=== PATIENT | female | born 1990 | race Caucasian/White ===

== ENCOUNTER 2020-10-30 15:28 | Outpatient (REF) | payer MEDICARE, MEDICAID, SELFPAY | END 2020-10-30 15:29 | disposition home or self-care (01) | LOC: HO.LAB 15:28 | PROVIDERS: Visit Provider Internal Medicine | DX: Z20.822 Contact with and (suspected) exposure to COVID-19 (principal) | CPT/HCPCS: C9803; U0003; U0005 ==

== ENCOUNTER 2021-08-26 13:05 | Emergency (ER) | payer MEDICARE, MEDICAID, SELFPAY ==
[2021-08-26 13:26] VITALS: BP 148/89; PULSE 106; RESP 20; TEMP 36.4; O2SAT 98; BMI 49.3
--- NOTE | 2021-08-26 13:30 | ECG_ITS ---
Test Reason : chest pain Blood Pressure : / mmHG Vent. Rate : 106 BPM Atrial Rate : 106 BPM P-R Int : 156 ms QRS Dur : 094 ms QT Int : 346 ms P-R-T Axes : 019 018 001 degrees QTc Int : 459 ms Sinus tachycardia Otherwise normal ECG When compared with ECG of 02-MAY-2019 18:19, No significant change was found Referred By: Generic ED Physician Electronically Signed By:FAISAL PASCUAL
[2021-08-26 14:22] LABS: MANUAL DIFF FLAG NO
[2021-08-26 14:28] LABS: Basophils Percent Auto 0.3 % (0-2); Eosinophils Absolute Auto 0.1 X10*3/uL (0.0-0.4); Eosinophils Percent Auto 1.4 % (0-4); Hematocrit 33.4 % (37.0-47.0); Imm Gran Abs Auto 0.06 X10*3/uL (0.00-0.03); Imm Gran Pct Auto 0.7 % (0.0-0.4); Lymphocytes Absolute Auto 2.1 X10*3/uL (1.2-4.9); Lymphocytes Percent Auto 24.6 % (20-40); Mean Corpuscular HGB Conc 32.9 g/dl (31.0-35.0); Mean Corpuscular Hemoglobin 28.3 pg (27.0-33.0); Mean Corpuscular Volume 85.9 fL (80.0-98.0); Mean Platelet Volume 9.3 fL (9.4-12.3); Monocytes Absolute Auto 0.4 X10*3/uL (0.1-1.2); Monocytes Percent Auto 4.9 % (2-11); Neutrophils Absolute Auto 5.9 x10*3/uL (2.0-8.3); Neutrophils Percent Auto 68.1 % (45-73); Platelet Count 333 X10*3/uL (160-400); Red Blood Count 3.89 X10*6/uL (4.20-5.50); Red Cell Distribution Width 13.2 % (11.0-16.0); White Blood Count 8.6 X10*3/uL (4.8-10.8)
[2021-08-26 14:38] LABS: Anion Gap 11 (12-20); Blood Urea Nitrogen 7 mg/dL (9-16); Calcium 8.9 mg/dL (8.4-10.2); Carbon Dioxide 24 mmol/L (22-29); Chloride 108 mmol/L (96-108); Creatinine Clr Calc Pharmacy 177.1; Estimated Glomerular Filt Rate > 60; Glucose Random 115 mg/dL (60-115); Potassium 3.7 mmol/L (3.3-5.1); Sodium 139 mmol/L (135-145)
[2021-08-26 14:44] LABS: Troponin-I High Sensitivity < 3.5 ng/L (<3.5-17.0)
[2021-08-26 15:03] VITALS: BP 136/79; PULSE 99; RESP 18; TEMP 36.6; O2SAT 100
--- NOTE | 2021-08-26 15:20 | PC.NURSE ---
patient a&ox3, vss, hr obtained- 147, cardiac cath technician applied sinus tach low 100s, call foley within reach, will continue to monitor.
[2021-08-26 16:07] LABS: Appearance Urine CLEAR; Color Urine YELLOW; Glucose Urine UA NEG (NEG); Leukocyte Esterase Urine NEG (NEG); Nitrite Urine NEG (NEG); Specific Gravity - Urine >= 1.030 (1.005-1.025); Urine Blood NEG (NEG); Urine Ketones 5 MG/DL (NEG); Urine Protein TRACE MG/DL (NEG-TRACE)
--- NOTE | 2021-08-26 16:21 | ED_ITS ---
HPI - Arrhythmia/Palpitations General Chief Complaint: Arrhythmia/Palpitations Stated Complaint: 7 months/ heart palpitations Time Seen by Provider: 08/26/21 14:21 Source: patient Mode of arrival: ambulatory Limitations: no limitations History of Present Illness HPI narrative: 31-year-old female G7P 5, 30 weeks who presents emergency department for evaluation of palpitations. The patient states she has been healing her heart beating irregularly for approximately 4 months. She states that it mainly happens at night. She states that she will have a fast heartbeat and then skip be in feel a thumping sensation in her chest. She points to her sternum when asked to localize the pain. She states that the pain will last seconds but she will get multiple episodes in a row. She states that occasionally with the palpitation she will have pain in her left biceps and left shoulder area. She states that these sensations have become more frequent over the last 2 days. She also states she has been getting severe heartburn which is worse after eating and worse at night. She points to her epigastric area when asked to localize his pain, the pain is a moderate to severe burning sensation. Patient states that she feels the baby moving appropriately pain . She has not had any abdominal pain, cramping or vaginal discharge. The patient states that she has not had preeclampsia with previous pregnancies. She states she has had some high blood pressure readings in the office but is told that she does not have preeclampsia. She denies headache, nausea or vomiting. Patient states that she plans on delivering her baby at [facility]. She states she seen by the [facility] midwives. Related Data Home Medications Medication Instructions Recorded Confirmed metronidazole 0.75 % vaginal gel g VAGINAL 04/29/21 vitamin with calcium 1 tab PO DAILY 04/29/21 no.72-iron 27 mg-folic acid 1 mg tablet (M- Plus) Previous Rx's Medication Instructions Recorded cimetidine 800 mg tablet 800 mg PO BID #60 tab 08/26/21 Allergies Allergy/AdvReac Type Severity Reaction Status Date / Time ketorolac [From TORADOL] Allergy Unknown HIVES Verified 04/29/21 12:02 metronidazole Allergy Unknown heart Verified 04/29/21 12:02 races, nausea Review of Systems Verdana 4l Review of Systems: Yes all other systems are reviewed and Verdana 4d are negative [facility] Past Medical History PMFSH Narrative: Past medical history gestational diabetes. COVID-19 positive 2 or 3 weeks prior to evaluation. He past surgical history: None. Social history: The patient was a former smoker and she stop smoking when she found out she was . She denies alcohol use. She denies drug use. Surgical History No pertinent past surgical history Family History Family History Father Heart failure Acute kidney failure Mother Acute kidney failure Brother In good health Sister In good health Sister In good health Sister In good health Son In good health Daughter In good health Daughter In good health Daughter No problems noted. Social History Social History Housing: Other Alcohol intake: never Patient Tobacco Use Status: Former Tobacco user e-Cigarette/Vaping Use: Never Used Use of substances other than those prescribed or required for medical reasons: No Advance Directives: No Advance Directives Information Provided: Yes Patient : Yes service: No Physical Exam Verdana 4l Vital Signs: Verdana 4d Verdana 4d Vital Signs: Verdana 4d Verdana 4Bd Last Vital Signs Verdana 4d [employer] Plasma Etcher New 4d [employer] Plasma Etcher New 4d Temp 98.2 F 08/26/21 16:42 [employer] Plasma Etcher New 4d Pulse 96 08/26/21 16:42 [employer] Plasma Etcher New 4d Resp 16 08/26/21 16:42 BP 127/72 08/26/21 16:42 Pulse Ox 98 08/26/21 16:42 BMI result Body Mass Index 49.3 Const: Other: Awake, alert, patient, BMI 49.3, very pleasant and cooperative, does not appear to be in distress, answers all questions appropriate HENMT: Head: Yes normal to inspection, Yes normocephalic and Yes atraumatic Ears: external ears normal General nose exam: Normal external nose present Face and sinus: Yes normal facial exam Mouth: Normal oral and palatal mucosa present Throat: Yes posterior oropharynx normal Eyes: General: appearance normal, both eyes and all related structures Pupils: Equal, round and reactive pupils present Neck: Neck: Yes normal visual inspection, Yes no lymphadenopathy, Yes trachea midline and Yes supple Chest: Chest palpation & inspection: normal inspection of the chest and normal palpation of entire chest wall Resp: Effort & Inspection: normal respiratory effort and able to speak in complete sentences Auscultation: clear to auscultation bilaterally Cardio: Rate: regular rate Rhythm: regular rhythm Heart sounds: S1 normal heart sound present, S2 normal heart sound present and no murmurs GI: Inspection: Yes normal to inspection and Yes obesity Palpation (GI): Soft to palpation, Tenderness to palpation present (GI) in the epigastrum ([id number]) and no guarding Auscultation: normal bowel sounds : General: Yes no CVA tenderness Back/Spine/Pelvis: Back: no CVA tenderness Skin: General skin exam: no rashes or lesions noted Neuro: Cranial nerves: Yes CN's II-XII intact bilaterally and Yes Equal, round and reactive pupils present Cognition (Neuro): normal cognition Motor exam (neuro): 5/5 motor strength present throughout Extrem: General: Yes normal to inspection and Yes no pedal edema Psych: Appearance: grossly normal Speech and movement: Normal speech and movement present Affect: normal affect Attitude: cooperative Thought process: Normal thought process present Thought content: Normal thought content present Course Course Course Narrative: 31-year-old female who presents emergency department for evaluation of palpitations. She states she has been experiencing palpitations for 4 months but they have been worse over the past 2 days. They mainly, night. She describes them as lasting seconds with frequent episodes a row. She describes the sensation skipping beats a pounding sensation in her sternum. She occasionally has associated left arm pain with the palpitations. She has no other concerning symptoms. She also states that she has been experiencing heartburn like symptoms in her epigastric area has been taking times. The patient and is 30 weeks . She is getting her care at [facility] by the [facility] midwives. Patient's vital signs initially revealed a blood pressure of 148/89 with a pulse of 102 with improvement of her blood pressure without treatment with a blood pressure of 136/79 and 125/69. Her physical examination did reveal epigastric tenderness and no pedal edema. A 12 EKG revealed a sinus tachycardia with a rate of 106 otherwise was unremarkable. Laboratory evaluation revealed mild anemia which is consistent with with an H&H of 11 and 33.4. She had a normal platelet count. The patient's troponin was below detectable limits. LFTs were normal. The patient's urine revealed trace protein. heart tones were obtained at 147 beats per minute. At this time, I do not think that she has any evidence for preeclampsia or HELLP syndrome. Also, I believe that her palpitations are benig n and I did discuss this with her pain patient will be started on Tagamet 800 mg q.12 hours. 1701: I contacted the [facility] [place] [facility] and discuss the patient's presentation with Beatriz and they will follow-up on the patient MDM - Arrhythmia/Palpitations Lab Data Result diagrams: 08/26/21 14:19 08/26/21 14:19 Labs: Lab Results 08/26/21 08/26/21 08/26/21 Range/Units 14:19 14:19 14:19 WBC 8.6 (4.8-10.8) X10*3/uL RBC 3.89 L (4.20-5.50) X10*6/uL Hgb 11.0 L (12.0-16.0) g/dl Hct 33.4 L (37.0-47.0) % MCV 85.9 (80.0-98.0) fL MCH 28.3 (27.0-33.0) pg MCHC 32.9 (31.0-35.0) g/dl RDW 13.2 (11.0-16.0) % Plt Count 333 (160-400) X10*3/uL MPV 9.3 L (9.4-12.3) fL Immature Gran % (Auto) 0.7 H (0.0-0.4) % Neut % (Auto) 68.1 (45-73) % Lymph % (Auto) 24.6 (20-40) % [place] % (Auto) 4.9 (2-11) % Eos % (Auto) 1.4 (0-4) % Baso % (Auto) 0.3 (0-2) % Lymph # (Auto) 2.1 (1.2-4.9) X10*3/uL [place] # (Auto) 0.4 (0.1-1.2) X10*3/uL Eos # (Auto) 0.1 (0.0-0.4) X10*3/uL Baso # (Auto) 0.0 (0.0-0.2) X10*3/uL Abs Immat Gran (auto) 0.06 H (0.00-0.03) X10*3/uL Absolute Neuts (auto) 5.9 (2.0-8.3) x10*3/uL Absolute Nucleated RBC 0.000 (0.0-0.012) X10*3/uL Nucleated RBC % (auto) 0.0 (0.0-0.2) /100WBC Sodium 139 (135-145) mmol/L Potassium 3.7 (3.3-5.1) mmol/L Chloride 108 (96-108) mmol/L Carbon Dioxide 24 (22-29) mmol/L Anion Gap 11 L (12-20) BUN 7 L (9-16) mg/dL Creatinine 0.69 (0.5-1.4) mg/dL Estim Creat Clear Calc 177.1 Estimated GFR > 60 Random Glucose 115 (60-115) mg/dL Calcium 8.9 (8.4-10.2) mg/dL Total Bilirubin 0.3 (0.0-1.0) mg/dL Direct Bilirubin < 0.2 (0.0-0.5) mg/dL AST 9 (5-31) U/L ALT 12 (0-31) U/L Alkaline Phosphatase 84 (39-117) U/L Troponin I High Sens < 3.5 (<3.5-17.0) ng/L Total Protein 6.2 L (6.5-8.0) g/dL Albumin 3.4 L (3.5-5.0) g/dL Urine Color Urine Appearance Urine pH (5.0-8.0) Ur Specific [place] (1.005-1.025) Urine Protein (NEG-TRACE) MG/DL Urine Glucose (UA) (NEG) MG/DL Urine Ketones (NEG) MG/DL Urine Blood (NEG) Urine Nitrite (NEG) Ur Leukocyte Esterase (NEG) 08/26/21 Range/Units 15:56 WBC (4.8-10.8) X10*3/uL RBC (4.20-5.50) X10*6/uL Hgb (12.0-16.0) g/dl Hct (37.0-47.0) % MCV (80.0-98.0) fL MCH (27.0-33.0) pg MCHC (31.0-35.0) g/dl RDW (11.0-16.0) % Plt Count (160-400) X10*3/uL MPV (9.4-12.3) fL Immature Gran % (Auto) (0.0-0.4) % Neut % (Auto) (45-73) % Lymph % (Auto) (20-40) % [place] % (Auto) (2-11) % Eos % (Auto) (0-4) % Baso % (Auto) (0-2) % Lymph # (Auto) (1.2-4.9) X10*3/uL [place] # (Auto) (0.1-1.2) X10*3/uL Eos # (Auto) (0.0-0.4) X10*3/uL Baso # (Auto) (0.0-0.2) X10*3/uL Abs Immat Gran (auto) (0.00-0.03) X10*3/uL Absolute Neuts (auto) (2.0-8.3) x10*3/uL Absolute Nucleated RBC (0.0-0.012) X10*3/uL Nucleated RBC % (auto) (0.0-0.2) /100WBC Sodium (135-145) mmol/L Potassium (3.3-5.1) mmol/L Chloride (96-108) mmol/L Carbon Dioxide (22-29) mmol/L Anion Gap (12-20) BUN (9-16) mg/dL Creatinine (0.5-1.4) mg/dL Estim Creat Clear Calc Estimated GFR Random Glucose (60-115) mg/dL Calcium (8.4-10.2) mg/dL Total Bilirubin (0.0-1.0) mg/dL Direct Bilirubin (0.0-0.5) mg/dL AST (5-31) U/L ALT (0-31) U/L Alkaline Phosphatase (39-117) U/L Troponin I High Sens (<3.5-17.0) ng/L Total Protein (6.5-8.0) g/dL Albumin (3.5-5.0) g/dL Urine Color YELLOW Urine Appearance CLEAR Urine pH 6.0 (5.0-8.0) Ur Specific [place] >= 1.030 H (1.005-1.025) Urine Protein TRACE (NEG-TRACE) MG/DL Urine Glucose (UA) NEG (NEG) MG/DL Urine Ketones 5 (NEG) MG/DL Urine Blood NEG (NEG) Urine Nitrite NEG (NEG) Ur Leukocyte Esterase NEG (NEG) Discharge Plan Discharge Clinical Impression: Palpitation, Gastroesophageal reflux disease Patient Disposition: Home, Self-Care Instructions: Heart Palpitations (DC), Gastroesophageal Reflux Disease (ED) Additional Instructions: Your blood work today was normal. Your EKG was unremarkable. Your urine revealed trace protein but no other abnormalities. Your having significant heartburn like symptoms. Take Tagamet (cimetidine) 800 mg pills, 1 pill twice a day for 1 month. This medication is safe in pregnancyThis medicine will reduce the amount of acid that you produce in your stomach and help with your heartburn You can continue to take Tums as well. At this time, I think that your palpitations are most likely caused by premature ventricular contractions or premature atrial contractions. These are normal. You should follow-up with your provider to determine if you need any further evaluation as an outpatient Follow-up with the [facility] in 2 days. I did talk to Beatriz at the clinic and they are aware that you are going to contact them for follow- up. Please return to the emergency department if your symptoms get worse or if you develop any symptoms that are concerning to you. You should consider going to [facility] if you are worse since we do not admit women to this hospital. Prescriptions: New cimetidine 800 mg tablet 800 mg PO BID Qty: 60 0RF Rx Instructions: administer with meals No Action M-Ana Plus 27 mg iron- 1 mg tablet 1 tab PO DAILY 0RF metronidazole 0.75 % gel vaginal 0RF
[2021-08-26 16:31] LABS: Alanine Aminotransferase 12 U/L (0-31); Albumin Level 3.4 g/dL (3.5-5.0); Alkaline Phosphatase 84 U/L (39-117); Aspartate Amino Transferase 9 U/L (5-31); Bilirubin Direct < 0.2 mg/dL (0.0-0.5); Bilirubin Total 0.3 mg/dL (0.0-1.0); Total Protein 6.2 g/dL (6.5-8.0)
[2021-08-26 16:42] VITALS: BP 127/72; PULSE 96; RESP 16; TEMP 36.8; O2SAT 98
--- NOTE | 2021-08-26 16:55 | PC.NURSE ---
patient a&ox3, vehicle monitor technician nsr, vss, will continue to monitor.
== END 2021-08-26 17:10 | disposition home or self-care (01) ==
PROVIDERS: Emergency Provider Emergency Medicine Emergency Medical Services
DX: O26.893 Other specified pregnancy related conditions, third trimester (principal); R00.2 Palpitations; K21.9 Gastro-esophageal reflux disease without esophagitis; Z3A.30 30 weeks gestation of pregnancy
CPT/HCPCS: 36415; 80048; 80076; 81003; 84484; 85025; 93005; 99283; 99284

== ENCOUNTER 2021-12-07 12:09 | Outpatient (REF) | payer MEDICARE, MEDICAID, SELFPAY ==
[2021-12-07 13:39] LABS: Hematocrit 38.9 % (37.0-47.0); Hemoglobin 12.5 g/dl (12.0-16.0); Mean Corpuscular HGB Conc 32.1 g/dl (31.0-35.0); Mean Corpuscular Hemoglobin 27.6 pg (27.0-33.0); Mean Corpuscular Volume 85.9 fL (80.0-98.0); Mean Platelet Volume 9.8 fL (9.4-12.3); Platelet Count 320 X10*3/uL (160-400); Red Blood Count 4.53 X10*6/uL (4.20-5.50); Red Cell Distribution Width 12.3 % (11.0-16.0); White Blood Count 4.7 X10*3/uL (4.8-10.8)
[2021-12-07 13:52] LABS: Alanine Aminotransferase 15 U/L (0-31); Alkaline Phosphatase 81 U/L (39-117); Anion Gap 14 (12-20); Aspartate Amino Transferase 12 U/L (5-31); Bilirubin Total 0.5 mg/dL (0.0-1.0); Blood Urea Nitrogen 10 mg/dL (9-16); Calcium 9.6 mg/dL (8.4-10.2); Carbon Dioxide 26 mmol/L (22-29); Chloride 105 mmol/L (96-108); Cholesterol 159 mg/dL; Estimated Glomerular Filt Rate > 60; Glucose Fasting 88 mg/dL (60-99); HDL Cholesterol 42 mg/dL; LDL Cholesterol Calculated 88 mg/dl; Potassium 4.1 mmol/L (3.3-5.1); Sodium 141 mmol/L (135-145); Triglycerides 146 mg/dL
[2021-12-07 14:05] LABS: TSH reflex Free T4 1.27 uIU/mL (0.32-4.0)
== END 2021-12-07 12:10 | disposition home or self-care (01) ==
LOC: HO.WFDLDS 12:09
PROVIDERS: Visit Provider Hospitalist
DX: Z00.00 Encounter for general adult medical examination without abnormal findings (principal)
CPT/HCPCS: 36415; 80053; 80061; 84443; 85027

== ENCOUNTER 2023-01-16 11:43 | Outpatient (REF) | payer MEDICARE, MEDICAID, SELFPAY ==
[2023-01-16 15:10] LABS: Influenza A PCR NEGATIVE (Negative); Influenza B PCR NEGATIVE (Negative); Resp Syncy Virus RNA Qual PCR NEGATIVE (Negative); SARS COV2 PCR INHOUSE NEGATIVE (Negative)
== END 2023-01-16 11:44 | disposition home or self-care (01) ==
LOC: HO.LAB 11:43
PROVIDERS: Visit Provider Family Medicine
DX: Z20.822 Contact with and (suspected) exposure to COVID-19 (principal); R05.9 Cough, unspecified
CPT/HCPCS: 0241U

== ENCOUNTER 2023-08-16 21:03 | Emergency (ER) | payer MEDICARE, MEDICAID, SELFPAY ==
--- NOTE | 2023-08-16 | ECG_ITS ---
Test Reason : CHEST PAIN Blood Pressure : / mmHG Vent. Rate : 081 BPM Atrial Rate : 081 BPM P-R Int : 188 ms QRS Dur : 098 ms QT Int : 386 ms P-R-T Axes : 036 -05 022 degrees QTc Int : 448 ms Normal sinus rhythm Normal ECG When compared with ECG of 26-AUG-2021 13:29, No significant change was found Referred By: Generic ED Physician Electronically Signed By:Scottie Dumont
[2023-08-16 21:09] VITALS: BP 182/118; PULSE 82; RESP 20; TEMP 36.7; O2SAT 99; BMI 52.3
[2023-08-16 21:30] LABS: MANUAL DIFF FLAG NO
[2023-08-16 21:44] LABS: Anion Gap 13 (12-20); Blood Urea Nitrogen 13 mg/dL (9-16); Calcium 9.2 mg/dL (8.4-10.2); Carbon Dioxide 24 mmol/L (22-29); Chloride 107 mmol/L (96-108); Creatinine Clr Calc Pharmacy 156.2; Estimated Glomerular Filt Rate > 60; Glucose Random 103 mg/dL (60-115); Potassium 3.8 mmol/L (3.3-5.1); Sodium 140 mmol/L (135-145)
[2023-08-16 21:46] LABS: Basophils Percent Auto 0.5 % (0-2); Eosinophils Absolute Auto 0.2 X10*3/uL (0.0-0.4); Eosinophils Percent Auto 2.7 % (0-4); Hematocrit 37.5 % (37.0-47.0); Hemoglobin 12.2 g/dl (12.0-16.0); Imm Gran Abs Auto 0.02 X10*3/uL (0.00-0.03); Imm Gran Pct Auto 0.3 % (0.0-0.4); Lymphocytes Absolute Auto 2.4 X10*3/uL (1.2-4.9); Lymphocytes Percent Auto 37.6 % (20-40); Mean Corpuscular HGB Conc 32.5 g/dl (31.0-35.0); Mean Corpuscular Hemoglobin 27.4 pg (27.0-33.0); Mean Corpuscular Volume 84.1 fL (80.0-98.0); Mean Platelet Volume 9.3 fL (9.4-12.3); Monocytes Absolute Auto 0.3 X10*3/uL (0.1-1.2); Neutrophils Absolute Auto 3.4 x10*3/uL (2.0-8.3); Neutrophils Percent Auto 53.9 % (45-73); Platelet Count 348 X10*3/uL (160-400); Red Blood Count 4.46 X10*6/uL (4.20-5.50); Red Cell Distribution Width 12.3 % (11.0-16.0); White Blood Count 6.4 X10*3/uL (4.8-10.8)
[2023-08-16 21:53] LABS: Troponin-I High Sensitivity < 2.7 ng/L (<3.5-17.0)
[2023-08-16 23:27] VITALS: BP 166/102; PULSE 71; RESP 20; TEMP 36.9; O2SAT 98
[2023-08-16 23:49] VITALS: PULSE 80
[2023-08-16 23:50] VITALS: PULSE 80
--- NOTE | 2023-08-16 23:52 | PC.NURSE ---
PT CHANGED TO [facility]. PLACED ON HEART MONITOR DOCUMENTED. RESP EVEN AND UNLABORED. NAD. AWAITING ED PROVIDER BRIANAAL.
--- NOTE | 2023-08-17 00:21 | ED_ITS ---
HPI - Chest Pain General Chief Complaint: Chest Pain Stated Complaint: chest pain Time Seen by Provider: 08/17/23 00:00 Source: patient, RN notes reviewed and old records reviewed Mode of arrival: ambulatory Limitations: no limitations History of Present Illness HPI narrative: 33-year-old female presents for evaluation of left-sided chest pain, neck pain. She reports that her pain has been on and off for approximately 1 month She states her pain radiates to the left side of her neck and her left shoulder/arm Patient states that she sleeps on her side with her left arm underneath her She is concerned this may be contributing to her pain Patient states that her pain is not currently reproducible She denies any known history of cardiac disease She was supposed to see Cardiology but missed her Appointment She is interested in evaluated for sleep apnea Related Data Home Medications Medication Instructions Recorded Confirmed vitamin with calcium 1 tab PO DAILY 04/29/21 10/05/21 no.72-iron 27 mg-folic acid 1 mg tablet (M- Plus) aspirin 81 mg tablet,delayed 81 mg PO BEDTIME 10/05/21 10/05/21 release famotidine 20 mg tablet (Acid 20 mg PO DAILY 01/16/23 Film Or Tape Librarian (famotidine)) fluoxetine 10 mg capsule 10 mg PO DAILY 01/16/23 Previous Rx's Medication Instructions Recorded blood pressure kit-extra large #1 ea 12/07/21 nifedipine 30 mg tablet,extended 30 mg PO DAILY #30 tabs 12/07/21 release cephalexin 500 mg capsule 500 mg PO Q12H 10 days #20 caps 01/16/23 prednisone 10 mg tablet See Rx Instructions PO DAILY 10 01/16/23 days #28 tabs Allergies Allergy/AdvReac Type Severity Reaction Status Date / Time ketorolac [From TORADOL] Allergy Unknown HIVES Verified 08/16/23 21:09 metronidazole Allergy Unknown heart Verified 08/16/23 21:09 races, nausea Review of Systems 2 Constitutional: Constitutional: Denies chills and Denies fever(s) Eyes: Eyes: Denies blurry vision ENT: Reports neck pain Cardiovascular: Cardiovascular: Reports chest pain and Denies dyspnea Respiratory: Respiratory: Denies cough and Denies dyspnea Gastrointestinal: Gastrointestinal: Denies abdominal pain, Denies nausea and Denies vomiting Musculoskeletal: Musculoskeletal: Reports back pain, Denies arthralgias, Denies joint swelling, Denies limited range of motion, Reports neck pain and Reports radiating pain into limb Integumentary/Breasts: Skin/Breast: Denies rash PMFSH Past Medical History Surgical History No pertinent past surgical history Family History Family History Father Heart failure Acute kidney failure Mother Acute kidney failure Brother In good health Sister In good health Sister In good health Sister In good health Son In good health Daughter In good health Daughter In good health Daughter No problems noted. Social History Social History Housing: Other Alcohol intake: never Patient Tobacco Use Status: Former Tobacco user e-Cigarette/Vaping Use: Never Used Second Hand Smoke Exposure: No Advance Directives: No Advance Directives Information Provided: No service: No Current occupational status: disabled Cognitive needs: No Hearing needs: No Vision needs: No Physical Exam 2 Vital Signs: Vital Signs: Last Vital Signs Temp 98.4 F 08/16/23 23:27 Pulse 80 08/16/23 23:50 Resp 20 08/16/23 23:27 BP 166/102 H 08/16/23 23:27 Pulse Ox 98 08/16/23 23:27 O2 Del Method Room Air 08/16/23 23:27 BMI result Body Mass Index 52.3 Const: General: healthy appearing, comfortable, no acute distress, alert and awake Nutritional Appearance: well nourished Orientation/consciousness: p atient oriented x3 HEENT: Head: Yes normocephalic and Yes atraumatic Eyes: Eyelids: Yes eyelids normal Conjunctivae: conjunctivae normal S clerae: sclerae normal Corneas: corneas normal Pupils: Equal, round and reactive pupils present EOM: EOMs intact bilaterally Neck: Neck: Yes full ROM Chest: Chest palpation & inspection: no crepitus (In the area the patient's reported discomfort in left upper chest wall) Resp: Effort & Inspection: normal respiratory effort, able to speak in complete sentences and not labored Back/Spine/Pelvis: Other: Mild tenderness left trapezius muscle group. No deformities palpable. Patient has full range of motion to the bilateral upper extremities Skin: General skin exam: elasticity normal Neuro: General: patient oriented x3 Cranial nerves: Yes Equal, round and reactive pupils present and Yes Bilaterally intact EOM present Cognition (Neuro): normal cognition Medical Decision Making Medical Decision Making [facility] Narrative: 33-year-old female with past medical history significant for hypertension, obesity presents for evaluation of chest pain. Her pain is intermittent over the last month. Her EKG is nonischemic. Sinus rhythm with a rate of 81 beats minute. Her troponin is negative. She has no respiratory symptoms. Musculoskeletal origin versus some degree of anxiety. This was discussed with her at length. She ruled out for ACS. Her vital signs are stable, she will follow with the PCP Differential Diagnosis Differential Diagnoses: The differential diagnosis associated with the presentation includes Chest pain ACS less likely Chest wall pain GERD Costochondritis Lab Data [facility] Lab Attestation statement: I reviewed the patient's lab results. No leukocytosis or anemia. No electrolyte abnormalities. Troponin undetectable 08/16/23 21:21 08/16/23 21:21 Labs: Lab Results 08/16/23 Range/Units 21:21 WBC 6.4 (4.8-10.8) X10*3/uL RBC 4.46 (4.20-5.50) X10*6/uL Hgb 12.2 (12.0-16.0) g/dl Hct 37.5 (37.0-47.0) % MCV 84.1 (80.0-98.0) fL MCH 27.4 (27.0-33.0) pg MCHC 32.5 (31.0-35.0) g/dl RDW 12.3 (11.0-16.0) % Plt Count 348 (160-400) X10*3/uL MPV 9.3 L (9.4-12.3) fL Immature Gran % (Auto) 0.3 (0.0-0.4) % Neut % (Auto) 53.9 (45-73) % Lymph % (Auto) 37.6 (20-40) % [place] % (Auto) 5.0 (2-11) % Eos % (Auto) 2.7 (0-4) % Baso % (Auto) 0.5 (0-2) % Lymph # (Auto) 2.4 (1.2-4.9) X10*3/uL [place] # (Auto) 0.3 (0.1-1.2) X10*3/uL Eos # (Auto) 0.2 (0.0-0.4) X10*3/uL Baso # (Auto) 0.0 (0.0-0.2) X10*3/uL Abs Immat Gran (auto) 0.02 (0.00-0.03) X10*3/uL Absolute Neuts (auto) 3.4 (2.0-8.3) x10*3/uL Absolute Nucleated RBC 0.000 (0.0-0.012) X10*3/uL Nucleated RBC % (auto) 0.0 (0.0-0.2) /100WBC Sodium 140 (135-145) mmol/L Potassium 3.8 (3.3-5.1) mmol/L Chloride 107 (96-108) mmol/L Carbon Dioxide 24 (22-29) mmol/L Anion Gap 13 (12-20) BUN 13 (9-16) mg/dL Creatinine 0.77 (0.5-1.4) mg/dL Estim Creat Clear Calc 156.2 Estimated GFR > 60 Random Glucose 103 (60-115) mg/dL Calcium 9.2 (8.4-10.2) mg/dL Troponin I High Sens < 2.7 (<3.5-17.0) ng/L Independent Interpretation I performed an independent interpretation of an: EKG Interpretation: As above Discharge Plan Discharge Clinical Impression: Chest pain Patient Disposition: Home, Self-Care Instructions: Chest Pain (ED) Additional Instructions: Your workup in the ER today was reassuring This includes your blood work as well as your EKG. Use Motrin/Tylenol for her pain. I suspect her pain may be related to musculoskeletal origin such as a muscle spasm Follow-up with your primary doctor. You may benefit from a sleep study Return for new or worsening symptoms Prescriptions: No Action (DME) blood pressure kit-extra large Kit See Rx Instructions .Route Qty: 1 0RF Rx Instructions: As directed nifedipine 30 mg tablet extended release 30 mg PO DAILY Qty: 30 0RF aspirin 81 mg tablet,delayed release (DR/EC) 81 mg PO BEDTIME M-Ana Plus 27 mg iron- 1 mg tablet 1 tab PO DAILY fluoxetine 10 mg capsule 10 mg PO DAILY famotidine [Acid Film Or Tape Librarian (famotidine)] 20 mg tablet 20 mg PO DAILY cephalexin 500 mg capsule 500 mg PO Q12H 10 Days Qty: 20 0RF prednisone 10 mg tablet See Rx Instructions PO DAILY 10 Days Qty: 28 0RF Rx Instructions: 4 tabs daily for 4 days, 3 tabs daily for 2 days, 2 tabs daily for 2 days, 1 tab daily for 2 days PO daily; Interventions: ED Discharge Assessment Last Done: 08/17/23 00:41 Discharge Date/Time: 08/17/23 00:43
== END 2023-08-17 00:43 | disposition home or self-care (01) ==
PROVIDERS: Emergency Provider Student in an Organized Health Care Education/Training Program
DX: R07.89 Other chest pain (principal); M54.2 Cervicalgia; M25.512 Pain in left shoulder; Z79.899 Other long term (current) drug therapy
CPT/HCPCS: 36415; 80048; 84484; 85025; 93005; 99283; 99284

== ENCOUNTER → 2023-08-16 21:17 | Outpatient (BNV) | payer MEDICARE, MEDICAID, SELFPAY | PROVIDERS: Emergency Provider Student in an Organized Health Care Education/Training Program; Visit Provider Internal Medicine Cardiovascular Disease | DX: R07.9 Chest pain, unspecified (principal) | CPT/HCPCS: 93010 ==

== ENCOUNTER 2023-10-31 10:51 | Outpatient (AMB) | payer OTHER, MEDICARE, MEDICAID, SELFPAY ==
[2023-10-31 11:39] VITALS: BP 150/90; PULSE 99; TEMP 36.3; O2SAT 98; BMI 51.8
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
== END 2023-10-31 14:03 | disposition home or self-care (01) ==
PROVIDERS: Visit Provider Nurse Practitioner Primary Care
DX: S83.92XA Sprain of unspecified site of left knee, initial encounter (principal); M25.512 Pain in left shoulder; M54.41 Lumbago with sciatica, right side; M25.561 Pain in right knee
CPT/HCPCS: 99214

== ENCOUNTER 2023-10-31 12:36 | Outpatient (REF) | payer OTHER, MEDICAID, SELFPAY ==
--- NOTE | ~2023-10-31 | XR_ITS ---
EXAMINATION: XR LUMBAR SPINE XR LEFT SHOULDER CLINICAL INFORMATION: Low back pain unspecified, pain in left shoulder. COMPARISON: Left shoulder 11/03/2017, lumbar spine 12/31/2012. TECHNIQUE: 3 views of the lumbar spine. 3 views of the left shoulder. FINDINGS: LUMBAR SPINE: Mild leftward curvature of the lumbar spine. IUD in the pelvis. Mild degenerative changes in the bilateral sacroiliac joints. Facet arthritis in the lower lumbar spine. Mild degenerative changes in the imaged lower thoracic spine. Lumbar vertebral body heights are preserved. Mild loss of disc space height with spondylosis at L4-L5 and L5-S1. LEFT SHOULDER: Mild interval narrowing of the acromioclavicular joint. Glenohumeral alignment is preserved. No abnormal soft tissue calcifications identified adjacent to the humeral head. XR/XR lumbar spine 2-3V IMPRESSION: 1. Mild degenerative disc disease at L4-L5 and L5-S1. 2. Mild degenerative changes in the bilateral sacroiliac joints. 3. Facet arthritis in the lower lumbar spine. 4. Mild interval narrowing of the left acromioclavicular joint.
--- NOTE | ~2023-10-31 | XR_ITS ---
EXAMINATION: XR LUMBAR SPINE XR LEFT SHOULDER CLINICAL INFORMATION: Low back pain unspecified, pain in left shoulder. COMPARISON: Left shoulder 11/03/2017, lumbar spine 12/31/2012. TECHNIQUE: 3 views of the lumbar spine. 3 views of the left shoulder. FINDINGS: LUMBAR SPINE: Mild leftward curvature of the lumbar spine. IUD in the pelvis. Mild degenerative changes in the bilateral sacroiliac joints. Facet arthritis in the lower lumbar spine. Mild degenerative changes in the imaged lower thoracic spine. Lumbar vertebral body heights are preserved. Mild loss of disc space height with spondylosis at L4-L5 and L5-S1. LEFT SHOULDER: Mild interval narrowing of the acromioclavicular joint. Glenohumeral alignment is preserved. No abnormal soft tissue calcifications identified adjacent to the humeral head. XR/XR shoulder LT min 2V IMPRESSION: 1. Mild degenerative disc disease at L4-L5 and L5-S1. 2. Mild degenerative changes in the bilateral sacroiliac joints. 3. Facet arthritis in the lower lumbar spine. 4. Mild interval narrowing of the left acromioclavicular joint.
--- NOTE | ~2023-10-31 | XR_ITS ---
EXAM: X-RAYS BILATERAL KNEES CLINICAL INFORMATION: Pain in bilateral knees. COMPARISON: 07/04/2019, 11/03/2017. TECHNIQUE: 3 views right knee. 4 views left knee. FINDINGS: RIGHT KNEE: No significant effusion. Mild narrowing of the medial compartment. Tiny tricompartmental osteophytes. LEFT KNEE: Mild narrowing of the medial compartment. No significant joint effusion. Tiny marginal osteophytes. XR/XR knee LT 3V IMPRESSION: Mild degenerative changes in the bilateral knees.
--- NOTE | ~2023-10-31 | XR_ITS ---
EXAM: X-RAYS BILATERAL KNEES CLINICAL INFORMATION: Pain in bilateral knees. COMPARISON: 07/04/2019, 11/03/2017. TECHNIQUE: 3 views right knee. 4 views left knee. FINDINGS: RIGHT KNEE: No significant effusion. Mild narrowing of the medial compartment. Tiny tricompartmental osteophytes. LEFT KNEE: Mild narrowing of the medial compartment. No significant joint effusion. Tiny marginal osteophytes. XR/XR knee RT 3V IMPRESSION: Mild degenerative changes in the bilateral knees.
== END 2023-10-31 12:37 | disposition home or self-care (01) ==
LOC: HO.HMGCX 12:36
PROVIDERS: Visit Provider Nurse Practitioner Primary Care
DX: M25.562 Pain in left knee (principal); M25.561 Pain in right knee; M25.512 Pain in left shoulder; M54.50 Low back pain, unspecified
CPT/HCPCS: 72100; 73030; 73562

== ENCOUNTER 2024-02-19 15:07 | Outpatient (AMB) | payer OTHER, SELFPAY ==
--- NOTE | 2024-02-19 15:10 | A.OFFPC_ITS ---
Vital Signs 02/19/24 15:19 Height 5 ft 6 in Weight 320 lb 4 oz BMI 51.7 BP 142/74 H Blood Pressure Location Rt brachial Position Sitting Respiration 16 Temp 97.8 F Temp Source Oral Intake Visit Reasons: Cough, sore in mouth Intake Note: patient here c/o cough and sore in mouth. 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 Is last menstrual period known: Yes Last menstrual period: 02/18/24 Post menopausal: No Patient : No Allergies ketorolac [From TORADOL] Allergy (Unknown, Verified 02/19/24 15:35) HIVES metronidazole Allergy (Unknown, Verified 02/19/24 15:35) heart races, nausea Tobacco use date assessed: 02/19/24 Dental Screening Dental Screen Date: 02/19/24 Did you have a dental visit in the last 12 months?: Yes Did you have a dental problem in the last 6 months where you did not have access to dental care?: No Was dental information given to patient?: Patient has dentist HPI HPI Comments History of Present Illness Details 34-year-old female presents with complai nts of a cough that is predominantly dry with clear phlegm for the past 3 weeks; worst at night. She notes associated SOB and wheezing when she coughs at night. She also reports mouth sores on/off for the past 1 month No chest pain or constitutional symptoms She denies sick contacts She currently smokes 7 cigarettes daily and has been smoking for over 14 years Unable to obtain O2 sat due to long, painted nails PFSH Surgical History No pertinent past surgical history Family History Father Heart failure Acute kidney failure Mother Acute kidney failure Brother In good health Sister In good health Sister In good health Sister In good health Son In good health Daughter In good health Daughter In good health Daughter No problems noted. Social History Housing: Other Alcohol intake: never Patient Tobacco Use Status: Current everyday Tobacco user Tobacco use type: Cigarette Cigarette Packs Per Day: 0.5 Years Smoked: 17 on and off e-Cigarette/Vaping Use: Never Used Second Hand Smoke Exposure: No service: No Current occupational status: disabled Cognitive needs: No Hearing needs: No Vision needs: No Female Reproductive History Menstrual Date of last menstrual period: 02/18/24 Questionnaire PHQ-9 Over the last 2 weeks, how often have you been bothered by any of the following problems? 1. Little interest or pleasure in doing things: more than half the days 2. Feeling down, depressed, or hopeless: nearly every day 3. Trouble falling or staying asleep, or sleeping too much: nearly every day 4. Feeling tired or having little energy: nearly every day 5. Poor appetite or overeating: more than half the days 6. Feeling bad about yourself - or that you are a failure or have let yourself or your family down: more than half the days 7. Trouble concentrating on things, such as reading the newspaper or watching television: several days 8. Moving or speaking so slowly that other people could have noticed. Or the opposite - being so fidgety or restless that you have been moving around a lot more than usual: nearly every day 9. Thoughts that you would be better off or of hurting yourself in some way: not at all Total score: 19 12089 - PHQ-9 Billing: Yes Source: Developed by Drs. Miguel Singh, Alejandra Conrad, Raffi Reyna and colleagues, with an educational cody from [employer]. Thrive Questionnaire Date Thrive assessed: 10/05/21 AUDIT C Alcohol Use Questionnaire (AUDIT-C) 1. How often do you have a drink containing alcohol?: Monthly or less (ocassional) 2. How many drinks containing alcohol do you have on a typical day when you are drinking?: 3 or 4 3. How often do you have six or more drinks on one occasion?: Never Total Score: 2 Score Reviewed/Action Taken: Yes BRNENAN-7 AMB Questionnaire BRENNAN-7 Date BRENNAN - 7 assessed: 02/19/24 Feeling nervous, anxious, or on edge: 3 = Nearly every day Not being able to stop or control worryin = Nearly every day Worrying too much about different things: 3 = Nearly every day Trouble relaxin = Nearly every day Being so restless that it is hard to sit still: 3 = Nearly every day Becoming easily annoyed or irritable: 3 = Nearly every day Feeling afraid as if something awful might happen: 3 = Nearly every day Total BRENNAN-7 score (0-4 normal; 5-9 mild; 10-14 moderate; 15-21 severe): 21 Source: Developed by Drs. Miguel Singh, Alejandra Conrad, Raffi Reyna and colleagues, with an educational cody from [employer]. BRENNAN-7 Assessment Billing BRENNAN-7 Assessment Tool: BRENNAN-7 Assessment 83782 Review of Systems Const Details: Const Denies chills, Denies fatigue, Denies fever(s), Denies headache(s) and Denies weakness ENT Denies dizziness and Denies headache(s) Card Denies chest pain, Denies lightheadedness, Denies dyspnea and Denies other (Palpitations) Resp Denies cough, Denies dyspnea, Denies wheezing and Denies other ( shortness of breath) GI Denies abdominal pain, Denies melena, Denies hematochezia, Denies change in bowel habits, Denies dyspepsia and Denies nausea Denies hematuria and Denies dysuria Musc Denies abnormal gait, Denies myalgias, Denies arthralgias, Denies numbness and Denies tingling Skin/Breast Reports as per HPI Neuro Denies abnormal gait, Denies dizziness, Denies headache(s), Denies memory loss, Denies numbness, Denies Sensory deficit (Neuro), Denies tingling and Denies weakness Psych Denies anxiety, Denies depression, Denies memory loss Endo Denies cold intolerance, Denies fatigue, Denies heat intolerance, Denies polydipsia and Denies polyuria Aller/Immun Denies wheezing Physical exam (Primary Care) Vital Signs: Last Vital Signs Temp 97.8 F 02/19/24 15:19 Resp 16 02/19/24 15:19 BP 142/74 H 02/19/24 15:19 Pulse Ox 60 L 02/19/24 15:19 Oxygen Delivery Method Room Air 02/19/24 15:19 BMI result Body Mass Index 51.7 Tobacco/Smoking Status: Tobacco use Status Tobacco use date assessed 02/19/24 02/19/24 15:19 Patient Tobacco Use Status Current everyday Tobacco 02/19/24 15:19 Tobacco use type Cigarette 02/19/24 15:19 e-Cigarette/Vaping Use Never Used 02/19/24 15:10 PHQ-9: PHQ-9 Score PHQ-9: Total score 19 02/19/24 15:37 Thrive Assessment: Date of Thrive Assessment Date Thrive assessed 10/05/21 02/19/24 15:10 Const Other: General: no acute distress and well developed Nutritional Appearance: well nourished Orientation/consciousness: patient oriented x3 HENMT Head: Yes normocephalic and Yes atraumatic Eyes General: appearance normal, both eyes and all related structures Pupils: Equal, round and reactive pupils present EOM: EOMs intact bilaterally Resp Effort & Inspection: normal respiratory effort Auscultation: clear to auscultation bilaterally Cardio Rate: regular rate Rhythm: regular rhythm Heart sounds: S1 normal heart sound present, S2 normal heart sound present, no gallops, no murmurs and no rubs GI Palpation (GI): No Abdominal aortic bruit present, Soft to palpation, nontender, No hepatosplenomegaly present and No Rebound tenderness present Auscultation: normal bowel sounds General: Yes no CVA tenderness Back/Spine/Pelvis Back: no CVA tenderness Cervical Spine: cervical ROM normal and No Cervical spine tenderness Thoracic/Lumbar Spine: thoraco-lumbar ROM normal, No pain with thoraco-lumbar ROM, No thoracic spinal tenderness and No lumbar spinal tenderness Extrem General: Yes normal to inspection, No edema and No calf tenderness Skin General: warm and dry. Normal skin color. Normal skin turgor. One small sore to the tip of her tongue and the roof of her mouth, consistent with canker sore Neuro General: patient oriented x3, gait normal and no focal neuro deficit Cranial nerves: Yes Equal, round and reactive pupils present Cognition (Neuro): normal cognition Gait exam (Neuro): Normal gait present Sensory Exam: No Sensory deficit (Neuro) Psych Appearance: grossly normal Affect: normal affect Attitude: cooperative Thought process: Normal thought process present Assessment and Plan Assessment & Plan (1) Cough: Code(s): R05.9 - Cough, unspecified Plan: Predominantly nonproductive cough, progressively worsened x3 months Lung sounds clear bilaterally No evidence of viral or bacterial infection Likely allergies Zyrtec ordered. Take as prescribed at bedtime Smoking cessation encouraged Advised to schedule an appointment to establish with a primary care provider Verbalized understanding and agreed with the plan (2) Canker sore: Code(s): K12.0 - Recurrent oral aphthae Plan: 1 small sore to the tip of her tongue and the roof of her mouth Supportive treatment such as antiseptic mouthwash or saltwater mouth rinse Follow-up with PCP with symptoms or concerns Verbalized understanding and agreed with treatment plan Medications: New cetirizine (Zyrtec) 10 mg PO DAILY 30 days 30 tabs 2RF Coding Level of Care Code Est Pt Level 4 (95369) Complex EM visit Add On G2211 Diagnoses Cough R05.9 Canker sore K12.0 Additional Codes BRENNAN-7 Assessment Billing - BRENNAN-7 Assessment Tool: BRENNAN-7 Assessment [id number] ([id number])
[2024-02-19 15:19] VITALS: BP 142/74; RESP 16; TEMP 36.6; BMI 51.7
== END 2024-02-19 15:58 | disposition home or self-care (01) ==
PROVIDERS: Visit Provider Nurse Practitioner Family
DX: R05.9 Cough, unspecified (principal); K12.0 Recurrent oral aphthae
CPT/HCPCS: 99214; G2211

== ENCOUNTER 2024-04-22 14:08 | Outpatient (AMB) | payer OTHER, SELFPAY ==
--- OUTSIDE RECORDS SUMMARY | 2024-04-22 14:09 | XMS_ITS | Continuity of Care Document ---
Author Organization [facility] Address [address] [place] [id number]- Care Team Providers Care Food Assembler Name Role Phone Carolynn ORDONEZ, Sara Arita Primary Care Physician [phone] Encounter [facility] Date(s): 06/07/22 - 07/07/[address] [id number] Allergies, Adverse Reactions, Alerts Substance Reaction Severity Status Toradol Active Immunizations Given and Recorded Vaccine Date Status Refusal Reason tetanus/diphtheria/pertussis, acel(Tdap) 09/09/21 Given tetanus/diphtheria/pertussis, acel(Tdap) 02/13/14 Given influenza virus vaccine, inactivated 06/22/21 Give n influenza virus vaccine, inactivated 1 05/13/14 Gi arpan influenza virus vaccine, inactivated 10/02/13 Give n influenza virus vaccine, inactivated 2 06/16/06 Gi arpan 1Admin Note: vis given 03/11/14 2Admin Note: VIS GIVEN Medications Multivitamins with Folic Acid 1 mg oral tablet 1 tablet, By Mouth, Daily, # 90 tablet, 2 Refills, Maintenance, 05/10/22 18:35:00 EDT, Tablet, [id number], Partial fill upon patient request if the prescription is for a schedule II opioid drug., 1 tablet By Mouth Daily, 170, cm, 01/21/22 21:0... Start Date: 05/10/22 Status: Ordered sertraline 25 mg oral tablet 1 tablet = 25 mg, By Mouth, Daily, # 30 tablet, 3 Refills, Maintenance, 07/05/22 16:15:00 EST, Tablet, [id number], Partial fill upon patient request if the prescription is for a schedule II opioid drug., 170, cm, 05/10/22 13:04:00 EDT, Height,... Start Date: 07/05/22 Status: Ordered Problem List Condition Confirmation Course Effective Dates Status H ealth Status Informant Anemia Confirmed Active Chronic headache Confirmed Active Former smoker Confirmed Active Short interval between pregnancies affecting , antepartum Confirmed Active Hidradenitis suppurativa Confirmed Active HGSIL (high grade squamous intraepithelial lesion) on Pap smear of cervix Confirmed Active History of abnormal cervical Pap smear Confirmed Active History of gestational diabetes Confirmed Active Chronic hypertension Confirmed Active Obesity, morbid, BMI 50 or higher Confirmed Active Obesity during Confirmed Active PTSD (post-traumatic stress disorder) 1 Confirmed Active Confirmed Active Rubella non-immune status, antepartum Confirmed Active Severe obesity Confirmed Active Current smoker Confirmed Active 1related to past life trauma Social History Social History Type Response Tobacco Use: 4 or less cigar ettes(less than 1/4 pack)/day in last 30 days. Sex Patient Care team information Care Team Personnel Name: Damien RN, Evelyn Anthony Position: S OB RN Member Role: Primary Care Nurse Name: Sara Pradhan NP Position: Reference Physician Member Role: PCP Address: Address: [address] [place] [address]- Care Team Related Persons Name: CLARK MACHADO Address: home [address] [address] Name: NYA DURAND Address: home [address] [place] [address] Name: KARSTEN GALLAGHER Address: home [address] [place] [address] Name: JACKY PÉREZ Address: home [address] [place] [address] Name: JACKY AMOR Address: home [address] [place] [address] Name: LITTLE ELIAS Address: [id number] Address: home [address] [place] [address] Name: CARLITOS DIAZ
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
--- OUTSIDE RECORDS SUMMARY | 2024-04-22 14:09 | XMS_ITS | Continuity of Care Document ---
Author Organization [facility] Address [address] [place] [address]- Care Team Providers Care Lens Mounter Name Role Phone Ilan ORDONEZ, Lazaro Primary Care Physician [phone] [place] [facility] Date(s): 01/26/21 - 02/25/[address] [address] Allergies, Adverse Reactions, Alerts Substance Reaction [...] 07/28/19 16:40:00 EST, Route to Pharmacy Electronically, [facility]/pharmacy #[id number], 168, cm, 03/15/18 15:47:00 EDT, Height, 110.9, kg, 03/15/18 15:47:00 EDT, Start Date: 07/28/19 Status: Ordered metronidazole topical 0.75% gel with applicator 1 applicator, Vaginally, Daily at bedtime, for 10 days, insert vaginally qhs x 10nights and then twice weekly x 6months, # 70 Gm, 4 Refills, Acute 03/26/21 11:14:00 EDT, 02/04/21 11:14:00 EDT, Gel, [facility]/pharmacy #[id number], give extra applicators, 1 applica... Start Date: [...]
--- OUTSIDE RECORDS SUMMARY | 2024-04-22 14:09 | XMS_ITS | Continuity of Care Document ---
Author Organization [facility] Address [address] [place] [address]- Care Team Providers Care Finishing Machine Operator Automatic Name Role Phone Not on Staff, PCP Primary Care Physician Unavail able Encounter [facility] Date(s): 08/18/21 - [facility] [address] [address] Attending Physician: Not on Staff, Attending MD Allergies, Adverse Reactions, Alerts Substance Reaction Severity [...] given 03/11/14 2Admin Note: VIS GIVEN Medications cyclobenzaprine 5 mg oral tablet 1 tablet = 5 mg, By Mouth, 3 times a day, # 30 tablet, 0 Refills, Maintenance, 10/26/21 12:58:00 EDT, [id number], Partial fill upon patient request if the prescription is for a schedule II opioid drug., 165, cm, 10/26/21 9:33:00 EDT, Height, 1... Start Date: 10/26/21 Status: Ordered metronidazole topical 0.75% gel with applicator 1 applicator, Vaginally, Daily at bedtime, for 5 days, # 70 Gm, 0 Refills, Acute 12/07/21 16:53:00 EDT, 12/02/21 16:53:00 EDT, Gel, [id number], Partial fill upon patient request if the prescription is for a schedule II opioid drug., 1 applicat... Start Date: 12/02/21 Stop Date: 12/07/21 Status: Ordered Multivitamins with Folic Acid 1 mg oral tablet 1 tablet, By Mouth, Daily, # 30 tablet, 8 Refills, Maintenance, 03/09/21 15:40:00 EDT, Tablet, [id number], Partial fill upon patient request if the prescription is for a schedule II opioid drug., 1 tablet By Mouth Daily, 168, cm, 02/03/21 12:2... Start Date: 03/09/21 Status: Ordered Problem List Condition Effective Dates Status Health Status Inform ant Anemia(Confirmed) Active Chronic headache(Confirmed) Active Hidradenitis suppurativa(Confirmed) Active HGSIL (high grade squamous intraepithelial lesion) on Pap smear of cervix(Confirmed) Active History of abnormal cervical Pap smear(Confirmed) Active History of gestational diabetes(Confirmed) Active Chronic hypertension(Confirmed) Active Obesity, morbid, BMI 50 or higher(Confirmed) Active Encounter for induction of labor(Confirmed) Active PTSD (post-traumatic stress disorder)(Confirmed) 1 Active Severe obesity(Confirmed) Active Current smoker(Confirmed) Active 1related to past life trauma Social History Social History Type Response Smoking Status Former smoker entered on: 04/27/14 Sex
--- OUTSIDE RECORDS SUMMARY | 2024-04-22 14:10 | XMS_ITS | Continuity of Care Document ---
Author Organization [facility] Address [address] [place] [address]- Care Team Providers Care Dry Talc Racker Name Role Phone Carolynn ORDONEZ, Sara Arita Primary Care Physician [place] [facility] [place] 11/27/23 - 12/27/23 [facility] [address] [place] [address]- Attending Physician: Poli Matta Admitting Physician: Admtr, Poli Referring Physician: Admtr, ArDontrell Allergies, Adverse Reactions, Alerts Substance Reaction Severity Status Toradol Active Immunizations Given and Recorded Vaccine Date Status Refusal Reason Measles/Mumps/Rubella Virus Vaccine 12/07/22 Given tetanus/diphtheria/pertussis, acel(Tdap) 10/27/22 Given tetanus/diphtheria/pertussis, acel(Tdap) 09/09/21 Given tetanus/diphtheria/pertussis, acel(Tdap) 02/13/14 Given influenza virus vaccine, inactivated 06/22/21 Give n influenza virus vaccine, inactivated 1 05/13/14 Gi arpan influenza virus vaccine, inactivated 10/02/13 Give n influenza virus vaccine, inactivated 2 06/16/06 Gi arpan 1Admin Note: vis given 03/11/14 2Admin Note: VIS GIVEN Medications Colace sodium 100 mg oral capsule 100 mg, 1, capsule, By Mouth, 2 times a day, PRN, # 20 capsule, Refills 0, Tot. Refills 0, Maintenance, for constipation, 01/10/23 15:26:00 EDT, Route to Pharmacy Electronically, [facility]/pharmacy #[id number], Partial fill upon patient request if the prescriptio... Start Date: 01/10/23 Status: Ordered famotidine 20 mg oral tablet 1, tablet, By Mouth, Daily at bedtime, # 90 tablet, Refills 0, Tot. Refills 0, Maintenance, 02/09/23 12:19:00 EDT, Route to Pharmacy Electronically, [facility]/pharmacy #[id number], 170, cm, 02/09/23 12:11:00 EDT, Height, 150.4, kg, 12/22/22 17:10:00 EDT, Dry Weight Start Date: 02/09/23 Stop Date: 05/10/23 Status: Ordered gabapentin 300 mg oral capsule 300 mg, 1, capsule, By Mouth, 3 times a day, # 90 capsule, Refills 5, Tot. Refills 5, Maintenance, 12/27/22 14:38:00 EDT, Route to Pharmacy Electronically, [id number], Partial fill upon patient request if the prescription is for a schedule II... Start Date: 12/27/22 Stop Date: 06/25/23 Status: Ordered NIFEdipine 30 mg oral tablet, extended release 30 mg, 1, tablet, By Mouth, Every 24 hours, # 30 tablet, Refills 0, Tot. Refills 0, Maintenance, 02/09/23 10:43:00 EDT, Route to Pharmacy Electronically, [id number], Partial fill upon patientrequest if the prescription is for a schedule II op... Start Date: 02/09/23 Status: Ordered Multivitamins with Folic Acid 1 mg oral tablet 1 tablet, By Mouth, Daily, # 90 tablet, 2 Refills, Maintenance, 05/10/22 18:35:00 EDT, Tablet, [id number], Partial fill upon patient request if the prescription is for a schedule II opioid drug., 1 tablet By Mouth Daily, 170, cm, 01/21/22 21:0... Start Date: 05/10/22 Status: Ordered Vistaril pamoate 25 mg oral capsule 1 capsule = 25 mg, By Mouth, 4 times a day, PRN for anxiety, # 40 capsule, 0 Refills, Maintenance, 11/02/22 18:45:00 EDT, Capsule, [id number], Partial fill upon patient request if the prescription is for a schedule II opioid drug., 170, cm, 04... Start Date: 11/02/22 Status: Ordered Problem List Condition Confirmation Course Effective Dates Status H ealth Status Informant Anxiety Confirmed Active ETHAN II (cervical intraepithelial neoplasia II) Confirmed Active Former smoker Confirmed Active GERD (gastroesophageal reflux disease) Confirmed Active Hidradenitis suppurativa Confirmed Active History of gestational diabetes Confirmed Active History of gestational hypertension Confirmed Active Chronic hypertension Confirmed Active Heart palpitations Confirmed Active PTSD (post-traumatic stress disorder) 1 Confirmed Active Rubella non-immune status, antepartum Confirmed Active Severe obesity Confirmed Active 1related to past life trauma Social History Social History Type Response Tobacco Use: 4 or less cigar ettes(less than 1/4 pack)/day in last 30 days. Sex Patient Care team information Care Team Personnel Name: Damien RN, Evelyn Anthony Position: [facility] OB RN Member Role: Primary Care Nurse Name: Vamshi Ford RN Position: S RN Member Role: Primary Care Nurse Name: Sara Pradhan NP Position: Reference Physician Member Role: PCP Address: Address: [address] [place] [address]- Care Team Related Persons Name: CLARK MACHADO Address: home [address] [address] Name: NYA DURAND Address: [address] [place] [address] Name: KARSTEN GALLAGHER Address: home [address] [place] [address] Name: JACKY PÉREZ Address: home [address] [place] [address] Name: JACKY AMOR Address: home [address] [place] [address] Name: LITTLE ELIAS Address: [address] Address: [address] [place] [address] [place] Name: MARVIN ELIAS Address: [address] Address: [address] [place] [address] [place] Name: MARVIN ELIAS Address: [address] [place] [address] Name: CARLITOS DIAZ
--- OUTSIDE RECORDS SUMMARY | 2024-04-22 14:10 | XMS_ITS | Continuity of Care Document ---
Author Organization [facility] Address [address] [place] [address]- Care Team Providers Care Laundry Route Driver Name Role Phone Carolynn ORDONEZ, Sara Arita Primary Care Physician Encounter [facility] Date(s): 07/27/22 - 09/01/22 [facility] [address] [address]- Attending Physician: Hue Hale MD Admitting Physician: Hue Hale MD Referring Physician: Leyla ORDONEZ CNLyla, Alina Robins Allergies, Adverse Reactions, Alerts Substance Reaction Severity [...] given 03/11/14 2Admin Note: VIS GIVEN Medications Alcohol Pads See Instructions, # 90 each, Maintenance, DX: 099.810 - Please test blood sugars 4 times a day., 08/01/22 8:54:00 EST, Supply, 170, cm, 07/28/22 16:30:00 EST, Height, 143.2, kg, 05/16/22 14:20:00 EDT, Dry Weight Start Date: 08/01/22 Status: Ordered Alcohol Pads See Instructions, # 90 each, Maintenance, as directed, 07/29/22 8:40:00 EST, Supply, 170, cm, 07/28/22 16:30:00 EST, Height, 143.2, kg, 05/16/22 14:20:00 EDT, Dry Weight Start Date: 07/29/22 Status: Ordered amoxicillin 500 mg oral capsule 1 capsule = 500 mg, By Mouth, 3 times a day, for 7 days, # 21 capsule, 0 Refills, Acute 09/08/22 17:18:00 EST, 09/01/22 17:18:00 EST, Capsule, [facility]/pharmacy #[id number], Partial fill upon patient request ifthe prescription is for a schedule II opioid drug.,... Start Date: 09/01/22 Stop Date: 09/08/22 Status: Ordered aspirin 81 mg oral delayed release tablet 162 mg, 2, tablet, By Mouth, Daily, # 30 tablet, Refills 5, Maintenance, 07/12/22 16:12:00 EST, Partial fill upon patient request if the prescription is for a schedule II opioid drug. Start Date: 07/12/22 Status: Ordered Docu Soft sodium 100 mg oral capsule 1 capsule = 100 mg, By Mouth, 2 times a day, PRN for constipation, # 100 capsule, 0 Refills, Maintenance, 08/13/22 13:33:00 EST, Capsule, [facility]/pharmacy #[id number], Partial fill upon patient request if the prescription is for a schedule II opioid drug., 170,... Start Date: 08/13/22 Status: Ordered famotidine 20 mg oral tablet 1, tablet, By Mouth, Daily at bedtime, # 30 tablet, Refills 1, Maintenance, 08/28/22 16:08:00 EST, Route to Pharmacy Electronically, [facility] STORE [id number], 170, cm, 07/28/22 16:30:00 EST, Height, 143.2, kg, 05/16/22 14:20:00 EDT, Dry Weight Start Date: 08/28/22 Status: Ordered Freestyle Lite Lancets See Instructions, # 90 each, Maintenance, DX: 099.810 - Please test blood sugars 4 times a day., 08/01/22 8:54:00 EST, Supply, 170, cm, 07/28/22 16:30:00 EST, Height, 143.2, kg, 05/16/22 14:20:00 EDT, Dry Weight Start Date: 08/01/22 Status: Ordered Freestyle Lite Lancets See Instructions, # 90 each, Maintenance, test 4x daily fasting and 2hr pc, 07/29/22 8:40:00 EST, Supply, 170, cm, 07/28/22 16:30:00 EST, Height, 143.2, kg, 05/16/22 14:20:00 EDT, Dry Weight Start Date: 07/29/22 Status: Ordered Freestyle Lite Monitor See Instructions, # 1 each, Maintenance, DX: 099.810 - Please test blood sugars 4 times a day., 08/01/22 8:54:00 EST, Supply, 170, cm, 07/28/22 16:30:00 EST, Height, 143.2, kg, 05/16/22 14:20:00 EDT,Dry Weight Start Date: 08/01/22 Status: Ordered Freestyle Lite Monitor See Instructions, # 1 each, Maintenance, Please teach how to use monitor test 4 xday fasting & 2 hr after meals. Test for 1 week, 07/29/22 8:40:00 EST, Supply, 170, cm, 07/28/22 16:30:00 EST, Height, 143.2, kg, 05/16/22 14:20:00 EDT, Dry Weight Start Date: 07/29/22 Status: Ordered Freestyle Lite Test Strips See Instructions, # 90 each, Maintenance, DX: 099.810 - Please test blood sugars 4 times a day., 08/01/22 8:54:00 EST, Supply, 170, cm, 07/28/22 16:30:00 EST, Height, 143.2, kg, 05/16/22 14:20:00 EDT, Dry Weight Start Date: 08/01/22 Status: Ordered Freestyle Lite Test Strips See Instructions, # 90 each, Maintenance, test 4x day for 1 week, 07/29/22 8:40:00 EST, Supply, 170, cm, 07/28/22 16:30:00 EST, Height, 143.2, kg, 05/16/22 14:20:00 EDT, Dry Weight Start Date: 07/29/22 Status: Ordered ondansetron 4 mg oral tablet, disintegrating 1 tablet = 4 mg, By Mouth, Once, PRN as needed for nausea/vomiting, # 10 tablet, 0 Refills, Soft Stop, 08/23/22 22:06:00 EST, DIS Tablet, [id number], Partial fill upon patient request if the prescription is for a schedule II opioid drug., 170,... Start Date: 08/23/22 Status: Ordered Multivitamins with Folic Acid 1 mg oral tablet 1 tablet, By Mouth, Daily, # 90 tablet, 2 Refills, Maintenance, 05/10/22 18:35:00 EDT, Tablet, [facility]/pharmacy #[id number], Partial fill upon patient request if the prescription is for a schedule II opioid drug., 1 tablet By Mouth Daily, 170, cm, 01/21/22 21:0... Start Date: 05/10/22 Status: Ordered Problem List Condition Confirmation Course [...] 1/4 pack)/day in last 30 days. Sex Female Patient Care team information Care Team Personnel Name: Evelyn Quezada RN Position: S OB RN Member Role: Primary Care Nurse Name: Sara Pradhan NP Position: Reference Physician Member Role: PCP Address: Address: [address] [place] [address]- Care Team Related Persons Name: CLARK MACHADO Address: home [address] [address] Name: NYA DURAND Address: [address] [place] [address] Name: KARSTEN GALLAGHER Address: [address] [place] [address] Name: JACKY PÉREZ Address: [address] [place] [address] Name: JACKY AMOR Address: [address] [place] [address] Name: LITTLE ELIAS Address: [address] Address: [address] [place] [address] Name: CARLITOS DIAZ
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
--- OUTSIDE RECORDS SUMMARY | 2024-04-22 14:10 | XMS_ITS | Continuity of Care Document ---
Author Organization [facility] Address [address] [place] [address]- Care Team Providers Care Furnace Unloader Name Role Phone Carolynn ORDONEZ, Sara Arita Primary Care Physician Encounter [facility] Date(s): 03/05/24 - 04/04/[address] [id number] Allergies, Adverse Reactions, Alerts Substance Reaction [...] 01/10/23 15:26:00 EDT, Route to Pharmacy Electronically, [facility]/pharmacy #[id number], Partial fill upon patient request if the prescriptio... Start Date: 01/10/23 Status: Ordered famotidine 20 mg oral tablet 1, tablet, By Mouth, Daily at bedtime, # 90 tablet, Refills 0, Tot. Refills 0, Maintenance, 02/09/23 12:19:00 EDT, Route to Pharmacy Electronically, [facility]acy #[id number], 170, cm, 02/09/23 12:11:00 EDT, Height, [...] 01/21/22 21:0... Start Date: 05/10/22 Status: Ordered SUMAtriptan 25 mg oral tablet 1 tablet = 25 mg, By Mouth, Daily, PRN for migraine headache, may repeat dose after 2 hours up to amaximum of 2, # 18 tablet, 0 Refills, Maintenance, 01/07/24 18:36:00 EDT, Tablet, [id number], Partial fill upon patient request if the prescrip... Start Date: 01/07/24 Status: Ordered Vistaril pamoate 25 mg oral capsule 1 capsule = 25 mg, By Mouth, 4 times a day, PRN for anxiety, # 40 capsule, 0 Refills, Maintenance, 11/02/22 18:45:00 EDT, Capsule, [id number], Partial fill upon patient request if the prescription is for a schedule II opioid drug., 170, cm, 04... Start Date: 11/02/22 Status: Ordered Problem List Condition Confirmation Course Effective Dates Status H ealth Status Informant Anxiety Confirmed Active ETHAN II (cervical intraepithelial neoplasia II) Confirmed Active GERD (gastroesophageal reflux disease) Confirmed Active Hidradenitis suppurativa Confirmed Active History of gestational diabetes Confirmed Active History of gestational hypertension Confirmed Active Chronic hypertension Confirmed Active Heart palpitations Confirmed Active PTSD (post-traumatic stress disorder) 1 Confirmed Active Severe obesity Confirmed Active 1related to past life trauma Social History Social History Type Response Tobacco Use: 4 or less cigar ettes(less than 1/4 pack)/day in last 30 days. Sex Patient Care team information Care Team Personnel Name: Evelyn Quezada RN Position: [facility] OB RN Member Role: Primary Care Nurse Name: Vamshi Ford RN Position: S RN Member Role: Primary Care Nurse Name: Sara Pradhan NP Position: Reference Physician Member Role: PCP Address: Address: [address] [place] [address]- Care Team Related Persons Name: CLARK MACHADO Address: home [address] [address] Name: NYA DURAND Address: home [address] [place] [address] Name: STEVEN MALAVE Address: home [address] [place] [address] Name: KARSTEN GALLAGHER Address: home [address] [place] [address] Name: JACKY PÉREZ Address: home [address] [place] [address] Name: JACKY AMOR Address: home [address] [place] [address] Name: LITTLE ELIAS Address: [address] Address: home [address] [place] [address] [place] Name: MARVIN ELIAS Address: [address] Address: home [address] [place] [address] [place] Name: CARLITOS DIAZ
--- OUTSIDE RECORDS SUMMARY | 2024-04-22 14:10 | XMS_ITS | Continuity of Care Document ---
Author Organization [facility] Address [address] [place] [address]- Care Team Providers Care Wood Stainer Name Role Phone Carolynn ORDONEZ, Sara Arita Primary Care Physician Encounter [facility] Date(s): 03/02/23 - 04/01/[address] [address] Attending Physician: Admtr, Ar8 Allergies, Adverse Reactions, Alerts Substance Reaction Severity [...] 01/10/23 15:26:00 EDT, Route to Pharmacy Electronically, [facility]/pharmacy #[id number], Partial fill upon patient request if the [...] List Condition Confirmation Course Effective Dates Status Health St atus Informant Anxiety Confirmed Active Former smoker Confirmed Active Short interval between pregnancies affecting , antepartum Confirmed Active GERD (gastroesophageal reflux disease) Confirmed Active Hidradenitis suppurativa Confirmed Active History of abnormal cervical Pap smear Confirmed Active History of gestational diabetes Confirmed Active History of gestational hypertension Confirmed Active Chronic hypertension Confirmed Active Glucose intolerance of Confirmed Active Obesity during Confirmed Active Heart palpitations Confirmed Active PTSD (post-traumatic stress disorder) 1 Confirmed Active Confirmed Active Rubella non-immune status, antepartum Confirmed Active Severe obesity Confirmed Active 1related to past life trauma Social History Social History Type Response Tobacco Use: 4 or less cigar ettes(less than 1/4 pack)/day in last 30 days. Sex Patient Care team information Care Team Personnel Name: Evelyn Quezada RN Position: [facility] OB RN Member Role: Primary Care Nurse Name: Vamshi Ford RN Position: S RN Member Role: Primary Care Nurse Name: Corine Yoder RN Position: S RN Member Role: Primary Care Nurse Name: Sara Pradhan NP Position: Reference Physician Member Role: PCP Address: Address: [address] [place] [address]- Care Team Related Persons Name: MAGUI MACHADOO Address: home [address] [address] Name: NYA DURAND Address: home [address] [place] [address] Name: KARSTEN GALLAGHER Address: home [address] [place] [address] Name: JACKY PÉREZ Address: home [address] [place] [address] Name: JACKY AMOR Address: [address] [place] [address] Name: LITTLE ELIAS Address: [address] Address: home [address] [place] [address] [place] Name: MARVIN ELIAS Address: [address] Address: home [address] [place] [address] [place] Name: MARVIN ELIAS Address: [address] [place] [address] Name: CARLITOS DIAZ
--- OUTSIDE RECORDS SUMMARY | 2024-04-22 14:10 | XMS_ITS | Continuity of Care Document ---
Author Organization [facility] Address [address] [place] [address]- Care Team Providers Care Farmer Cash Grain Name Role Phone Carolynn ORDONEZ, Sara Arita Primary Care Physician [phone] Encounter [facility] Date(s): 03/06/24 - 04/05/[address] [address] Attending Physician: Admtr, Ar8 Allergies, Adverse [...] influenza virus vaccine, inactivated 2 06/16/06 Gi arapn 1Admin Note: vis given 03/11/14 2Admin Note: VIS GIVEN Medications Colace sodium 100 mg oral capsule 100 mg, 1, capsule, By Mouth, 2 times a day, PRN, # 20 capsule, Refills 0, Tot. Refills 0, Maintenance, for constipation, 01/10/23 15:26:00 EDT, Route to Pharmacy Electronically, [facility]/pharmacy #[id number], Partial fill upon patient request if the [...] Refills, Maintenance, 11/02/22 18:45:00 EDT, Capsule, [id number], Partial fill upon patient request if the [...] team information Care Team Personnel Name: Damien ARREGUIN, Evelyn Anthony Position: [facility] OB RN Member Role: Primary Care Nurse Name: Vamshi Ford RN Position: S RN Member Role: Primary Care Nurse Name: Sara Pradhan NP Position: Reference Physician Member Role: PCP Address: Address: [address] [place] [address]- Care Team Related Persons Name: CLARK MACHADO Address: home [address] [address] Name: NYA DURAND Address: home [address] [place] [address] Name: STEVEN MALAVE Address: [address] [place] [address] Name: KARSTEN GALLAGHER Address: home [address] [place] [address] Name: JACKY PÉREZ Address: [address] [place] [address] Name: JACKY AMOR Address: [address] [place] [address] Name: LITTLE ELIAS Address: [address] Address: [address] [place] [address] [place] Name: MARVIN ELIAS Address: [address] Address: [address] [place] [address] [place] Name: CARLITOS DIAZ
--- OUTSIDE RECORDS SUMMARY | 2024-04-22 14:10 | XMS_ITS | Continuity of Care Document ---
Author Organization [facility] Address [address] [place] [address]- Care Team Providers Care General Engineering Teacher Name Role Phone Carolynn ORDONEZ, Sara Arita Primary Care Physician Encounter [facility] Date(s): 04/18/23 - 05/18/[address] [address] Allergies, Adverse Reactions, Alerts Substance [...] 01/10/23 15:26:00 EDT, Route to Pharmacy Electronically, [facility]/pharmacy #[id number], Partial fill upon patient request if the prescriptio... Start Date: 01/10/23 Status: Ordered famotidine 20 mg oral tablet 1, tablet, By Mouth, Daily at bedtime, # 90 tablet, Refills 0, Tot. Refills 0, Maintenance, 02/09/23 12:19:00 EDT, Route to Pharmacy Electronically, [facility]/pharmacy #[id number], 170, cm, 02/09/23 12:11:00 EDT, Height, [...] Personnel Name: Damien ARREGUIN, Evelyn Anthony Position: [facility] OB RN Member Role: Primary Care Nurse Name: Vamshi Ford RN Position: S RN Member Role: Primary Care Nurse Name: Corine Yoder RN Position: S RN Member Role: Primary Care Nurse Name: Sara Pradhan NP Position: Reference Physician Member Role: PCP Address: Address: [address] [place] [address]- Care Team Related Persons Name: MAGUI MACHADOO Address: home [address] [address] Name: NYA DURAND Address: home [address] [place] [address] Name: KARSTEN GALLAGHER Address: home [address] [place] [address] Name: JACKY PÉREZ Address: [address] [place] [address] Name: JACKY AMOR Address: [address] [place] [address] Name: LITTLE ELIAS Address: [address] Address: home [address] [place] [address] [place] Name: MARVIN ELIAS Address: [address] Address: home [address] [place] [address] [place] Name: MARVIN ELIAS Address: [address] [place] [address] Name: CARLITOS DIAZ
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
--- OUTSIDE RECORDS SUMMARY | 2024-04-22 14:10 | XMS_ITS | Continuity of Care Document ---
Author Organization [facility] Address [address] [place] [address]- Care Team Providers Care Cooper Apprentice Name Role Phone Not on Staff, PCP Primary Care Physician Unavail able En[place] [facility] [place](s): 07/22/21 - 08/26/[address] [address] Attending Physician: Not on Staff, Attending MD Allergies, Adverse Reactions, Alerts Substance Reaction Severity Status Toradol Active Immunizations Given and Recorded Vaccine Date Status Refusal Reason influenza virus vaccine, inactivated 06/22/21 Give n [...] Please checkblood sugars four times a day. [facility], schedule meter teaching., 06/07/21 9:48:00 EST,Supply, 168, cm, 04/27/21 12:54:00 EDT, Height, 1... Start Date: 06/07/21 Status: Ordered Alcohol Pads See Instructions, # 1 pack/packet, Refills 3, Tot. Refills 3, Maintenance, DX: 024.912 Please checkblood sugars four times a day. [facility], schedule meter teaching., 06/04/21 18:03:00 EST, Supply, 168, cm, 04/27/21 12:54:00 EDT, Height,... Start Date: 06/04/21 Status: Ordered aspirin 81 mg oral tablet, chewable 162 mg, 2, tablet, Chew, Daily, continue until 2 weeks , # 60 tablet, Refills 8, Tot. Refills 8, Maintenance, 04/27/21 13:24:00 EDT, Route to Pharmacy Electronically, [facility]/pharmacy #[id number], Partial fill upon patient request if the prescription... Start Date: 04/27/21 Stop Date: 01/22/22 Status: Ordered [place] Lyte glucometer [place] Lyte glucometer, See Instructions, # 1 each, Refills 3, Tot. Refills 3, Maintenance, DX: 024.912 Please check blood sugars four times a day. [facility], schedule meter teaching., 06/07/21 9:48:00 EST, Supply, 168, cm, 04/27/21 12:5... Start Date: 06/07/21 Status: Ordered [place] Lyte glucometer Philadelphia Lyte glucometer, See Instructions, # 1 each, Refills 3, Tot. Refills 3, Maintenance, DX: 024.912 Please check blood sugars four times a day. [facility], schedule meter teaching., 06/04/21 18:03:00 EST, Supply, 168, cm, 04/27/21 12:... Start Date: 06/04/21 Status: Ordered [place] Lyte glucometer Philadelphia Lyte glucometer, See Instructions, # 1 each, Refills 0, Tot. Refills 0, Maintenance, DX: 024.912 Please check blood sugars four times a day., 06/09/21 14:04:00 EST, Supply, 168, cm, 04/27/21 12:54:00 EDT, Height, 113.4, kg, 04/20/21 14:40:00... Start Date: 06/09/21 Status: Ordered [place] Lyte glucometer Philadelphia Lyte glucometer, See Instructions, # 1 each, Refills 0, Tot. Refills 0, Maintenance, DX: 024.912 Please check blood sugars four times a day., 06/08/21 15:51:00 EST, Supply, 168, cm, 04/27/21 12:54:00 EDT, Height, 113.4, kg, 04/20/21 14:40:00... Start Date: 06/08/21 Status: Ordered [place] Lyte glucometer Philadelphia Lyte glucometer, See Instructions, # 1 each, Refills 0, Tot. Refills 0, Maintenance, DX: 024.912 Please check blood sugars four times a day., 06/09/21 17:44:00 EST, Supply, 168, cm, 04/27/21 12:54:00 EDT, Height, 113.4, kg, 04/20/21 14:40:00... Start Date: 06/09/21 Status: Ordered Philadelphia lyte lancets Philadelphia lyte lancets, See Instructions, # 1 pack/packet, Refills 3, Tot. Refills 3, Maintenance, DX: 024.912 Please check blood sugars four times a day. [facility], schedule meter teaching.,06/07/21 9:48:00 EST, Supply, 168, cm, 04/27/21... Start Date: 06/07/21 Status: Ordered Philadelphia lyte lancets Philadelphia lyte lancets, See Instructions, # 1 pack/packet, Refills 3, Tot. Refills 3, Maintenance, DX: 024.912 Please check blood sugars four times a day. [facility], schedule meter teaching.,06/04/21 18:03:00 EST, Supply, 168, cm, 04/27/21... Start Date: 06/04/21 Status: Ordered Philadelphia lyte lancets Philadelphia lyte lancets, See Instructions, # 200 each, Refills 3, Tot. Refills 3, Maintenance, DX: 024.912 Please check blood sugars four times a day., 06/09/21 14:03:00 EST, Supply, 168, cm, 04/27/21 12:54:00 EDT, Height, 113.4, kg, 04/20/21 14:40:00... Start Date: 06/09/21 Status: Ordered Philadelphia lyte lancets Philadelphia lyte lancets, See Instructions, # 200 each, Refills 3, Tot. Refills 3, Maintenance, DX: 024.912 Please check blood sugars four times a day., 06/08/21 15:49:00 EST, Supply, 168, cm, 04/27/21 12:54:00 EDT, Height, 113.4, kg, 04/20/21 14:40:00... Start Date: 06/08/21 Status: Ordered Philadelphia lyte lancets Philadelphia lyte lancets, See Instructions, # 200 each, Refills 3, Tot. Refills 3, Maintenance, DX: 024.912 Please check blood sugars four times a day., 06/09/21 17:45:00 EST, Supply, 168, cm, 04/27/21 12:54:00 EDT, Height, 113.4, kg, 04/20/21 14:40:00... Start Date: 06/09/21 Status: Ordered Philadelphia lyte test strips Philadelphia lyte test strips, See Instructions, # 1 pack/packet, Refills 3, Tot. Refills 3, Maintenance, DX: 024.912 Please check blood sugars four times a day. [facility], schedule meter teaching., 06/07/21 9:48:00 EST, Supply, 168, cm, 04/27/... Start Date: 06/07/21 Status: Ordered Philadelphia lyte test strips Philadelphia lyte test strips, See Instructions, # 1 pack/packet, Refills 3, Tot. Refills 3, Maintenance, DX: 024.912 Please check blood sugars four times a day. [facility], schedule meter teaching., 06/04/21 18:04:00 EST, Supply, 168, cm, 04/27... Start Date: 06/04/21 Status: Ordered Philadelphia lyte test strips Philadelphia lyte test strips, See Instructions, # 200 each, Refills 3, Tot. Refills 3, Maintenance, DX:024.912 Please check blood sugars four times a day., 06/09/21 14:03:00 EST, Supply, 168, cm, 04/27/21 12:54:00 EDT, Height, 113.4, kg, 04/20/21 14:40:... Start Date: 06/09/21 Status: Ordered Philadelphia lyte test strips Philadelphia lyte test strips, See Instructions, # 200 each, Refills 3, Tot. Refills 3, Maintenance, DX:024.912 Please check blood sugars four times a day., 06/08/21 15:50:00 EST, Supply, 168, cm, 04/27/21 12:54:00 EDT, Height, 113.4, kg, 04/20/21 14:40:... Start Date: 06/08/21 Status: Ordered Philadelphia lyte test strips Philadelphia lyte test strips, See Instructions, # 200 [...] 20:26:00 ES... Start Date: 07/19/21 Status: Ordered ondansetron 4 mg oral tablet See Instructions, 1 tablet By Mouth Every 8 hours as needed for nausea and vomiting, # 20 tablet, 0Refills, Maintenance, 06/22/21 10:32:00 EST, [facility]/pharmacy #[id number], Partial fill upon patient request if the prescription is for a schedule II opioid drug... Start Date: 06/22/21 Status: Ordered Multivitamins with Folic Acid 1 mg oral tablet 1 tablet, By Mouth, Daily, # 30 tablet, 8 Refills, Maintenance, 03/09/21 15:40:00 EDT, Tablet, [facility]/pharmacy #[id number], Partial fill upon patient request if the prescription is for a schedule II opioid drug., 1 tablet By Mouth Daily, 168, cm, 02/03/21 12:2... Start Date: 03/09/21 Status: Ordered Zofran 4 mg oral tablet 1 tablet = 4 mg, By Mouth, Every 4 hours, PRN as needed for nausea/vomiting, # 30 tablet, 0 Refills, Maintenance, 05/25/21 10:12:00 EDT, Tablet, [facility]/pharmacy #[id number], Partial fill upon patient request if the prescription is for a schedule II opioid drug... Start Date: 05/25/21 Status: Ordered Problem List Condition Effective Dates [...]
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
--- OUTSIDE RECORDS SUMMARY | 2024-04-22 14:10 | XMS_ITS | Continuity of Care Document ---
Author Organization [facility] Address [address] [place] [address]- Care Team Providers Care Housekeeping Aide Name Role Phone Not on Staff, PCP Primary Care Physician Unavail able Encounter [facility] Date(s): 10/30/21 - 11/29/[address] [address] Allergies, Adverse Reactions, Alerts Substance Reaction [...] Height, 1... Start Date: 10/26/21 Status: Ordered famotidine 10 mg oral tablet 1 tablet = 10 mg, By Mouth, 2 times a day, # 180 tablet, 0 Refills, Maintenance, 09/09/21 18:50:00 EST, Tablet, [id number], Partial fill upon patient request if the prescription is for a schedule II opioid drug., 168, cm, 09/09/21 14:57:00 EST... Start Date: 09/09/21 Status: Ordered ferrous sulfate 325 mg oral tablet 1 tablet = 325 mg, By Mouth, Daily, # 90 tablet, 0 Refills, Maintenance, 09/09/21 15:28:00 EST, Tablet, [facility]/pharmacy #[id number], Partial fill upon patient request if the prescription is for a schedule II opioid drug., 168, cm, 09/09/21 14:57:00 EST, Height... Start Date: 09/09/21 Status: Ordered labetalol 200 mg oral tablet 1 tablet = 200 mg, By Mouth, 2 times a day, # 60 tablet, 0 Refills, Maintenance, 10/29/21 14:50:00 EDT, Tablet, [id number], Partial fill upon patient request if the prescription is for a schedule II opioid drug., 165, cm, 10/26/21 9:33:00 EDT,... Start Date: 10/29/21 Status: Ordered magnesium oxide 400 mg oral tablet 1 tablet = 400 mg, By Mouth, Daily, # 30 tablet, 3 Refills, Maintenance, 09/09/21 15:40:00 EST, [id number], Partial fill upon patient request if the prescription is for a schedule II opioid drug., 168, cm, 09/09/21 14:57:00 EST, Height, 149.7,... Start Date: 09/09/21 Status: Ordered metFORMIN 500 mg oral tablet See Instructions, TAKE 1 TABLET BY MOUTH EVERY MORNING WITH BREAKFAST, # 30 tablet, 0 Refills, [id number], 165, cm, 10/26/21 9:33:00 EDT, Height, 144.2, kg, 11/01/21 10:32:00 EDT, Dry Weight Start Date: 11/13/21 Status: Ordered NIFEdipine (Eqv-Adalat CC) 30 mg oral tablet, extended release 1 tablet = 30 mg, By Mouth, Daily, # 30 tablet, 0 Refills, Maintenance, 10/30/21 15:32:00 EDT, ER Tablet, [id number], Partial fill upon patient request if the prescription is for a schedule II opioid drug., 165, cm, 10/26/21 9:33:00 EDT, Heigh... Start Date: 10/30/21 Status: Ordered Multivitamins with Folic Acid 1 mg oral tablet 1 tablet, By Mouth, Daily, # 30 tablet, 8 Refills, Maintenance, 03/09/21 15:40:00 EDT, Tablet, [id number], Partial fill upon patient request if the prescription is for a schedule II opioid drug., 1 tablet By Mouth Daily, 168, cm, 02/03/21 12:2... Start Date: 03/09/21 Status: Ordered Problem List Condition Effective Dates Status Health Status Inform ant Anemia(Confirmed) Active Chronic headache(Confirmed) Active Gestational diabetes(Confirmed) Active Hidradenitis suppurativa(Confirmed) Active HGSIL (high grade squamous intraepithelial lesion) on Pap smear of cervix(Confirmed) Active History of abnormal cervical Pap smear(Confirmed) Active Chronic hypertension(Confirmed) Active Obesity, morbid, BMI [...]
--- OUTSIDE RECORDS SUMMARY | 2024-04-22 14:10 | XMS_ITS | Continuity of Care Document ---
Author Organization [facility] Address [address] [place] [address]- Care Team Providers Care Customer Service Attendant Name Role Phone Not on Staff, PCP Primary Care Physician Unavail able [place] [facility] [place] 10/[place]/[address] [address] Attending Physician: Not on Staff, [...] 0 Refills, Maintenance, 09/09/21 15:28:00 EST, Tablet, [id number], Partial fill upon [...] Height, 149.7,... Start Date: 09/09/21 Status: Ordered NIFEdipine (Eqv-Adalat CC) 30 mg [...]
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
--- OUTSIDE RECORDS SUMMARY | 2024-04-22 14:10 | XMS_ITS | Continuity of Care Document ---
Author Organization [facility] Address [address] [place] [address]- Care Team Providers Care Bottom Cager Name Role Phone Carolynn ORDONEZ, Sara Arita Primary Care Physician Encounter [facility] Date(s): 10/10/22 - 11/09/[address] [address] Allergies, Adverse Reactions, Alerts Substance Reaction Severity Status Toradol Active Immunizations Given and Recorded Vaccine Date Status Refusal Reason tetanus/diphtheria/pertussis, acel(Tdap) 10/27/22 Given tetanus/diphtheria/pertussis, acel(Tdap) 09/09/21 [...] Dry Weight Start Date: 07/29/22 Status: Ordered aspirin 81 mg oral delayed release tablet 162 mg, 2, tablet, By Mouth, Daily, # 60 tablet, Refills 0, Tot. Refills 0, Maintenance, 09/29/22 14:34:00 EST, Route to Pharmacy Electronically, [facility]/pharmacy #[id number], Partial fill upon patient requestif the prescription is for a schedule II opioid rosetta... Start Date: 09/29/22 Status: Ordered famotidine 20 mg oral tablet 1, tablet, By Mouth, Daily at bedtime, # 30 tablet, Refills 1, Maintenance, 09/23/22 13:46:00 EST, Route to Pharmacy Electronically, [id number], 170, cm, 09/09/22 8:52:00 EST, Height, 143.2, kg,05/16/22 14:20:00 EDT, Dry Weight Start Date: 09/23/22 Status: Ordered Freestyle Lite Lancets See Instructions, [...] Ordered ondansetron 4 mg oral tablet, disintegrating See Instructions, TAKE 1 TABLET BY MOUTH ONCE DAY NEEDED FOR NAUSEA AND VOMITING, # 10 tablet, 0Refills, Maintenance, 10/10/22 12:02:00 EDT, [id number], 170, cm, 09/29/22 11:15:00 EST, Height, 143.2, kg, 05/16/22 14:20:00 EDT, Dry Weight Start Date: 10/10/22 Status: Ordered Multivitamins with Folic Acid 1 mg oral tablet 1 tablet, By Mouth, Daily, # 90 tablet, 2 Refills, Maintenance, 05/10/22 18:35:00 EDT, Tablet, [facility]/pharmacy #[id number], Partial fill upon patient request if the prescription is for a schedule II opioid drug., 1 tablet By Mouth Daily, 170, cm, 01/21/22 21:0... Start Date: 05/10/22 Status: Ordered Vistaril pamoate 25 mg oral capsule 1 capsule = 25 mg, By Mouth, 4 times a day, PRN for anxiety, # 40 capsule, 0 Refills, Maintenance, 11/02/22 18:45:00 EDT, Capsule, [id number], Partial fill upon patient request if the prescription is for a schedule II opioid drug., 170, cm, 04... Start Date: 11/02/22 Status: Ordered Problem List Condition Confirmation Course Effective Dates Status Health St atus Informant Former smoker Confirmed Active Short interval between pregnancies affecting , antepartum Confirmed Active Hidradenitis suppurativa Confirmed Active History of gestational diabetes Confirmed Active Chronic hypertension Confirmed Active Obesity during Confirmed Active PTSD [...] Reference Physician Member Role: PCP Address: Address: [address] [place] [id number]- Care Team Related Persons Name: CLARK MACHADO Address: home [address] [address] Name: NYA DURAND Address: [address] [place] [address] Name: KARSTEN GALLAGHER Address: home [address] [place] [address] Name: JACKY PÉREZ Address: [address] [place] [address] Name: JACKY AMOR Address: [address] [place] [address] Name: LITTLE ELIAS Address: [id number] Address: [address] [place] [address] Name: CARLITOS DIAZ
--- OUTSIDE RECORDS SUMMARY | 2024-04-22 14:10 | XMS_ITS | Continuity of Care Document ---
Author Organization [facility] Address [address] [place] [address]- Care Team Providers Care Cuff Presser Name Role Phone Not on Staff, PCP Primary Care Physician Unavail able Encounter [facility] [place] Date(s): 07/20/21 - 08/19/[address] [id number] Allergies, Adverse Reactions, Alerts [...] Please checkblood sugars four times a day. [facility], schedule meter teaching., 06/07/21 9:48:00 EST,Supply, 168, cm, 04/27/21 12:54:00 EDT, Height, 1... Start Date: 06/07/21 Status: Ordered Alcohol Pads See Instructions, # 1 pack/packet, Refills 3, Tot. Refills 3, Maintenance, DX: 024.912 Please checkblood sugars four times a day. [facility], schedule meter teaching., 06/04/21 18:03:00 EST, Supply, 168, cm, 04/27/21 12:54:00 EDT, Height,... Start Date: 06/04/21 Status: Ordered aspirin 81 mg oral tablet, chewable 162 mg, 2, tablet, Chew, Daily, continue until 2 weeks , # 60 tablet, Refills 8, Tot. Refills 8, Maintenance, 04/27/21 13:24:00 EDT, Route to Pharmacy Electronically, [facility]/pharmacy #[id number], Partial fill upon patient request if the prescription... Start Date: 04/27/21 Stop Date: 01/22/22 Status: Ordered [place] Lyte glucometer [place] Lyte glucometer, See Instructions, # 1 each, Refills 3, Tot. Refills 3, Maintenance, DX: 024.912 Please check blood sugars four times a day. [facility], schedule meter teaching., 06/07/21 9:48:00 EST, Supply, 168, cm, 04/27/21 12:5... Start Date: 06/07/21 Status: Ordered [place] Lyte glucometer [place] Lyte glucometer, See Instructions, # 1 each, Refills 3, Tot. Refills 3, Maintenance, DX: 024.912 Please check blood sugars four times a day. [facility], schedule meter teaching., 06/04/21 18:03:00 EST, Supply, 168, cm, 04/27/21 12:... Start Date: 06/04/21 Status: Ordered [place] Lyte glucometer [place] Lyte glucometer, See Instructions, # 1 each, Refills 0, Tot. Refills 0, Maintenance, DX: 024.912 Please check blood sugars four times a day., 06/09/21 14:04:00 EST, Supply, 168, cm, 04/27/21 12:54:00 EDT, Height, 113.4, kg, 04/20/21 14:40:00... Start Date: 06/09/21 Status: Ordered [place] Lyte glucometer [place] Lyte glucometer, See Instructions, # 1 each, Refills 0, Tot. Refills 0, Maintenance, DX: 024.912 Please check blood sugars four times a day., 06/08/21 15:51:00 EST, Supply, 168, cm, 04/27/21 12:54:00 EDT, Height, 113.4, kg, 04/20/21 14:40:00... Start Date: 06/08/21 Status: Ordered [place] Lyte glucometer [place] Lyte glucometer, See Instructions, # 1 each, Refills 0, Tot. Refills 0, Maintenance, DX: 024.912 Please check blood sugars four times a day., 06/09/21 17:44:00 EST, Supply, 168, cm, 04/27/21 12:54:00 EDT, Height, 113.4, kg, 04/20/21 14:40:00... Start Date: 06/09/21 Status: Ordered [place] lyte lancets Old [place] lyte lancets, See Instructions, # 1 pack/packet, Refills 3, Tot. Refills 3, Maintenance, DX: 024.912 Please check blood sugars four times a day. [facility], schedule meter teaching.,06/07/21 9:48:00 EST, Supply, 168, cm, 04/27/21... Start Date: 06/07/21 Status: Ordered Old [place] lyte lancets [place] lyte lancets, See Instructions, # 1 pack/packet, Refills 3, Tot. Refills 3, Maintenance, DX: 024.912 Please check blood sugars four times a day. [facility], schedule meter teaching.,06/04/21 18:03:00 EST, Supply, 168, cm, 04/27/21... Start Date: 06/04/21 Status: Ordered Old [place]bury lyte lancets Old [place] lyte lancets, See Instructions, # 200 each, Refills 3, Tot. Refills 3, Maintenance, DX: 024.912 Please check blood sugars four times a day., 06/09/21 14:03:00 EST, Supply, 168, cm, 04/27/21 12:54:00 EDT, Height, 113.4, kg, 04/20/21 14:40:00... Start Date: 06/09/21 Status: Ordered Old [place] lyte lancets Old [place] lyte lancets, See Instructions, # 200 each, Refills 3, Tot. Refills 3, Maintenance, DX: 024.912 Please check blood sugars four times a day., 06/08/21 15:49:00 EST, Supply, 168, cm, 04/27/21 12:54:00 EDT, Height, 113.4, kg, 04/20/21 14:40:00... Start Date: 06/08/21 Status: Ordered Old [place] lyte lancets Old [place] lyte lancets, See Instructions, # 200 each, Refills 3, Tot. Refills 3, Maintenance, DX: 024.912 Please check blood sugars four times a day., 06/09/21 17:45:00 EST, Supply, 168, cm, 04/27/21 12:54:00 EDT, Height, 113.4, kg, 04/20/21 14:40:00... Start Date: 06/09/21 Status: Ordered Old [place]bury lyte test strips Old [place]bury lyte test strips, See Instructions, # 1 pack/packet, Refills 3, Tot. Refills 3, Maintenance, DX: 024.912 Please check blood sugars four times a day. [facility], schedule meter teaching., 06/07/21 9:48:00 EST, Supply, 168, cm, 04/27/... Start Date: 06/07/21 Status: Ordered Old [place]bury lyte test strips Old [place] lyte test strips, See Instructions, # 1 pack/packet, Refills 3, Tot. Refills 3, Maintenance, DX: 024.912 Please check blood sugars four times a day. [facility], schedule meter teaching., 06/04/21 18:04:00 EST, Supply, 168, cm, 04/27... Start Date: 06/04/21 Status: Ordered Old [place]bury lyte test strips Old [place]bury lyte test strips, See Instructions, # 200 each, Refills 3, Tot. Refills 3, Maintenance, DX:024.912 Please check blood sugars four times a day., 06/09/21 14:03:00 EST, Supply, 168, cm, 04/27/21 12:54:00 EDT, Height, 113.4, kg, 04/20/21 14:40:... Start Date: 06/09/21 Status: Ordered Old [place]bury lyte test strips Old [place]bury lyte test strips, See Instructions, # 200 each, Refills 3, Tot. Refills 3, Maintenance, DX:024.912 Please check blood sugars four times a day., 06/08/21 15:50:00 EST, Supply, 168, cm, 04/27/21 12:54:00 EDT, Height, 113.4, kg, 04/20/21 14:40:... Start Date: 06/08/21 Status: Ordered Old [place]bury lyte test strips Old [place]bury lyte test strips, See Instructions, # 200 [...] 20 tablet, 0Refills, Maintenance, 06/22/21 10:32:00 EST, [facility]/pharmacy #[id number], Partial fill upon patient request if the prescription is for a schedule II opioid drug... Start Date: 06/22/21 Status: Ordered Multivitamins with Folic Acid 1 mg oral tablet 1 tablet, By Mouth, Daily, # 30 tablet, 8 Refills, Maintenance, 03/09/21 15:40:00 EDT, Tablet, [facility]/pharmacy #[id number], Partial fill upon patient request if the prescription is for a schedule II opioid drug., 1 tablet By Mouth Daily, 168, cm, 02/03/21 12:2... Start Date: 03/09/21 Status: Ordered Zofran 4 mg oral tablet 1 tablet = 4 mg, By Mouth, Every 4 hours, PRN as needed for nausea/vomiting, # 30 tablet, 0 Refills, Maintenance, 05/25/21 10:12:00 EDT, Tablet, [id number], Partial fill upon [...]
--- OUTSIDE RECORDS SUMMARY | 2024-04-22 14:10 | XMS_ITS | Continuity of Care Document ---
Author Organization [facility] Jessy watkinss [facility] Address [address] [place] [address]- Care Team Providers Care Brasswind Instrument Repairer Name Role Phone Carolynn ORDONEZ, Sara Arita Primary Care Physician Encounter [facility] [place] Date(s): 04/11/22 - 05/11/22 [facility] [place] [facility] [address] [place], [place] [address] Allergies, Adverse Reactions, Alerts Substance Reaction [...] Refills, Maintenance, 05/10/22 18:35:00 EDT, Tablet, [id number], Partial fill upon patient request if the prescription is for a schedule II opioid drug., 1 tablet By Mouth Daily, 170, cm, 01/21/22 21:0... 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 Sex Patient Care team information Personnel Name: Sara Pradhan NP Address: Address: [address] [place] [address]
--- NOTE | 2024-04-22 14:11 | AM.OFFWIN_ITS ---
Intake Vital Signs 04/22/24 14:18 BP 140/78 H Blood Pressure Location Rt brachial Position Sitting Respiration 16 Pulse 93 Pulse Source Pulse Oximeter Temp 98.3 F Temp Source Oral Pulse Oximetry (%) 97 Oxygen Delivery Method Room Air Intake Visit Reasons: ed f/u back pain / with Dr. Coleman Intake Note: patient here c/o back pain Patient Tobacco Use Status: Current everyday Tobacco user Cardiovascular Invasive Specialist Required: No Is last menstrual period known: Yes Last menstrual period: 04/04/24 Post menopausal: No Patient : No Allergies ketorolac [From TORADOL] Allergy (Unknown, Verified 04/22/24 14:43) HIVES metronidazole Allergy (Unknown, Verified 04/22/24 14:43) heart races, nausea Medication List - Last Reconciled 04/22/24 by Jose Martin Coleman CNP methylprednisolone 0 mg PO oxycodone 5 mg PO QID PRN Do you need a note to return to daycare/school/sports/work: Yes HPI HPI Comments History of Present Illness Details 34-year-old female presents with complai nts of back pain She was evaluated and treated for similar symptoms at [facility] ED on 04/20/2024. She noted that she bent over to kiss her young daughter and felt a pop in her lo wer back; she was unable to move. She denied bowel or bladder changes, fever or chills. She was treated and discharged home on oxycodone and Medrol Dosepak She notes that the pain, which originates from the left lower back, radiates to her entire lower back. She describes that pain as sharp, 10/10 on the pain scale. She notes new numbness to her lateral thighs. She has not been able to walk without assistance. She has been using her neighbor's walker to ambulate. Her sister escorted her in a wheelchair, in and out of the office [facility] Surgical History No pertinent past surgical history Family History Father Heart failure Acute kidney failure Mother Acute kidney failure Brother In good health Sister In good health Sister In good health Sister In good health Son In good health Daughter In good health Daughter In good health Daughter No problems noted. Social History Housing: Other Alcohol intake: never Patient Tobacco Use Status: Current everyday Tobacco user Tobacco use type: Cigarette Cigarette Packs Per Day: 0.5 Years Smoked: 17 on and off e-Cigarette/Vaping Use: Never Used Second Hand Smoke Exposure: No Patient : No service: No Current occupational status: disabled Cognitive needs: No Hearing needs: No Vision needs: No Female Reproductive History Menstrual Date of last menstrual period: 04/04/24 Review of Systems Const Details: Denies chills, Denies fatigue, Denies fever(s), Denies headache(s) and Denies weakness Cardiac Denies chest pain, Denies claudication, Denies leg edema, Denies lightheadedness, Denies palpitations, Denies dyspnea, Denies dyspnea on exertion, Denies orthopnea and Denies other (Loss of consciousness) Resp Denies cough, Denies excessive phlegm production, Denies dyspnea, Denies dyspnea on exertion, Denies snoring and Denies wheezing Musc Reports as per HPI Physical Exam Vital Signs: Last Vital Signs Temp 98.3 F 04/22/24 14:18 Pulse 93 04/22/24 14:18 Resp 16 04/22/24 14:18 BP 140/78 H 04/22/24 14:18 Pulse Ox 97 04/22/24 14:18 Oxygen Delivery Method Room Air 04/22/24 14:18 Const Other: General: comfortable and no acute distress Orientation/consciousness: patient oriented x3 Chest Chest palpation & inspection: normal inspection of the chest Resp Auscultation: clear to auscultation bilaterally Cardiac Palpation: normal PMI Heart sounds: S1 normal heart sound present, S2 normal heart sound present, no gallops, no murmur, no rubs Musc Tenderness to palpation of the lower back in lumbar spine. No overt injury or trauma. Immobile due to significant pain Assessment & Plan Assessment & Plan (1) Lower back pain: Code(s): M54.50 - Low back pain, unspecified Qualifiers: Chronicity: acute Back pain laterality: bilateral Sciatica presence: with sciatica Sciatica laterality: sciatica of right side Qualified Code(s): M54.41 - Lumbago with sciatica, right side Plan: Low back pain x3 days. bent over to kiss her young daughter and felt a pop in her lower back; she was immobile. She was evaluated and treated at [facility] ED. her symptoms have not improved Tenderness to palpation of the lower back in lumbar spine. No overt injury or trauma. Immobile due to significant pain Continue to take methylprednisone and oxycodone as prescribed Cyclobenzaprine 10 mg 3 times daily as needed ordered. Advised to take as prescribed May take ibuprofen 800 mg every 8 hours as needed after she completes methylprednisone Warm/cool compresses encouraged Instructed on safety to prevent fall Work note given Follow-up with worsening or new symptoms Verbalized understanding and agreed with the treatment plan Medications: New cyclobenzaprine 10 mg PO TID PRN 30 tabs 1RF muscle spasm Coding Level of Care Code Est Pt Level 3 (27961) Diagnoses Acute bilateral low back pain with right-sided sciatica M54.41 Chronicity: acute Back pain laterality: bilateral Sciatica presence: with sciatica Sciatica laterality: sciatica of right side
--- OUTSIDE RECORDS SUMMARY | 2024-04-22 14:11 | XMS_ITS | Continuity of Care Document ---
Author Organization [facility] Address [address] [place] [address]- Care Team Providers Care Student Career Development Specialist Name Role Phone Carolynn ORDONEZ, Sara Arita Primary Care Physician [phone] Encounter [facility] [place] Date(s): 12/02/22 - 01/01/[address] [address] [[email or web address]] Allergies, Adverse Reactions, Alerts Substance Reaction Severity [...] given 03/11/14 2Admin Note: VIS GIVEN Medications acetaminophen 500 mg oral capsule 2 capsule = 1,000 mg, By Mouth, Every 6 hours, PRN for fever, for 15 days, # 120 capsule, 0 Refills, Acute 01/11/23 14:39:00 EDT, 12/27/22 14:39:00 EDT, Capsule, [id number], Partial fill uponpatient request if the prescription is for a schedu... Start Date: 12/27/22 Stop Date: 01/11/23 Status: Ordered diphenhydrAMINE 50 mg oral tablet = 50 mg, By Mouth, Every 4 hours, PRN Itch, 0 Refills, Maintenance, 12/06/22 17:40:00 EDT, Tablet, Partial fill upon patient request if the prescription is for a schedule II opioid drug. Start Date: 12/06/22 Status: Ordered docusate sodium 100 mg oral tablet = 100 mg, By Mouth, 2 times a day, PRN Constipation, # 100 tablet, 0 Refills, Maintenance, 12/06/2316:40:00 EDT, Tablet, [id number], Partial fill upon patient request if the prescription is for a schedule II opioid drug., 168, cm, 12/06/22 8:... Start Date: 12/06/22 Stop Date: 12/13/22 Status: Ordered famotidine 20 mg oral tablet 1, tablet, By Mouth, Daily at bedtime, # 30 tablet, Refills 1, Maintenance, 12/19/22 16:07:00 EDT, Route to Pharmacy Electronically, [id number], 168, cm, 12/13/22 17:39:00 EDT, Height, 150.4, kg, 12/13/22 17:39:00 EDT, Dry Weight Start Date: 12/19/22 Status: Ordered gabapentin 300 mg oral capsule 300 mg, 1, capsule, By Mouth, 3 times a day, # 90 capsule, Refills 5, Tot. Refills 5, Maintenance, 12/27/22 14:38:00 EDT, Route to Pharmacy Electronically, [facility]/pharmacy #[id number], Partial fill upon patient request if the prescription is for a schedule II... Start Date: 12/27/22 Stop Date: 06/25/23 Status: Ordered ibuprofen 800 mg oral tablet 800 mg, 1, tablet, By Mouth, Every 8 hours, for 10 days, # 30 tablet, Refills 0, Tot. Refills 0, Acute 01/06/23 14:38:00 EDT, 12/27/22 14:38:00 EDT, Route to Pharmacy [facility], [id number], Partial fill upon patient request if the prescri... Start Date: 12/27/22 Stop Date: 01/06/23 Status: Ordered Measles/Mumps/Rubella Virus Vaccine Inj 0.5, mL, Subcutaneous Injection, Once, Maintenance, 12/06/22 17:40:00 EDT Start Date: 12/06/22 Status: Ordered NIFEdipine 30 mg oral tablet, extended release 30 mg, 1, tablet, By Mouth, Every 24 hours, # 30 tablet, Refills 0, Tot. Refills 0, Maintenance, 12/16/22 13:59:00 EDT, Route to Pharmacy Electronically, [facility]/pharmacy #[id number], Partial fill upon patientrequest if the prescription is for a schedule II op... Start Date: 12/16/22 Status: Ordered Multivitamins with Folic Acid 1 mg oral tablet 1 tablet, By Mouth, Daily, # 90 tablet, 2 Refills, Maintenance, 05/10/22 18:35:00 EDT, Tablet, [facility]/pharmacy #[id number], Partial fill upon patient request if the prescription is for a schedule II opioid drug., 1 tablet By Mouth Daily, 170, cm, 01/21/22 21:0... Start Date: 05/10/22 Status: Ordered Tums 500 mg oral tablet, chewable 1,000 mg, 2, tablet, Chew, Every 4 hours, PRN, Refills 0, Maintenance, Dyspepsia, 12/06/22 17:40:00EDT, Partial fill upon patient request if the prescription is for a schedule II opioid drug. Start Date: 12/06/22 Status: Ordered Vistaril pamoate 25 mg oral capsule 1 capsule = 25 mg, By Mouth, 4 times a day, PRN for anxiety, # 40 capsule, 0 Refills, Maintenance, 11/02/22 18:45:00 EDT, Capsule, [facility]/pharmacy #[id number], Partial fill upon patient request [...] Team Personnel Name: Evelyn Quezada RN Position: [facility] RN Member Role: Primary Care Nurse Name: Liliana ARREGUIN, Vamshi Kirkland Position: S RN Member Role: Primary Care Nurse Name: Corine Yoder RN Position: S RN Member Role: Primary Care Nurse Name: Sara Pradhan NP Position: Reference Physician Member Role: PCP Address: Address: [address] [place] [address]- Care Team Related Persons Name: MACHADO CLARK Address: home [address] [address] Name: NYA DURAND Address: home [address] [place] [address] Name: KARSTEN GALLAGHER Address: home [address] [place] [address] Name: JACKY PÉREZ Address: home [address] [place] [address] Name: JACKY AMOR Address: home [address] [place] [address] Name: LITTLE ELIAS Address: [id number] Address: home [address] [place] [address] [place] Name: MARVIN ELIAS Address: [address] [facility] [address] Name: MARVIN ELIAS Address: [address] Address: [address] [place] [address] Name: CARLITOS DIAZ
--- OUTSIDE RECORDS SUMMARY | 2024-04-22 14:11 | XMS_ITS | Continuity of Care Document ---
Author Organization [facility] ter Address [address] [place] [address]- Care Team Providers Care Ordnance Artificer Helper Name Role Phone Sara Pradhan NP Primary Care Physician [phone] [place] [facility] [place] - 10/30/[address] [address]- Discharge Disposition: A-D/C Walkout Attending Physician: Not on Staff, Attending MD Admitting Physician: Not on Staff, Admitting MD Referring Physician: Not on Staff, Referring MD Allergies, Adverse Reactions, Alerts Substance Reaction [...] 01/10/23 15:26:00 EDT, Route to Pharmacy Electronically, [facility]/pharmacy #[id number], Partial fill upon patient request if the [...] Confirmed Active 1related to past life trauma Vital Signs Most recent to oldest [Reference Range]: 1 2 Height 168 cm (10/30/23 4:50 AM) 168 cm (10/30/23 4:45 AM) Weight 125 kg (10/30/23 4:50 AM) 125 kg (10/30/23 4:45 AM) Oxygen Saturation [94-100 %] 99 % (10/30/23 4:45 AM) Pulse Rate [55-90 bpm] 116 bpm *H* (10/30/23 4:45 AM) Body Mass Index [18.5-24.99 kg/m2] 44.29 kg/m2 *>HHI* (10/30/23 4:45 AM) Blood Pressure [90-138/55-84 mm Hg] 156/ 111mm Hg *H* (10/30/23 4:45 AM) Temperature [96.8-100.4 DegF] 98.8 DegF (10/30/23 4:45 AM) Blood pressure sites Arm, left (10/30/23 4:45 AM) Temperature Route Oral (10/30/23 4:45 AM) Dry Weight 125 kg (10/30/23 4:50 AM) 125 kg (10/30/23 4:45 AM) Weight Obtained Via Standing scale (10/30/23 4:45 AM) Dry Weight Obtained Via Standing scale (10/30/23 4:45 AM) Social History Social History Type Response Tobacco Use: 4 or less cigar ettes(less than 1/4 pack)/day in last 30 days. Sex Patient Care team information Care Team Personnel Name: Evelyn Quezada RN Position: [facility] OB RN Member Role: Primary Care Nurse Name: Vamshi Ford RN Position: S RN Member Role: Primary Care Nurse Name: Carolynn ORDONEZ, Sara Arita Position: Reference Physician Member Role: PCP Address: Address: [address] [place] [address]- Care Team Related Persons Name: CLARK MACHADO Address: home [address] [address] Name: NYA DURAND Address: [address] [place] [address] Name: KARSTEN GALLAGHER Address: home [address] [place] [address] Name: JACKY PÉREZ Address: [address] [place] [address] Name: JACKY AMOR Address: [address] [place] [address] Name: LITTLE ELIAS Address: [address] Address: [address] [place] [address] Name: MARVIN ELIAS Address: [address] Address: [address] [place] [address] [place] Name: MARVIN ELIAS Address: home [address] [place] [address] Name: CARLITOS DIAZ
--- OUTSIDE RECORDS SUMMARY | 2024-04-22 14:11 | XMS_ITS | Continuity of Care Document ---
Author Organization [facility] Address [address] [place] [address]- Care Team Providers Care Lottery Clerk Name Role Phone Carolynn ORDONEZ, Sara Arita Primary Care Physician [phone] Encounter [facility] [place] Date(s): 06/24/22 - 08/31/22 [facility] [address] [place] [id number] Attending Physician: Billie PATHAK, Chris Admitting Physician: Billie PATHAK, Chris Referring Physician: Aadm SANTILLAN, SHEET TURNER, Alina Arita Allergies, Adverse Reactions, Alerts Substance Reaction Severity [...] 0 Refills, Maintenance, 08/13/22 13:33:00 EST, Capsule, [facility]/pharmacy #[id number], Partial fill upon patient request if the prescription is for a schedule II opioid drug., 170,... Start Date: 08/13/22 Status: Ordered famotidine 20 mg oral tablet 1, tablet, By Mouth, Daily at bedtime, # 30 tablet, Refills 1, Maintenance, 08/28/22 16:08:00 EST, Route [id number], 170, cm, 07/28/22 16:30:00 EST, Height, 143.2, [...] Personnel Name: Damien RN, Evelyn Anthony Position: [facility] OB RN Member Role: Primary Care Nurse Name: Sara Pradhan NP Position: Reference Physician Member Role: PCP Address: Address: [address] [place] [address]- Care Team Related Persons Name: CLARK MACHADO Address: home [address] [address] Name: NYA DURAND Address: home [address] [place] [address] Name: KARSTEN GALLAGHER Address: home [address] [place] [address] Name: JACKY PÉREZ Address: [address] [place] [address] Name: JACKY AMOR Address: [address] [place] [address] Name: LITTLE ELIAS Address: [address] Address: [address] [place] [address] Name: CARLITOS DIAZ
--- OUTSIDE RECORDS SUMMARY | 2024-04-22 14:11 | XMS_ITS | Continuity of Care Document ---
Author Organization [facility] ter Address [address] [place] [address]- Care Team Providers Care Brake Engineer Name Role Phone Carolynn ORDONEZ, Sara M Primary Care Physician Encounter [facility] [place] Date(s): 11/16/22 - 12/22/[address] [address] Attending Physician: Jacob Castillo DO Admitting Physician: Jacob Castillo DO Referring Physician: Sherice Dunne DO Allergies, Adverse Reactions, Alerts Substance Reaction Severity [...] given 03/11/14 2Admin Note: VIS GIVEN Medications diphenhydrAMINE 50 mg oral tablet = 50 [...] 12/19/22 16:07:00 EDT, Route to Pharmacy Electronically, [facility] [id number], 168, cm, 12/13/22 17:39:00 EDT, Height, 150.4, kg, 12/13/22 17:39:00 EDT, Dry Weight Start Date: 12/19/22 Status: Ordered Measles/Mumps/Rubella Virus Vaccine Inj 0.5, mL, Subcutaneous Injection, Once, Maintenance, 12/06/22 17:40:00 EDT Start Date: 12/06/22 Status: Ordered NIFEdipine 30 mg oral tablet, extended release 30 mg, 1, tablet, By Mouth, Every 24 hours, # 30 tablet, Refills 0, Tot. Refills 0, Maintenance, 12/16/22 13:59:00 EDT, Route to Pharmacy Electronically, [facility]/pharmacy #[id number], Partial fill upon patientrequest if the prescription is for a schedule II op... Start Date: 12/16/22 Status: Ordered Multivitamins with Folic Acid 1 mg oral tablet 1 tablet, By Mouth, Daily, # 90 tablet, 2 Refills, Maintenance, 05/10/22 18:35:00 EDT, Tablet, [facility]/pharmacy #[id number], Partial fill upon patient request [...] Refills, Maintenance, 11/02/22 18:45:00 EDT, [facility]apsule, [id number], Partial fill upon patient request if the [...] Personnel Name: Damien RN, Evelyn Anthony Position: [facility] OB RN Member Role: Primary Care Nurse Name: Sara Pradhan NP Position: Reference Physician Member Role: PCP Address: Address: [address] [place] [address]- Care Team Related Persons Name: CLARK MACHADO Address: home [address] [place] [address] Name: NYA DURAND Address: [address] [place] [address] Name: KARSTEN GALLAGHER Address: [address] [place] [address] Name: JACKY PÉREZ Address: [address] [place] [address] Name: JACKY AMOR Address: [address] [place] [address] Name: LITTLE ELIAS Address: [address] Address: [address] [place] [address] [place] Name: MARVIN ELIAS Address: [address] Address: [address] [place] [address] Name: CARLITOS DIAZ
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
--- OUTSIDE RECORDS SUMMARY | 2024-04-22 14:11 | XMS_ITS | Continuity of Care Document ---
Author Organization [facility] Address [address] [place] [address]- Care Team Providers Care Parking Enforcer Name Role Phone Not on Staff, PCP Primary Care Physician Unavail able [place] [facility] [place] 08/24/[place] - 10/31/[address] [id number] Attending Physician: Not on Staff, Attending [...]
--- OUTSIDE RECORDS SUMMARY | 2024-04-22 14:11 | XMS_ITS | Continuity of Care Document ---
Author Organization [facility] Address [address], [place] [address]- Care Team Providers Care Attending Physician Name Role Phone Not on Staff, PCP Primary Care Physician Unavail able Encounter [facility] Date(s): 06/30/21 - 07/30/21 [facility] [address] [place], [place] [address] Allergies, Adverse Reactions, Alerts Substance Reaction Severity [...] Please checkblood sugars four times a day. [facility], schedule meter teaching., 06/07/21 9:48:00 EST,Supply, 168, cm, 04/27/21 12:54:00 EDT, Height, 1... Start Date: 06/07/21 Status: Ordered Alcohol Pads See Instructions, # 1 pack/packet, Refills 3, Tot. Refills 3, Maintenance, DX: 024.912 Please checkblood sugars four times a day. [facility], schedule meter teaching., 06/04/21 18:03:00 EST, Supply, 168, cm, 04/27/21 12:54:00 EDT, Height,... Start Date: 06/04/21 Status: Ordered aspirin 81 mg oral tablet, chewable 162 mg, 2, tablet, Chew, Daily, continue until 2 weeks , # 60 tablet, Refills 8, Tot. Refills 8, Maintenance, 04/27/21 13:24:00 EDT, Route to Pharmacy Electronically, [facility]/pharmacy #[id number], Partial fill upon patient request if the prescription... Start Date: 04/27/21 Stop Date: 01/22/22 Status: Ordered [place] Lyte glucometer [place] Lyte glucometer, See Instructions, # 1 each, Refills 3, Tot. Refills 3, Maintenance, DX: 024.912 Please check blood sugars four times a day. [facility], schedule meter teaching., 06/07/21 9:48:00 EST, Supply, 168, cm, 04/27/21 12:5... Start Date: 06/07/21 Status: Ordered [place] Lyte glucometer [place] Lyte glucometer, See Instructions, # 1 each, Refills 3, Tot. Refills 3, Maintenance, DX: 024.912 Please check blood sugars four times a day. [facility], schedule meter teaching., 06/04/21 18:03:00 EST, Supply, 168, cm, 04/27/21 12:... Start Date: 06/04/21 Status: Ordered [place] Lyte glucometer [place] Lyte glucometer, See Instructions, # 1 each, Refills 0, Tot. Refills 0, Maintenance, DX: 024.912 Please check blood sugars four times a day., 06/09/21 14:04:00 EST, Supply, 168, cm, 04/27/21 12:54:00 EDT, Height, 113.4, kg, 04/20/21 14:40:00... Start Date: 06/09/21 Status: Ordered [place] Lyte glucometer [place] Lyte glucometer, See Instructions, # 1 each, Refills 0, Tot. Refills 0, Maintenance, DX: 024.912 Please check blood sugars four times a day., 06/08/21 15:51:00 EST, Supply, 168, cm, 04/27/21 12:54:00 EDT, Height, 113.4, kg, 04/20/21 14:40:00... Start Date: 06/08/21 Status: Ordered [place] Lyte glucometer [place] Lyte glucometer, See Instructions, # 1 each, Refills 0, Tot. Refills 0, Maintenance, DX: 024.912 Please check blood sugars four times a day., 06/09/21 17:44:00 EST, Supply, 168, cm, 04/27/21 12:54:00 EDT, Height, 113.4, kg, 04/20/21 14:40:00... Start Date: 06/09/21 Status: Ordered [place] lyte lancets [place] lyte lancets, See Instructions, # 1 pack/packet, Refills 3, Tot. Refills 3, Maintenance, DX: 024.912 Please check blood sugars four times a day. [facility], schedule meter teaching.,06/07/21 9:48:00 EST, Supply, 168, cm, 04/27/21... Start Date: 06/07/21 Status: Ordered [place] lyte lancets [place] lyte lancets, See Instructions, # 1 pack/packet, Refills 3, Tot. Refills 3, Maintenance, DX: 024.912 Please check blood sugars four times a day. [facility], schedule meter teaching.,06/04/21 18:03:00 EST, Supply, 168, cm, 04/27/21... Start Date: 06/04/21 Status: Ordered [place] lyte lancets [place] lyte lancets, See Instructions, # 200 each, Refills 3, Tot. Refills 3, Maintenance, DX: 024.912 Please check blood sugars four times a day., 06/09/21 14:03:00 EST, Supply, 168, cm, 04/27/21 12:54:00 EDT, Height, 113.4, kg, 04/20/21 14:40:00... Start Date: 06/09/21 Status: Ordered [place] lyte lancets [place] lyte lancets, See Instructions, # 200 each, Refills 3, Tot. Refills 3, Maintenance, DX: 024.912 Please check blood sugars four times a day., 06/08/21 15:49:00 EST, Supply, 168, cm, 04/27/21 12:54:00 EDT, Height, 113.4, kg, 04/20/21 14:40:00... Start Date: 06/08/21 Status: Ordered [place] lyte lancets [place] lyte lancets, See Instructions, # 200 each, Refills 3, Tot. Refills 3, Maintenance, DX: 024.912 Please check blood sugars four times a day., 06/09/21 17:45:00 EST, Supply, 168, cm, 04/27/21 12:54:00 EDT, Height, 113.4, kg, 04/20/21 14:40:00... Start Date: 06/09/21 Status: Ordered [place] lyte test strips [place] lyte test strips, See Instructions, # 1 pack/packet, Refills 3, Tot. Refills 3, Maintenance, DX: 024.912 Please check blood sugars four times a day. [facility], schedule meter teaching., 06/07/21 9:48:00 EST, Supply, 168, cm, 04/27/... Start Date: 06/07/21 Status: Ordered [place] lyte test strips [place] lyte test strips, See Instructions, # 1 pack/packet, Refills 3, Tot. Refills 3, Maintenance, DX: 024.912 Please check blood sugars four times a day. [facility], schedule meter teaching., 06/04/21 18:04:00 EST, Supply, 168, cm, 04/27... Start Date: 06/04/21 Status: Ordered [place] lyte test strips [place] lyte test strips, See Instructions, # 200 each, Refills 3, Tot. Refills 3, Maintenance, DX:024.912 Please check blood sugars four times a day., 06/09/21 14:03:00 EST, Supply, 168, cm, 04/27/21 12:54:00 EDT, Height, 113.4, kg, 04/20/21 14:40:... Start Date: 06/09/21 Status: Ordered [place] lyte test strips La Plata lyte test strips, See Instructions, # 200 each, Refills 3, Tot. Refills 3, Maintenance, DX:024.912 Please check blood sugars four times a day., 06/08/21 15:50:00 EST, Supply, 168, cm, 04/27/21 12:54:00 EDT, Height, 113.4, kg, 04/20/21 14:40:... Start Date: 06/08/21 Status: Ordered La Plata lyte test strips La Plata lyte test strips, See Instructions, # 200 [...] 20 tablet, 0Refills, Maintenance, 06/22/21 10:32:00 EST, [facility]/pharmacy #[id number], Partial fill upon patient request if the prescription is for a schedule II opioid drug... Start Date: 06/22/21 Status: Ordered Multivitamins with Folic Acid 1 mg oral tablet 1 tablet, By Mouth, Daily, # 30 tablet, 8 Refills, Maintenance, 03/09/21 15:40:00 EDT, Tablet, [facility]/pharmacy #[id number], Partial fill upon patient request if the prescription is for a schedule II opioid drug., 1 tablet By Mouth Daily, 168, cm, 02/03/21 12:2... Start Date: 03/09/21 Status: Ordered Zofran 4 mg oral tablet 1 tablet = 4 mg, By Mouth, Every 4 hours, PRN as needed for nausea/vomiting, # 30 tablet, 0 Refills, Maintenance, 05/25/21 10:12:00 EDT, Tablet, [facility]/pharmacy #[id number], Partial fill upon patient [...]
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
--- OUTSIDE RECORDS SUMMARY | 2024-04-22 14:11 | XMS_ITS | Continuity of Care Document ---
Author Organization [facility] Address [address] [place] [address]- Care Team Providers Care Label Operator Name Role Phone Sara Pradhan NP Primary Care Physician Encounter [facility] Date(s): 01/04/23 - 05/04/23 [facility] [address] [place], [place] [id number]- Attending Physician: Molly Asher MD Admitting Physician: Molly Asher MD Referring Physician: Sara Pradhan NP Allergies, Adverse Reactions, Alerts Substance Reaction Severity [...] 01/10/23 15:26:00 EDT, Route to Pharmacy Electronically, [facility]/pharmacy #[id number], Partial fill upon patient request if the prescriptio... Start Date: 01/10/23 Status: Ordered famotidine 20 mg oral tablet 1, tablet, By Mouth, Daily at bedtime, # 90 tablet, Refills 0, Tot. Refills 0, Maintenance, 02/09/23 12:19:00 EDT, Route to Pharmacy Electronically, [facility]/pharmacy #[id number], 170, cm, 02/09/23 12:11:00 EDT, Height, [...] Personnel Name: Damien ARREGUIN, Evelyn Anthony Position: [facility] OB RN Member Role: Primary Care Nurse Name: Vamshi Ford RN Position: S RN Member Role: Primary Care Nurse Name: Corine Yoder RN Position: S RN Member Role: Primary Care Nurse Name: Sara Pradhan NP Position: Reference Physician Member Role: PCP Address: Address: [address] [place] [address]- Care Team Related Persons Name: MACHADO CLARK Address: [address] [address] Name: NYA DURAND Address: [address] [place] [address] Name: KARSTEN GALLAGHER Address: [address] [place] [address] Name: JACKY PÉREZ Address: [address] [place] [address] Name: JACKY AMOR Address: [address] [place] [address] Name: LITTLE ELIAS Address: [address] Address: [address] [place] [address] [place] Name: MARVIN ELIAS Address: [address] [place] [address] Name: MARVIN ELIAS Address: [id number] Address: [address] [place] [address] Name: CARLITOS DIAZ
--- OUTSIDE RECORDS SUMMARY | 2024-04-22 14:11 | XMS_ITS | Continuity of Care Document ---
Author Organization [facility] Address [address] [place] [address] [address] [place] [address]- Care Team Providers Care Food Assembler Commissary Kitchen Name Role Phone Carolynn ORDONEZ, Sara Arita Primary Care Physician [phone] Encounter [facility] Date(s): 12/27/22 - 01/26/[address] [place], [place] [address] Allergies, Adverse Reactions, Alerts [...] 01/10/23 15:26:00 EDT, Route to Pharmacy Electronically, [facility]/pharmacy #[id number], Partial fill upon patient request if the prescriptio... Start Date: 01/10/23 Status: Ordered diphenhydrAMINE 50 mg oral tablet [...] tablet, 0 Refills, Maintenance, 12/06/2316:40:00 EDT, Tablet, [facility]/pharmacy #[id number], Partial fill upon patient request if the prescription is for a schedule II opioid drug., 168, cm, 12/06/22 8:... Start Date: 12/06/22 Stop Date: 12/13/22 Status: Ordered famotidine 20 mg oral tablet 1, tablet, By Mouth, Daily at bedtime, # 30 tablet, Refills 1, Maintenance, 12/19/22 16:07:00 EDT, Route to Pharmacy Electronically, [facility] STORE 15295, 168, cm, 12/13/22 17:39:00 EDT, Height, 150.4, [...] Date: 12/27/22 Stop Date: 06/25/23 Status: Ordered Measles/Mumps/Rubella Virus Vaccine Inj 0.5, mL, Subcutaneous Injection, Once, Maintenance, 12/06/22 17:40:00 EDT Start Date: 12/06/22 Status: Ordered NIFEdipine 30 mg oral tablet, extended release 30 mg, 1, tablet, By Mouth, Every 24 hours, # 30 tablet, Refills 0, Tot. Refills 0, Maintenance, 12/16/22 13:59:00 EDT, [facility], [id number], [...] 0 Refills, Maintenance, 11/02/22 18:45:00 EDT, Capsule, [facility]/pharmacy #[id number], Partial fill upon patient request if [...] Team Personnel Name: Evelyn Quezada RN Position: [facility] OB RN Member Role: Primary Care Nurse Name: Vamshi Ford RN Position: S RN Member Role: Primary Care Nurse Name: Corine Yoder RN Position: S RN Member Role: Primary Care Nurse Name: Sara Pradhan NP Position: Reference Physician Member Role: PCP Address: Address: [address] [place] [address]- [place] Care Team Related Persons Name: MAGUI MACHADOO Address: home [address] [address] Name: NYA DURAND Address: home [address] [place] [address] Name: KARSTEN GALLAGHER Address: home [address] [place] [address] Name: JACKY PÉREZ Address: home [address] [place] [address] Name: JACKY AMOR Address: home [address] [place] [address] Name: LITTLE ELIAS Address: [address] Address: home [address] [place] [address] [place] Name: MARVIN ELIAS Address: home [address] [place] [address] Name: MARVIN ELIAS Address: [address] Address: [address] [place] [address] [place] Name: CARLITOS DIAZ
--- OUTSIDE RECORDS SUMMARY | 2024-04-22 14:11 | XMS_ITS | Continuity of Care Document ---
Author Organization [facility] Address [address] [place] [address]- Care Team Providers Care Associate Pastor Name Role Phone Not on Staff, PCP Primary Care Physician Unavail able Encounter [facility] Date(s): 11/30/21 - 01/01/[address] [email or web address]] Attending Physician: Not on Staff, Attending MD [...] tablet, 0 Refills, Maintenance, 10/26/21 12:58:00 EDT, [facility]/pharmacy #[id number], Partial fill upon patient request if the prescription is for a schedule II opioid drug., 165, cm, 10/26/21 9:33:00 EDT, Height, 1... Start Date: 10/26/21 Status: Ordered ferrous sulfate 325 mg oral tablet 1 tablet, By Mouth, Daily, # 90 tablet, 0 Refills, [facility], 165, cm, 12/02/21 16:29:00 EDT,Height, 144.2, kg, 11/01/21 10:32:00 EDT, Dry Weight Start Date: 12/06/21 Status: Ordered Plus Low Iron oral tablet 1 tablet, By Mouth, Daily, # 90 tablet, 2 Refills, [facility] ST[facility] 62084, 90, TAKE 1 TABLET BY MOUTH EVERY DAY, 165, cm, 12/02/21 16:29:00 EDT, Height, 144.2, kg, 11/01/21 10:32:00 EDT, Dry Weight Start Date: 12/31/21 Status: Ordered Problem List Condition Effective Dates [...]
--- OUTSIDE RECORDS SUMMARY | 2024-04-22 14:11 | XMS_ITS | Continuity of Care Document ---
Author Organization [facility] Address [address] [place] [address]- Care Team Providers Care Flooring Salesperson Name Role Phone Not on Staff, PCP Primary Care Physician Unavail able Encounter [facility] Date(s): 10/26/21 - 11/25/[address] [address] Allergies, Adverse Reactions, Alerts Substance Reaction [...] 0 Refills, Maintenance, 09/09/21 15:28:00 EST, Tablet, [facility]/pharmacy #[id number], Partial fill upon patient request [...] WITH BREAKFAST, # 30 tablet, 0 Refills, [facility] STORE 70823, 165, cm, 10/26/21 9:33:00 EDT, Height, 144.2, [...] Refills, Maintenance, 03/09/21 15:40:00 EDT, Tablet, [id number], Partial fill upon patient request if the [...]
--- OUTSIDE RECORDS SUMMARY | 2024-04-22 14:11 | XMS_ITS | Continuity of Care Document ---
Author Organization [facility] Address [address] [place] [address]- Care Team Providers Care Clinical Rehabilitation Liaison Name Role Phone Not on Staff, PCP Primary Care Physician Unavail able [place] [facility] Date(s): 10/25/21 - 01/06/[address] [address] Attending Physician: Not on Staff, Attending MD [...] tablet, 0 Refills, Maintenance, 10/26/21 12:58:00 EDT, [facility]/pharmacy #[id number], Partial fill upon patient request if the prescription is for a schedule II opioid drug., 165, cm, 10/26/21 9:33:00 EDT, Height, 1... Start Date: 10/26/21 Status: Ordered ferrous sulfate 325 mg oral tablet 1 tablet, By Mouth, Daily, # 90 tablet, 0 Refills, [facility], 165, cm, 12/02/21 16:29:00 EDT,Height, 144.2, kg, 11/01/21 10:32:00 EDT, Dry Weight Start Date: 12/06/21 Status: Ordered Plus Low Iron oral tablet 1 tablet, By Mouth, Daily, # 90 tablet, 2 Refills, [facility] ST[facility] 44423, 90, TAKE 1 TABLET BY MOUTH EVERY [...]
--- OUTSIDE RECORDS SUMMARY | 2024-04-22 14:11 | XMS_ITS | Continuity of Care Document ---
Author Organization [facility] Address [address] [place] [address]- Care Team Providers Care Car Mover Name Role Phone Carolynn ORDONEZ, Sara Arita Primary Care Physician [phone] [facility] Date(s): 12/02/22 - 12/02/[address] [address] Discharge Disposition: A-D/C Home Attending Physician: Bryson Bennett MD Admitting Physician: Bryson Bennett MD Referring Physician: Bryson Bennett MD Allergies, Adverse Reactions, Alerts Substance Reaction [...] Dry Weight Start Date: 08/01/22 Status: Ordered aspirin 81 mg oral delayed release tablet 162 mg, 2, tablet, By Mouth, Daily, # 60 tablet, Refills 0, Tot. Refills 0, Maintenance, 09/29/22 14:34:00 EST, Route to Pharmacy Electronically, [facility]/pharmacy #[id number], Partial fill upon patient requestif the prescription is for a schedule II opioid rosetta... Start Date: 09/29/22 Status: Ordered famotidine 20 mg oral tablet 1, tablet, By Mouth, Daily at bedtime, # 30 tablet, Refills 1, Maintenance, 09/23/22 13:46:00 EST, Route to Pharmacy Electronically, [facility] STORE 61781, 170, cm, 09/09/22 8:52:00 EST, Height, 143.2, kg,05/16/22 14:20:00 EDT, Dry Weight Start Date: 09/23/22 Status: Ordered Freestyle Lite Lancets See Instructions, # 90 each, Maintenance, DX: 099.810 - Please test blood sugars 4 times a day., 08/01/22 8:54:00 EST, Supply, 170, cm, 07/28/22 16:30:00 EST, Height, 143.2, kg, 05/16/22 14:20:00 EDT, Dry Weight Start Date: 08/01/22 Status: Ordered FREESTYLE LITE LANCETS FREESTYLE LITE LANCETS, See Instructions, # 200 each, Refills 5, Tot. Refills 5, Maintenance, GLUCOSE MONITORING 4 TIMES A DAY DURING , 11/25/22 11:25:00 EDT, [facility] PATIENT, PLEASE COMPLETE METER TEACHING WITH PATIENT. SWEDISH SPEAKING, Supply,... Start Date: 11/25/22 Status: Ordered Freestyle Lite Monitor See Instructions, [...] Dry Weight Start Date: 08/01/22 Status: Ordered ondansetron 4 mg oral tablet, disintegrating See Instructions, TAKE 1 TABLET BY MOUTH ONCE DAY NEEDED FOR NAUSEA AND VOMITING, # 10 tablet, 0Refills, Maintenance, 10/10/22 12:02:00 EDT, [facility], 170, cm, 09/29/22 11:15:00 EST, Height, 143.2, [...] team information Care Team Personnel Name: Damien RNEvelyn Position: S OB RN Member Role: Primary Care Nurse Name: Carolynn ORDONEZ, Sara Arita Position: Reference Physician Member Role: PCP Address: Address: [address] [place] [address] Name: Brynn Dozier RN Position: S OB RN Member Role: Patient Care Provider Care Team Related Persons Name: MAGUI MACHADOO Address: home [address] [address] Name: NYA DURAND Address: home [address] [place] [address] Name: KARSTEN GALLAGHER Address: home [address] [place] [address] Name: JACKY PÉREZ Address: home [address] [place] [address] Name: JACKY AMOR Address: [address] [place] [address] Name: LITTLE ELIAS Address: [address] Address: home [address] [place] [address] Name: CARLITOS DIAZ
--- OUTSIDE RECORDS SUMMARY | 2024-04-22 14:11 | XMS_ITS | Continuity of Care Document ---
Author Organization [facility] Address [address] [place] [address]- Care Team Providers Care Medical Attendant Name Role Phone Sara Pradhan NP Primary Care Physician En[place] [id number] Date(s): 11/27/23 - 12/04/23 [facility] [address] [place] [address]- Attending Physician: Blanca Topete MD Referring Physician: Sara Pradhan NP Allergies, [...] 01/10/23 15:26:00 EDT, Route to Pharmacy Electronically, [facility]/pharmacy #[id number], Partial fill upon patient request if the [...] Most recent to oldest [Reference Range]: 1 Height 168 cm (11/27/23 5:06 PM) Oxygen Saturation [94-100 %] 93 % *L* (11/27/23 5:06 PM) Pulse Rate [55-90 bpm] 83 bpm (11/27/23 5:06 PM) Blood Pressure [90-138/55-84 mm Hg] 125/ 81mm Hg (11/27/23 5:06 PM) Respiratory Rate [16-30 br/min] 24 br/mi n (11/27/23 5:06 PM) Temperature [96.8-100.4 DegF] 98.6 DegF (11/27/23 5:06 PM) Mode of Delivery (Oxygen) Room air (11/27/23 5:06 PM) Blood pressure sites Arm, left (11/27/23 5:06 PM) Temperature Route Oral (11/27/23 5:06 PM) Social History Social History Type Response Tobacco Use: 4 or less cigar ettes(less than 1/4 pack)/day in last 30 days. Sex Note * Nick Orlando: PERFORM, SIGN, VERIFY Event Display: Patient Education/Instruction Authored Date: [facility] *[facility] Care Clinical Summary Name NASIM MACHADO Age 33 Years 1990 PCP Carolynn ORDONEZ, Sara Arita PCP Visit Date 11/27/2023 16:24:00 Additional Instructions: Keep splint on elevate hand apply cool compresses tonight 20 minutes on 20 minutes off. Take ibuprofen and Tylenol every 6 hours as needed for pain. Take cephalexin 500 mg 3 times a day for 7 days, take probiotic notify diarrhea from antibiotics. Cover hand with plastic bag to take showers to keep your finger dressing dry. Follow-up in 3 days for wound check and dressing change. Follow-up sooner for any worsening pain or swelling. Scheduled Appointments?? Future Appointments ?No Future Appointments Scheduled Follow-Up Instructions ?? Diagnosis Medications: Please continue your medications until treatment is completed or stopped by your provider. Discuss any questions related to medications with your provider. New Medications [id number], [address] [place], [place] [id number], [phone] Cephalexin (cephalexin monohydrate 500 mg oral capsule) 1 capsule Oral every 8 hours for 7 Days. Take probiotic daily to prevent diarrhea. Refills: 0. Next Dose: Medications to Continue with No Changes These medications were not printed or sent to your pharmacy Docusate (Colace sodium 100 mg oral capsule) 1 capsule Oral twice a day as needed for constipation.Refills: 0. Next Dose: Famotidine (famotidine 20 mg oral tablet) 1 tab(s) Oral Daily at Bedtime for 90 Days. Refills: 0. Next Dose: Gabapentin (gabapentin 300 mg oral capsule) 1 capsule Oral 3 times a day for 30 Days. Refills: 5. Next Dose: HydrOXYzine (Vistaril pamoate 25 mg oral capsule) 1 capsule Oral 4 times a day as needed for anxiety. Refills: 0. Next Dose: Multivitamin, ( Multivitamins with Folic Acid 1 mg oral tablet) 1 tab(s) Oral Daily. Refills: 2. Next Dose: NIFEdipine (NIFEdipine 30 mg oral tablet, extended release) 1 tab(s) Oral every 24 hours. Refills: 0. Next Dose: Allergy Info:?? Toradol Medications Given This Visit Future Orders ?No future orders Future Orders ?No future orders Vital Signs Height 168 cm Weight BMI Blood Pressure 125 mm Hg/81 mm Hg Temperature 98.6 DegF Pulse Rate 83 bpm Respiratory Rate 24 br/min 02 Sat Mode of Delivery 93 %/Room air You can now view a summary of your hospital visit from the comfort of your home through a free online portal called [employer]. [employer] is a website that allows you to securely view your medical information including discharge summary, medications and follow-up visits. ??You can alsosend a secure electronic message to your doctor???s office to request appointments, renew medications or just ask a question. You can enroll at [email or web address] or register during your next office visit. Disclaimer:?? The information provided is of a general nature and is intended to be used in conjunction with the recommendations and advice of your health care practitioner. ??Every effort has been made to ensure that the information provided is accurate and complete at the time it is provided to you however, as your needs change, or, as new ??information becomes available, different or additional instructions may be required. If you have questions, please consult with your primary care provider or pharmacist, as appropriate. ??This information is not intended to serve as substitution for assessment and evaluation by a qualified health care provider. If you do not have a primary care provider, you may find a [facility] provider by calling [facility] [employer] at [phone]. [facility], in keeping with [facility] guidance, no longer requires face masks for staff, patientsor visitors in most situations. Similar to time spent indoors at other locations, there is the chance that you were exposed to respiratory viruses during your time with us (such as flu or COVID-19).? If you develop symptoms concerning for a viral respiratory infection, please seek testing (and treatment if indicated) from your medical provider or home test kit. For information about the plan of care including goals and instructions for your diagnosis, please see the patient education orders section of this document. Patient Education Materials?? The content of this educational material or handout may have been modified, supplemented, or adapted from its original content and format to support your individualized medical care. Patient Care team information Care Team Personnel Name: Evelyn Quezada RN Position: [facility] OB RN Member Role: Primary Care Nurse Name: Liliana ARREGUIN, Vamshi Kirkland Position: S RN Member Role: Primary Care Nurse Name: Sara Pradhan NP Position: Reference Physician Member Role: PCP Address: Address: [address] [place] [address]- Care Team Related Persons Name: MAGUI MACHADOO Address: home [address] [address] Name: NYA DURAND Address: [address] [place] [address] Name: KARSTEN GALLAGHER Address: home [address] [place] [address] Name: JACKY PÉREZ Address: home [address] [place] [address] Name: JACKY AMOR Address: [address] [place] [address] Name: LITTLE ELIAS Address: [address] Address: home [address] [place] [address] [place] Name: MARVIN ELIAS Address: [address] [place] [address] Name: MARVIN ELIAS Address: [address] Address: [address] [place] [address] Name: CARLITOS DIAZ
--- OUTSIDE RECORDS SUMMARY | 2024-04-22 14:11 | XMS_ITS | Continuity of Care Document ---
Author Organization [facility] Address [address] [place] [address]- Care Team Providers Care Coating And Embossing Unit Operator Name Role Phone Ilan ORDONEZ, Lazaro Primary Care Physician Encounter [facility] Date(s): 09/28/20 - 10/28/[address] [address] Attending Physician: Admtr, Ar8 Allergies, Adverse Reactions, [...] 07/28/19 16:40:00 EST, Route to Pharmacy Electronically, [facility]/pharmacy #[id number], 168, cm, 03/15/18 15:47:00 EDT, Height, [...]
--- OUTSIDE RECORDS SUMMARY | 2024-04-22 14:11 | XMS_ITS | Continuity of Care Document ---
Author Organization [facility] ter Address [address] [place] [address]- Care Team Providers Care Ibm Mainframe Developer Name Role Phone Carolynn ORDONEZ, Sara M Primary Care Physician Encounter [facility] Date(s): 10/27/22 - 12/01/[address] [address] Attending Physician: Jacob Castillo DO Admitting [...] 09/29/22 14:34:00 EST, Route to Pharmacy Electronically, [facility]/pharmacy #[id number], Partial fill upon patient requestif the prescription is for a schedule II opioid rosetta... Start Date: 09/29/22 Status: Ordered famotidine 20 mg oral tablet 1, tablet, By Mouth, Daily at bedtime, # 30 tablet, Refills 1, Maintenance, 09/23/22 13:46:00 EST, Route to Pharmacy Electronically, [facility] STORE 78953, 170, cm, 09/09/22 8:52:00 EST, Height, 143.2, [...] PATIENT, PLEASE COMPLETE METER TEACHING WITH PATIENT. KYRGYZ SPEAKING, Supply,... Start Date: 11/25/22 Status: Ordered [...] 0Refills, Maintenance, 10/10/22 12:02:00 EDT, [facility], 170, cm, 09/29/22 11:15:00 EST, Height, 143.2, [...] Member Role: Primary Care Nurse Name: Carolynn SLURRY TANK TENDER, Sara Arita Position: Reference Physician Member Role: PCP Address: Address: [address] [place] [address]- Care Team Related Persons Name: CLARK MACHADO Address: home [address] [address] Name: NYA DURAND Address: [address] [place] [address] Name: KARSTEN GALLAGHER Address: [address] [place] [address] Name: JACKY PÉREZ Address: [address] [place] [address] Name: JACKY AMOR Address: [address] [place] [address] Name: LITTLE ELIAS Address: [address] Address: [address] [place] [address] Name: CARLITOS DIAZ
--- OUTSIDE RECORDS SUMMARY | 2024-04-22 14:12 | XMS_ITS | Continuity of Care Document ---
Author Organization [facility] Address [address] [place] [address]- Care Team Providers Care Traffic Court Referee Name Role Phone Not on Staff, PCP Primary Care Physician Unavail able Encounter [facility] Date(s): 11/09/21 - 12/16/[address] [address]- Attending Physician: Not on Staff, Attending MD [...] tablet, 0 Refills, Maintenance, 10/26/21 12:58:00 EDT, [facility]/pharmacy #[id number], Partial fill upon patient request if the prescription is for a schedule II opioid drug., 165, cm, 10/26/21 9:33:00 EDT, Height, 1... Start Date: 10/26/21 Status: Ordered ferrous sulfate 325 mg oral tablet 1 tablet, By Mouth, Daily, # 90 tablet, 0 Refills, [facility] STORE 41661, 165, cm, 12/02/21 16:29:00 EDT,Height, 144.2, kg, 11/01/21 10:32:00 EDT, Dry Weight Start Date: 12/06/21 Status: Ordered Multivitamins with Folic Acid 1 mg oral tablet 1 tablet, By Mouth, Daily, # 30 tablet, 8 Refills, Maintenance, 03/09/21 15:40:00 EDT, Tablet, [id number], Partial fill upon patient request if the [...]
--- OUTSIDE RECORDS SUMMARY | 2024-04-22 14:12 | XMS_ITS | Continuity of Care Document ---
Author Organization [facility] Address [address] [place] [address]- Care Team Providers Care Undercover Operator Name Role Phone Carolynn ORDONEZ, Sara Artia Primary Care Physician [phone] Encounter [facility] Date(s): 04/25/23 - 05/25/[address] [address] Attending Physician: Admtr, Ar8 Allergies, Adverse Reactions, [...] 01/10/23 15:26:00 EDT, Route to Pharmacy Electronically, [facility]/pharmacy #[id number], Partial fill upon patient request if the [...] Personnel Name: Damien ARREGUIN, Evelyn Anthony Position: [facility] OB RN Member Role: Primary Care Nurse Name: Liliana ARREGUIN, Vamshi Kirkland Position: S RN Member Role: Primary Care Nurse Name: Corine Yoder RN Position: S RN Member Role: Primary Care Nurse Name: Sara Pradhan NP Position: Reference Physician Member Role: PCP Address: Address: [address] [place] [address]- Care Team Related Persons Name: MAGUI MACHADOO Address: home [address] [address] Name: NYA DURAND Address: [address] [place] [address] Name: KARSTEN GALLAGHER Address: [address] [place] [address] Name: JACKY PÉREZ Address: [address] [place] [address] Name: JACKY AMOR Address: [address] [place] [address] Name: LITTLE ELIAS Address: [address] Address: [address] [place] [address] [place] Name: MARVIN ELIAS Address: [address] [place] [address] Name: MARVIN ELIAS Address: [address] Address: [address] [place] [address] [place] Name: CARLITOS DIAZ
--- OUTSIDE RECORDS SUMMARY | 2024-04-22 14:12 | XMS_ITS | Continuity of Care Document ---
Author Organization [facility] ter Address [address] [place] [address] Care Team Providers Care Drive Away Driver Name Role Phone Carolynn ORDONEZ, Sara M Primary Care Physician [phone] Encounter [facility] [place] Date(s): 11/09/22 - 12/15/[address] [address] Attending Physician: Jacob Castillo DO Admitting Physician: [...] 09/23/22 13:46:00 EST, Route to Pharmacy Electronically, [facility] 03372, 170, cm, 09/09/22 8:52:00 EST, Height, 143.2, kg,05/16/22 14:20:00 EDT, Dry Weight Start Date: 09/23/22 Status: Ordered Measles/Mumps/Rubella Virus Vaccine Inj 0.5, mL, Subcutaneous Injection, Once, Maintenance, 12/06/22 17:40:00 EDT Start Date: 12/06/22 Status: Ordered ondansetron 4 mg oral tablet, disintegrating See Instructions, TAKE 1 TABLET BY MOUTH ONCE DAY NEEDED FOR NAUSEA AND VOMITING, # 10 tablet, 0Refills, Maintenance, 10/10/22 12:02:00 EDT, [facility] ST[facility] [address]75, 170, cm, 09/29/22 11:15:00 EST, Height, 143.2, kg, 05/16/22 14:20:00 EDT, Dry Weight Start Date: 10/10/22 Status: Ordered Multivitamins with Folic Acid 1 mg oral tablet 1 tablet, By Mouth, Daily, # 90 tablet, 2 Refills, Maintenance, 05/10/22 18:35:00 EDT, Tablet, [facility]/pharmacy #[id number], Partial fill upon [...] opioid drug. Start Date: 12/06/22 Status: Ordered Tums 500 mg Tablet 2 tablet = 1,000 mg, Chew, 3 times a day, PRN Indigestion, 0 Refills, Maintenance, 12/06/22 17:40:00 EDT, Chew Tablet, Partial fill upon patient request if [...] Physician Member Role: PCP Address: Address: [address] [place] [address]- Care Team Related Persons Name: MAGUI MACHADOO Address: home [address] [address] Name: NYA DURAND Address: [address] [place] [address] Name: KARSTEN GALLAGHER Address: [address] [place] [address] Name: JACKY PÉREZ Address: [address] [place] [address] Name: JACKY AMOR Address: [address] [place], [place] Name: LITTLE ELIAS Address: [address] Address: [address] [place] [address] [place] Name: MARVIN ELIAS Address: [address] Address: [address] [address] [place] Name: CARLITOS DIAZ
--- OUTSIDE RECORDS SUMMARY | 2024-04-22 14:12 | XMS_ITS | Continuity of Care Document ---
Author Organization [facility] Address [address] [place] [address]- Care Team Providers Care Radio News Anchor Name Role Phone Not on Staff, PCP Primary Care Physician Unavail able Encounter [facility] Date(s): 11/01/21 - 12/01/[address] [address] Allergies, Adverse Reactions, Alerts Substance [...] 0 Refills, Maintenance, 09/09/21 15:28:00 EST, Tablet, [facility]/pharmacy #[id number], Partial fill upon patient request if [...] WITH BREAKFAST, # 30 tablet, 0 Refills, [facility] STORE [id number], 165, cm, 10/26/21 9:33:00 EDT, Height, 144.2, [...] Refills, Maintenance, 03/09/21 15:40:00 EDT, Tablet, [id number], Partial fill upon patient request if the [...]
--- OUTSIDE RECORDS SUMMARY | 2024-04-22 14:12 | XMS_ITS | Continuity of Care Document ---
Author Organization [facility] Address [address] [place] [address]- Care Team Providers Care Carbide Tool Maker Name Role Phone Ilan ORDONEZ, Lazaro Primary Care Physician [phone] [place]counter [facility] Date(s): 08/18/20 - 09/17/[address] [address] Allergies, Adverse Reactions, Alerts Substance [...] 16:40:00 EST, Route to Pharmacy Electronically, [facility]/pharmacy #[id number], 168, cm, 03/15/18 15:47:00 EDT, Height, [...]
--- OUTSIDE RECORDS SUMMARY | 2024-04-22 14:12 | XMS_ITS | Continuity of Care Document ---
Author Organization [facility] Address [address] [place] [address]- Care Team Providers Care Certified Adaptive Physical Educator Name Role Phone Carolynn ORDONEZ, Sara Arita Primary Care Physician [place] [facility] 06/02/23 - 07/02/23 [facility] [address] [address] Attending Physician: Poli Matta Admitting Physician: AdmtrPoli Referring Physician: AdmtrPoli Allergies, Adverse Reactions, Alerts Substance Reaction Severity [...] to Pharmacy Electronically, [facility]/pharmacy #[id number], Partial fill upon patient request if the [...] Personnel Name: Damien ARREGUIN, Evelyn Anthony Position: [facility] OB RN Member Role: Primary Care Nurse Name: Vamshi Ford RN Position: S RN Member Role: Primary Care Nurse Name: Corine Yoder RN Position: S RN Member Role: Primary Care Nurse Name: Sara Pradhan NP Position: Reference Physician Member Role: PCP Address: Address: [address] [place] [address]- Care Team Related Persons Name: MAGUI MACHADOO Address: home [address] [address] Name: NYA DURAND Address: home [address] [place] [address] Name: KARSTEN GALLAGHER Address: home [address] [place] [address] Name: JACKY PÉREZ Address: home [address] [place] [address] Name: JACKY AMOR Address: home [address] [place] [address] Name: LITTLE ELIAS Address: [address] Address: home [address] [place] [address] [place] Name: MARVIN ELIAS Address: [address] Address: home [address] [place] [address] [place] Name: MARVIN ELIAS Address: home [address] [place] [address] Name: CARLITOS DIAZ
--- OUTSIDE RECORDS SUMMARY | 2024-04-22 14:12 | XMS_ITS | Continuity of Care Document ---
Author Organization [facility] Address [address] [place] [address]- Care Team Providers Care Protective Officer Name Role Phone Carolynn ORDONEZ, Sara Arita Primary Care Physician Encounter [facility] Date(s): 11/07/22 - 12/07/[address] [address] Allergies, Adverse Reactions, Alerts Substance [...] 03/11/14 2Admin Note: VIS GIVEN Medications acetaminophen 325 mg oral tablet 650 mg, By Mouth, Every 4 hours, PRN, for 7 days, (1-3), may give 325mg per patient preference and re-dose with 325mg within 4 hours, if needed. Patient should only receive a total of 650mg of Acetaminophen every 4 hours., # 50 tablet, Refills 0, To... Start Date: 12/06/22 Stop Date: 12/13/22 Status: Ordered diphenhydrAMINE 50 mg oral tablet [...] tablet, 0 Refills, Maintenance, 12/06/2316:40:00 EDT, Tablet, [facility]/pharmacy #[id number], Partial fill upon patient request if the prescription is for a schedule II opioid drug., 168, cm, 12/06/22 8:... Start Date: 12/06/22 Stop Date: 12/13/22 Status: Ordered famotidine 20 mg oral tablet 1, tablet, By Mouth, Daily at bedtime, # 30 tablet, Refills 1, Maintenance, 09/23/22 13:46:00 EST, Route to Pharmacy Electronically, [facility] STORE [id number], 170, cm, 09/09/22 8:52:00 EST, Height, 143.2, [...] 0Refills, Maintenance, 10/10/22 12:02:00 EDT, [id number], 170, cm, 09/29/22 11:15:00 EST, Height, 143.2, [...] Reference Physician Member Role: PCP Address: Address: [address] [place] [address]- Care Team Related Persons Name: NASIM MACHADO Address: [address] Address: home [address] [place] [address] Name: MAGUI MACHADOO Address: home [address] [address] Name: NYA DURAND Address: home [address] [place] [address] Name: KARSTEN GALLAGHER Address: home [address] [place] [address] Name: JACKY PÉREZ Address: home [address] [place] [address] Name: JACKY AMOR Address: [address] [place] [address] Name: LITTLE ELIAS Address: [address] Address: home [address] [place] [address] Name: CARLITOS DIAZ
--- OUTSIDE RECORDS SUMMARY | 2024-04-22 14:12 | XMS_ITS | Continuity of Care Document ---
Author Organization [facility] Address [address] [place] [address]- Care Team Providers Care Professional Builder Name Role Phone Carolynn ORDONEZ, Sara Arita Primary Care Physician Encounter [facility] Date(s): 01/26/24 - 02/25/[address] [address] Attending Physician: Admtr, Ar8 Allergies, Adverse Reactions, [...] 01/10/23 15:26:00 EDT, Route to Pharmacy Electronically, [facility]/pharmacy #[id number], Partial fill upon patient request if the [...] Refills, Maintenance, 11/02/22 18:45:00 EDT, Caps[facility], [id number], Partial fill upon patient request if the [...] Name: Evelyn Quezada RN Position: [facility] OB RN Member Role: Primary Care Nurse Name: Vamshi Ford RN Position: S RN Member Role: Primary Care Nurse Name: Sara Pradhan NP Position: Reference Physician Member Role: PCP Address: Address: [address] [place] [address]- Care Team Related Persons Name: CLARK MACHADO Address: home [address] [address] Name: NYA DURAND Address: home [address] [place] [address] Name: STEVEN MALAVE Address: home [address] [place] [address] Name: KARSTEN GALLAGHER Address: home [address] [place] [address] Name: JACKY PÉREZ Address: home [address] [place], [place] Name: JACKY AMOR Address: home [address] [place], [place] Name: LITTLE ELIAS Address: [address] Address: home [address] [place] [address] Name: MARVIN ELIAS Address: [address] Address: home [address] [place] [address] Name: CARLITOS DIAZ
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
--- OUTSIDE RECORDS SUMMARY | 2024-04-22 14:12 | XMS_ITS | Continuity of Care Document ---
Author Organization [facility] ter Address [address] [place] [id number] Care Team Providers Care Jigsawyer Name Role Phone Sara Pradhan NP Primary Care Physician Encounter [facility] Date(s): 12/04/22 - 12/08/[address] [address] Discharge Disposition: A-D/C Home Attending Physician: Rosetta Quinn DO Admitting Physician: Rosetta Quinn DO Referring Physician: Skylar Araya MD Allergies, Adverse Reactions, Alerts Substance Reaction [...] Date: 12/06/22 Stop Date: 12/13/22 Status: Ordered Acetaminophen Tablet 650 mg, Tablet, By Mouth, Every 4 hours, PRN for Pain , Mild, (1-3), may give 325mg per patient preference and re-dose with 325mg within 4 hours, if needed. Patient should only receive a total of 650mg of Acetaminophen every 4 hours., Routine, 12/05... Start Date: 12/05/22 Stop Date: 12/09/22 Status: Discontinued diphenhydrAMINE 50 mg oral tablet = 50 [...] tablet, 0 Refills, Maintenance, 12/06/2316:40:00 EDT, Tablet, [facility]/pharmacy #[id number], Partial fill upon patient request if the prescription is for a schedule II opioid drug., 168, cm, 12/06/22 8:... Start Date: 12/06/22 Stop Date: 12/13/22 Status: Ordered famotidine 20 mg oral tablet 1, tablet, By Mouth, Daily at bedtime, # 30 tablet, Refills 1, Maintenance, 09/23/22 13:46:00 EST, Route to Pharmacy Electronically, [id number], 170, cm, 09/09/22 8:52:00 EST, Height, 143.2, kg,05/16/22 14:20:00 EDT, Dry Weight Start Date: 09/23/22 Status: Ordered ibuprofen 600 mg oral tablet 600 mg, Tablet, By Mouth, 3 times a day, PRN for Pain , Mild, Routine, 12/07/22 8:31:00 EDT Start Date: 12/07/22 Stop Date: 12/09/22 Status: Discontinued Measles/Mumps/Rubella Virus Vaccine Inj 0.5, mL, Subcutaneous Injection, Once, Maintenance, 12/06/22 17:40:00 EDT Start Date: 12/06/22 Status: Ordered ondansetron 4 mg oral tablet, disintegrating See Instructions, TAKE 1 TABLET BY MOUTH ONCE DAY NEEDED FOR NAUSEA AND VOMITING, # 10 tablet, 0Refills, Maintenance, 10/10/22 12:02:00 EDT, [id number], 170, cm, 09/29/22 11:15:00 EST, Height, 143.2, kg, 05/16/22 14:20:00 EDT, Dry Weight Start Date: 10/10/22 Status: Ordered Multivitamins with Folic Acid 1 mg oral tablet 1 tablet, By Mouth, Daily, # 90 tablet, 2 Refills, Maintenance, 05/10/22 18:35:00 EDT, Tablet, [facility]/pharmacy #[id number], Partial fill upon [...] 0 Refills, Maintenance, 11/02/22 18:45:00 EDT, Capsule, [facility]/pharmacy #[id number], Partial fill upon [...] to oldest [Reference Range]: 1 2 3 4 Height 168 cm (12/08/22 8:23 AM) 168 cm (12/08/22 12:14 AM) 168 cm (12/07/22 9:19 AM) Weight 151.2 kg (12/04/22 8:54 PM) Oxygen Saturation [94-100 %] 98 % (12/08/22 8:23 AM) 100 % (12/08/22 12:14 AM) 100 % (12/07/22 9:19 AM) Pulse Rate [55-90 bpm] 85 bpm (12/08/22 8:23 AM) 91 bpm *H* (12/08/22 12:14 AM) 90 bpm (12/07/22 9:19 AM) Body Mass Index [18.5-24.99 kg/m2] 53.57 kg/m2 *>HHI* (12/04/22 8:54 PM) Blood Pressure [90-138/55-84 mm Hg] 135/75mm Hg (12/08/22 8:23 AM) 141/76mm Hg *H* (12/08/22 12:14 AM) 130/78mm Hg (12/07/22 9:19 AM) Respiratory Rate [16-30 br/min] 17 br/min (12/08/22 9:52 AM) 20 br/min (12/08/22 8:23 AM) 17 br/min (12/08/22 5:34 AM) 17 br/min (12/08/22 5:34 AM) Temperature [96.8-100.4 DegF] 97.4 DegF (12/08/22 8:23 AM) 97.5 DegF (12/08/22 12:14 AM) 98 DegF (12/07/22 9:19 AM) Mode of Delivery (Oxygen) Room air (12/08/22 8:23 AM) Room air (12/08/22 12:14 AM) Room air (12/07/22 9:19 AM) Blood pressure sites Arm, right (12/08/22 8:23 AM) Arm, right (12/08/22 12:14 AM) Arm, left (12/07/22 9:19 AM) Temperature Route Oral (12/08/22 8:23 AM) Oral (12/08/22 12:14 AM) Oral (12/07/22 9:19 AM) Dry Weight 151.2 kg (12/04/22 8:54 PM) Social History Social History Type Response Tobacco Use: 4 or less cigar ettes(less than 1/4 pack)/day in last 30 days. Sex Female History and physical note * Shavonne PATHAK, Kandi: PERFORM, MODIFY, MODIFY, MODIFY, MODIFY, MODIFY, MODIFY Event Display: History and Physical Hospital Authored Date: Patient: ??MACHADO, NASIM ? Age:??32 Years?Sex:??Female?:??1990?? LMP/EGA/CAMDEN Gestational Age (EGA) and CAMDEN? * Note: EGA calculated as of 12/04/2022 ?? CAMDEN:??12/18/2022?EGA*:??38 weeks ? History?(5,0,2,5)?Method:??Ultrasound??(05/18/2022) History of Present Illness Nasim??is a??32 yo?? at 38 0/7wd presenting for??IOL???. complicated by chronic hypertension. ?? Today she denies any contractions, LOF, vaginal bleeding or decreased movement. ? PMH: Chronic HTN, anxiety, GERD, Glucose intolerance of , palpitations, hx of abnormal pap, morbid obesity, short interval between , PSH: no prior abdominal surgeries Meds: Famotidine, hydroxyzine Allergies: Toradol (hives/swelling) Social: no drug or tobacco use ?? Review of Systems negative except as noted in HPI Physical Exam Vitals & Measurements T:??98.3?F ?? HR:??93(Monitored)?? NE:??93?? RR:??18?? BP:??157/84?? SpO2:??100%?? HT:??168??cm?? WT:??151.2??kg?? BMI:??53.57?? General:??Well-appearing. No acute distress HEENT:??Normocephalic. Atraumatic. EOMI. Nares patent bilaterally. Moist mucous membranes. Respiratory:??Normal respiratory effort. Cardiovascular:??Well-perfused Gastrointestinal:??Gravid uterus, EFW 3700 Musculoskeletal:??No clubbing, cyanosis. No deformity. Skin:??Warm, dry. No rashes. Neurological:??Alert, awake. Normal speech. Moves all extremities. OB Assessment Baby A Baseline:130 Baseline Description:Normal, 110-160 bpm Baseline Variability:Moderate variability Accelerations:Present Deceleration:None Activity:Present Uterine Number of Contractions per 10 minutes1 Monitor Mode, UterineExternal Cervical Cervical Dilatation3 cm Cervical Ewfzmsltfv28% Station-3 Assessment/Plan Encounter for induction of labor (Z34.90):?? - Start Pitocin - Pain management in labor: IV narcotics and epidural when needed - PCN for GBS+ - sex: Male - : breast milk and formula - Circumcision: None - Contraception: Liletta IUD ?? Chronic hypertension (I10):?? -Not currently on medication -Monitor BP ? Glucose intolerance of (O99.810):??-Evaluate initial blood sugar upon admission ?? OB History History?(5,0,2,5)? # 1 ?Baby 1 ?Outcome Date:??2006 ?Outcome or Result:??Vaginal ?Gest Age:??39 weeks ? Outcome:??Live ? Sex:??Male ?Hospital:??[facility] ?? # 2 ?Baby 1 ?Outcome Date:??2008 ?Outcome or Result:??Vaginal ?Gest Age:??41 weeks 4 days ? Outcome:??Live ? Sex:??Female ?Hospital:??[facility] ?? # 3 ?Baby 1 ?Outcome Date:??2009 ?Outcome or Result:??Vaginal ?Gest Age:??40 weeks ? Outcome:??Live ? Sex:??Female ?Hospital:??[facility] ?? # 4 ?Baby 1 ?Outcome Date:??11/2012 ?Outcome or Result:??Therapeutic , medical ?Gest Age:??-- ? Outcome:? Sex:??-- ?Comment:??At PP ?? # 5 ?Baby 1 ?Outcome Date:??02/2013 ?Outcome or Result:??Therapeutic , medical ?Gest Age:??-- ? Outcome:? Sex:??-- ?Comment:??At PP ?? # 6 ?Baby 1 ?Outcome Date:??05/12/2014?Outcome or Result:??Vaginal ?Gest Age:??40 weeks 6 days ? Outcome:??Live ? Sex:??Female?Wt:?3679 g ?? # 7 ?Baby 1 ?Outcome Date:??10/24/2021?Outcome or Result:??Vaginal ?Gest Age:??38 weeks 2 days ? Outcome:??Live ? Sex:??Female?Wt:?3353 g ? Complications:??pt delivered ? Complications:??None ?Francisco Labor:??2 hr 39 min ?Hospital:??[facility] Labs Labs Labs & Tests ABO: O (05/18/22) AFP Result: 16.6 (07/05/22) Antibody Screen: Negative (05/18/22) Creatinine-Blood: 0.7 mg/dL (05/18/22) Down Syndrome Age Risk FTS: See Comments (06/30/22) Down Syndrome Maternal Age Risk: 1 IN 581 (07/05/22) Down Syndrome Scrn Risk FTS: See Comments (06/30/22) Fibronectin: NEGATIVE (11/02/22) Glucose 50 Gm, +60 Minutes:??167 mg/dL??High (06/30/22) Hct: 37.2 % (10/27/22) Hemoglobinopathy Interpretation: Normal hemoglobins. (05/18/22) Hepatitis B Surface Antigen: NEGATIVE (05/18/22) Hepatitis C Ab: NEGATIVE (05/18/22) Hgb: 11.7 Gm/dL (10/27/22) HIV 4th Generation Ab-Ag Result: NEGATIVE (05/18/22) Interpretation: (NOTE) (07/05/22) RH Test Only: Positive (05/18/22) RPR Titer Result: NOT INDICATED (10/27/22) Rubella IgG Ab: EQUIVOCAL (05/18/22) Syphilis Screen by DEENA: NEGATIVE (10/27/22) Trisomy 18 Screen Risk Estimate: <1 IN 5000 (07/05/22) Trisomy 18 Scrn Risk FTS: See Comments (06/30/22) Urine Culture: Urine Culture (11/02/22) Varicella IgG Ab: POSITIVE (05/18/22) Problem List Active Active Problem List Anxiety: (Medical) Chronic hypertension: (Medical) DCF case: (Freetext) (10/02/13) Former smoker: (Medical) GERD (gastroesophageal reflux disease): (Medical) Glucose intolerance of : (Medical) Heart palpitations: (Medical) Hidradenitis suppurativa: (Medical) History of abnormal cervical Pap smear: (Medical) History of gestational diabetes: (Medical) History of gestational hypertension: (Medical) Obesity during : (Medical) : (Obstetric) (03/15/22) : (Medical) PTSD (post-traumatic stress disorder): (Medical) related to past life trauma Rubella non-immune status, antepartum: (Medical) Severe obesity: (Medical) Short interval between pregnancies affecting , antepartum: (Medical) Procedure/Surgical History IUD - Intrauterine device procedure: 05/13/14 [place] tooth Home Medications Aspirin: 162 mg = 2 tablet, By Mouth, Daily Durable Medical Equipment: See Instructions, Please teach how to use monitor test 4 xday fasting & 2 hr after meals. ??Test for 1 week Durable Medical Equipment: See Instructions, DX: 099.810 - Please test blood sugars 4 times a day. Durable Medical Equipment: See Instructions, DX: 099.810 - Please test blood sugars 4 times a day. Durable Medical Equipment: See Instructions, DX: 099.810 - Please test blood sugars 4 times a day. Famotidine: 1 tablet, By Mouth, Daily at bedtime HydrOXYzine: 25 mg = 1 capsule, By Mouth, 4 times a day, PRN (for anxiety) Miscellaneous Rx (FREESTYLE LITE LANCETS): See Instructions, GLUCOSE MONITORING 4 TIMES A DAY DURING Multivitamin, : 1 tablet, By Mouth, Daily Ondansetron: See Instructions, TAKE 1 TABLET BY MOUTH ONCE DAY NEEDED FOR NAUSEA AND VOMITING Allergies Toradol Social History Alcohol Use: Past., 04/20/2021 Electronic Cigarette/Vaping Electronic Cigarette Use: Never., 04/20/2021 Employment/School Status: Employed. 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 Lives with: Children, Significant other. Feels unsafe at home: No., 04/20/2021 Nutrition/Health Diet: Regular., 04/20/2021 Sexual Sexually involved in last 6 months: Yes. Gender identity: Identifies as female. Preferred pronoun: She/her., 04/20/2021 Substance Abuse Use: Never., 04/20/2021 Tobacco Use: 4 or less cigarettes(less than 1/4 pack)/day in last 30 days., 05/10/2022 Family History Mother (): Diabetes mellitus type II Father (): Diabetes mellitus type II; Kidney failure ?28-SEP-2013 0 7:18:11<$> Mat. Grandmother: Diabetes mellitus type II Sister: Hypertension Brother: Hypertension Plan No Data Found * Rosetta Quinn DO: PERFORM Event Display: History and Physical Hospital Authored Date: [id number] Attending Attestation: I have seen and evaluated this patient.?? I have discussed the case and its management with the resident and agree with the findings and plan as documented in the resident???s note. Hospital Progress note * Rocio Grigsby RN: PERFORM, SIGN, VERIFY Event Display: Progress Note Hospital Authored Date: [id number] Patient: NASIM MACHADO Age: 32 years Sex: Female : 1990 Associated Diagnoses: None Author: Rocio Grigsby RN Findings Problem Related to Alteration in Comfort : Alteration in Comfort/new 12/08/2022 8:00 EDT Alteration in Comfort Related to Other: vaginal delivery Goals & Outcomes: Comfort Pt will report acceptable level of comfort & pain control, Pt will state importance of adhering to pain strategy regime, Pt will demonstrate necessary skills to manage pain, Non-verbal indicators will indicate comfort/pain control Interventions Implemented: Comfort Assess pain using appropriate pain scale/tools, Assess aggravating factors & prevent them accordingly, Assess alleviating factors & promote them accordingly BH Goals/Interventions, Comfort Yes Comfort, Problem Start 12/06/2022 2:10 Reviewed plan with, Comfort Patient Patient Progression, Comfort Pt progressing according to plan Comfort, Problem Ongoing Yes . Pt doing well, VSS. Alert and oriented x3. OOB ad devyn. Pain controlled with Tylenol/Motrin. Utilizing k-pad w/relief. Pt voiding and flatus. Lung sounds clear bilaterally. Abdomen soft and non-distended. Uterus firm and below umbilicus. Light amount of lochia, denies passing any clots or saturatinga pad in an hour. Bowel sounds present. Trace edema. and formula feeding . Patient established w/ babyscripts. Reviewed how to take BP at home. Call foley within reach. Will continue to monitor. Reviewed discharge instructions with patient and verbalizes understanding and signed. Prescriptionsand next dose times reviewed by patient. All valuables stated to be with patient.. Given discharge paperwork and rooming in w/infant due to requiring treatment w/bili lights; no questions at this time. * Viviana Felix RN: PERFORM, SIGN, VERIFY Event Display: Progress Note Hospital Authored Date: Patient: NASIM MACHADO Age: 32 years Sex: Female : 1990 Associated Diagnoses: None Author: Viviana Felix RN Pt ob stable at this time, fundus is down and firm, mild rubra flow on gurjit pad reported. Pt is voiding qs and reports having had a BM today. Pt reports adequate pain control with Motrin and Tylenol.Pt requesting her Hydroxyzine for anxiety, no order in , will page resident. Findings Problem Related to Alteration in Comfort : Alteration in Comfort/new 12/07/2022 22:00 EDT Alteration in Comfort Related to Other: vaginal delivery Goals & Outcomes: Comfort Pt will report acceptable level of comfort & pain control, Pt will state importance of adhering to pain strategy regime, Pt will demonstrate necessary skills to manage pain, Non-verbal indicators will indicate comfort/pain control Interventions Implemented: Comfort Assess pain using appropriate pain scale/tools, Assess aggravating factors & prevent them accordingly Goals/Interventions, Comfort Yes Comfort, Problem Start 12/06/2022 2:10 Reviewed plan with, Comfort Patient Patient Progression, Comfort Pt progressing according to plan Comfort, Problem Ongoing Yes . * Carie Torres RN: VERIFY, PERFORM, SIGN Event Display: Progress Note Hospital Authored Date: Patient: NASIM MACHADO Age: 32 years Sex: Female : 1990 Associated Diagnoses: None Author: Carie Torres RN OB stable. Fundus firm and lochia is mild. Patient reports no clots or saturating of gurjit pads in an hour. +voiding, +flatulence. Pt OOB and ambulating around the unit. Pain is well controlled thus far this shift, pt educated on pain management and expressed understanding. Mother bonding with appropriately. Call foley within reach. Able to make needs known. Will continue to monitor patient. See CIS for full assessment. Note * Rocio Grigsby RN: PERFORM Event Display: Discharge/Transfer Note Hospital Authored Date: [id number] Nursing Discharge Note Entered On: 12/08/2022 15:08 EDT Performed On: 12/08/2022 15:00 EDT by Rocio Grigsby RN Nursing Discharge Note 2 Discharge Time : 12/08/2022 15:00 EDT Discharge Level of Care at Discharge : Home/Fdc/Foster Care Patient Left Unit Via : Other: PATIENT ROOMING IN Patient Accompanied Off Unit with : Other: rooming in w/infant DC Instructions Provided & Signed by Pt : Yes Patient Understands D/C Instructions : Yes Verbalized Understanding of D/C Plan By : Patient Patient Instructions Discharge Signed : Yes Did Pt have Specialty Bed or Wound Vac : No Rocio Grigsby RN - 12/08/2022 15:07 EDT * Marquis Mccauley MD: PERFORM Marquis Mccauley MD: PERFORM Event Display: Discharge/Transfer Note Hospital Authored Date: [id number] Patient: ??MACHADO, NASIM ? Age:??32 Years?Sex:??Female?:??1990?? Admit Date Admission Date: 12/04/2022 Discharge Date 12/08/22 OB Reason for Admission OB Reason for Admission Reason for admission: Induction of labor Reason for Induction: Chronic hypertension [facility] Hospital Course 32 yo?? at 38 0/7wd presenting for??IOLfor cHTN. Pitocin for indution. Proceeded to uncomplicated wtih pp Liletta insertion. Intact perineum, male . Uncomplicated course. ?Patient would like to be discharged today.?Discussed self care, and depression. Patient was counseled on warning signs for calling or returning to care including but not limited to fever of 100.4 orgreater, heavy vaginal bleeding, foul-smelling vaginal discharge, difficulty or burning with urination, nausea and vomiting with inability to tolerate food, pain not controlled by medications, shortness of breath or chest pain, and depression. Counseled to place nothing in the vagina in the next 4-6wks. Patient verbalized understanding. ? Objective/Physical Exam on Day of Discharge Vitals & Measurements T:??97.4?F?? HR:??85??(Peripheral)?? RR:??20?? BP:??135/75?? SpO2:??98%?? HT:??168??cm?? WT:??151.2??kg?? BMI:??53.57?? General: pleasant, cooperative,??laying comfortably in bed, well appearing, in no acute distress Pulm: Patient is speaking unlabored, not coughing Abd: soft, appropriately tender, fundus firm, +1 above umbilicus Organic Preparation Technician: Minimal spotting on peripad. Psych: appropriate mood and affect. answering questions appropriatley. Ext: non-tender, non-edematous Assessment/Plan/Discharge Diagnosis Assessment:??Pt is a32 yo PPD1 after of M at 38+0. Pt is meeting appropriate milestones. Pain is well controlled with ibuprofen. ?? Anxiety (F41.9):??No showed N appointment, declines rescheduling Vistaril as needed, 50mg at bedtime PRN Stable, no concerns (x ) Offered 2 week BNR followup ?? Chronic hypertension (I10):? - babscripts pp ?? Glucose intolerance of (O99.810):? - 2 hr GTT pp ?? state (Z39.2):??Continue regular care Tylenol for pain control, Benadryl for sleep Breast/Bottle feeding: bottle and breast PPBC: Alia galvan circ: declines Plan for discharge: home td Follow up at [facility] in 6 weeks [facility] visit requested ?? Rubella non-immune status, antepartum (O09.899):??- (x ) MMR ?? Care: depression increased risk Future Appointments Monday. 2022 10:20 AM EDT ?? Where: [facility] - Organic Preparation Technician [address] [place] [address] [place] [address]- Status: Pending Monday 1:20 PM EDT ?? With: Adam SANTILLAN, ADMISSIONS RN, Alina Arita Where: [facility] - Organic Preparation Technician [address] [place] [address]- Status: Pending PCP Follow-Up/Heads-Up ? OB TEAM CNM ??Meeting PP Milestones Uncomplicated PP exam ??RTO as scheduled Danger s/s Reviewed with OB 1 mccauley Delivery Summary Delivery Summary Maternal Information ??Labor Information ?Baby A ?Labor Onset Methods: ??Induced ?Induction Methods: ??Amniotomy, Pitocin ??Delivery Information ?Gestational Age at Delivery: ??38W 1D ?Anesthesia OB: ??Epidural ??12/06/22 01:32:19, Epidural ??12/05/22 15:41:02, Epidural ??12/05/22 14:36:32 ?Obstetrical Laceration: ??Perineum intact ?Delivery Complications: ??None ?Blood Loss(ml): ??300 mL ?Blood Loss - Quantitative: ??163 mL ? Baby A ??Delivery Information ?Delivery Type: ??Vaginal ?Date, Time of : ??12/05/22 23:01:00 ? Position: ??Side lying ?Foot of bed removed: ??Yes ?Delayed Cord Clamping: ??Yes ?Placenta Delivery Date/Time: ??12/05/22 23:06:00 ?Placenta Delivery Method: ??Assisted ?Placenta Appearance: ??Normal ?Placenta to Pathology: ??No ??Care Team ?Attending Provider: ??Mary Jordan MD ?Delivery Physician: ??Sherice Dasilva MD ?Superintendent Operating Provider #1: ??Marleny MUJICA, Beatriz ?precision lens generator #1: ??Annabel Dos Santos RN ?precision lens generator #2: ??Jodie Burns RN ?Layup Worker: ??Renata PATHAK, Gary ?Anesthesiology Attending: ??Rocky PATHAK, Ezra Anderson ?Time NICU Team Called: ??12/05/22 23:01:00 ??Labor Information ?ROM Date, Time: ??12/05/22 14:21:00 ? monitoring: ??External monitor ?? Information ? Outcome: ??Live ? Position: ??Occiput anterior ? Weight: ??3.226 kg ? Score 1 minute: ??6 ? Score 5 minute: ??5 ? Score 10 minute: ??8 ?Transferred To: ?? Care area with Family ?Umbilical Cord Description: ??3 vessel cord ? Complications: ??None ?Gender: ??Male ? Procedures Performed IUD insertion Vaginal delivery ?? Discharge Medications ???Acetaminophen (acetaminophen 325 mg oral tablet)???Calcium Carbonate (Tums 500 mg Tablet)???Calcium Carbonate (Tums 500 mg oral tablet, chewable)???DiphenhydrAMINE (diphenhydrAMINE 50 mg oral tablet)???Docusate (docusate sodium 100 mg oral tablet)???Famotidine (famotidine 20 mg oral tablet)???HydrOXYzine (Vistaril pamoate 25 mg oral capsule)???Measles/Mumps/Rubella Virus Vaccine (Measles/Mumps/Rubella Virus Vaccine Inj)???Multivitamin, ( Multivitamins with Folic Acid 1 mg oral tablet)???Ondansetron (ondansetron 4 mg oral tablet, disintegrating) Stop taking these medications ???Aspirin (aspirin 81 mg oral delayed release tablet)???Durable Medical Equipment (Alcohol Pads)???Durable Medical Equipment (Freestyle Lite Lancets)???Durable Medical Equipment (Freestyle Lite Monitor)???Durable Medical Equipment (Freestyle Lite Test Strips)???Miscell aneous Rx (FREESTYLE LITE LANCETS) Immunizations during Hospitalization Vaccine Date Status Measles/Mumps/Rubella Virus Vaccine 12/07/2022 Given tetanus/diphtheria/pertussis, acel(Tdap) 10/27/2022 Given tetanus/diphtheria/pertussis, acel(Tdap) 09/09/2021 Given influenza virus vaccine, inactivated 06/22/2021 Given influenza virus vaccine, inactivated 05/13/2014 Given Comments : vis given 03/11/14 tetanus/diphtheria/pertussis, acel(Tdap) 02/13/2014 Given influenza virus vaccine, inactivated 10/02/2013 Given influenza virus vaccine, inactivated 06/16/2006 Given Comments : VIS GIVEN Contraception Post placental IUD ? Infant Feeding Method No Results Patient Education Titles OB PP [facility]- Discharge Instructions?? OB PP Warning Signs?? Patient Instructions Discharge: home, Call your the office with any concerns including:?? Heavy vaginal bleeding?? Fever of 100.4 or greater Foul-smelling vaginal discharge Difficulty or burning with urination?? Nausea and vomiting with inability to tolerate food,?? Pain not controlled by your prescribed medications Shortness of breath or chest pain. Swelling of the extremities. ?? General Instructions: - Avoid lifting anything 15 lbs or greater until cleared by doctor. - Stairs are OK but avoid multiple trips/ skipping steps and go slowly. - Walk as often as you are able. - Do not put anything in the vagina. No intercourse, tampons, or douching - Continue your stool softeners (examples: colace/docusate, senna, miralax) - Shower as usual. Avoid tubs/ soaking/ pools. * Rocio Grigsby RN: PERFORM Event Display: Patient Education/Instruction Authored Date: [id number] Inpatient Adult Discharge Instructions [address] [address] Name: NASIM MACHADO : 1990 Visit: 12/04/2022 20:28:00 Current Date: 12/08/2022 14:43 Account: [id number] Inpatient Adult Discharge Instructions We would like to thank you for allowing us to assist you with your healthcare needs. The following includes patient education materials and information regarding your injury/illness. Our entire staffstrives to provide an excellent experience for our patients and their families. PLEASE ENSURE YOU FOLLOW-UP PER THE INSTRUCTIONS BELOW! ?? YOUR OPINION IS IMPORTANT TO US! Please complete the survey you may receive by mail or email. Your feedback will be used to make improvements to the healthcare experiences of our patients and their families. Surveys are administered by [employer] ?? If further treatment with your primary care physician or another doctor is recommended, it is important for you to keep the appointment. Call your primary care physician or return to the Emergency Department immediately if your condition worsens, fails to improve, or new symptoms develop. If you need to find a doctor, you can call [facility] for a referral at [phone] or toll free at [phone]) or log in to [email or web address].. ?? You can view and manage your care through the patient portal or by using a health care tom of your choosing. [employer] is a website that allows you to securely view your medical information including your hospital discharge summary, office visit summaries, medications and follow-up visits. You can also request appointments, renew medications, and request access to your medical information using a health care tom of your choosing, or just ask a question. You can enroll at [email or web address] or register during your next office visit. You have been discharged from [facility], Patient Care Unit: WIN2. If you have any questions regarding these instructions after you leave, please call us and we will be happy to assist you. [facility] Your Care Team Attending Physician Rosetta Quinn DO Discharging Providers Uzair PATHAK, Ana Anderson Reason for Your Visit Induction of labor Your Diagnosis Other underimmunization status Anxiety Chronic hypertension Encounter for induction of labor GBS bacteriuria Glucose intolerance of Positive GBS test state Rubella non-immune status, antepartum Tests Performed Below is a partial list of the tests performed during your hospitalization. You may have had other tests and procedures not included in this list. Please discuss all test results with your provider. CBC GLUCOSE POC Type and Screen Primary Care Provider Sara Pradhan NP Advance Directive . Discharge Vitals Temperature: 97.4 DegF Height: 168 cm Pulse Rate: 85 bpm Weight: 151.2 kg Respiratory Rate: 17 br/min Body Mass Index:??53.57 kg/m2??Critical Systolic Blood Pressure: 135 mm Hg Body surface area: 2.66 Diastolic Blood Pressure: 75 mm Hg ?? Oxygen Saturation: 98 % ?? Studies Pending All tests and labs ordered during this hospital stay have been completed unless listed below. Please discuss all pending results with your provider listed above in these instructions. ?? COVID-19 (2019 Novel Coronavirus) PCR What to do next Instructions From Your Doctor Discharge: home, Call your the office with any concerns including:?? Heavy vaginal bleeding?? Fever of 100.4 or greater Foul-smelling vaginal discharge Difficulty or burning with urination?? Nausea and vomiting with inability to tolerate food,?? Pain not controlled by your prescribed medications Shortness of breath or chest pain. Swelling of the extremities. ?? General Instructions: - Avoid lifting anything 15 lbs or greater until cleared by doctor. - Stairs are OK but avoid multiple trips/ skipping steps and go slowly. - Walk as often as you are able. - Do not put anything in the vagina. No intercourse, tampons, or douching - Continue your stool softeners (examples: colace/docusate, senna, miralax) - Shower as usual. Avoid tubs/ soaking/ pools. Discharge Orders Scheduled Follow-Up Appointments Monday 1:00 PM EDT ?? Where: [facility] - [facility] [address] [place] [phone] Status: Pending 2022 1:00 PM EDT ?? Where: [facility] - [facility] Techn[facility] [address] [place] [phone]- Status: Pending Monday 1:20 PM EDT ?? With: Adam SANTILLAN, JOSÉ LUIS, Alina Arita Where: [facility] - [facility] Preparation Technician [address] [place] [phone]- Status: Pending You Need to Schedule the Following Appointments Follow Up with??[facility] [phone] When:??01/20/2023 01:20 PM EDT Discharge Medications NASIM MACHADO :1990 Visit Date:12/04/2022 Medications: Please continue your medications until treatment is completed or stopped by your provider. Medications not listed below should be discontinued. Discuss any questions related to medications with your provider. What How Much When Instructions Next Dose New Acetaminophen (acetaminophen 325 mg oral tablet) 650 Milligram Oral Every 4 hours as needed for Pain , Mild Duration: 7 Days (1-3), may give 325mg per patient preference and re-dose with 325mg within 4 hours, if needed. ?? Patient should only receive a total of 650mg of Acetaminophen every 4 hours. ?? Pickup at [facility]/pharmacy #[id number] 5:30pm New Calcium Carbonate (Tums 500 mg oral tablet, chewable) 2 tab(s) Chew Every 4 hours as needed for Dyspepsia as needed New Calcium Carbonate (Tums 500 mg Tablet) 1,000 Milligram Chew 3 times a day as needed for Indigestion New DiphenhydrAMINE (diphenhydrAMINE 50 mg oral tablet) 50 Milligram Oral Every 4 hours as needed for Itch as prescribed New Docusate (docusate sodium 100 mg oral tablet) 100 Milligram Oral Twice a day as needed for Constipation Duration: 7 Days Pickup at [facility]/pharmacy #[id number] 9:00pm New Measles/ Mumps/ Rubella Virus Vaccine (Measles/ Mumps/ Rubella Virus Vaccine Inj) 0.5 Milliliter Subcutaneous Injection Once Unchanged Famotidine (famotidine 20 mg oral tablet) 1 tab(s) Oral Daily at Bedtime at bedtime Unchanged HydrOXYzine (Vistaril pamoate 25 mg oral capsule) 1 capsule Oral 4 times a day as needed for for anxiety as needed Unchanged Multivitamin, ( Multivitamins with Folic Acid 1 mg oral tablet) 1 tab(s) Oral Daily 12/09/2022 Unchanged Ondansetron (ondansetron 4 mg oral tablet, disintegrating) See instructions TAKE 1 TABLET BY MOUTH ONCE DAY NEEDED FOR NAUSEA AND VOMITING ?? Pharmacy Information [facility]/pharmacy #[id number]: [address], [place] [id number] [phone] ?? What How Much When Why Comments Stop Taking Aspirin (aspirin 81 mg oral delayed release tablet) 2 tab(s) Oral Daily Stop Taking Durable Medical Equipment (Alcohol Pads) See instructions DX: 099.810 - Please test blood sugars 4 times a day. ?? Stop Taking Durable Medical Equipment (Freestyle Lite Lancets) See instructions DX: 099.810 - Please test blood sugars 4 times a day. ?? Stop Taking Durable Medical Equipment (Freestyle Lite Monitor) See instructions Please teach how to use monitor test 4 xday fasting & 2 hr after meals. ??Test for 1 week ?? Stop Taking Durable Medical Equipment (Freestyle Lite Test Strips) See instructions Abnormal glucose tolerance in DX: 099.810 - Please test blood sugars 4 times a day. ?? Stop Taking Miscellaneous Rx (FREESTYLE LITE LANCETS) See instructions GLUCOSE MONITORING 4 TIMES A DAY DURING ?? Test Results Below is a partial list of the most recent Laboratory test results done prior to this discharge. You may have had other tests and procedures not included in this list. Please discuss all test resultswith your provider. RBC Available - RE (12/05/2022) RBC Unit ID - [id number] (12/05/2022) CBC (12/04/2022) ???WBC - 6.1 k/mm3???RBC - 3.78 m/mm3???Hgb - 10.4 Gm/dL???Hct - 32.0 %???MCV - 84.7 femtoliters???MCH - 27.5 pg???MCHC - 32.5 g/dL???Platelet Count - 301 k/mm3???RDW-SD - 39.4 femtoliters???MPV - 9.7 femtoliters???Nucleated RBC (Automated) - 0.0 #/100 WBC'S???Abs. NRBC - 0.0 k/mm3 GLUCOSE POC (12/04/2022) ???Glucose, POC - 108 mg/dL Type and Screen (12/04/2022) ???Blood Type - O Positive???Antibody Screen - Negative Immunizations This Visit Given Vaccine Date Measles/Mumps/Rubella Virus Vaccine 12/07/2022 Allergies (NKA means No Known Allergies) Toradol Problems Active Problems??(17) Anxiety?? Chronic hypertension?? DCF case?? Former smoker?? GERD (gastroesophageal reflux disease)?? Glucose intolerance of ?? Heart palpitations?? Hidradenitis suppurativa?? History of abnormal cervical Pap smear?? History of gestational diabetes?? History of gestational hypertension?? Obesity during ? PTSD (post-traumatic stress disorder)?? Rubella non-immune status, antepartum?? Severe obesity?? Short interval between pregnancies affecting , antepartum?? Education Materials Below is the list of Educational Leaflet Providered with your Discharge Instructions. Storing Expressed Milk?? Breast Care After ?? After a Vaginal ?? OB PP [facility]- Discharge Instructions?? OB PP Warning Signs?? Valuables and Belongings I fully understand and agree that [facility] accepts no responsibility for all my personal property including clothing, toilet articles, radios, jewelry, dentures, hearing aids, rings, money, or any other property that is in my possession or is brought to me after admission. I understand certain valuables may be placed in a hospital safe for a short period of time. I understand that the hospital is not liable for loss or damage due to accident, fire, or other natural occurrence while said property is in the safe. I accept full responsibility for any personal property that I keep with me, and will not hold the hospital responsible in case of loss or disappearance. I acknowledge that i have been encouraged to send valuables and belongings home. ?? Review of Valuable and Belonging List: With patient Disposition of Belongings: Sent home with patient/family Date for Pt to Sign Valuables/Belongings: 12/08/22 14:39:00 ?? Other Discharge Information ? Pulmonary Rehab Status?? Pulmonary Rehab Discharge Status?? Respiratory Rate: 17 br/min ? Common Emergency Awareness Tips IS IT A STROKE? Act FAST and Check for these signs: FACE Does the face look uneven? ARM Does one arm drift down? SPEECH Does their speech sound strange? TIME Call at any sign of stroke ?? Heart Attack Signs Chest discomfort: Most heart attacks involve discomfort in the center of the chest and lasts more than a few minutes, or goes away and comes back. It can feel like uncomfortable pressure, squeezing, fullness or pain. Discomfort in upper body: Symptoms can include pain or discomfort in one or both arms, back, neck, jaw or stomach. Shortness of breath: With or without discomfort. Other signs: Breaking out in a cold sweat, nausea, or lightheaded. Remember, MINUTES DO MATTER. If you experience any of these heart attack warning signs, call to get immediate medical attention! ?? Smoking can increase your chances of developing chronic health problems and can cause harmful effects to other family members in your house. If you smoke, you are strongly encouraged to quit. Please call [facility] [employer] Link at [phone] or [phone] ([phone]) or log in to [email or web address] for referrals to smoking cessation programs. ?? 254 Suicide & Crisis Lifeline is available 13/02 if you or someone you know needs to find a reason to keep living. By calling 853 you'll be connected to a skilled, trained counselor at a crisis center in your area. INPATIENT DISCHARGE INSTRUCTIONS SIGNATURE PAGE NASIM MACHADO Location:[facility] Registration Date and Time:12/04/2022 20:28 EDT Primary Care Physician: Sara Pradhan NP, Attending Physician: Rosetta Quinn DO, I NASIM MACHADO, have received the above patient education materials/instructions and have verbalized understanding. If ambulance or transport services are being used I further acknowledge being given a choice of service. ?? If you need to contact me, please call me at this number: . Patient/Engineer/Conductor Name: Patient/Engineer/Conductor Signature: Relationship to Patient: Witness Name/Signature: Date: * Rocio Grigsby RN: PERFORM Event Display: Patient Education Leaflets Authored Date: [id number] Storing Expressed Milk ?? 07969 Storing Expressed Milk You can express your milk and store it in clean containers. Your family or a sitter can feed it to the baby. This way, your baby gets the benefits of your milk even when you can't be there at feedingtime.??These guidelines are based on CDC guidelines, But, the [place] [employer] (AAP) allows longer storage times if the breastmilk is expressed under very clean conditions. If you want to follow the longer storage times, talk with your baby's healthcare provider to see ifthis is OK for your baby and if you are expressing your breastmilk under very clean conditions Type of storage Details about storage Storage times Room temperature ? At room temperature (up to 78??F or 26??C) ??? Tip: Keep the container clean, covered, and cool. 3 to 4 hours is best; 6 to 8 hours is acceptable under very clean conditions Refrigerator ? In a refrigerator (less than 39??F or less than 4??C) ??? Tip: Place milk in the back of themain section of the refrigerator. Up to 4 days; up to 8 days if expressed under very clean conditions Freezer ?In a freezer (0??F or -17??C) ??? Tip: Store milk toward the back of the freezer. ??? Never refreeze milk once it's been thawed. Once thawed, use right away or refrigerate no longer than 24 hours. 6 months is best; up to 12 months is acceptable if stored in deep freezer at - 4??F (-20??C) or colder Guidelines for milk storage Always use a clean container to collect and store milk. Never pour warm expressed milk into a bottle with cold milk. And be sure to label and date each bottle or bag of milk. To store milk safely, see the chart above. ?? Warming stored milk Thaw frozen milk in the refrigerator or in a bowl of warm water. It???s a good idea to warm refrigerated milk before using it. For your baby???s safety: ??? Use the oldest milk first. ??? Warm a container of milk by putting it in a bowl of warm (not hot) water for a few minutes. Or use a bottle warmer set on low. ??? Gently swirl the milk to mix it. Then??place a few drops on your wrist. The milkshould be near room temperature. ??? Don???t??put the milk in a microwave. This could create pockets of hot liquid that can burn your baby???s mouth. ?? Last Reviewed Date: 2020 ?? 8224-3884 [employer]. All rights reserved. This information is not intended as a substitute for professional medical care. Always follow your healthcare professional's instructions. ?? * Rocio Grigsby RN: PERFORM Event Display: Patient Education Leaflets Authored Date: [id number] Breast Care After ?? 12989 Breast Care After A few days after your baby???s , your breasts will swell with milk. They are likely to feel tender and heavy. This is normal. To help prevent breast soreness and control irritation, follow thesetips. Moist heat, like a shower, helps to promote the release of breastmilk. Coping with swelling Here are tips to cope with breast swelling: ??? Use cold compresses or an ice pack to help reduce the ache or pain. ??? Breastfeed often to keep milk from clogging your breast ducts. ??? If your nipples are flat from breast swelling, express some milk by hand. Squeeze out a few drops of milk by massaging and compressing your breasts. ??? If you have swelling with pain or fever, call your healthcare provider. ?? Preventing sore nipples Here are tips to prevent sore nipples: ??? Make sure your baby latches on to your breast correctly.The baby???s mouth should be opened very wide??and your entire areola should be in the baby's mouth. ??? You can let milk dry on your nipples. This dried milk can protect the skin on your nipple. ???Don't use alcohol, soap, or scented cleansers on your breasts. These can cause the nipples to dry and crack. ??? Don't wear nursing pads that are lined with plastic. They hold in moisture and can cause chapping. ??? If you have cracked or bleeding nipples, consult your healthcare provider or a medical economics consultant. They will make sure that your baby's latch is correct and may suggest topical treatment, like pure lanolin. ?? Choosing a good bra Wearing the right-sized bra is especially important now. If a bra is too tight, it may cause a ductin your breast to clog and become irritated. If possible, have a bra salesperson help fit you for anew bra. Look for one that???s 100% cotton and comfortable. Also choose a bra with wide straps thatwon???t dig into your back and shoulders. If you???re , find a nursing bra that allowsyou to uncover??one breast at a time. ?? If you are not Here are tips to prevent discomfort: ??? Don't stimulate your nipples ??? Wear a tight-fitting bra ??? Apply cold compresses or ice packs for discomfort ?? When to call your healthcare provider Call your healthcare provider right away if you have any of these: ??? A fever or chills ??? Extreme tiredness and body aches, as if you have the flu ??? Burning or pain in??one or both breasts ??? Red streaks on a breast ??? Hard or lumpy spots in one or both breasts ??? A feeling of warmth or heat in one or both breasts ??? Breasts so swollen your baby cannot latch onto the nipples ??? Nipples that are cracked or bleeding ??? Low milk supply or your milk does not flow freely ?? Last Reviewed Date: 2021 ?? [id number] [employer]. All rights reserved. This information is not intended as a substitute for professional medical care. Always follow your healthcare professional's instructions. ?? * Rocio Grigsby RN: PERFORM Event Display: Patient Education Leaflets Authored Date: [id number] After a Vaginal ?? After a Vaginal After having a baby, your body may be very tired. It can take time to recover.. You may stay in thespital from 1 to 4 days.??In some cases, you may be able to go home the same day. Right after the delivery Your temperature and blood pressure will be checked until they are stable. A nurse or other healthcare provider will watch you as you rest. You may have afterbirth pains. These are cramps caused by the uterus shrinking. Sanitary pads are used to soak up the discharge of the uterine lining. To make sure that you aren???t bleeding too much, the pad will be checked. And the firmness of your uterus will be checked. To do this, a nurse will gently push down on your stomach. If you had anesthesia, you???ll be watched closely until you can feel and move your toes. If you have pain between your vagina and anus (perineal pain), an ice pack can help. ?? [place] care While still in the hospital or center, you???ll learn how to hold and feed your baby. You will??also be given directions on how to care for your baby. This includes bathing and feeding.? Getting ready to go home You may be anxious to go home as soon as possible. Before you and your baby go home, a healthcare provider will check to be sure you are healthy enough to take care of your baby and yourself. You???re ready to go home when: ??? You can walk to and use the bathroom without help. ??? You can eat solid food and swallow pills(if needed). ??? You have no sign of infection or other health problems, including fever.? Youhave pain control. ??? Your vaginal bleeding isn't heavy. ??? You are able to care for your newbornand are emotionally stable. Before going home, you???ll be given written directions for home self-care after vaginal delivery. Follow these directions carefully. If you have questions or concerns, talk about them now. ?? If you have stitches You may have get stitches in the skin near your vagina. The stitches might have closed an incision that enlarged the opening of your vagina (episiotomy). Or you may have needed stitches to repair torn skin. Either way, your stitches should dissolve in weeks. Until then, it's important to keep the stitches clean. You can help reduce mild pain, aid healing, and reduce your risk of infection. These tips can help: ??? Gently wipe from front to back after you urinate or have a bowel movement. ??? After wiping, spray warm water on the area. Or you can have a sitz bath. This means sitting in a tub with a few inches of water in it. Then pat the area dry or use a hairdryer on a cool setting. ??? Don't use soap or any solution except water on the area. ??? You can take a shower unless told not to. ??? Change sanitary pads at least every 2 to 4 hours[address] ??? Place cold or heat packs on the area as directed by your healthcare providers or nurses. Keep a thin towel between the pack and your skin. ???Sit on firm seats so the stitches pull less. ?? follow-up Schedule a follow-up exam with your healthcare provider for about 6 weeks after delivery.During this exam, your uterus and vaginal area will be checked. Contact your provider if you think you or your baby are having any problems. ?? When to call your healthcare provider Call your healthcare provider right away if any of the following occur: ??? A fever of 100.4?? F ( 38.0??C) or higher, or as directed by your provider ??? Bleeding that needs a new sanitary pad afteran hour, or large blood clots. hemorrhage is more bleeding than normal after the of a baby. It most often happens after the placenta is delivered. But it can also happen later. ??? Pain in your vagina that gets worse and isn't eased with medicine ??? Swelling, discharge, or more pain from vaginal tear or episiotomy ??? Burning, pain, red streaks, or lumpy areas in your breasts that may occur with flu-like symptoms ??? Cracks, blisters, or blood on your nipples ??? Burning or pain when you urinate ??? Nausea or vomiting ??? Dizziness or fainting ??? Feelings of extreme sadnessor anxiety, or a feeling that you don???t want to be with your baby ??? Belly pain that isn???t eased with medicine ??? Vaginal discharge that has a bad odor ??? No bowel movement for 5 days ??? Painful urination, or inability to control urination ??? Redness, warmth, or pain in the lower leg ??? Chest pain ?? Last Reviewed Date: 2022 ?? [employer]. All rights reserved. This information is not intended as a substitute for professional medical care. Always follow your healthcare professional's instructions. ?? * Minnie Vega: PERFORM Event Display: Care Team Progress Note Authored Date: [id number] Patient: ??NASIM MACHADO ? Age:??32 Years?Sex:??Female?:??1990?? Subjective cart rounds ??2 assessment for assistance Feeding sheet?? adequately filled out- only 1 BF documented Patient??given spectra??personal pump yesterday Assessment/Plan only 1 documented BF on feeding sheet- Nasim reports that she is putting him to breast before each F feeding just hasn't been writing it down. She also reports that she at times uses the bottle atbreast to get him to breastfeed in- between sucks on the bottle. She understands that the more oftenbaby goes to breasts and stimulates- the faster her milk will come in- Planned DC today- will also use the pump once home to protect her milk supply when he gets a formula bottle. She plans to practice more at home and reports that the baby does latch with no pain and that's all she needs - the rest she can figure out. reminded Nasim of all supports available once she is home. OB Summary : 8 Parity: 5 . Baby A - Weight: 3.226 kg Baby A - Date, Time of : 12/05/22 23:01:00 Baby A - Gender: Male Baby A - Complications: None EGA at Documented Date, Time: 38W 1D Weight at Delivery Baby A - Delivery Type: Vaginal Delivery Complications: None OB History History?(5,0,2,5)? # 1 ?Baby 1 ?Outcome Date:??2006 ?Outcome or Result:??Vaginal ?Gest Age:??39 weeks ? Outcome:??Live ? Sex:??Male ?Hospital:??[facility] ?? # 2 ?Baby 1 ?Outcome Date:??2007 ?Outcome or Result:??Vaginal ?Gest Age:??41 weeks 4 days ? Outcome:??Live ? Sex:??Female ?Hospital:??[facility] ?? # 3 ?Baby 1 ?Outcome Date:??2008 ?Outcome or Result:??Vaginal ?Gest Age:??40 weeks ? Outcome:??Live ? Sex:??Female ?Hospital:??[facility] ?? # 4 ?Baby 1 ?Outcome Date:??11/2012 ?Outcome or Result:??Therapeutic , medical ?Gest Age:??-- ? Outcome:? Sex:??-- ?Comment:??At PP ?? # 5 ?Baby 1 ?Outcome Date:??02/2013 ?Outcome or Result:??Therapeutic , medical ?Gest Age:??-- ? Outcome:? Sex:??-- ?Comment:??At PP ?? # 6 ?Baby 1 ?Outcome Date:??05/12/2014?Outcome or Result:??Vaginal ?Gest Age:??40 weeks 6 days ? Outcome:??Live ? Sex:??Female?Wt:?3679 g ?? # 7 ?Baby 1 ?Outcome Date:??10/24/2021?Outcome or Result:??Vaginal ?Gest Age:??38 weeks 2 days ? Outcome:??Live ? Sex:??Female?Wt:?3353 g ? Complications:??pt delivered ? Complications:??None ?Francisco Labor:??2 hr 39 min ?Hospital:??[facility] Active Problem List Active Problem List Anxiety: (Medical) Chronic hypertension: (Medical) DCF case: ([place]) (10/02/13) Former smoker: (Medical) GERD (gastroesophageal reflux disease): (Medical) Glucose intolerance of : (Medical) Heart palpitations: (Medical) Hidradenitis suppurativa: (Medical) History of abnormal cervical Pap smear: (Medical) History of gestational diabetes: (Medical) History of gestational hypertension: (Medical) Obesity during : (Medical) : (Obstetric) (03/15/22) : (Medical) PTSD (post-traumatic stress disorder): (Medical) related to past life trauma Rubella non-immune status, antepartum: (Medical) Severe obesity: (Medical) Short interval between pregnancies affecting , antepartum: (Medical) Home Medications Acetaminophen: 650 mg, By Mouth, Every 4 hours, PRN (Pain , Mild), (1-3), may give 325mg per patient preference and re-dose with 325mg within 4 hours, if needed. ?? Patient should only receive a total of 650mg of Acetaminophen every 4 hours. Calcium Carbonate: 1,000 mg = 2 tablet, Chew, Every 4 hours, PRN (Dyspepsia) Calcium Carbonate: 1,000 mg = 2 tablet, Chew, 3 times a day, PRN (Indigestion) DiphenhydrAMINE: 50 mg, By Mouth, Every 4 hours, PRN (Itch) Docusate: 100 mg, By Mouth, 2 times a day, PRN (Constipation) Famotidine: 1 tablet, By Mouth, Daily at bedtime HydrOXYzine: 25 mg = 1 capsule, By Mouth, 4 times a day, PRN (for anxiety) Measles/Mumps/Rubella Virus Vaccine: 0.5 mL, Subcutaneous Injection, Once Multivitamin, : 1 tablet, By Mouth, Daily Ondansetron: See Instructions, TAKE 1 TABLET BY MOUTH ONCE DAY NEEDED FOR NAUSEA AND VOMITING Medications Medications (8) Active SCHEDULED: (1) Famotidine 20 mg Tablet (famotidine 20 mg oral tablet) ??20 mg, By Mouth, 2 times a day CONTINUOUS: (0) PRN: (7) Acetaminophen 325 mg Tablet (Acetaminophen Tablet) ??650 mg, By Mouth, Every 4 hours Calcium Carbonate 500 mg (Calcium 200 mg) Chewable Tablet (Tums 500 mg Tablet) ??1,000 mg 2 tablet,Chew, 3 times a day Calcium Carbonate 500 mg (Calcium 200 mg) Chewable Tablet (Tums 500 mg oral tablet, chewable) ??1,000 mg 2 tablet, Chew, Every 4 hours diphenhydrAMINE 25 mg Tablet (Benadryl Tablet) ??50 mg, By Mouth, Every 4 hours diphenhydrAMINE 25 mg Tablet (Benadryl Tablet) ??25 mg, By Mouth, Every 4 hours Docusate Sodium 100 mg Capsule (Docusate Sodium Capsule) ??100 mg 1 capsule, By Mouth, 2 times a day Ibuprofen 600 mg Tablet (ibuprofen 600 mg oral tablet) ??600 mg, By Mouth, 3 times a day * Uzair PATHAK, Ana Arita R: PERFORM Event Display: Discharge/Transfer Note Hospital Authored Date: [id number] Patient: ??MACHADO, NASIM ? Age:??32 Years?Sex:??Female?:??1990?? Admit Date Admission Date: 12/04/2022 Discharge Date 12/07/22 OB Reason for Admission OB Reason for Admission Reason for admission: Induction of labor Reason for Induction: Chronic hypertension [facility] Course 32 yo?? at 38 0/7wd presenting for??IOLfor cHTN. Pitocin for indution. Proceeded to uncomplicated wtih pp Liletta insertion. Intact perineum, male . Uncomplicated course. ?Patient would like to be discharged today.?Discussed self care, and depression. Patient was counseled on warning signs for calling or returning to care including but not limited to fever of 100.4 orgreater, heavy vaginal bleeding, foul-smelling vaginal discharge, difficulty or burning with urination, nausea and vomiting with inability to tolerate food, pain not controlled by medications, shortness of breath or chest pain, and depression. Counseled to place nothing in the vagina in the next 4-6wks. Patient verbalized understanding. ? Objective/Physical Exam on Day of Discharge Vitals & Measurements T:??98.1?F?? HR:??92??(Peripheral)?? RR:??20?? BP:??141/81?? SpO2:??100%?? HT:??168??cm?? WT:??151.2??kg?? BMI:??53.57?? Constitutional: The patient is a well-appearing woman, in no acute distress. Abdomen: Obese. Soft, nondistended, appropriately tender postoperatively. Fundus firm and below umbilicus. Psychiatric: The patient is alert and oriented with an appropriate mood and affect.?? Extremities: No pitting edema, cellulitis. Assessment/Plan/Discharge Diagnosis Assessment:??Pt is a32 yo PPD1 after of M at 38+0. Pt is meeting appropriate milestones. Pain is well controlled with ibuprofen. ?? Anxiety (F41.9):??No showed BHN appointment, declines rescheduling Vistaril as needed, 50mg at bedtime PRN Stable, no concerns ?? Chronic hypertension (I10):? -??No medications -??Babyscripts pp ordered,??BP check message sent - Reviewed precautions for pre-eclampsia ?? Glucose intolerance of (O99.810):? - 2 hr GTT pp- message sent ?? state (Z39.2):?? Pt educated on discharge precautions.?? Pt states she will have support at home. Patient was counseled on warning signs for calling or returning to care including but not limited to signs of infection, increased bleeding, increased pain,and depression. Counseled to place nothing in the vagina in the next 4-6wks. Discussed breas tfeeding and depression. All questions and concerns were answered and addressed.? PP follow up at _4weeks ?? PP BC-??Post placental IUD in place -- review expectations with strings ?? Rubella non-immune status, antepartum (O09.899):??- (p) MMR Future Appointments Monday 1:20 PM EDT ?? With: Adam SANTILLAN, JOSÉ LUIS, Alina Arita Where: [facility] - Organic Preparation Technician [address] [place] [address]- Status: Pending Delivery Summary Delivery Summary Maternal Information ??Labor Information ?Baby A ?Labor Onset Methods: ??Induced ?Induction Methods: ??Amniotomy, Pitocin ??Delivery Information ?Gestational Age at Delivery: ??38W 1D ?Anesthesia OB: ??Epidural ??12/06/22 01:32:19, Epidural ??12/05/22 15:41:02, Epidural ??12/05/22 14:36:32 ?Obstetrical Laceration: ??Perineum intact ?Delivery Complications: ??None ?Blood Loss(ml): ??300 mL ?Blood Loss - Quantitative: ??163 mL ? Baby A ??Delivery Information ?Delivery Type: ??Vaginal ?Date, Time of : ??12/05/22 23:01:00 ? Position: ??Side lying ?Foot of bed removed: ??Yes ?Delayed Cord Clamping: ??Yes ?Placenta Delivery Date/Time: ??12/05/22 23:06:00 ?Placenta Delivery Method: ??Assisted ?Placenta Appearance: ??Normal ?Placenta to Pathology: ??No ??Care Team ?Attending Provider: ??Mary Jordan MD ?Delivery Physician: ??Sherice Dasilva MD ?Superintendent Operating Provider #1: ??Beatriz Farmer DO ?precision lens generator #1: ??Annabel Dos Santos RN ?precision lens generator #2: ??Jodie Burns RN ?[place] Worker: ??Renata PATHAK, Gary ?Anesthesiology Attending: ??Rocky PATHAK, Ezra Anderson ?Time NICU Team Called: ??12/05/22 23:01:00 ??Labor Information ?ROM Date, Time: ??12/05/22 14:21:00 ? monitoring: ??External monitor ?? Information ? Outcome: ??Live ? Position: ??Occiput anterior ? Weight: ??3.226 kg ? Score 1 minute: ??6 ? Score 5 minute: ??5 ? Score 10 minute: ??8 ?Transferred To: ?? Care area with Family ?Umbilical Cord Description: ??3 vessel cord ? Complications: ??None ?Gender: ??Male ? Procedures Performed Vaginal delivery ? Discharge Medications ???Acetaminophen (acetaminophen 325 mg oral tablet)???Calcium Carbonate (Tums 500 mg Tablet)???Calcium Carbonate (Tums 500 mg oral tablet, chewable)???DiphenhydrAMINE (diphenhydrAMINE 50 mg oral tablet)???Docusate (docusate sodium 100 mg oral tablet)???Famotidine (famotidine 20 mg oral tablet)???HydrOXYzine (Vistaril pamoate 25 mg oral capsule)???Measles/Mumps/Rubella Virus Vaccine (Measles/Mumps/Rubella Virus Vaccine Inj)???Multivitamin, ( Multivitamins with Folic Acid 1 mg oral tablet)???Ondansetron (ondansetron 4 mg oral tablet, disintegrating) Stop taking these medications ???Aspirin (aspirin 81 mg oral delayed release tablet)???Durable Medical Equipment (Alcohol Pads)???Durable Medical Equipment (Freestyle Lite Lancets)???Durable Medical Equipment (Freestyle Lite Monitor)???Durable Medical Equipment (Freestyle Lite Test Strips)???Miscell aneous Rx (FREESTYLE LITE LANCETS) Immunizations during Hospitalization Vaccine Date Status tetanus/diphtheria/pertussis, acel(Tdap) 10/27/2022 Given tetanus/diphtheria/pertussis, acel(Tdap) 09/09/2021 Given influenza virus vaccine, inactivated 06/22/2021 Given influenza virus vaccine, inactivated 05/13/2014 Given Comments : vis given 03/11/14 tetanus/diphtheria/pertussis, acel(Tdap) 02/13/2014 Given influenza virus vaccine, inactivated 10/02/2013 Given influenza virus vaccine, inactivated 06/16/2006 Given Comments : VIS GIVEN Contraception Post placental IUD ? Infant Feeding Method No Results Patient Instructions Discharge: home, Call your the office with any concerns including:?? Heavy vaginal bleeding?? Fever of 100.4 or greater Foul-smelling vaginal discharge Difficulty or burning with urination?? Nausea and vomiting with inability to tolerate food,?? Pain not controlled by your prescribed medications Shortness of breath or chest pain. Swelling of the extremities. ?? General Instructions: - Avoid lifting anything 15 lbs or greater until cleared by doctor. - Stairs are OK but avoid multiple trips/ skipping steps and go slowly. - Walk as often as you are able. - Do not put anything in the vagina. No intercourse, tampons, or douching - Continue your stool softeners (examples: colace/docusate, senna, miralax) - Shower as usual. Avoid tubs/ soaking/ pools. * Oliva Platt CNM: PERFORM Event Display: Discharge/Transfer Note Hospital Authored Date: This note was completed with the aid of a resident, I personally performed all components of the visit including the history of present illness, examination and medical decision making. The note has been verified for accuracy and re- documented as needed.?? * Atiya Aguirer RN: MODIFY, PERFORM Event Display: Care Team Progress Note Authored Date: Patient: ??JEANNETTE, NASIM ? Age:??32 Years?Sex:??Female?:??1990?? Subjective Mom says she would like the BF, but she did not see any drops of colostrum between her last and this one as she has with all her other pregnancies, so she was waiting until her milk came into attempt BF regularly. She has been putting him to the breast if he is looking but says the pain of contractions when he is latched is uncomfortable. She is giving him 15-20 ml formula every 3-4 hours at the time. It was her plan to BF and pump eventually but she would like to BF as much as possible once her milk is in. Assessment/Plan Basic education discussed with??motherincluding:? Positioning infant for optimal feeding Asymmetric latch technique Frequent breast stimulation for initiation and maintenance of milk supply Coming to full milk volume in first 14 days Engorgement prevention and management Hand expression When to use a breast pump Consultation reference guide given to mother with contact information for services and ongoing support as needed.? Therapeutic use of bottle feeding for a baby. ?? Advise??caregiver to select nipple with long shank, conical shape, wide base,??and slow flow. ?? -Hold the baby almost upright. -Hold the bottle horizontal, just filling the nipple with fluid. -Encourage your baby to take it into his mouth until?? has wide latch (140 degrees) and it is deep in?? mouth. Let baby seek the nipple. -The feeding should take 15-30 minutes. If baby if baby is drinking too fast tip the bottle down totemporarily stop or slow the flow. -Caregiver can hold the baby cheek to chest for the feeding. ? Emphasized education on coming to a full milk volume and how to support that with frequent stimulation. Encouraged Mom to continue to attempt to latch the babe before offering formula and to try to??limit formula volumes to 10-15 ml, using paced bottle feeding techniques. ?? Attempted to latch baby with Mom however she was very sleepy after getting a dose of Benedryl. Iwas able to show her positioning, however she needed maximum assistance.?? Infant has strong sucklehowever is slamming his mouth shut quickly as soon as his lips??are around the breast.??Mom was taught hot to fold the nipple into his mouth. Suck assessment showed that his tongue movements were uncoordinated. After a few minutes of suck training, he was more willing to open mouth and grab breast however he was still pushing his tongue forward and pushing the nipple out of his mouth. At that time Mom was falling asleep and Dad took the baby to offer some formula as they had been doing. Mom wasencouraged to hand express and continue to offer the breast before bottling formula and we would follow up on latch tomorrow and try to assist. OB Summary : 8 Parity: 5 . Baby A - Weight: 3.226 kg Baby A - Date, Time of : 12/05/22 23:01:00 Baby A - Gender: Male Baby A - Complications: None EGA at Documented Date, Time: 38W 1D Weight at Delivery Baby A - Delivery Type: Vaginal Delivery Complications: None OB History History?(5,0,2,5)? # 1 ?Baby 1 ?Outcome Date:??2006 ?Outcome or Result:??Vaginal ?Gest Age:??39 weeks ? Outcome:??Live ? Sex:??Male ?Hospital:??[facility] ?? # 2 ?Baby 1 ?Outcome Date:??2007 ?Outcome or Result:??Vaginal ?Gest Age:??41 weeks 4 days ? Outcome:??Live ? Sex:??Female ?Hospital:??[facility] ?? # 3 ?Baby 1 ?Outcome Date:??2008 ?Outcome or Result:??Vaginal ?Gest Age:??40 weeks ? Outcome:??Live ? Sex:??Female ?Hospital:??[facility] ?? # 4 ?Baby 1 ?Outcome Date:??11/2012 ?Outcome or Result:??Therapeutic , medical ?Gest Age:??-- ? Outcome:? Sex:??-- ?Comment:??At PP ?? # 5 ?Baby 1 ?Outcome Date:??02/2013 ?Outcome or Result:??Therapeutic , medical ?Gest Age:??-- ? Outcome:? Sex:??-- ?Comment:??At PP ?? # 6 ?Baby 1 ?Outcome Date:??05/12/2014?Outcome or Result:??Vaginal ?Gest Age:??40 weeks 6 days ? Outcome:??Live ? Sex:??Female?Wt:?3679 g ?? # 7 ?Baby 1 ?Outcome Date:??10/24/2021?Outcome or Result:??Vaginal ?Gest Age:??38 weeks 2 days ? Outcome:??Live ? Sex:??Female?Wt:?3353 g ? Complications:??pt delivered ? Complications:??None ?Francisco Labor:??2 hr 39 min ?Hospital:??[facility] Active Problem List Active Problem List Anxiety: (Medical) Chronic hypertension: (Medical) DCF case: (Peppertext) (10/02/13) Former smoker: (Medical) GERD (gastroesophageal reflux disease): (Medical) Glucose intolerance of : (Medical) Heart palpitations: (Medical) Hidradenitis suppurativa: (Medical) History of abnormal cervical Pap smear: (Medical) History of gestational diabetes: (Medical) History of gestational hypertension: (Medical) Obesity during : (Medical) : (Obstetric) (03/15/22) : (Medical) PTSD (post-traumatic stress disorder): (Medical) related to past life trauma Rubella non-immune status, antepartum: (Medical) Severe obesity: (Medical) Short interval between pregnancies affecting , antepartum: (Medical) Home Medications Aspirin: 162 mg = 2 tablet, By Mouth, Daily Durable Medical Equipment: See Instructions, Please teach how to use monitor test 4 xday fasting & 2 hr after meals. ??Test for 1 week Durable Medical Equipment: See Instructions, DX: 099.810 - Please test blood sugars 4 times a day. Durable Medical Equipment: See Instructions, DX: 099.810 - Please test blood sugars 4 times a day. Durable Medical Equipment: See Instructions, DX: 099.810 - Please test blood sugars 4 times a day. Famotidine: 1 tablet, By Mouth, Daily at bedtime HydrOXYzine: 25 mg = 1 capsule, By Mouth, 4 times a day, PRN (for anxiety) Miscellaneous Rx (FREESTYLE LITE LANCETS): See Instructions, GLUCOSE MONITORING 4 TIMES A DAY DURING Multivitamin, : 1 tablet, By Mouth, Daily Ondansetron: See Instructions, TAKE 1 TABLET BY MOUTH ONCE DAY NEEDED FOR NAUSEA AND VOMITING Medications Medications (6) Active SCHEDULED: (2) Famotidine 20 mg Tablet (famotidine 20 mg oral tablet) ??20 mg, By Mouth, 2 times a day Measles / Mumps / Rubella Vaccine (Measles/Mumps/Rubella Virus Vaccine Inj) ??0.5 mL, Subcutaneous Injection, Once CONTINUOUS: (0) PRN: (4) Acetaminophen 325 mg Tablet (Acetaminophen Tablet) ??650 mg, By Mouth, Every 4 hours Calcium Carbonate 500 mg (Calcium 200 mg) Chewable Tablet (Tums 500 mg Tablet) ??1,000 mg 2 tablet,Chew, 3 times a day Calcium Carbonate 500 mg (Calcium 200 mg) Chewable Tablet (Tums 500 mg oral tablet, chewable) ??1,000 mg 2 tablet, Chew, Every 4 hours Docusate Sodium 100 mg Capsule (Docusate Sodium Capsule) ??100 mg 1 capsule, By Mouth, 2 times a day Patient Care team information Care Team Personnel Name: Damien RN, Evelyn Anthony Position: S OB RN Member Role: Primary Care Nurse Name: Sara rPadhan NP Position: Reference Physician Member Role: PCP Address: Address: [address] [place] [address] Name: Lydia Estrada Position: S OB RN Member Role: OB RN Name: Rocio Grigsby RN Position: [facility] OB RN Member Role: Primary Nurse Care Team Related Persons Name: NASIM MACHADO Address: [address] Address: [address] [place] [address] Name: MACHADOCLARK ROBERTS Address: home [address] [address] Name: NYA DURAND Address: [address] [place] [address] Name: KARSTEN GALLAGHER Address: home [address] [place] [address] Name: JACKY PÉREZ Address: home [address] [place], [place] Name: JACKY AMOR Address: home [address] [place], [place] Name: LITTLE ELIAS Address: [address] Address: [address] [place] [address] Name: CARLITOS DIAZ
--- OUTSIDE RECORDS SUMMARY | 2024-04-22 14:12 | XMS_ITS | Continuity of Care Document ---
Author Organization [facility] Address [address] [place] [id number]- Care Team Providers Care Pattern Drafter Name Role Phone Carolynn ORDONEZ, Sara Arita Primary Care Physician Encounter [facility] Date(s): 01/31/23 - 03/02/[address] [address] Allergies, Adverse Reactions, Alerts Substance [...] 15:26:00 EDT, Route to Pharmacy Electronically, [facility]/pharmacy #[id number], Partial fill upon patient request if the [...] 02/09/23 10:43:00 EDT, Route to Pharmacy Electronically, [facility]/pharmacy #[id number], Partial fill upon patientrequest if the prescription is for a schedule II op... Start Date: 02/09/23 Status: Ordered Multivitamins with Folic Acid 1 mg oral tablet 1 tablet, By Mouth, Daily, # 90 tablet, 2 Refills, Maintenance, 05/10/22 18:35:00 EDT, Tablet, [facility]/pharmacy #[id number], Partial fill upon patient request if [...] 0 Refills, Maintenance, 11/02/22 18:45:00 EDT, Capsule, [facility]/pharmacy #[id number], Partial fill upon patient request if [...] Team Personnel Name: Evelyn Quezada RN Position: [facility] OB RN Member Role: Primary Care Nurse Name: Vamshi Ford RN Position: S RN Member Role: Primary Care Nurse Name: Corine Yoder RN Position: S RN Member Role: Primary Care Nurse Name: Carolynn ORDONEZ, Sara Arita Position: Reference Physician Member Role: PCP Address: Address: [address] [place] [id number]- Care Team Related Persons Name: CLARK MACHADO Address: home [address] [address] Name: NYA DURAND Address: [address] [place] [address] Name: KARSTEN GALLAGHER Address: home [address] [place] [address] Name: JACKY PÉREZ Address: [address] [place] [address] Name: JACKY AMOR Address: [address] [place] [address] Name: LITTLE ELIAS Address: [address] Address: [address] [place] [address] Name: MARVIN ELIAS Address: [address] [place] [address] Name: MARVIN ELIAS Address: [address] Address: [address] [place] [address] [place] Name: CARLITOS DIAZ
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
--- OUTSIDE RECORDS SUMMARY | 2024-04-22 14:12 | XMS_ITS | Continuity of Care Document ---
Author Organization [facility] Address [address] [place] [address]- Care Team Providers Care Rehabilitation Manager Name Role Phone Carolynn ORDONEZ, Sara Arita Primary Care Physician [phone] Encounter [facility] Date(s): 05/19/22 - 06/23/[address] [address] Attending Physician: Not on Staff, Attending MD [...] Refills, Maintenance, 05/10/22 18:35:00 EDT, Tablet, [id number], Partial fill upon patient request if the [...] Reference Physician Member Role: PCP Address: Address: [address] [place] [address]- Care Team Related Persons Name: MAGUI MACHADOO Address: home [address] [address] Name: NYA DURAND Address: home [address] [place] [address] Name: KARSTEN GALLAGHER Address: home [address] [place] [address] Name: JACKY PÉREZ Address: home [address] [place] [address] Name: JACKY AMOR Address: home [address] [place] [address] Name: LITTLE ELIAS Address: [address] Address: home [address] [place] [address] Name: CARLITOS DIAZ
--- OUTSIDE RECORDS SUMMARY | 2024-04-22 14:13 | XMS_ITS | Continuity of Care Document ---
Author Organization [facility] Address [address] [place] [address]- Care Team Providers Care Multiplex Operator Name Role Phone Carolynn ORDONEZ, Sara Arita Primary Care Physician [phone] Encounter [facility] Date(s): 09/13/22 - 10/13/22 [facility] [address] [place] [address]- [place] Allergies, Adverse Reactions, Alerts Substance Reaction Severity [...] 09/29/22 14:34:00 EST, Route to Pharmacy Electronically, [facility]/pharmacy #[id number], Partial fill upon patient requestif the prescription is for a schedule II opioid rosetta... Start Date: 09/29/22 Status: Ordered Docu Soft sodium 100 mg oral capsule 1 capsule = 100 mg, By Mouth, 2 times a day, PRN for constipation, # 100 capsule, 0 Refills, Maintenance, 08/13/22 13:33:00 EST, Capsule, [facility]/pharmacy #[id number], Partial fill upon patient request if the prescription is for a schedule II opioid drug., 170,... Start Date: 08/13/22 Status: Ordered famotidine 20 mg oral tablet 1, tablet, By Mouth, Daily at bedtime, # 30 tablet, Refills 1, Maintenance, 09/23/22 13:46:00 EST, Route to Pharmacy Electronically, [facility] STORE 86096, 170, cm, 09/09/22 8:52:00 EST, Height, 143.2, [...] Dry Weight Start Date: 07/29/22 Status: Ordered Monistat 7 2% cream with applicator 1 application, Vaginally, Daily at bedtime, # 45 Gm, 0 Refills, Maintenance, 09/09/22 9:19:00 EST, Cream, [facility]/pharmacy #[id number], Partial fill upon patient request if the prescription is for a schedule II opioid drug., 1 application Vaginally Daily at bed... Start Date: 09/09/22 Status: Ordered ondansetron 4 mg oral tablet, disintegrating See Instructions, TAKE 1 TABLET BY MOUTH ONCE DAY NEEDED FOR NAUSEA AND VOMITING, # 10 tablet, 0Refills, Maintenance, 10/10/22 12:02:00 EDT, [facility], 170, cm, 09/29/22 11:15:00 EST, Height, 143.2, [...] anxiety, # 40 capsule, 0 Refills, Maintenance, 09/09/22 9:19:00 EST, Capsule, [id number], Partial fill upon patient request if the prescription is for a schedule II opioid drug., 170, cm, ... Start Date: 09/09/22 Status: Ordered Problem List Condition Confirmation Course [...] Physician Member Role: PCP Address: Address: [address] [place] [address]- Care Team Related Persons Name: CLARK MACHADO Address: home [address] [place] [address] Name: NYA DURAND Address: home [address] [place] [address] Name: KARSTEN GALLAGHER Address: home [address] [place] [address] Name: JACKY PÉREZ Address: home [address] [place], [place] Name: JACKY AMOR Address: home [address] [place], [place] Name: LITTLE ELIAS Address: [address] Address: home [address] [place] [address] Name: CARLITOS IDAZ
--- OUTSIDE RECORDS SUMMARY | 2024-04-22 14:13 | XMS_ITS | Continuity of Care Document ---
Author Organization [facility] Jessy Davis Address [address] [place] [address]- Care Team Providers Care Inhalation Therapist Name Role Phone Not on Staff, PCP Primary Care Physician Unavail able Encounter [facility] Date(s): 09/09/21 - 10/09/21 [facility] Jessy [facility] [address] [place], [place] [address] Allergies, Adverse Reactions, Alerts Substance Reaction [...] Please checkblood sugars four times a day. [facility], schedule meter teaching., 06/07/21 9:48:00 EST,Supply, 168, cm, 04/27/21 12:54:00 EDT, Height, 1... Start Date: 06/07/21 Status: Ordered Alcohol Pads See Instructions, # 1 pack/packet, Refills 3, Tot. Refills 3, Maintenance, DX: 024.912 Please checkblood sugars four times a day. [facility], schedule meter teaching., 06/04/21 18:03:00 EST, Supply, 168, cm, 04/27/21 12:54:00 EDT, Height,... Start Date: 06/04/21 Status: Ordered aspirin 81 mg oral tablet, chewable 162 mg, 2, tablet, Chew, Daily, continue until 2 weeks , # 60 tablet, Refills 8, Tot. Refills 8, Maintenance, 04/27/21 13:24:00 EDT, [id number] Partial fill upon patient request if the prescription... Start Date: 04/27/21 Stop Date: 01/22/22 Status: Ordered famotidine 10 mg oral tablet 1 tablet = 10 mg, By Mouth, 2 times a day, # 180 tablet, 0 Refills, Maintenance, 09/09/21 18:50:00 EST, Tablet, [facility]/pharmacy #[id number], Partial fill upon patient request if the prescription is for a schedule II opioid drug., 168, cm, 09/09/21 14:57:00 EST... Start Date: 09/09/21 Status: Ordered ferrous sulfate 325 mg oral tablet 1 tablet = 325 mg, By Mouth, Daily, # 90 tablet, 0 Refills, Maintenance, 09/09/21 15:28:00 EST, [id number] Partial fill upon patient request if the prescription is for a schedule II opioid drug., 168, cm, 09/09/21 14:57:00 EST, Height... Start Date: 09/09/21 Status: Ordered [place] Lyte glucometer [place] Lyte glucometer, See Instructions, # 1 each, Refills 3, Tot. Refills 3, Maintenance, DX: 024.912 Please check blood sugars four times a day. [facility], schedule meter teaching., 06/07/21 9:48:00 EST, Supply, 168, cm, 04/27/21 12:5... Start Date: 06/07/21 Status: Ordered [place] Lyte glucometer [place] Lyte glucometer, See Instructions, # 1 each, Refills 3, Tot. Refills 3, Maintenance, DX: 024.912 Please check blood sugars four times a day. [facility], schedule meter teaching., 06/04/21 18:03:00 EST, Supply, 168, cm, 04/27/21 12:... Start Date: 06/04/21 Status: Ordered [place] Lyte glucometer [place] Lyte glucometer, See Instructions, # 1 each, Refills 0, Tot. Refills 0, Maintenance, DX: 024.912 Please check blood sugars four times a day., 06/09/21 14:04:00 EST, Supply, 168, cm, 04/27/21 12:54:00 EDT, Height, 113.4, kg, 04/20/21 14:40:00... Start Date: 06/09/21 Status: Ordered [place] Lyte glucometer [place] Lyte glucometer, See Instructions, # 1 each, Refills 0, Tot. Refills 0, Maintenance, DX: 024.912 Please check blood sugars four times a day., 06/08/21 15:51:00 EST, Supply, 168, cm, 04/27/21 12:54:00 EDT, Height, 113.4, kg, 04/20/21 14:40:00... Start Date: 06/08/21 Status: Ordered [place] Lyte glucometer [place] Lyte glucometer, See Instructions, # 1 each, Refills 0, Tot. Refills 0, Maintenance, DX: 024.912 Please check blood sugars four times a day., 06/09/21 17:44:00 EST, Supply, 168, cm, 04/27/21 12:54:00 EDT, Height, 113.4, kg, 04/20/21 14:40:00... Start Date: 06/09/21 Status: Ordered [place] lyte lancets [place] lyte lancets, See Instructions, # 1 pack/packet, Refills 3, Tot. Refills 3, Maintenance, DX: 024.912 Please check blood sugars four times a day. [facility], schedule meter teaching.,06/07/21 9:48:00 EST, Supply, 168, cm, 04/27/21... Start Date: 06/07/21 Status: Ordered [place] lyte lancets [place] lyte lancets, See Instructions, # 1 pack/packet, Refills 3, Tot. Refills 3, Maintenance, DX: 024.912 Please check blood sugars four times a day. [facility], schedule meter teaching.,06/04/21 18:03:00 EST, Supply, 168, cm, 04/27/21... Start Date: 06/04/21 Status: Ordered [place] lyte lancets [place] lyte lancets, See Instructions, # 200 each, Refills 3, Tot. Refills 3, Maintenance, DX: 024.912 Please check blood sugars four times a day., 06/09/21 14:03:00 EST, Supply, 168, cm, 04/27/21 12:54:00 EDT, Height, 113.4, kg, 04/20/21 14:40:00... Start Date: 06/09/21 Status: Ordered [place] lyte lancets [place] lyte lancets, See Instructions, # 200 each, Refills 3, Tot. Refills 3, Maintenance, DX: 024.912 Please check blood sugars four times a day., 06/08/21 15:49:00 EST, Supply, 168, cm, 04/27/21 12:54:00 EDT, Height, 113.4, kg, 04/20/21 14:40:00... Start Date: 06/08/21 Status: Ordered [place] lyte lancets [place] lyte lancets, See Instructions, # 200 each, Refills 3, Tot. Refills 3, Maintenance, DX: 024.912 Please check blood sugars four times a day., 06/09/21 17:45:00 EST, Supply, 168, cm, 04/27/21 12:54:00 EDT, Height, 113.4, kg, 04/20/21 14:40:00... Start Date: 06/09/21 Status: Ordered [place] lyte test strips [place] lyte test strips, See Instructions, # 1 pack/packet, Refills 3, Tot. Refills 3, Maintenance, DX: 024.912 Please check blood sugars four times a day. [facility], schedule meter teaching., 06/07/21 9:48:00 EST, Supply, 168, cm, 04/27/... Start Date: 06/07/21 Status: Ordered [place] lyte test strips [place] lyte test strips, See Instructions, # 1 pack/packet, Refills 3, Tot. Refills 3, Maintenance, DX: 024.912 Please check blood sugars four times a day. [facility], schedule meter teaching., 06/04/21 18:04:00 EST, Supply, 168, cm, 04/27... Start Date: 06/04/21 Status: Ordered [place] lyte test strips [place] lyte test strips, See Instructions, # 200 each, Refills 3, Tot. Refills 3, Maintenance, DX:024.912 Please check blood sugars four times a day., 06/09/21 14:03:00 EST, Supply, 168, cm, 04/27/21 12:54:00 EDT, Height, 113.4, kg, 04/20/21 14:40:... Start Date: 06/09/21 Status: Ordered [place] lyte test strips [place] lyte test strips, See Instructions, # 200 each, Refills 3, Tot. Refills 3, Maintenance, DX:024.912 Please check blood sugars four times a day., 06/08/21 15:50:00 EST, Supply, 168, cm, 04/27/21 12:54:00 EDT, Height, 113.4, kg, 04/20/21 14:40:... Start Date: 06/08/21 Status: Ordered [place] lyte test strips [place] lyte test strips, See Instructions, # 200 [...] tablet, 3 Refills, Maintenance, 09/09/21 15:40:00 EST, [facility]/pharmacy #[id number], Partial fill upon patient request if [...]
--- OUTSIDE RECORDS SUMMARY | 2024-04-22 14:13 | XMS_ITS | Continuity of Care Document ---
Author Organization [facility] Address [address] [place] [address]- Care Team Providers Care Pantry Goods Worker Name Role Phone Carolynn ORDONEZ, Sara Arita Primary Care Physician [phone] Encounter [facility] Date(s): 10/28/22 - 11/27/[address] [address] Allergies, Adverse Reactions, Alerts Substance [...] 09/29/22 14:34:00 EST, Route to Pharmacy Electronically, [facility]/pharmacy #[id number], Partial fill upon patient requestif the prescription is for a schedule II opioid rosetta... Start Date: 09/29/22 Status: Ordered famotidine 20 mg oral tablet 1, tablet, By Mouth, Daily at bedtime, # 30 tablet, Refills 1, Maintenance, 09/23/22 13:46:00 EST, Route to Pharmacy Electronically, [facility] STORE 50901, 170, cm, 09/09/22 8:52:00 EST, Height, 143.2, [...] PATIENT, PLEASE COMPLETE METER TEACHING WITH PATIENT. BULGARIAN SPEAKING, Supply,... Start Date: 11/25/22 Status: Ordered [...] 0Refills, Maintenance, 10/10/22 12:02:00 EDT, [facility], 170, cm, 09/29/22 11:15:00 EST, Height, 143.2, [...] hypertension Confirmed Active Chronic hypertension Confirmed Active Obesity [...] Physician Member Role: PCP Address: Address: [address] [place] [address]- [place] Care Team Related Persons Name: MAGUI MACHADOO Address: home [address] [address] Name: NYA DURAND Address: home [address] [place] [address] Name: KARSTEN GALLAGHER Address: home [address] [place] [address] Name: JACKY PÉREZ Address: home [address] [place] [address] Name: JACKY AMOR Address: [address] [place] [address] Name: LITTLE ELIAS Address: [address] Address: home [address] [place] [address] Name: CARLITOS DIAZ
--- OUTSIDE RECORDS SUMMARY | 2024-04-22 14:13 | XMS_ITS | Continuity of Care Document ---
Author Organization [facility] Address [address] [place] [address]- Care Team Providers Care Business System Manager Name Role Phone Carolynn ORDONEZ, Sara M Primary Care Physician [phone] Encounter [facility] Date(s): 05/18/22 - 06/17/[facility] [address] [place] [address] Allergies, Adverse Reactions, Alerts Substance [...] Refills, Maintenance, 05/10/22 18:35:00 EDT, Tablet, [facility], Partial fill upon patient request if the [...] Reference Physician Member Role: PCP Address: Address: [address] [place] [address]- Care Team Related Persons Name: CLARK MACHADO Address: home [address] [address] Name: NYA DURAND Address: home [address] [place] [address] Name: KARSTEN GALLAGHER Address: home [address] [place] [address] Name: JACKY PÉREZ Address: home [address] [place] [address] Name: JACKY AMOR Address: [address] [place] [address] Name: LITTLE ELIAS Address: [address] Address: home [address] [place] [address] Name: CARLITOS DIAZ
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
--- OUTSIDE RECORDS SUMMARY | 2024-04-22 14:13 | XMS_ITS | Continuity of Care Document ---
Author Organization [facility] Address [address] [place] [id number]- Care Team Providers Care Data Processing Clerk Name Role Phone Carolynn ORDONEZ, Sara Arita Primary Care Physician Encounter [facility] R [id number] Date(s): 08/23/22 - 09/22/22 [facility] [address] [place] [id number]- Attending Physician: Poli Matta Admitting Physician: AdmPoli triana Referring Physician: Poli Matta Allergies, Adverse Reactions, Alerts Substance Reaction Severity [...] 0 Refills, Maintenance, 08/13/22 13:33:00 EST, Capsule, [facility] #[id number], Partial fill upon patient request if the prescription is for a schedule II opioid drug., 170,... Start Date: 08/13/22 Status: Ordered famotidine 20 mg oral tablet 1, tablet, By Mouth, Daily at bedtime, # 30 tablet, Refills 1, Maintenance, 08/28/22 16:08:00 EST, Route to Pharmacy Electronically, [id number], 170, cm, 07/28/22 16:30:00 EST, Height, 143.2, [...] 0 Refills, Maintenance, 09/09/22 9:19:00 EST, Cream, [id number], Partial fill upon patient request [...] Reference Physician Member Role: PCP Address: Address: [address] [place] [id number]- Care Team Related Persons Name: CLARK MACHADO Address: home [address] [place] [id number] Name: NYA DURAND Address: home [address] [place] [id number] Name: KARSTEN GALLAGHER Address: home [address] [place] [address] Name: JACKY PÉREZ Address: home [address] [place] [address] Name: JACKY AMOR Address: home [address] [place] [address] Name: LITTLE ELIAS Address: [id number] Address: home [address] [place] [address] Name: CARLITOS DIAZ
--- OUTSIDE RECORDS SUMMARY | 2024-04-22 14:13 | XMS_ITS | Continuity of Care Document ---
Author Organization [facility] ter Address [address] [place] [id number]- Care Team Providers Care Site Interpreter Name Role Phone Carolynn ORDONEZ, Sara Arita Primary Care Physician [phone] Encounter [facility] [place] Date(s): 12/23/22 - 12/26/[address] [address] Encounter Diagnosis Right upper quadrant pain(Final) - 12/22/22 Discharge Disposition: A-D/C Home Attending Physician: Eros Molina MD Admitting Physician: Eros Molina MD Referring Physician: Not on Staff, Referring [...] acetaminophen 325 mg oral tablet 650 mg, 2, tablet, By Mouth, Every 6 hours, # 24 tablet, Refills 0, Tot. Refills 0, Acute 01/02/23 0:00:00 EDT, 12/26/22 13:42:00 EDT, Route to Pharmacy Electronically, [facility], Partial fill upon patient request if the prescription is... Start Date: 12/26/22 Stop Date: 01/02/23 Status: Ordered acetaminophen 325 mg oral tablet 650 mg, Tablet, By Mouth, 12/26/22 14:00:00 EDT Start Date: 12/26/22 Stop Date: 12/26/22 Status: Completed diphenhydrAMINE 50 mg oral tablet = 50 [...] Refills, Maintenance, 12/06/2316:40:00 EDT, Tablet, [facility]/pharmacy #[id number], Partial fill upon patient request if the prescription is for a schedule II opioid drug., 168, cm, 12/06/22 8:... Start Date: 12/06/22 Stop Date: 12/13/22 Status: Ordered famotidine 20 mg oral tablet 1, tablet, By Mouth, Daily at bedtime, # 30 tablet, Refills 1, Maintenance, 12/19/22 16:07:00 EDT, Route to Pharmacy Electronically, [id number], 168, cm, 12/13/22 17:39:00 EDT, Height, 150.4, kg, 12/13/22 17:39:00 EDT, Dry Weight Start Date: 12/19/22 Status: Ordered gabapentin 100 mg oral capsule 100 mg, Capsule, By Mouth, 12/26/22 15:00:00 EDT Start Date: 12/26/22 Stop Date: 12/26/22 Status: Completed Measles/Mumps/Rubella Virus Vaccine Inj 0.5, mL, Subcutaneous Injection, Once, Maintenance, 12/06/22 17:40:00 EDT Start Date: 12/06/22 Status: Ordered NIFEdipine 30 mg oral tablet, extended release 30 mg, 1, tablet, By Mouth, Every 24 hours, # 30 tablet, Refills 0, Tot. Refills 0, Maintenance, 12/16/22 13:59:00 EDT, Route to Pharmacy Electronically, [facility]/pharmacy #[id number], Partial fill upon patientrequest if the prescription is for a schedule II op... Start Date: 12/16/22 Status: Ordered oxyCODONE 5 mg oral tablet 10 mg, 2, tablet, By Mouth, Every 6 hours, PRN, # 18 tablet, Refills 0, Tot. Refills 0, Acute 12/29/22 0:00:00 EDT, Pain , Moderate, 12/26/22 13:41:00 EDT, Route to Pharmacy Electronically, [facility], Partial fill upon patient request i... Start Date: 12/26/22 Stop Date: 12/29/22 Status: Ordered oxyCODONE 5 mg oral tablet 10 mg, Tablet, By Mouth, Every 4 hours, PRN for Pain , Moderate, Routine, 12/25/22 11:41:00 EDT Start Date: 12/25/22 Stop Date: 01/01/23 Status: Ordered Multivitamins with Folic Acid 1 mg oral tablet 1 tablet, By Mouth, Daily, # 90 tablet, 2 Refills, Maintenance, 05/10/22 18:35:00 EDT, Tablet, [facility]/pharmacy #[id number], Partial fill upon patient request if [...] Maintenance, 11/02/22 18:45:00 EDT, Capsule, [facility]/pharmacy #[id number], Partial fill upon patient request if [...] Confirmed Active 1related to past life trauma Results Orders for Microbiology Reports Name Date Blood Culture (BLOOD CULTURE) 12/22/22 Microbiology Reports TEST:Blood Culture STATUS:Unauthenticated BODY SITE: SOURCE:Blood COLLECTED DATE/TIME:12/22/22 5:37 AM Blood Culture SPECIMEN DESCRIPTION : BLOOD SPECIAL REQUESTS : NONE CULTURE : NO GROWTH 4 DAYS REPORT STATUS : PRELIMINARY REPORT Radiology Reports * Exam Date Time Procedure Performing Provider Status 12/22/22 7:55 AM US RUQ Reynoso , Miriam; Auth (Ve rified) Notes: (US RUQ) Reason For Exam: Abdominal Pain;Other: RESULT: US RUQ US RUQ Hx of Present Illness: two weeks pospartum, recent dx and treatment for preeclampsia. severe abd pain. painful urination; Reason: Abdominal Pain; Clinical Question(s): Cholecystitis COMPARISON: None. FINDINGS: Liver: Normal in size and echotexture. No focal lesion. Smooth hepatic contour. Main portal vein patent with normal hepatopetal direction of flow. Gallbladder: Multiple mobile gallstones. Gallbladder well distended. Normal wall thickness. No pericholecystic fluid. Negative Mendoza sign, although patient received analgesic premedication which mayreduce the accuracy of this finding. Biliary Tree: No intrahepatic or extrahepatic bile duct dilation is identified. Common duct measures: 0.3 cm. Pancreas: No abnormality in the visualized portions of the pancreas. Right kidney: 14.6 cm in length. Normal parenchymal echotexture and thickness. No hydronephrosis, stone or mass. IMPRESSION: Cholelithiasis with no evidence of acute cholecystitis. I have personally reviewed the images and I agree with this report. WSN: [id number] Ordering Physician: María Espana Dictated By: Makayla Valdivia DO Dictated Date/Time: 12/22/22 8:21 am Reviewed By: Dl Abarca MD Signed By: Dl Abarca MD Signed Date/Time: 12/22/22 8:26 am Transcribed By: KAZ Transcribed Date/Time: 12/22/22 8:15 am Vital Signs Most recent to oldest [Reference Range]: 1 2 3 Height 170 cm (12/26/22 11:46 AM) 170 cm (12/26/22 6:27 AM) 170 cm (12/26/22 4:59 AM) Weight 150.4 kg (12/25/22 12:15 PM) 150.4 kg (12/22/22 5:10 PM) Oxygen Saturation [94-100 %] 100 % (12/26/22 11:46 AM) 100 % (12/26/22 6:27 AM) 97 % (12/26/22 4:59 AM) Pulse Rate [55-90 bpm] 78 bpm (12/26/22 11:46 AM) 61 bpm (12/26/22 6:27 AM) 81 bpm (12/26/22 4:59 AM) Body Mass Index [18.5-24.99 kg/m2] 52.04 kg/m2 *>HHI* (12/25/22 12:15 PM) 52.04 kg/m2 *>HHI* (12/22/22 5:10 PM) Blood Pressure [90-138/55-84 mm Hg] 130/89mm Hg (12/26/22 11:46 AM) 121/61mm Hg (12/26/22 6:27 AM) 118/83mm Hg (12/26/22 4:59 AM) Respiratory Rate [16-30 br/min] 18 br/min (12/26/22 3:02 PM) 18 br/min (12/26/22 3:02 PM) 18 br/min (12/26/22 3:02 PM) Temperature [96.8-100.4 DegF] 98.9 DegF (12/26/22 11:46 AM) 98.0 DegF (12/26/22 6:27 AM) 98.2 DegF (12/26/22 4:59 AM) Liters per Minute 2 L/min (12/25/22 5:03 PM) 2 L/min (12/25/22 4:00 PM) 2 L/min (12/25/22 3:45 PM) Mode of Delivery (Oxygen) Room air (12/26/22 11:46 AM) Room air (12/26/22 6:27 AM) Room air (12/26/22 4:59 AM) Blood pressure sites Arm, left (12/26/22 11:46 AM) Arm, left (12/26/22 6:27 AM) Arm, left (12/26/22 4:59 AM) Temperature Route Oral (12/26/22 11:46 AM) Oral (12/26/22 6:27 AM) Oral (12/26/22 4:59 AM) Dry Weight 150.4 kg (12/22/22 5:10 PM) Social History Social History Type Response Tobacco Use: 4 or less cigar ettes(less than 1/4 pack)/day in last 30 days. Sex Female History and physical note * Naomi PATHAK, Magy: PERFORM, MODIFY, MODIFY, MODIFY Event Display: History and Physical Hospital Authored Date: Patient: ??NASIM MACHADO ? Age:??32 Years?Sex:??Female?:??1990?? History of Present Illness Nasim Machado is a 32yo female who is 2-weeks post-, with complicated by gestational DM and pre-eclampsia with severe features (hypertension and neurologic features), and chronic back pain, who presents with new-onset right upper quadrant pain associated with nausea and vomiting. She presented to the ED for further evaluation. Labs were notable for a mildly elevated alk phos of 115 but otherwise were all normal, including WBC and LFTs. Right upper quadrant ultrasound showed evidence of cholelithiasis without evidence of cholecystitis. CBD measured at 0.3cm and there was no evidence of ductal dilation. EGS was consulted for further recommendations. On exam, the patient reported significant discomfort. She denied any SOB, chest pain, fever, or chills. She has remained hemodynamically stable and afebrile. Review of Systems Negative except as reviewed above. Physical Exam Vitals & Measurements T:??97.9?F?? HR:??70??(Peripheral)?? RR:??16?? BP:??145/79?? SpO2:??100%?? HT:??170??cm?? WT:??150.4??kg?? BMI:??52.04?? General: Awake, alert, appears uncomfortable. HEENT:??Normocephalic, atraumatic. Cardio: Regular rate. Lungs: Non-labored breathing on room air. Abdomen: Soft,??tender to palpation in the epigastric and RUQ, non-distended. Extremities: Full ROM, moving all limbs spontaneously. Psych:??Appropriate mood and affect. Assessment/Plan 32yo female who is 2-weeks post-, with complicated by gestational DM and pre-eclampsia with severe features (hypertension and neurologic features), and chronic back pain, who presentswith new-onset right upper quadrant pain associated with nausea and vomiting. She presented to the ED for further evaluation. Labs were notable for a mildly elevated alk phos of 115 but otherwise were all normal, including WBC and LFTs. Right upper quadrant ultrasound showed evidence of cholelithiasis without evidence of cholecystitis. CBD measured at 0.3cm and there was no evidence of ductal dilation. EGS was consulted for further recommendations. On exam, the patient reported significant discomfort. She was tender to palpation in the??epigastric and RUQ.??She denied any SOB, chest pain, fever, or chills. She has remained hemodynamically stable and afebrile. We discussed with the patient that she will likely need her gallbladder removed due to symptomatic cholelithiasis. Would recommend PO challenge and observation. Patient was agreeable to this plan. SBP goal of <160 per OB recommendations. ?? Plan: - Admit to observation - PO challenge, regular diet - PO pain medication PRN - SBP goal <160 - Continue home meds - OOB as tolerated ? Discussed with Dr. Molina. S [id number] Problem List/Past Medical History Ongoing Anxiety Chronic hypertension Former smoker GERD (gastroesophageal reflux disease) Glucose intolerance of Heart palpitations Hidradenitis suppurativa History of abnormal cervical Pap smear History of gestational diabetes History of gestational hypertension Obesity during PTSD (post-traumatic stress disorder) Rubella non-immune status, antepartum Severe obesity Short interval between pregnancies affecting , antepartum Procedure/Surgical History IUD - Intrauterine device procedure: 05/13/14 [place] tooth Home Medications Calcium Carbonate: 1,000 mg = 2 tablet, Chew, Every 4 hours, PRN (Dyspepsia) DiphenhydrAMINE: 50 mg, By Mouth, Every 4 hours, PRN (Itch) Docusate: 100 mg, By Mouth, 2 times a day, PRN (Constipation) Famotidine: 1 tablet, By Mouth, Daily at bedtime HydrOXYzine: 25 mg = 1 capsule, By Mouth, 4 times a day, PRN (for anxiety) Measles/Mumps/Rubella Virus Vaccine: 0.5 mL, Subcutaneous Injection, Once Multivitamin, : 1 tablet, By Mouth, Daily NIFEdipine: 30 mg = 1 tablet, By Mouth, Every 24 hours Allergies Toradol Social History Alcohol Use: Past. Electronic Cigarette/Vaping Electronic Cigarette Use: Never. 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 Home/Environment Living [...] mellitus type II Sister: Hypertension Brother: Hypertension Lab Results Labs Last 24 Hours BLOOD COUNT & DIFF ? Event Name?? Event Result?? Date/Time?? WBC 6.2 k/mm3 12/22/22 05:33:00 RBC 5.1 m/mm3 12/22/22 05:33:00 Hgb 13.7 Gm/dL 12/22/22 05:33:00 Hct 43.4 % 12/22/22 05:33:00 MCV 85.1 femtoliters 12/22/22 05:33:00 MCH 26.9 pg??Low 12/22/22 05:33:00 MCHC 31.6 g/dL??Low 12/22/22 05:33:00 Platelet Count 416 k/mm3 12/22/22 05:33:00 MPV 10 femtoliters 12/22/22 05:33:00 Nucleated RBC (Automated) 0 #/100 WBC'S 12/22/22 05:33:00 ? CHEM GENERAL ? Event Name?? Event Result?? Date/Time?? Sodium 140 mmol/L 12/22/22 05:33:00 Chloride 101 mmol/L 12/22/22 05:33:00 Bicarbonate Level 24 mmol/L 12/22/22 05:33:00 Anion Gap 15 12/22/22 05:33:00 Glucose Level 96 mg/dL 12/22/22 05:33:00 BUN 15 mg/dL 12/22/22 05:33:00 Creatinine-Blood 0.7 mg/dL 12/22/22 05:33:00 Magnesium 2 mg/dL 12/22/22 05:33:00 Alkaline Phosphatase 115 units/L??High 12/22/22 05:33:00 Lipase 31 units/L 12/22/22 05:37:00 AST (SGOT) 13 units/L 12/22/22 05:33:00 ALT (SGPT) 15 units/L 12/22/22 05:33:00 Bilirubin, Total 0.2 mg/dL 12/22/22 05:33:00 ? * Eros Molina MD: PERFORM Event Display: History and Physical Hospital Authored Date: I have seen and evaluated this patient on the above documented date. I have discussed the case and its management with the resident team and BRITTANY as documented in the progress note. ? Clinically stable. More comfortable, tolerating po in the ED. Symptomatic cholelilithiaiss. ?? Plan - as noted below & -Trial po diet - possible discharge and scheduling for outpatient OR. If fails po diet will plan for OR during this admission. ?? Patient and sister understand and agree with plan. ? RA * Quiana PATHAK, Skylar Arita: PERFORM Event Display: History and Physical Hospital Authored Date: Patient: ??NASIM MACHADO ? Age:??32 Years?Sex:??Female?:??1990?? Chief Complaint abd pain History of Present Illness Ms. Machado is a 32-year-old who is 2 weeks from a vaginal delivery with known superimposed preeclampsia with severe features by severe range BPs and neurologic features. She presents to the ED with right upper quadrant pain since last night. The right upper quadrant pain started in her right flank and wraps around to her mid epigastrium. She notes that the right upper quadrant painis similar to pain that she had throughout . She had 1 episode of vomiting due to this right upper quadrant pain. No diarrhea. She notes that 1 other person in her house had severe abdominalpain last night as well. From a preeclampsia review of systems perspective, no headaches, vision changes, chest pain, shortness of breath. ?? On arrival to the ED she had 1 severe range blood pressure (160/117). In the minutes it took to getthe IV labetalol, blood pressures became mild range. Since 519, she has not had any further severerange blood pressures. ?? While in the ED, she had a bedside right upper quadrant scan that showed gallstones and sludge, consistent with biliary colic per the ED providers. ?? From a and preeclampsia perspective, she was admitted last week for superimposed severe preeclampsia with severe range blood pressures and persistent headache for which she was treated with magnesium for seizure prophylaxis. During that admission,??she was started on nifedipine 30 mg daily. She reports compliance with this medication, last dose was last night. No recent blood pressures recorded in baby scripts. Review of Systems Denies headache, changes in vision,?? chest pain, shortness of breath, and changes in swelling. Physical Exam Vitals & Measurements T:??97.6?F?? HR:??100??(Peripheral)?? RR:??16?? BP:??130/74?? SpO2:??94%?Constitutional: Well-developed, well-nourished, no acute distress?Lungs: clear to auscultation bilaterally, unlabored breathing?Cardiovascular: Regular rate and rhythm. ?Abdomen/GI: soft, non-tender,non-distended, no guarding or rebound tenderness ?Fundus:not palpable secondary to habitus ?Gynecologic:??no bleeding ?Extremities: Equal bilaterally, no calf tenderness; 1+ bilateral patellar and biceps reflexes ?Skin: No rash or jaundice ?Neurological/Psychiatric: appropriate appearance, mood and affect Assessment/Plan Assessment:??32-year-old 2 weeks with known??superimposed preeclampsia with severe features, status post magnesium, who presents to the ED for RUQ pain, with 1 time severe range BP that resolved spontaneously. ?? Given gallstones and sludge visualized on RUQ ultrasound, leading differential for right upper quadrant pain is biliary colic, although right upper quadrant pain can be seen in preeclampsia when the disease leads to??liver capsule stretch. ?? Her presentation is not overly concerning for preeclampsia given presence of gallstones, and absence of other preeclampsia symptoms, exam findings,??or severe range BPs. Labs are not yet resulted. Julio César has no neurologic features, and has already received a course of magnesium for seizure prophylaxis, we do not recommend a repeat course of magnesium for seizure prophylaxis ?? From a preeclampsia standpoint, our main recommendation is preventing severe range blood pressures to reduce risk of stroke. Preeclampsia blood pressure treatment algorithm has been discussed with and given to??ED providers. ?? Right upper quadrant pain (R10.11):? Likely biliary colic [p] Gen surg consult Management per ED ?? Chronic hypertension with superimposed preeclampsia (O11.9):? Continue daily Nifedipine Maintain blood pressures below 160/110. BP monitoring: repeat blood pressures every 15 minutes for an hour then space to??every 30 minutes for an hour then space to once an hour for 4 hours. If severe range blood pressures occur, repeat blood pressures every 5 minutes for 15 minutes. If 2??severe range pressures within 15 minutes, or are sustained at 15 minutes, give 20mg IV labetalol. Repeat blood pressures??q10 minutes to determine need for additional IV labetalol If no additional severe range BP occur, she is appropriate from Ob BP perspective for discharge andcontinued daily nifedipine with home BP monitoring through [facility] BP monitoring program Please page OB team if any severe range blood pressures occur. Ob pager [phone] ?? Thank you for consulting us in the care of this patient. OB team will continue to follow. ?? Discussed with and will be seen by Mansi Garrison attending OB History History?(6,0,2,6)? # 1 ?Baby 1 ?Outcome Date:??2006 ?Outcome [...] Complications:??None ?Francisco Labor:??2 hr 39 min ?Hospital:??[facility] ?? # 8 ?Baby 1 ?Outcome Date:??12/05/2022?Outcome or Result:??Vaginal ?Gest Age:??38 weeks 1 days ? Outcome:??Live ? Sex:??Male?Wt:?3226 g ? Complications:??None Active Problem List Active Problem List Anxiety: (Medical) Chronic hypertension: (Medical) DCF case: (Freetext) (10/02/13) Former smoker: (Medical) GERD (gastroesophageal reflux disease): (Medical) Glucose intolerance of : (Medical) Heart palpitations: (Medical) Hidradenitis suppurativa: (Medical) History of abnormal cervical Pap smear: (Medical) History of gestational diabetes: (Medical) History of gestational hypertension: (Medical) Obesity during : (Medical) : (Medical) PTSD (post-traumatic stress disorder): (Medical) related to past life trauma Rubella non-immune status, antepartum: (Medical) Severe obesity: (Medical) Short interval between pregnancies affecting , antepartum: (Medical) Procedure/Surgical History IUD - Intrauterine device procedure: 05/13/14 [place] tooth Home Medications Calcium Carbonate: 1,000 mg = 2 tablet, [...] Multivitamin, : 1 tablet, By Mouth, Daily NIFEdipine: 30 mg = 1 tablet, By Mouth, Every 24 hours Ondansetron: See Instructions, TAKE 1 TABLET BY MOUTH ONCE DAY NEEDED FOR NAUSEA AND VOMITING Allergies Toradol Social History Alcohol Use: Past. Electronic Cigarette/Vaping Electronic Cigarette Use: Never. 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 Home/Environment Living [...] Diabetes mellitus type II; Kidney failure ?28-SEP-2013 07:18:11<$> Mat. Grandmother: Diabetes mellitus type II Sister: Hypertension Brother: Hypertension * Kayla PATHAK, Anali E: PERFORM Event Display: History and Physical Hospital Authored Date: ?Attending Attestation:??I have seen and evaluated this patient. ??I have discussed the case and its management with the resident and agree with the findings and plan as documented in the resident???s note. Hx of chronic HTN with superimposed pre-e.?? PIH labs today are WNL?Pt uncomfortable.?? Agree that exam as described ??is consistent with cholelithiasis.?? Pt is awaiting consult from Gen surg. Doubt this relates to PIH??PBS EKG study * Event Display: ECG 12-Lead Authored Date: Please click on pdf link to open report * Event Display: ECG 12-Lead Authored Date: Ventricular Rate: 84 BPM Atrial Rate: 84 BPM P-R Interval: 224 ms QRS Duration: 116 ms Q-T Interval: 380 ms QTC Calculation(Bazett): 449 ms P [place]: 27 degrees R [place]: -6 degrees T [place]: 18 degrees Sinus rhythm with 1st degree A-V block Otherwise normal ECG When compared with ECG of 13-DEC-2022 14:39, [place] interval has increased Confirmed by [place] PATHAK, [facility] ([id number]) on 12/26/2022 10:26:39 AM [place]: BROOK[place]N PATHAK,[facility] Progress note * Davina Funes RN: PERFORM, SIGN, VERIFY Event Display: Progress Note Hospital Authored Date: [id number] Patient: NASIM MACHADO Age: 32 years Sex: Female : 1990 Associated Diagnoses: None Author: Davina Funes RN Findings Problem Related to Alteration in Comfort : Alteration in Comfort/new 12/26/2022 11:00 EDT Alteration in Comfort Related to Disease process Goals & Outcomes: Comfort Pt will report [...] BH Goals/Interventions, Comfort Yes Comfort, Problem Start 12/23/2022 0:36 Reviewed plan with, Comfort Patient, Spouse/significant other Patient Progression, Comfort Pt progressing according to plan Comfort, Problem Ongoing Yes . Alteration in Gastrointestinal : Alteration in Gastrointestinal Func/new 12/26/2022 11:00 EDT Alteration in GI status Related to Abdominal Surgery, Other: cholelithiasis Goals & Outcomes, Gastrointestinal Establish a regular pattern of elimination for pt, Nutritional intake is adequate for metabolic needs, Pt will have a bowel movement prior to discharge, Pt willmaintain adequate GI function appropriate for pt, Pt will maintain normal elimination patterns, Pt will resume/maintain adequate hemodynamic status Interventions, Gastrointestinal Assess/monitor abdomen for distention, tenderness, Assess/monitor abdominal girth & bowel function, Assess/monitor bowel pattern, bowel sounds, flatus, Assess/monitor number of bowel movements, Assess/monitor color, quantity, quality, consistency of stoo, Assess/monitor pt for nausea, vomiting, Assess/monitor effects of re-hydration, Assess if pt tolerating diet, DVT prophylaxis as ordered, Teach Pt/caregiver diet & give copy of dietary instructions, Teach Pt/caregiver on bowel elimination interventions, Teach Pt/caregiver re: importance of bowel regime, Teach Pt/caregiver re: nutritional intake & dietary restrict, Teach/encourage deep breath & cough exercises, Teach/encourage use of incentive spirometer Goals/Interventions, Gastrointestinal Yes Gastrointestinal, Problem Start 12/23/2022 0:37 Reviewed plan with, Gastrointestinal Patient, Spouse/significant other Patient Progression, Gastrointestinal Pt progressing according to plan . Narrative/Incidental Pt. alert/oriented times 3. Pt. ambulating in hallway with significant other. Pt. on lovenox for DVT prophylaxis. Lung sounds clear. Plan for possible d/c home today, pending pain control.. Evaluation P: Alteration in GI status/comfort r/t surgery I: See above for updated careplan E: Pt. with c/o 7/10 pain to umbilical area and LUQ and LLQ, medicated with IV dilaudid and oxycodone, gabapentin, tylenol and ibuprofen with good effects, but pt. stated pain medicated did not last.RN updated [id number], [facility] who increased oxycodone to 10mg every 4 hours PRN. Pt. stated pain decreased to 4-5/10. Diet advanced and pt. tolerating well. Abd. soft, tender to palpate. Pt. with +flatus. LBM 12/24/22. 3 lap sites d/i to abd. Pt. voiding in BR without difficulty.. * Allie Sheldon RN: PERFORM, SIGN, VERIFY Event Display: Progress Note Hospital Authored Date: [id number] Patient: NASIM MACHADO Age: 32 years Sex: Female : 1990 Associated Diagnoses: None Author: Allie Sheldon RN Findings Problem Related to Alteration in Gastrointestinal : Alteration in Gastrointestinal Func/new 12/25/2022 22:00 EDT Alteration in GI status Related to Abdominal Surgery, Other: cholelithiasis Goals & Outcomes, Gastrointestinal Establish a regular pattern of elimination for pt, Nutritional intake is adequate for metabolic needs, Pt will have a bowel movement prior to discharge, Pt willmaintain adequate GI function appropriate for pt, Pt will maintain normal elimination patterns, Pt will resume/maintain adequate hemodynamic status Interventions, Gastrointestinal Assess/monitor abdomen for distention, tenderness, Assess/monitor bowel pattern, bowel sounds, flatus, Assess/monitor number of bowel movements, Assess/monitor color, quantity, quality, consistency of stoo, Assess/monitor pt for nausea, vomiting, Assess/monitor intake & output, Assess if pt tolerating diet, DVT prophylaxis as ordered, Elevate HOB to facilitate lung expansion, prevent aspiration, Taking PO: Encourage/monitor intake & swallowing ability, Teach/encourage deep breath & cough exercises, Teach/encourage use of incentive spirometer, Incision care as ordered, Teach pt to splint incision when coughing BH Goals/Interventions, Gastrointestinal Yes Gastrointestinal, Problem Start 12/23/2022 0:37 Reviewed plan with, Gastrointestinal Patient Patient Progression, Gastrointestinal Pt progressing according to plan . Nursing Data Cardiac Data. : Cardiac Data. 12/25/2022 19:46 EDT Cardiovascular WNL . Gastrointestinal Data. : Gastrointestinal Data. 12/25/2022 19:46 EDT Abdomen Tender LLQ Tenderness At rest LUQ Tenderness At rest RLQ Tenderness At rest RUQ Tenderness At rest Bowel Sounds LUQ Hypoactive Bowel Sounds RUQ Hypoactive Bowel Sounds LLQ Hypoactive Bowel Sounds RLQ Hypoactive Last Bowel Movement 12/24/2022 GI WNL except . Genitourinary Data. : Genitourinary Data. 12/25/2022 19:46 EDT WNL . HEENT Data. : HEENT Assessment 12/25/2022 19:46 EDT HEENT, Adult WNL . Integumentary Data. : Integumentary Data. 12/25/2022 19:46 EDT Skin Integrity Not intact Integumentary WNL except . Musculoskeletal Data. : Musculoskeletal Data. 12/25/2022 19:46 EDT Musculoskeletal WNL . Neurological Data. : Neurological Data. 12/25/2022 19:46 EDT Pain Location Abdomen, left lower, Abdomen, left upper, Abdomen, right lower, Abdomen, right upper, Shoulder, right Pain Intensity 7 1 - 10 Pain Scale Score 7 Quality Aching Pain Interventions Pharmacological, PRN medication Pain relief acceptable Yes Neuro WNL . Patient Care Data. : Patient Care Data. 12/25/2022 19:46 EDT Patient's Stated Goal to be able to eat without pain afterwards Turn and Reposition With partial assist Sequential Compression Device Patient independently ambulating TEDS Not indicated/Not ordered ID band on Yes Allergy band in place/verified Yes Blood Pressure/Venipuncture Both arms may be used Call Ramírez in Reach-Ensure Ability to Use Yes Patient Instructed on Use of Call Ramírez Yes Standard Safety Bed in low position, Non-slip footwear, Upper/Half-length side- rails up, Wheels locked Pt Ed-Learning: Person Taught Patient Pt Ed-Learning: Learning Readiness Yes, alert and oriented Pt Ed-Learning: Learning Barriers None Pt Ed-Learning: Learning Style Verbal Pain system assessment Detailed pain assessment Pain Effects on Appetite Severe Pain Effects on Concentration Severe Pain Effects on Daily Life Severe Pain Effects on Emotions Severe Pain Effects on Sleep Severe Pain Aggravating Factors Movement Pain Alleviating Factors Medication Quality Aching Behavioral indicators Facial expression . Respiratory/Pulmonary Data. : Respiratory/Pulmonary Data. 12/25/2022 19:46 EDT Respiratory Treatment(s) Cough and deep breathe, Incentive spirometry Respiratory WNL . Vital Signs : VITAL SIGNS SECTION 12/25/2022 18:44 EDT Temperature 98.1 DegF Temperature Route Oral Pulse Rate 89 bpm Respiratory Rate 17 br/min Systolic Blood Pressure 138 mm Hg Diastolic Blood Pressure 64 mm Hg Blood pressure sites Arm, left Mean Arterial Pressure 89 mm Hg Pulse Pressure 74 mm Hg Oxygen Saturation 98 % Mode of Delivery (Oxygen) Room air . Pain Data : PAIN SECTION 12/25/2022 19:46 EDT Pain Location Abdomen, left lower, Abdomen, left upper, Abdomen, right lower, Abdomen, right upper, Shoulder, right Pain Intensity 7 1 - 10 Pain Scale Score 7 Pain relief acceptable Yes . Evaluation S/P lap jana 12/25,patient alert and oriented,LS clear,no SOB,encouraged use of IS,abdomen tender with hypoactive BS,3 lapsites-bandaids intact,umbilical dressing clean,dry and intact,c/o right shoulder and surgical sites pain 7/10,PRN IV dilaudid given with some relief,c/o headache,tylenol given with (+) effect,able to tolerate clear liquids,voiding yellow urine,both legs (+) CMS,(+) PP,encouraged ambulation,OOB with assist/supervision,will continue to monitor for safety and discomfort.. * Otf PATHAK, Anita Anderson: PERFORM, SIGN, VERIFY Event Display: Progress Note Hospital Authored Date: [id number] Patient: NASIM MACHADO Age: 32 years Sex: Female : 1990 Associated Diagnoses: None Author: Otf PATHAK, Anita Anderson Subjective Patient seen and examined for postop check following laparoscopic cholecystectomy with Dr. Molina. Pain was not well controlled on the current regimen. Patient has not been OOB since the OR, and was encouraged to ambulate. Voiding without issue. Has not had anything to eat yet, but is tolerating clear liquid without nausea or vomiting. Complaining of chest pain, EKG obtained and was unremarkable. Umbilical incision popped open and leaking serosangenous fluid. Was reclosed with a running 4-0 Monocryl. Otherwise denies any shortness of breath, fever, chills, headache or dizziness. Objective Temperature 98.1 (18:45) Systolic Blood Pressure 138 (18:45) Diastolic Blood Pressure 64 (18:45) Pulse 89 (18:45) SpO2 98 (18:45) Respiratory Rate 17 (18:45) Physical Exam General: Well appearing, in no acute distress. Cardiovascular: Regular rate and rhythm. No murmurs appreciated. Respiratory: Normal work of breathing. Clear to auscultation bilaterally. Gastrointestinal: Soft, appropriately tender, mildly distended. Incisions with steri-strips are clean, dry and intact. Skin: No petechia or purpura. No rashes or lesions. Extremities: No peripheral edema noted. Palpable distal pulses bilaterally. Assessment Patient is a 32 year old female who is now status post laparoscopic cholecystectomy. Procedure was uncomplicated and well tolerated. Pain is not controlled and she has not met potoperative goals, thus she is not appropriate for discharge home Plan Low diet as tolerated IV fluids until adequate oral intake Pain control with Tylenol, Ibuprofen, Gabapentin and Oxycodone Dressing to remain in place unless saturated Encourage ambulation Note * Davina Funes RN: PERFORM Event Display: Discharge/Transfer Note Hospital Authored Date: [id number] Nursing Discharge Note Entered On: 12/26/2022 15:21 EDT Performed On: 12/26/2022 15:21 EDT by Davina Funes RN Nursing Discharge Note 2 Discharge Time : 12/26/2022 15:21 EDT Discharge Level of Care at Discharge : Home/Retirement/Foster Care Patient Left Unit Via : Wheelchair Patient Accompanied Off Unit with : Responsible adult DC Instructions Provided & Signed by Pt : Yes Patient Understands D/C Instructions : Yes Patient Instructions Discharge Signed : Yes Did Pt have Specialty Bed or Wound Vac : No Marin ARREGUIN, Davina Rangel - 12/26/2022 15:21 EDT * Rebecca Swartz MD: PERFORM, SIGN, VERIFY Event Display: Discharge/Transfer Note Hospital Authored Date: [id number] Patient: NASIM MACHADO Age: 32 years Sex: Female : 1990 Associated Diagnoses: None Author: Rebecca Swartz MD Discharge Information Admission Date: 12/23/2022 Discharge Date 12/26/2022 Primary Care Provider: Sara Pradhan NP Principal Discharge Diagnosis Biliary colic: Present on admission - yes. Medications MEDICATION LIST (Selected) Prescriptions Prescribed NIFEdipine 30 mg oral tablet, extended release: 30 mg, 1, tablet, By Mouth, Every 24 hours, # 30 tablet, Refills 0, Tot. Refills 0, Maintenance, 12/16/22 13:59:00 EDT, Route to Pharmacy Electronically, [facility]/pharmacy #[id number], Partial fill upon patient request if the prescription is for a schedule II op... Multivitamins with Folic Acid 1 mg oral tablet: 1 tablet, By Mouth, Daily, # 90 tablet, 2 Refills, Maintenance, 05/10/22 18:35:00 EDT, Tablet, [facility]/pharmacy #[id number], Partial fill upon patient request if the prescription is for a schedule II opioid drug., 1 tablet By Mouth Daily, 170, cm, 01/21/22 21:0... Vistaril pamoate 25 mg oral capsule: 1 capsule = 25 mg, By Mouth, 4 times a day, PRN for anxiety, #40 capsule, 0 Refills, Maintenance, 11/02/22 18:45:00 EDT, Capsule, [facility]/pharmacy #[id number], Partial fill upon patient request if the prescription is for a schedule II opioid drug., 170, cm, 04... acetaminophen 325 mg oral tablet: 650 mg, 2, tablet, By Mouth, Every 6 hours, # 24 tablet, Refills 0, Tot. Refills 0, Acute 01/02/23 0:00:00 EDT, 12/26/22 13:42:00 EDT, Route to Pharmacy Electronically, [facility], Partial fill upon patient request if the prescription is... docusate sodium 100 mg oral tablet: = 100 mg, By Mouth, 2 times a day, PRN Constipation, # 100 tablet, 0 Refills, Maintenance, 12/06/22 17:40:00 EDT, Tablet, [facility]/pharmacy #[id number], Partial fill upon patient request if the prescription is for a schedule II opioid drug., 168, cm, 12/06/22 8:... famotidine 20 mg oral tablet: 1, tablet, By Mouth, Daily at bedtime, # 30 tablet, Refills 1, Maintenance, 12/19/22 16:07:00 EDT, Route to Pharmacy Electronically, [id number], 168, cm, 12/13/22 17:39:00 EDT, Height, 150.4, kg, 12/13/22 17:39:00 EDT, Dry Weight oxyCODONE 5 mg oral tablet: 10 mg, 2, tablet, By Mouth, Every 6 hours, PRN, # 18 tablet, Refills 0,Tot. Refills 0, Acute 12/29/22 0:00:00 EDT, Pain , Moderate, 12/26/22 13:41:00 EDT, Route to Pharmacy Electronically, [facility], Partial fill upon patient request i... Documented Medications Documented Measles/Mumps/Rubella Virus Vaccine Inj: 0.5, mL, Subcutaneous Injection, Once, Maintenance, 12/06/22 17:40:00 EDT Tums 500 mg oral tablet, chewable: 1,000 mg, 2, tablet, Chew, Every 4 hours, PRN, Refills 0, Maintenance, Dyspepsia, 12/06/22 17:40:00 EDT, Partial fill upon patient request if the prescription is for a schedule II opioid drug. diphenhydrAMINE 50 mg oral tablet: = 50 mg, By Mouth, Every 4 hours, PRN Itch, 0 Refills, Maintenance, 12/06/22 17:40:00 EDT, Tablet, Partial fill upon patient request if the prescription is for a schedule II opioid drug.. Aware of diagnosis: patient. Procedures Operative Information Procedure Date: 12/25/2022. Preoperative Diagnosis: Acute cholecystitis . Postoperative Diagnosis: Same as Preoperative Diagnosis. Procedure Performed: Laparoscopic cholecystectomy. Surgeon: Eros Molina MD. Assistants: Sada Rutledge MD Anesthesia Type: General, Local. . Discharge condition: good Compared to admission: improved Hospital Course 32yo female who is 2-weeks post-, with complicated by gestational DM and pre-eclampsia with severe features (hypertension and neurologic features), and chronic back pain, who presentswith new-onset right upper quadrant pain associated with nausea and vomiting. She presented to the ED for further evaluation. Labs were notable for a mildly elevated alk phos of 115 but otherwise were all normal, including WBC and LFTs. Right upper quadrant ultrasound showed evidence of cholelithiasis without evidence of cholecystitis. CBD measured at 0.3cm and there was no evidence of ductal dilation. EGS was consulted for further recommendations. On exam, the patient reported significant discomfort. She was tender to palpation in the epigastric and RUQ. She denied any SOB, chest pain, fever, or chills. She has remained hemodynamically stable and afebrile while at the hospital. Antibioticswere initiated on 12/24 due to ongoing pain suggestive of infectious etiology. Patient is now s/p laparoscopic cholecystectomy with Dr. Molina on 12/25/22. The patient tolerated the procedure well and there were no complaints. Postoperatively, the patient is doing well. She is tolerating a diet and pain was well controlled. She denied fevers, chills, nausea, vomiting, SOB or CP. She is ambulating and doing well. On POD1 she was deemed stable for discharge. Physical Exam on Discharge Temperature 98.9 (11:47) Systolic Blood Pressure 130 (11:47) Diastolic Blood Pressure 89 (11:47) Pulse 78 (11:47) SpO2 100 (11:47) Respiratory Rate 16 (11:47) General: NAD, Awake and alert Lungs: Nonlabored breathing, no wheezing Cardiovascular: RRR, extremities warm and well perfused, no pitting edema Abdomen: Soft, nondistended, appropriately tender to palpation, incisions c/d/i Neuro: A&Ox4, moving all extremities spontaneously Recent Labs: BLOOD COUNT & DIFF WBC 6.7 k/mm3 () 12/26/2022 11:27 RBC 4.43 m/mm3 () 12/26/2022 11:27 Hgb 12.4 Gm/dL () 12/26/2022 11:27 Hct 38.5 % () 12/26/2022 11:27 MCV 86.9 femtoliters () 12/26/2022 11:27 MCH 28.0 pg () 12/26/2022 11:27 MCHC 32.2 g/dL (Low) 12/26/2022 11:27 Platelet Count 397 k/mm3 () 12/26/2022 11:27 RDW-SD 37.9 femtoliters () 12/26/2022 11:27 MPV 9.4 femtoliters () 12/26/2022 11:27 Nucleated RBC (Automated) 0.0 #/100 WBC'S () 12/26/2022 11:27 Abs. NRBC 0.0 k/mm3 () 12/26/2022 11:27 Abs. Neut 4.4 k/mm3 () 12/26/2022 11:27 Abs. Lymph 1.8 k/mm3 () 12/26/2022 11:27 Abs. Tucker 0.5 k/mm3 () 12/26/2022 11:27 Abs. Eo 0.0 k/mm3 () 12/26/2022 11:27 Abs. Baso 0.0 k/mm3 () 12/26/2022 11:27 Neut % 66.0 % () 12/26/2022 11:27 Lymph % 26.0 % () 12/26/2022 11:27 Tucker % 7.6 % () 12/26/2022 11:27 Eos % 0.0 % () 12/26/2022 11:27 Baso % 0.3 % () 12/26/2022 11:27 Imm Gran 0.1 % () 12/26/2022 11:27 Abs. Imm Gran 0.0 k/mm3 () 12/26/2022 11:27 CHEM GENERAL Sodium 141 mmol/L () 12/26/2022 11:29 Potassium 4.0 mmol/L () 12/26/2022 11:29 Chloride 102 mmol/L () 12/26/2022 11:29 Bicarbonate Level 27 mmol/L () 12/26/2022 11:29 Anion Gap 12 () 12/26/2022 11:29 BUN 11 mg/dL () 12/26/2022 11:29 Creatinine-Blood 0.8 mg/dL () 12/26/2022 11:29 Estimated GFR Creatinine 99 ML/MIN/1.73 M2 () 12/26/2022 11:29 Phosphorus 3.1 mg/dL () 12/26/2022 11:29 Magnesium 1.9 mg/dL () 12/26/2022 11:29 Protein, Total 6.4 Gm/dL () 12/26/2022 11:29 Albumin 4.0 Gm/dL () 12/26/2022 11:29 Alkaline Phosphatase 85 units/L () 12/26/2022 11:29 AST (SGOT) 15 units/L () 12/26/2022 11:29 ALT (SGPT) 17 units/L () 12/26/2022 11:29 Bilirubin, Total 0.2 mg/dL () 12/26/2022 11:29 Bilirubin, Direct <0.2 mg/dL () 12/26/2022 11:29 Bilirubin, Indirect Direct bilirubin is less than the measureable limit. Therefore, indirect mg/dL () 12/26/2022 11:29 Discharge Plan Diet/Activity/Patient Education/Follow Up Patient was given the following educational materials: After Gallbladder Surgery, Having Laparoscopic Cholecystectomy, Incision Care, Incision Care, Having Laparoscopic Cholecystectomy, After Gallbladder Surgery. Follow Up with: Dmitry Stewart In 15 days 01/10/2023. Discharge Disposition Discharge: home. Prescription Given this visit:Prescriptions Acetaminophen (acetaminophen 325 mg oral tablet) 2 tablet = 650 mg, By Mouth, Every 6 hours, # 24 tablet, 0 Refills, [facility] [address] [address] [phone] Next Dose: Oxycodone (oxyCODONE 5 mg oral tablet) 2 tablet = 10 mg, By Mouth, Every 6 hours, # 18 tablet, 0 Refills, [facility] [address] [address] [phone] Next Dose: Patient Instructions Given:Special Instructions If you develop fever, chills, increased pain, nausea, or vomiting, please call the surgery office or come back to the Emergency Department. Please take medications as prescribed and do not drive while on narcotic medications. Your surgery is scheduled for Monday, December??6th. Please??do not eat or drink anything by mouth from midnight the night prior to your surgery. Education Given:Treating Gallstones Gallstones??with Biliary Colic Discharge Instructions for Gallstones After Gallbladder Surgery Having Laparoscopic Cholecystectomy Incision Care Patient Follow-up:Added Follow Up Time Frame Comments Dmitry Stewart 15 Days * Marin ARREGUIN, Davina Rangel: PERFORM Event Display: Patient Education/Instruction Authored Date: [id number] Inpatient Adult Discharge Instructions [address] [address] Name: NASIM MACHADO : 1990 Visit: 12/23/2022 19:23:00 Current Date: 12/26/2022 14:57 Account: [id number] Inpatient Adult Discharge Instructions We would like [...] and their families. Surveys are administered by [employer] ?? If further treatment with your primary care physician or another doctor is recommended, it is important for you to keep the appointment. Call your primary care physician or return to the Emergency Department immediately if your condition worsens, fails to improve, or new symptoms develop. If you need to find a doctor, you can call [facility] ponUp for a referral at [phone] or toll free at [phone] or log in to [email or web address].. ?? You can view and manage your care through the patient portal or by using a health care brittany of your choosing. [employer] is a website that allows you to securely view your medical information including your hospital discharge summary, office visit summaries, medications and follow-up visits. You can also request appointments, renew medications, and request access to your medical information using a health care brittany of your choosing, or just ask a question. You can enroll at [email or web address] or register during your next office visit. You have been discharged from [facility], Patient Care Unit: SW7. If you have any questions regarding these instructions after you leave, please call us and we will be happy to assist you. [facility] Your Care Team Attending Physician Jesse PATHAK, Eros Consulting Providers Jesse PATHAK, Eros Discharging Providers Sheridan PATHAK, Rebecca Haney Reason for Your Visit abd pain Your Diagnosis Biliary colic Chronic hypertension with superimposed preeclampsia Tests Performed Below is a partial list of the tests performed during your hospitalization. You may have had other tests and procedures not included in this list. Please discuss all test results with your provider. BUN CBC w/ Differential Comprehensive Metabolic Panel COVID-19 (Novel Coronavirus), Rapid PCR Creatinine Electrolytes Glucose Level HEPATIC FUNCTION PANEL HOLD BLUE TUBE Ionized Calcium LDH LFT's Lipase Lytes Magnesium Level Phosphorus Level Uric Acid Urinalysis w/hold for Urine Culture US RUQ Primary Care Provider Sara Pradhan NP Advance Directive . Discharge Vitals Temperature: 98.9 DegF Height: 170 cm Pulse Rate: 78 bpm Weight: 150.4 kg Respiratory Rate: 18 br/min Body Mass Index:??52.04 kg/m2??Critical Respiratory Rate: 18 br/min Body surface area: 2.66 Systolic Blood Pressure: 130 mm Hg ?? Diastolic Blood Pressure:??89 mm Hg??High ?? Oxygen Saturation: 100 % ?? Studies Pending All tests and labs ordered during this hospital stay have been completed unless listed below. Please discuss all pending results with your provider listed above in these instructions. ?? Blood Culture Hepatic Function Panel (LFT's) Pathology Tissue Request () What to do next Instructions From Your Doctor Special Instructions ?? If you develop fever, chills, increased pain, nausea, or vomiting, please call the surgery office or come back to the Emergency Department. Please take medications as prescribed and do not drive while on narcotic medications. ?? Your surgery is scheduled for Monday, December??. Please??do not eat or drink anything by mouth from midnight the night prior to your surgery. ?? Discharge Orders Scheduled Follow-Up Appointments Monday 1:20 PM EDT ?? With: Pat PATHAK, Dmitry Cosby Where: [facility] [address] [place] [address] Drive [address] [place] [address]- Status: Pending Monday 1:20 PM EDT ?? With: Adam SANTILLAN, JOSÉ LUIS, Alina Arita Where: [facility] - [employer] [employer] [address] [place] [address]- Status: Pending You Need to Schedule the Following Appointments Follow Up with??Dmitry Stewart When:??In 15 days 01/10/2023 EDT Where: [address] [place] [address] Drive [address] [facility] [place] [address]- Business (1) Discharge Medications NASIM MACHADO :1990 Visit Date:12/23/2022 Medications: Please continue your medications until treatment is completed or stopped by your provider. Medications not listed below should be discontinued. Discuss any questions related to medications with your provider. What How Much When Instructions Next Dose New Acetaminophen (acetaminophen 325 mg oral tablet) 2 tab(s) Oral Every 6 hours Pickup at [facility] 3 12/26 at 8:00pm New Oxycodone (oxyCODONE 5 mg oral tablet) 2 tab(s) Oral Every 6 hours as needed for Pain , Moderate Pickup at [facility] 3 / at 6:00pm if needed Unchanged Calcium Carbonate (Tums 500 mg oral tablet, chewable) 2 tab(s) Chew Every 4 hours as needed for Dyspepsia Unchanged DiphenhydrAMINE (diphenhydrAMINE 50 mg oral tablet) 50 Milligram Oral Every 4 hours as needed for Itch Unchanged Docusate (docusate sodium 100 mg oral tablet) 100 Milligram Oral Twice a day as needed for Constipation Duration: 7 Days Unchanged Famotidine (famotidine 20 mg oral tablet) 1 tab(s) Oral Daily at Bedtime bedtime Unchanged HydrOXYzine (Vistaril pamoate 25 mg oral capsule) 1 capsule Oral 4 times a day as needed for for anxiety Unchanged Measles/ Mumps/ Rubella Virus Vaccine (Measles/ Mumps/ Rubella Virus Vaccine Inj) 0.5 Milliliter Subcutaneous Injection Once Unchanged Multivitamin, ( Multivitamins with Folic Acid 1 mg oral tablet) 1 tab(s) Oral Daily Unchanged NIFEdipine (NIFEdipine 30 mg oral tablet, extended release) 1 tab(s) Oral Every 24 hours 12/26 at 5:00PM Pharmacy Information [facility]: [address], [place] [id number] [phone] Test Results Below is a partial list of the most recent Laboratory test results done prior to this discharge. You may have had other tests and procedures not included in this list. Please discuss all test resultswith your provider. Est Creatinine Clearance - 98.82 mL/min (12/23/2022) BUN (12/26/2022) ???BUN - 11 mg/dL CBC w/ Differential (12/26/2022) ???WBC - 6.7 k/mm3???RBC - 4.43 m/mm3???Hgb - 12.4 Gm/dL???Hct - 38.5 %???MCV - 86.9 femtoliters???MCH - 28.0 pg???MCHC - 32.2 g/dL???Platelet Count - 397 k/mm3???RDW-SD - 37.9 femtoliters???MPV - 9.4 femtoliters???Nucleated RBC (Automated) - 0.0 #/100 WBC'S???Abs. NRBC - 0.0 k/mm3???Abs. Neut - 4.4 k/mm3???Abs. Lymph - 1.8 k/mm3???Abs. Tucker - 0.5 k/mm3???Abs. Eo - 0.0 k/mm3???Abs. Baso - 0.0 k/mm3???Neut % - 66.0 %???Lymph % - 26.0 %???Tucker % - 7.6 %???Eos % - 0.0 %???Baso % - 0.3 %???Imm Gran- 0.1 %???Abs. Imm Gran - 0.0 k/mm3 Comprehensive Metabolic Panel (12/22/2022) ???Sodium - 140 mmol/L???Potassium - 4.3 mmol/L???Chloride - 101 mmol/L???Bicarbonate Level - 24 mmol/L???Anion Gap - 15???Glucose Level - 96 mg/dL???BUN - 15 mg/dL???Creatinine-Blood - 0.7 mg/dL???Estimated GFR Creatinine - 115 ML/MIN/1.73 M2???Calcium - 10.2 mg/dL???Protein, Total - 7.6 Gm/dL???Al bumin - 4.7 Gm/dL???AG Ratio - 1.6???Alkaline Phosphatase - 115 units/L???AST (SGOT) - 13 units/L???ALT (SGPT) - 15 units/L???Bilirubin, Total - 0.2 mg/dL COVID-19 (Novel Coronavirus), Rapid PCR (12/22/2022) ???COVID-19 by RT-PCR - NEGATIVE Creatinine (12/26/2022) ???Creatinine-Blood - 0.8 mg/dL???Estimated GFR Creatinine - 99 ML/MIN/1.73 M2 Electrolytes (12/26/2022) ???Sodium - 141 mmol/L???Potassium - 4.0 mmol/L???Chloride - 102 mmol/L???Bicarbonate Level - 27 mmol/L???Anion Gap - 12 Glucose Level (12/23/2022) ???Glucose Level - 93 mg/dL HEPATIC FUNCTION PANEL (12/23/2022) ???Protein, Total - 6.6 Gm/dL???Albumin - 4.0 Gm/dL???Alkaline Phosphatase - 101 units/L???AST (SGOT) - 12 units/L? ?ALT (SGPT) - 13 units/L? ?Bilirubin, Total - 0.2 mg/dL? ?Bilirubin, Direct - <0.2 mg/dL???Bilirubin, Indirect - Direct bilirubin is less than the measureable limit. Therefore, indirect HOLD BLUE TUBE (12/22/2022) ???Hold Blue Top - SPECIMEN DISCARDED AFTER 4 HOURS. Ionized Calcium (12/23/2022) ???Calcium, Ionized pH Corrected - 1.21 mmol/L LDH (12/22/2022) ???LDH - 233 units/L LFT's (12/26/2022) ???Protein, Total - 6.4 Gm/dL???Albumin - 4.0 Gm/dL???Alkaline Phosphatase - 85 units/L???AST (SGOT) - 15 units/L? ?ALT (SGPT) - 17 units/L? ?Bilirubin, Total - 0.2 mg/dL? ?Bilirubin, Direct - <0.2 mg/dL???Bilirubin, Indirect - Direct bilirubin is less than the measureable limit. Therefore, indirect Lipase (12/22/2022) ???Lipase - 31 units/L Lytes (12/23/2022) ???Sodium - 139 mmol/L???Potassium - 4.4 mmol/L???Chloride - 102 mmol/L???Bicarbonate Level - 27 mmol/L???Anion Gap - 10 Magnesium Level (12/26/2022) ???Magnesium - 1.9 mg/dL Phosphorus Level (12/26/2022) ???Phosphorus - 3.1 mg/dL Uric Acid (12/22/2022) ???Uric Acid - 6.3 mg/dL Urinalysis w/hold for Urine Culture (12/22/2022) ???Appear/Color, Urine - COLORLESS???Specific [place], Urine - 1.010???pH, Urine - 6.5???Albumin, Urine - NEGATIVE???Glucose, Urine - NEGATIVE???Ketones, Urine - NEGATIVE???Bilirubin, Urine - NEGATIVE???Hemoglobin, Urine - NEGATIVE???Nitrite, Urine - NEGATIVE???Leukocyte, Urine - NEGATIVE???Urobilin ogen - NORMAL? ?WBC's, Urine - <1 /HPF? ?RBC's, Urine - 1 /HPF? ?Squamous Epith - <1 /HPF? ?Mucus - SLIGHT???Hold Urine Culture - Testing available 48 hours from time of collection. Allergies (NKA means No Known Allergies) Toradol [...] Educational Leaflet Providered with your Discharge Instructions. Treating Gallstones?? Gallstones??with Biliary Colic?? Discharge Instructions for Gallstones?? After Gallbladder Surgery Having Laparoscopic Cholecystectomy Incision Care Valuables and Belongings I fully understand and agree that [facility] accepts no responsibility for all my personal [...] of Valuable and Belonging List: With patient Possessions released to: no belongings in preop Date for Pt to Sign Valuables/Belongings: 12/25/22 12:15:00 ?? Valuables & Belongings ?? 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 Valuables Sent Home ? Valuables Sent to Security ? Other Discharge Information ? Pulmonary Rehab Status?? Pulmonary Rehab Discharge Status?? Respiratory Rate: 18 br/min Respiratory Rate: 18 br/min ? Common Emergency Awareness Tips IS [...] are strongly encouraged to quit. Please call [facility] Link at [phone] or [phone] ([phone]) or log in to [email or web address] for referrals to smoking cessation programs. ?? 272 Suicide & Crisis Lifeline is available 13/02 if you or someone you know needs to find a reason to keep living. By calling 776 you'll be connected to a skilled, trained counselor at a crisis center in your area. INPATIENT DISCHARGE INSTRUCTIONS SIGNATURE PAGE KAYLEY MACHADOEY Location:[facility] Registration Date and Time:12/23/2022 19:23 EDT Primary Care Physician: Sara Pradhan NP, Attending Physician: Eros Molina MD, I NASIM MACHADO, have received the above patient education materials/instructions and have verbalized understanding. If ambulance or transport services are being used I further acknowledge being given a choice of service. ?? If you need to contact me, please call me at this number: . Patient/Media Aid Name: Patient/Media Aid Signature: Relationship to Patient: Witness Name/Signature: Date: * Magy Salgado MD: PERFORM Event Display: Patient Education Leaflets Authored Date: [id number] Treating Gallstones ?? 50669 Treating Gallstones The gallbladder is an organ that stores bile until it's needed for digestion. Bile is a substance that helps break down fats. Deposits in bile can clump together, creating hard, pebblelike stones (gallstones). In most cases, gallstones don't cause any symptoms.??Sometimes they irritate the castro ofthe gallbladder. Or they can block flow of bile out of the gallbladder. If the stones fall into thecommon bile duct, stones can block the flow of bile into the small bowel. This can lead to yellowing of the eyes and skin (jaundice), pain, or serious infection. Stones are treated only if you have symptoms. If treatment is needed, your healthcare provider will discuss your choices with you. The mos t common treatments are listed below. Medicine Your provider may prescribe medicines that contain bile acids to dissolve small gallstones. You mayneed to take them for a long time to break up all the stones. Once you stop the medicine, the gallstones may build up again. ?? ERCP Endoscopic retrograde cholangiopancreatography (ERCP) is an outpatient procedure to remove stones. After you're given medicine to help you relax, the provider uses a thin tube with video and X-rays to locate stones blocking the flow of bile. They then remove the stones from the bile or pancreatic ducts. ERCP may be done alone or before surgery to remove the gallbladder. ?? Surgery A cholecystectomy is an operation to remove the gallbladder and its contents (gallstones). Today, most of these procedures are done laparoscopically. This means using several very small cuts in the belly (abdominal incisions). Cholecystectomy may also be done with traditional surgery, using one larger incision.??Your provider will talk with you about which method is best for you. ?? Prevent future symptoms After treatment, follow the diet given to you by your healthcare provider. This diet includes??leanmeats, lean poultry, and fish. Stay away from full-fat dairy products. Eat foods high in fiber, such asfruits, vegetables, and whole grains.Also eat healthy fats, such as those found in fish and olive oil. Don't eat unhealthy fats, such as those found in desserts and fried foods. . Also don't eat refined carbohydrates or sugar. Stay at a healthy weight and get regular physical activity. ?? Last Reviewed Date: 2021 ?? [employer]. All rights reserved. This information is not intended as a substitute for professional medical care. Always follow your healthcare professional's instructions. ?? * Naomi PATHAK, Magy: PERFORM Event Display: Patient Education Leaflets Authored Date: [id number] Gallstones??with Biliary Colic ?? [id number] Gallstones??with Biliary Colic Your abdominal pain??is from irritation and spasm of the gallbladder.??This is called biliary colic.??The gallbladder is a small sac under the liver that stores and releases a bile. Bile is a fluid made in the liver that helps your body digest fat.??Crystals may form stones inside the gallbladder (gallstones). Gallstones can cause the gallbladder to spasm. If they block the duct out of the gallbladder, they??can cause pain and even an infection.?? A number of things increase the risk of having gallstones: ??? Being female ??? Being severely overweight (obese) ??? Older age ??? Losing or gaining weight quickly ??? Eating a high-calorie diet ??? Being ??? Taking hormone therapy ??? Having diabetes Home care ??? Rest in bed. ??? Drink only clear liquids until you feel better. ??? You may have been prescribed medicine for pain or nausea. Take these as directed. ??? Fat in your diet makes the gallbladder contract and may cause increased pain. Don't eat foods that are high in fat such as full-fat dairy, fried foods, and fatty meats for at least 2 days. ??? If you are overweight, talk with your healthcare provider about losing weight. ?? Follow-up care Follow up with your healthcare provider or as advised. You may have another bout of pain from your gallstones??at some point.??Removal of the gallbladder is an option to prevent this. Talk with your healthcare provider about your treatment options. ?? When to seek medical advice Call your healthcare provider if any of the following occur: ??? Pain gets worse or lasts for longer than 6 hours ??? Pain moves to the right lower belly ??? Repeated vomiting ??? Swollen belly ??? Fever of 100.4??F (38??C) or higher, or as directed by your healthcare provider ??? Very dark urine, light colored stools, or yellow color of the skin or eyes ??? Chest, arm, back, neck, or jaw pain ??? Symptoms get worse or you have new symptoms ?? Last Reviewed Date: 2021 ?? [employer]. All rights reserved. This information is not intended as a substitute for professional medical care. Always follow your healthcare professional's instructions. ?? * Naomi PATHAK, Magy: PERFORM Event Display: Patient Education Leaflets Authored Date: [id number] Discharge Instructions for Gallstones ?? 88751 Discharge Instructions for Gallstones Gallstones are loose lumps of hard material like stone. They can??form in the gallbladder. This is a small organ that stores bile. Bile is a liquid that helps you digest fats. Gallstones can form when this liquid hardens. The stones may not cause symptoms. Or they can cause pain or infection. Talk with your healthcare provider about??the best treatment for your stones. Home care To help prevent symptoms: ??? Eat a low-fat diet. Fatty foods cause the gallbladder to release bile to help digest the fats. This can cause pain when you have gallstones. ??? Limit fatty dairy foods, animal fats, and vegetable oils. ??? Read food labels. Make sure the foods you are choosing are low in fat. Keep all appointments with your healthcare provider. They need to track your condition. Talk about treatment choices with your provider. They include: ??? Surgery. This can be done to remove the gallbladder and gallstones. ??? Medicine. This can be used to dissolve the stones. This is for people who can't have surgery. Take your medicines exactly as directed. Don't skip doses. It takes time for the medicine to work. When you stop the medicine, the gallstones will likely come back. The medicine doesn't work for all types of gallstones. ??? ERCP. This means endoscopic retrograde cholangiopancreatography. This procedure is done with a thin tube that has a video camera. X-rays are used to find the stones. They are then removed from the common bile duct. ?? Follow-up care Make a follow-up appointment as advised. ?? When to call your healthcare provider Call your healthcare provider right away if you have any of these: ??? Severe pain in the upper belly, shoulder,??or back ??? Fever of 100.4??F ( 38??C) or higher ??? Nausea??or vomiting ??? Yellowing of your skin or eyes (jaundice) ?? Last Reviewed Date: 2021 ?? [id number] [employer]. All rights reserved. This information is not intended as a substitute for professional medical care. Always follow your healthcare professional's instructions. ?? US Abdomen RUQ * [facility] , CIS S: TRANSCRIKENDRA Abarca MD, Dl Schaffer: VERIFY Makayla Valdivia DO: SIGN Event Display: Result: Authored Date: [id number] US RUQ Hx of Present Illness: two weeks pospartum, recent dx and treatment for preeclampsia. severe abd pain. painful urination; Reason: Abdominal Pain; Clinical Question(s): Cholecystitis COMPARISON: None. FINDINGS: Liver: Normal in size and echotexture. No focal lesion. Smooth hepatic contour. Main portal vein patent with normal hepatopetal direction of flow. Gallbladder: Multiple mobile gallstones. Gallbladder well distended. Normal wall thickness. No pericholecystic fluid. Negative Mendoza sign, although patient received analgesic premedication which mayreduce the accuracy of this finding. Biliary Tree: No intrahepatic or extrahepatic bile duct dilation is identified. Common duct measures: 0.3 cm. Pancreas: No abnormality in the visualized portions of the pancreas. Right kidney: 14.6 cm in length. Normal parenchymal echotexture and thickness. No hydronephrosis, stone or mass. IMPRESSION: Cholelithiasis with no evidence of acute cholecystitis. I have personally reviewed the images and I agree with this report. WSN: [id number] Ordering Physician: María Espana Dictated By: Makayla Valdivia DO Dictated Date/Time: 12/22/22 8:21 am Reviewed By: Dl Abarca MD Signed By: Dl Abarca MD Signed Date/Time: 12/22/22 8:26 am Transcribed By: KAZ Transcribed Date/Time: 12/22/22 8:15 am Patient Care team information Care Team Personnel Name: Damien ARREGUIN, Evelyn Anthony Position: [facility] OB RN Member Role: Primary Care Nurse Name: Vamshi Ford RN Position: S RN Member Role: Primary Care Nurse Name: Corine Yoder RN Position: S RN Member Role: Primary Care Nurse Name: Sara Pradhan NP Position: Reference Physician Member Role: PCP Address: Address: [address] [place] [address] Name: *LAWSON, ED Attending Position: [facility] ED Attendings Patient Name: *LAWSON Inpt Attending Position: [facility] ED Medicine Name: Pallavi Escalona RN Position: [facility] ED RN W/OE and Tasks Member Role: Patient Care Provider Name: Klarissa Ceballos Position: [facility] ED TA [facility] Care Team Related Persons Name: SCARLETT MACHADOBERTO Address: home [address] [address] Name: NYA DURAND Address: home [address] [place] [address] Name: KARSTEN GALLAGHER Address: home [address] [place] [address] Name: JACKY PÉREZ Address: home [address] [place] [address] Name: JACKY AMOR Address: home [address] [place] [address] Name: LITTLE ELIAS Address: [address] Address: [address] Name: MARVIN ELIAS Address: [address] Address: [address] Name: MARVIN ELIAS Address: [place] [address] Name: CARLITOS DIAZ
--- OUTSIDE RECORDS SUMMARY | 2024-04-22 14:13 | XMS_ITS | Continuity of Care Document ---
Author Organization [facility] Address [address] [place] [address]- Care Team Providers Care Auth Specialist Name Role Phone Carolynn ORDONEZ, Sara Arita Primary Care Physician Encounter [facility] Date(s): 06/01/23 - 07/01/23 [facility] [address] [place], [place] [address] Attending Physician: Poli Matta Admitting Physician: AdmPoli triana Referring Physician: AdmtrPoli Allergies, Adverse Reactions, Alerts [...] Electronically, [facility]/pharmacy #[id number], Partial fill upon patient request if the [...] Team Personnel Name: Evelyn Quezada RN Position: [facility] OB RN Member Role: Primary Care Nurse Name: Vamshi Ford RN Position: S RN Member Role: Primary Care Nurse Name: Corine Yoder RN Position: S RN Member Role: Primary Care Nurse Name: Sara Pradhan NP Position: Reference Physician Member Role: PCP Address: Address: [address] [place] [id number] Care Team Related Persons Name: CLARK MACHADO Address: home [address] [address] Name: NYA DURAND Address: home [address] [place] [address] Name: KARSTEN GALLAGHER Address: home [address] [place] [address] Name: JACKY PÉREZ Address: home [address] [place] [address] Name: JACKY AMOR Address: home [address] [place] [address] Name: LITTLE ELIAS Address: [address] Address: home [address] [place] [address] [place] Name: MARVIN ELIAS Address: [address] Address: [address] [place] [address] [place] Name: MARVIN ELIAS Address: [address] [place] [address] Name: CARLITOS DIAZ
--- OUTSIDE RECORDS SUMMARY | 2024-04-22 14:13 | XMS_ITS | Continuity of Care Document ---
Author Organization [facility] Address [address] [place] [address]- Care Team Providers Care Industrial Electrical Engineer Name Role Phone Sara Pradhan NP Primary Care Physician [phone] Encounter [facility] Date(s): 06/01/23 - 06/08/23 [facility] [address] [place], [place] [address] Encounter Diagnosis Pharyngitis(Discharge Diagnosis) - 06/01/23 Body aches(Discharge Diagnosis) - 06/01/23 Cough(Discharge Diagnosis) - 06/01/23 Attending Physician: Blanca Topete MD Referring Physician: [...] 01/10/23 15:26:00 EDT, Route to Pharmacy Electronically, [facility]/pharmacy #[id number], Partial fill upon patient request if the prescriptio... Start Date: 01/10/23 Status: Ordered famotidine 20 mg oral tablet 1, tablet, By Mouth, Daily at bedtime, # 90 tablet, Refills 0, Tot. Refills 0, Maintenance, 02/09/23 12:19:00 EDT, Route to Pharmacy Electronically, [facility]/pharmacy #[id number], 170, cm, 02/09/23 12:11:00 EDT, Height, 150.4, kg, 12/22/22 17:10:00 EDT, Dry Weight Start Date: 02/09/23 Stop Date: 05/10/23 Status: Ordered gabapentin 300 mg oral capsule 300 mg, 1, capsule, By Mouth, 3 times a day, # 90 capsule, Refills 5, Tot. Refills 5, Maintenance, 12/27/22 14:38:00 EDT, Route to Pharmacy Electronically, [facility]/pharmacy #[id number], Partial fill upon patient [...] Confirmed Active 1related to past life trauma Diagnosis Diagnosis Type Effective Dates Health Status Clini jorge a Service Informant Pharyngitis Discharge Diagnosis 06/01/23 Body aches Discharge Diagnosis 06/01/23 Cough Discharge Diagnosis 06/01/23 Vital Signs Most recent to oldest [Reference Range]: 1 Height 170 cm (06/01/23 2:18 PM) Oxygen Saturation [94-100 %] 99 % (06/01/23 2:18 PM) Pulse Rate [55-90 bpm] 95 bpm *H* (06/01/23 2:18 PM) Blood Pressure [90-138/55-84 mm Hg] 150/ 94mm Hg *H* (06/01/23 2:18 PM) Respiratory Rate [16-30 br/min] 24 br/mi n (06/01/23 2:18 PM) Temperature [96.8-100.4 DegF] 97.3 DegF (06/01/23 2:18 PM) Mode of Delivery (Oxygen) Room air (06/01/23 2:18 PM) Blood pressure sites Arm, left (06/01/23 2:18 PM) Temperature Route Temporal (06/01/23 2:18 PM) Social History Social History Type Response Tobacco Use: 4 or less cigar ettes(less than 1/4 pack)/day in last 30 days. Sex Patient Care team information Care Team Personnel Name: Evelyn Quezada RN Position: [facility] OB RN Member Role: Primary Care Nurse Name: Vamshi Ford RN Position: S RN Member Role: Primary Care Nurse Name: Corine Yoder RN Position: S RN Member Role: Primary Care Nurse Name: Sara Pradhan NP Position: Reference Physician Member Role: PCP Address: Address: [address] [place] [address]- Care Team Related Persons Name: CLARK MACHADO Address: home [address] [address] Name: NYA DURAND Address: home [address] [place] [address] Name: KARSTEN GALLAGHER Address: home [address] [place] [address] Name: JACKY PÉREZ Address: home [address] [place] [address] Name: JACKY AMOR Address: home [address] [place] [address] Name: LITTLE ELIAS Address: [address] Address: [address] [place] [address] [place] Name: MARVIN ELIAS Address: [address] [place] [address] Name: MARVIN ELIAS Address: [address] Address: [address] [place] [address] Name: CARLITOS DIAZ
--- OUTSIDE RECORDS SUMMARY | 2024-04-22 14:13 | XMS_ITS | Continuity of Care Document ---
Author Organization [facility] ter Address [address] [place] [address]- Care Team Providers Care Automotive Designer Name Role Phone Not on Staff, PCP Primary Care Physician Unavail able Encounter [facility] Date(s): 08/30/21 - 08/31/[address] [address]- Discharge Disposition: A-D/C Home Attending Physician: Jorden Tinajero MD Admitting Physician: Jorden Tinajero MD Referring Physician: Jorden Tinajero MD Allergies, Adverse Reactions, Alerts Substance Reaction [...] Please checkblood sugars four times a day. [facility], schedule meter teaching., 06/07/21 9:48:00 EST,Supply, 168, cm, 04/27/21 12:54:00 EDT, Height, 1... Start Date: 06/07/21 Status: Ordered Alcohol Pads See Instructions, # 1 pack/packet, Refills 3, Tot. Refills 3, Maintenance, DX: 024.912 Please checkblood sugars four times a day. [facility], schedule meter teaching., 06/04/21 18:03:00 EST, Supply, 168, cm, 04/27/21 12:54:00 EDT, Height,... Start Date: 06/04/21 Status: Ordered aspirin 81 mg oral tablet, chewable 162 mg, 2, tablet, Chew, Daily, continue until 2 weeks , # 60 tablet, Refills 8, Tot. Refills 8, Maintenance, 04/27/21 13:24:00 EDT, Route to Pharmacy Electronically, [facility]/pharmacy #[id number], Partial fill upon patient request if the prescription... Start Date: 04/27/21 Stop Date: 01/22/22 Status: Ordered [place] Lyte glucometer [place] Lyte glucometer, See Instructions, # 1 each, Refills 3, Tot. Refills 3, Maintenance, DX: 024.912 Please check blood sugars four times a day. [facility], schedule meter teaching., 06/07/21 9:48:00 EST, Supply, 168, cm, 04/27/21 12:5... Start Date: 06/07/21 Status: Ordered [place] Lyte glucometer [place] Lyte glucometer, See Instructions, # 1 each, Refills 3, Tot. Refills 3, Maintenance, DX: 024.912 Please check blood sugars four times a day. [facility], schedule meter teaching., 06/04/21 18:03:00 EST, Supply, 168, cm, 04/27/21 12:... Start Date: 06/04/21 Status: Ordered [place] Lyte glucometer [place] Lyte glucometer, See Instructions, # 1 each, Refills 0, Tot. Refills 0, Maintenance, DX: 024.912 Please check blood sugars four times a day., 06/09/21 14:04:00 EST, Supply, 168, cm, 04/27/21 12:54:00 EDT, Height, 113.4, kg, 04/20/21 14:40:00... Start Date: 06/09/21 Status: Ordered [place] Lyte glucometer [place] Lyte glucometer, See Instructions, # 1 each, Refills 0, Tot. Refills 0, Maintenance, DX: 024.912 Please check blood sugars four times a day., 06/08/21 15:51:00 EST, Supply, 168, cm, 04/27/21 12:54:00 EDT, Height, 113.4, kg, 04/20/21 14:40:00... Start Date: 06/08/21 Status: Ordered [place] Lyte glucometer [place] Lyte glucometer, See Instructions, # 1 each, Refills 0, Tot. Refills 0, Maintenance, DX: 024.912 Please check blood sugars four times a day., 06/09/21 17:44:00 EST, Supply, 168, cm, 04/27/21 12:54:00 EDT, Height, 113.4, kg, 04/20/21 14:40:00... Start Date: 06/09/21 Status: Ordered [place] lyte lancets [place] lyte lancets, See Instructions, # 1 pack/packet, Refills 3, Tot. Refills 3, Maintenance, DX: 024.912 Please check blood sugars four times a day. [facility], schedule meter teaching.,06/07/21 9:48:00 EST, Supply, 168, cm, 04/27/21... Start Date: 06/07/21 Status: Ordered [place] lyte lancets San [place] lyte lancets, See Instructions, # 1 pack/packet, Refills 3, Tot. Refills 3, Maintenance, DX: 024.912 Please check blood sugars four times a day. [facility], schedule meter teaching.,06/04/21 18:03:00 EST, Supply, 168, cm, 04/27/21... Start Date: 06/04/21 Status: Ordered [place] lyte lancets [place] lyte lancets, See Instructions, # 200 each, Refills 3, Tot. Refills 3, Maintenance, DX: 024.912 Please check blood sugars four times a day., 06/09/21 14:03:00 EST, Supply, 168, cm, 04/27/21 12:54:00 EDT, Height, 113.4, kg, 04/20/21 14:40:00... Start Date: 06/09/21 Status: Ordered [place] lyte lancets San [place] lyte lancets, See Instructions, # 200 each, Refills 3, Tot. Refills 3, Maintenance, DX: 024.912 Please check blood sugars four times a day., 06/08/21 15:49:00 EST, Supply, 168, cm, 04/27/21 12:54:00 EDT, Height, 113.4, kg, 04/20/21 14:40:00... Start Date: 06/08/21 Status: Ordered [place] lyte lancets San [place] lyte lancets, See Instructions, # 200 each, Refills 3, Tot. Refills 3, Maintenance, DX: 024.912 Please check blood sugars four times a day., 06/09/21 17:45:00 EST, Supply, 168, cm, 04/27/21 12:54:00 EDT, Height, 113.4, kg, 04/20/21 14:40:00... Start Date: 06/09/21 Status: Ordered [place] lyte test strips San [place] lyte test strips, See Instructions, # 1 pack/packet, Refills 3, Tot. Refills 3, Maintenance, DX: 024.912 Please check blood sugars four times a day. [facility], schedule meter teaching., 06/07/21 9:48:00 EST, Supply, 168, cm, 04/27/... Start Date: 06/07/21 Status: Ordered [place] lyte test strips San [place] lyte test strips, See Instructions, # 1 pack/packet, Refills 3, Tot. Refills 3, Maintenance, DX: 024.912 Please check blood sugars four times a day. [facility], schedule meter teaching., 06/04/21 18:04:00 EST, Supply, 168, cm, 04/27... Start Date: 06/04/21 Status: Ordered [place] lyte test strips [place] lyte test strips, See Instructions, # 200 each, Refills 3, Tot. Refills 3, Maintenance, DX:024.912 Please check blood sugars four times a day., 06/09/21 14:03:00 EST, Supply, 168, cm, 04/27/21 12:54:00 EDT, Height, 113.4, kg, 04/20/21 14:40:... Start Date: 06/09/21 Status: Ordered [place] lyte test strips San [place] lyte test strips, See Instructions, # 200 each, Refills 3, Tot. Refills 3, Maintenance, DX:024.912 Please check blood sugars four times a day., 06/08/21 15:50:00 EST, Supply, 168, cm, 04/27/21 12:54:00 EDT, Height, 113.4, kg, 04/20/21 14:40:... Start Date: 06/08/21 Status: Ordered San [place] lyte test strips San [place] lyte test strips, See Instructions, # 200 [...] 20 tablet, 0Refills, Maintenance, 06/22/21 10:32:00 EST, [id number], Partial fill upon patient [...] 02/03/21 12:2... Start Date: 03/09/21 Status: Ordered Tylenol 325 mg oral tablet 975 mg, Tablet, By Mouth, Once, PRN for Pain , Severe, Routine, 08/30/21 22:15:00 EST Start Date: 08/30/21 Stop Date: 08/30/21 Status: Completed Zofran 4 mg oral tablet 1 tablet [...] oldest [Reference Range]: 1 2 3 Weight 149.7 kg (08/30/21 8:25 PM) Oxygen Saturation [94-100 %] 97 % (08/30/21 11:15 PM) 99 % (08/30/21 11:00 PM) 98 % (08/30/21 10:45 PM) Pulse Rate [55-90 bpm] 103 bpm *H* (08/30/21 8:38 PM) Blood Pressure [90-138/55-84 mm Hg] 96/56mm Hg (08/30/21 11:00 PM) 99/73mm Hg (08/30/21 10:45 PM) 121/65mm Hg (08/30/21 10:30 PM) Respiratory Rate [16-30 br/min] 16 br/min (08/30/21 10:51 PM) 18 br/min (08/30/21 8:38 PM) Temperature [96.8-100.4 DegF] 98.0 DegF (08/30/21 8:25 PM) Blood pressure sites Arm, left (08/30/21 9:05 PM) Temperature Route Oral (08/30/21 8:25 PM) Dry Weight 149.7 kg (08/30/21 8:25 PM) Weight Obtained Via Standing scale (08/30/21 8:25 PM) Dry Weight Obtained Via Standing scale (08/30/21 8:25 PM) Social History Social History Type Response Smoking Status Former smoker entered on: 04/27/14 Sex Female
--- OUTSIDE RECORDS SUMMARY | 2024-04-22 14:13 | XMS_ITS | Continuity of Care Document ---
Author Organization [facility] Address [address] [place] [address]- Care Team Providers Care Silo Erector Name Role Phone Carolynn ORDONEZ, Sara Arita Primary Care Physician Encounter [facility] Date(s): 11/02/22 - 12/02/[address] [address] Allergies, Adverse Reactions, Alerts [...] 09/29/22 14:34:00 EST, Route to Pharmacy Electronically, [facility]/pharmacy #[id number], Partial fill upon patient requestif the prescription is for a schedule II opioid rosetta... Start Date: 09/29/22 Status: Ordered famotidine 20 mg oral tablet 1, tablet, By Mouth, Daily at bedtime, # 30 tablet, Refills 1, Maintenance, 09/23/22 13:46:00 EST, Route to Pharmacy Electronically, [facility] STORE [id number], 170, cm, 09/09/22 8:52:00 EST, Height, 143.2, [...] PATIENT, PLEASE COMPLETE METER TEACHING WITH PATIENT. LITHUANIAN SPEAKING, Supply,... Start Date: 11/25/22 Status: Ordered [...] 0Refills, Maintenance, 10/10/22 12:02:00 EDT, [id number], 170, cm, 09/29/22 11:15:00 EST, Height, 143.2, [...] Personnel Name: Damien ARREGUIN, Evelyn Anthony Position: S OB RN Member Role: Primary Care Nurse Name: Carolynn WAREHOUSE HAND, Sara Arita Position: Reference Physician Member Role: PCP Address: Address: [address] [place] [address]- Care Team Related Persons Name: CLARK MACHADO Address: home [address] [address] Name: NYA DURAND Address: home [address] [place] [address] Name: KARSTEN GALLAGHER Address: home [address] [place] [address] Name: JACKY PÉREZ Address: home [address] [place] [address] Name: JACKY AMOR Address: [address] [place] [address] Name: LITTLE ELIAS Address: [address] Address: home [address] [place] [address] Name: CARLITOS DIAZ
--- OUTSIDE RECORDS SUMMARY | 2024-04-22 14:13 | XMS_ITS | Continuity of Care Document ---
Author Organization [facility] Address [address] [place] [address]- Care Team Providers Care Keel Press Operator Name Role Phone Carolynn ORDONEZ, Sara Arita Primary Care Physician Encounter [facility] Date(s): 07/05/22 - 10/01/[address] [address]- Attending Physician: Not on Staff, Attending MD [...] 09/29/22 14:34:00 EST, Route to Pharmacy Electronically, [facility]/pharmacy #[id number], Partial fill upon patient requestif the prescription is for a schedule II opioid rosetta... Start Date: 09/29/22 Status: Ordered Docu Soft sodium 100 mg oral capsule 1 capsule = 100 mg, By Mouth, 2 times a day, PRN for constipation, # 100 capsule, 0 Refills, Maintenance, 08/13/22 13:33:00 EST, Capsule, [facility]/pharmacy #[id number], Partial fill upon patient request if the prescription is for a schedule II opioid drug., 170,... Start Date: 08/13/22 Status: Ordered famotidine 20 mg oral tablet 1, tablet, By Mouth, Daily at bedtime, # 30 tablet, Refills 1, Maintenance, 09/23/22 13:46:00 EST, Route to Pharmacy Electronically, [facility] STORE [id number], 170, cm, 09/09/22 8:52:00 EST, Height, 143.2, [...] Refills, Maintenance, 09/09/22 9:19:00 EST, Cream, [id number], Partial fill upon patient request if the [...] Reference Physician Member Role: PCP Address: Address: [address] [place] [address]- Care Team Related Persons Name: CLARK MACHADO Address: home [address] [address] Name: NYA DURAND Address: home [address] [place] [address] Name: KARSTEN GALLAGHER Address: home [address] [place] [address] Name: JACKY PÉREZ Address: home [address] [place] [address] Name: JACKY AMOR Address: [address] [place] [address] Name: LITTLE ELIAS Address: [address] Address: home [address] [place] [address] Name: CARLITOS DIAZ
--- OUTSIDE RECORDS SUMMARY | 2024-04-22 14:13 | XMS_ITS | Continuity of Care Document ---
Author Organization [facility] Address [address] [place] [address]- Care Team Providers Care Textile Examiner Name Role Phone Carolynn ORDONEZ, Sara Ariat Primary Care Physician [phone] [place] [facility] [place]s): 09/01/22 - 10/01/22 [facility] [address] [place] [address]- Attending Physician: Poli Matta Admitting Physician: AdmPoli [...] 14:34:00 EST, Route to Pharmacy Electronically, [facility]/pharmacy #[id number], Partial fill upon patient requestif the prescription is for a schedule II opioid rosetta... Start Date: 09/29/22 Status: Ordered Docu Soft sodium 100 mg oral capsule 1 capsule = 100 mg, By Mouth, 2 times a day, PRN for constipation, # 100 capsule, 0 Refills, Maintenance, 08/13/22 13:33:00 EST, Capsule, [facility]/pharmacy #[id number], Partial fill upon patient request if the prescription is for a schedule II opioid drug., 170,... Start Date: 08/13/22 Status: Ordered famotidine 20 mg oral tablet 1, tablet, By Mouth, Daily at bedtime, # 30 tablet, Refills 1, Maintenance, 09/23/22 13:46:00 EST, Route to Pharmacy Electronically, [facility] STORE [id number], 170, cm, 09/09/22 8:52:00 EST, Height, 143.2, [...] Refills, Maintenance, 09/09/22 9:19:00 EST, Cream, [id number], Partial fill upon patient request if the [...] Physician Member Role: PCP Address: Address: [address] [place] [address] Care Team Related Persons Name: CLARK MACHADO Address: home [address] [address] Name: NYA DURAND Address: home [address] [place] [address] Name: KARSTEN GALLAGHER Address: home [address] [place] [address] Name: JACKY PÉREZ Address: [address] [place] [address] Name: JACKY AMOR Address: [address] [place] [address] Name: LITTLE ELIAS Address: [address] Address: home [address] [place] [address] Name: CARLITOS DIAZ
--- OUTSIDE RECORDS SUMMARY | 2024-04-22 14:13 | XMS_ITS | Continuity of Care Document ---
Author Organization [facility] Address [address] [place] [address]- Care Team Providers Care Mechanical Shop Laborer Name Role Phone Carolynn ORDONEZ, Sara Arita Primary Care Physician Encounter [facility] Date(s): 07/03/22 - 08/02/22 [facility] [address] [address] Allergies, Adverse Reactions, Alerts [...] opioid drug. Start Date: 07/12/22 Status: Ordered famotidine 20 mg oral tablet 20 mg, 1, tablet, By Mouth, Daily at bedtime, # 30 tablet, Refills 1, Tot. Refills 1, Maintenance, 07/28/22 16:45:00 EST, Route to Pharmacy Electronically, [facility]/pharmacy #[id number], Partial fill upon patient request if the prescription is for a schedule II... Start Date: 07/28/22 Status: Ordered Freestyle Lite Lancets See Instructions, [...] Dry Weight Start Date: 07/29/22 Status: Ordered Multivitamins with Folic Acid 1 [...] for anxiety, # 40 capsule, 0 Refills, Acute 08/27/22 16:46:00 EST, 07/28/22 16:45:00 EST, Capsule, [id number], Partial fill upon patient request if the prescription is for a schedule II opioid . Start Date: 07/28/22 Stop Date: 08/27/22 Status: Ordered Problem List Condition Confirmation Course [...] Reference Physician Member Role: PCP Address: Address: [address] [place] [address]- Care Team Related Persons Name: MAGUI MACHADOO Address: home [address] [address] Name: NYA DURAND Address: [address] [place] [address] Name: KARSTEN GALLAGHER Address: home [address] [place] [address] Name: JACKY PÉREZ Address: [address] [place] [address] Name: JACKY AMOR Address: [address] [place] [address] Name: LITTLE ELIAS Address: [address] Address: [address] [place] [address] Name: CARLITOS DIAZ
--- OUTSIDE RECORDS SUMMARY | 2024-04-22 14:14 | XMS_ITS | Continuity of Care Document ---
Author Organization [facility] Address [address] [place] [address]- Care Team Providers Care Exhaust Emissions Inspector Name Role Phone Not on Staff, PCP Primary Care Physician Unavail able Encounter [facility] Date(s): 08/05/21 - 09/10/[address] [address] Attending Physician: Not on Staff, [...] Please checkblood sugars four times a day. [facility], schedule meter teaching., 06/07/21 9:48:00 EST,Supply, 168, cm, 04/27/21 12:54:00 EDT, Height, 1... Start Date: 06/07/21 Status: Ordered Alcohol Pads See Instructions, # 1 pack/packet, Refills 3, Tot. Refills 3, Maintenance, DX: 024.912 Please checkblood sugars four times a day. [facility], schedule meter teaching., 06/04/21 18:03:00 EST, Supply, 168, cm, 04/27/21 12:54:00 EDT, Height,... Start Date: 06/04/21 Status: Ordered aspirin 81 mg oral tablet, chewable 162 mg, 2, tablet, Chew, Daily, continue until 2 weeks , # 60 tablet, Refills 8, Tot. Refills 8, Maintenance, 04/27/21 13:24:00 EDT, [id number] Partial fill upon patient request if the prescription... Start Date: 04/27/21 Stop Date: 01/22/22 Status: Ordered famotidine 10 mg oral tablet 1 tablet = 10 mg, By Mouth, 2 times a day, # 180 tablet, 0 Refills, Maintenance, 09/09/21 18:50:00 EST, Tablet, [facility]/pharmacy #[id number], Partial fill upon patient request if the prescription is for a schedule II opioid drug., 168, cm, 09/09/21 14:57:00 EST... Start Date: 09/09/21 Status: Ordered ferrous sulfate 325 mg oral tablet 1 tablet = 325 mg, By Mouth, Daily, # 90 tablet, 0 Refills, Maintenance, 09/09/21 15:28:00 EST, Tablet, [facility]/pharmacy #[id number], Partial fill upon patient request if the prescription is for a schedule II opioid drug., 168, cm, 09/09/21 14:57:00 EST, Height... Start Date: 09/09/21 Status: Ordered Rocheport Lyte glucometer Rocheport Lyte glucometer, See Instructions, # 1 each, Refills 3, Tot. Refills 3, Maintenance, DX: 024.912 Please check blood sugars four times a day. [facility], schedule meter teaching., 06/07/21 9:48:00 EST, Supply, 168, cm, 04/27/21 12:5... Start Date: 06/07/21 Status: Ordered Rocheport Lyte glucometer Rocheport Lyte glucometer, See Instructions, # 1 each, Refills 3, Tot. Refills 3, Maintenance, DX: 024.912 Please check blood sugars four times a day. [facility], schedule meter teaching., 06/04/21 18:03:00 EST, Supply, 168, cm, 04/27/21 12:... Start Date: 06/04/21 Status: Ordered Rocheport Lyte glucometer Rocheport Lyte glucometer, See Instructions, # 1 each, Refills 0, Tot. Refills 0, Maintenance, DX: 024.912 Please check blood sugars four times a day., 06/09/21 14:04:00 EST, Supply, 168, cm, 04/27/21 12:54:00 EDT, Height, 113.4, kg, 04/20/21 14:40:00... Start Date: 06/09/21 Status: Ordered Rocheport Lyte glucometer Rocheport Lyte glucometer, See Instructions, # 1 each, Refills 0, Tot. Refills 0, Maintenance, DX: 024.912 Please check blood sugars four times a day., 06/08/21 15:51:00 EST, Supply, 168, cm, 04/27/21 12:54:00 EDT, Height, 113.4, kg, 04/20/21 14:40:00... Start Date: 06/08/21 Status: Ordered Rocheport Lyte glucometer Rocheport Lyte glucometer, See Instructions, # 1 each, Refills 0, Tot. Refills 0, Maintenance, DX: 024.912 Please check blood sugars four times a day., 06/09/21 17:44:00 EST, Supply, 168, cm, 04/27/21 12:54:00 EDT, Height, 113.4, kg, 04/20/21 14:40:00... Start Date: 06/09/21 Status: Ordered Rocheport lyte lancets Rocheport lyte lancets, See Instructions, # 1 pack/packet, Refills 3, Tot. Refills 3, Maintenance, DX: 024.912 Please check blood sugars four times a day. [facility], schedule meter teaching.,06/07/21 9:48:00 EST, Supply, 168, cm, 04/27/21... Start Date: 06/07/21 Status: Ordered Rocheport lyte lancets Rocheport lyte lancets, See Instructions, # 1 pack/packet, Refills 3, Tot. Refills 3, Maintenance, DX: 024.912 Please check blood sugars four times a day. [facility], schedule meter teaching.,06/04/21 18:03:00 EST, Supply, 168, cm, 04/27/21... Start Date: 06/04/21 Status: Ordered Rocheport lyte lancets Rocheport lyte lancets, See Instructions, # 200 each, Refills 3, Tot. Refills 3, Maintenance, DX: 024.912 Please check blood sugars four times a day., 06/09/21 14:03:00 EST, Supply, 168, cm, 04/27/21 12:54:00 EDT, Height, 113.4, kg, 04/20/21 14:40:00... Start Date: 06/09/21 Status: Ordered Rocheport lyte lancets Rocheport lyte lancets, See Instructions, # 200 each, Refills 3, Tot. Refills 3, Maintenance, DX: 024.912 Please check blood sugars four times a day., 06/08/21 15:49:00 EST, Supply, 168, cm, 04/27/21 12:54:00 EDT, Height, 113.4, kg, 04/20/21 14:40:00... Start Date: 06/08/21 Status: Ordered Rocheport lyte lancets Rocheport lyte lancets, See Instructions, # 200 each, Refills 3, Tot. Refills 3, Maintenance, DX: 024.912 Please check blood sugars four times a day., 06/09/21 17:45:00 EST, Supply, 168, cm, 04/27/21 12:54:00 EDT, Height, 113.4, kg, 04/20/21 14:40:00... Start Date: 06/09/21 Status: Ordered Rocheport lyte test strips Rocheport lyte test strips, See Instructions, # 1 pack/packet, Refills 3, Tot. Refills 3, Maintenance, DX: 024.912 Please check blood sugars four times a day. [facility], schedule meter teaching., 06/07/21 9:48:00 EST, Supply, 168, cm, ... Start Date: 06/07/21 Status: Ordered Rocheport lyte test strips Rocheport lyte test strips, See Instructions, # 1 pack/packet, Refills 3, Tot. Refills 3, Maintenance, DX: 024.912 Please check blood sugars four times a day. [facility], schedule meter teaching., 06/04/21 18:04:00 EST, Supply, 168, cm, 04/27... Start Date: 06/04/21 Status: Ordered Rocheport lyte test strips Rocheport lyte test strips, See Instructions, # 200 each, Refills 3, Tot. Refills 3, Maintenance, DX:024.912 Please check blood sugars four times a day., 06/09/21 14:03:00 EST, Supply, 168, cm, 04/27/21 12:54:00 EDT, Height, 113.4, kg, 04/20/21 14:40:... Start Date: 06/09/21 Status: Ordered Rocheport lyte test strips Rocheport lyte test strips, See Instructions, # 200 each, Refills 3, Tot. Refills 3, Maintenance, DX:024.912 Please check blood sugars four times a day., 06/08/21 15:50:00 EST, Supply, 168, cm, 04/27/21 12:54:00 EDT, Height, 113.4, kg, 04/20/21 14:40:... Start Date: 06/08/21 Status: Ordered Rocheport lyte test strips Rocheport lyte test strips, See Instructions, # 200 [...] 8 Refills, Maintenance, 03/09/21 15:40:00 EDT, Tablet, [facility]/pharmacy [...]
--- OUTSIDE RECORDS SUMMARY | 2024-04-22 14:14 | XMS_ITS | Continuity of Care Document ---
Author Organization [facility] Address [address] [place] [address]- Care Team Providers Care Stock Supervisor Name Role Phone Carolynn ORDONEZ, Sara Arita Primary Care Physician [facility]counter [facility] Date(s): 11/07/23 - 12/07/[address] [address] Allergies, Adverse Reactions, Alerts Substance [...] 01/10/23 15:26:00 EDT, Route to Pharmacy Electronically, [facility]/pharmacy #[id number], Partial fill upon patient request if the [...] Team Personnel Name: Evelyn Quezada RN Position: [facility] OB RN Member Role: Primary Care Nurse Name: Vamshi Ford RN Position: S RN Member Role: Primary Care Nurse Name: Sara Pradhan NP Position: Reference Physician Member Role: PCP Address: Address: [address] [place] [address]- Care Team Related Persons Name: CLARK MACHADO Address: home [address] [address] Name: NYA DURAND Address: [address] [place] [address] Name: KARSTEN GALLAGHER Address: [address] [place] [address] Name: JACKY PÉREZ Address: [address] [place] [address] Name: JACKY AMOR Address: [address] [place] [address] Name: LITTLE ELIAS Address: [address] Address: [address] [place] [address] [place] Name: MARVIN ELIAS Address: [address] [place] [address] Name: MARVIN ELIAS Address: [address] Address: [address] [place] [address] [place] Name: CARLITOS DIAZ
--- OUTSIDE RECORDS SUMMARY | 2024-04-22 14:14 | XMS_ITS | Continuity of Care Document ---
Author Organization [facility] Address [address] [place] [address]- Care Team Providers Care Personal Vehicle Advisor Name Role Phone Carolynn ORDONEZ, Sara Arita Primary Care Physician Encounter [facility] Date(s): 05/12/22 - 07/09/[address] [address] Attending Physician: Not on Staff, Attending MD Admitting Physician: Sandra Pichardo CNM Referring Physician: Not on Staff, Referring MD [...] Refills, Maintenance, 05/10/22 18:35:00 EDT, Tablet, [id number], Partial fill upon patient request if the [...] Personnel Name: Damien RN, Evelyn Anthony Position: [facility] OB RN Member Role: Primary Care Nurse Name: Sara Pradhan NP Position: Reference Physician Member Role: PCP Address: Address: [address] [place] [address]- Care Team Related Persons Name: MAGUI MACHADOO Address: home [address] [address] Name: NYA DURAND Address: home [address] [place] [address] Name: KARSTEN GALLAGHER Address: home [address] [place] [address] Name: JACKY PÉREZ Address: home [address] [place] [address] Name: JACKY AMOR Address: home [address] [place] [address] Name: LITTLE ELIAS Address: [address] Address: home [address] [place] [address] Name: CARLITOS DIAZ
--- OUTSIDE RECORDS SUMMARY | 2024-04-22 14:14 | XMS_ITS | Continuity of Care Document ---
Author Organization [facility] Address [address] [place] [address]- Care Team Providers Care Fruit Picker Name Role Phone Carolynn ORDONEZ, Sara Arita Primary Care Physician [phone] [place] [facility] [place]09[place] - 10/19/[address] [address]- Attending Physician: Not on Staff, Attending MD [...] 09/29/22 14:34:00 EST, Route to Pharmacy Electronically, [facility]/pharmacy #[id number], Partial fill upon patient requestif the prescription is for a schedule II opioid rosetta... Start Date: 09/29/22 Status: Ordered Docu Soft sodium 100 mg oral capsule 1 capsule = 100 mg, By Mouth, 2 times a day, PRN for constipation, # 100 capsule, 0 Refills, Maintenance, 08/13/22 13:33:00 EST, Capsule, [facility]/pharmacy #[id number], Partial fill upon patient request if the prescription is for a schedule II opioid drug., 170,... Start Date: 08/13/22 Status: Ordered famotidine 20 mg oral tablet 1, tablet, By Mouth, Daily at bedtime, # 30 tablet, Refills 1, Maintenance, 09/23/22 13:46:00 EST, Route to Pharmacy Electronically, [facility] STORE [id number], 170, cm, 09/09/22 8:52:00 EST, Height, 143.2, [...] Refills, Maintenance, 09/09/22 9:19:00 EST, Cream, [id number], Partial fill upon patient request if the prescription is for a schedule II opioid drug., 1 application Vaginally Daily at bed... Start Date: 09/09/22 Status: Ordered ondansetron 4 mg oral tablet, disintegrating See Instructions, TAKE 1 TABLET BY MOUTH ONCE DAY NEEDED FOR NAUSEA AND VOMITING, # 10 tablet, 0Refills, Maintenance, 10/10/22 12:02:00 EDT, [facility], 170, cm, 09/29/22 11:15:00 EST, Height, 143.2, kg, 05/16/22 14:20:00 EDT, Dry Weight Start Date: 10/10/22 Status: Ordered Multivitamins with Folic Acid 1 mg oral tablet 1 tablet, By Mouth, Daily, # 90 tablet, 2 Refills, Maintenance, 05/10/22 18:35:00 EDT, Tablet, [facility]/pharmacy #[id number], Partial fill upon patient request if the prescription is for a schedule II opioid drug., 1 tablet By Mouth Daily, 170, cm, 01/21/22 21:0... Start Date: 05/10/22 Status: Ordered Vistaril pamoate 25 mg oral capsule 1 capsule = 25 mg, By Mouth, 4 times a day, PRN for anxiety, # 40 capsule, 0 Refills, Maintenance, 09/09/22 9:19:00 EST, Capsule, [facility]/pharmacy #[id number], Partial fill upon patient [...] Reference Physician Member Role: PCP Address: Address: [address] [place] [address] Care Team Related Persons Name: CLARK MACHADO Address: home [address] [address] Name: NYA DURAND Address: home [address] [place] [address] Name: KARSTEN GALLAGHER Address: home [address] [place] [address] Name: JACKY PÉREZ Address: home [address] [place] [address] Name: JACKY AMOR Address: home [address] [place] [address] Name: LITTLE ELIAS Address: [address] Address: home [address] [place] [address] Name: CARLITOS DIAZ
--- OUTSIDE RECORDS SUMMARY | 2024-04-22 14:14 | XMS_ITS | Continuity of Care Document ---
Author Organization [facility] Address [address] [place] [address]- Care Team Providers Care Licensed Sales Assistant Name Role Phone Not on Staff, PCP Primary Care Physician Unavail able [place] [facility] [place]05[place] - 09/08/[address] [address] Attending Physician: Micki Allison MD Admitting Physician: Micki Allison MD Referring Physician: Sly ORDONEZ, Belkis Allergies, Adverse Reactions, Alerts Substance Reaction Severity [...] Please checkblood sugars four times a day. [facility], schedule meter teaching., 06/07/21 9:48:00 EST,Supply, 168, cm, 04/27/21 12:54:00 EDT, Height, 1... Start Date: 06/07/21 Status: Ordered Alcohol Pads See Instructions, # 1 pack/packet, Refills 3, Tot. Refills 3, Maintenance, DX: 024.912 Please checkblood sugars four times a day. [facility], schedule meter teaching., 06/04/21 18:03:00 EST, Supply, 168, cm, 04/27/21 12:54:00 EDT, Height,... Start Date: 06/04/21 Status: Ordered aspirin 81 mg oral tablet, chewable 162 mg, 2, tablet, Chew, Daily, continue until 2 weeks , # 60 tablet, Refills 8, Tot. Refills 8, Maintenance, 04/27/21 13:24:00 EDT, Route to Pharmacy Electronically, [facility]/pharmacy #[id number], Partial fill upon patient request if the prescription... Start Date: 04/27/21 Stop Date: 01/22/22 Status: Ordered [place] Lyte glucometer [place] Lyte glucometer, See Instructions, # 1 each, Refills 3, Tot. Refills 3, Maintenance, DX: 024.912 Please check blood sugars four times a day. [facility], schedule meter teaching., 06/07/21 9:48:00 EST, Supply, 168, cm, 04/27/21 12:5... Start Date: 06/07/21 Status: Ordered [place] Lyte glucometer [place] Lyte glucometer, See Instructions, # 1 each, Refills 3, Tot. Refills 3, Maintenance, DX: 024.912 Please check blood sugars four times a day. [facility], schedule meter teaching., 06/04/21 18:03:00 EST, Supply, 168, cm, 04/27/21 12:... Start Date: 06/04/21 Status: Ordered [place] Lyte glucometer [place] Lyte glucometer, See Instructions, # 1 each, Refills 0, Tot. Refills 0, Maintenance, DX: 024.912 Please check blood sugars four times a day., 06/09/21 14:04:00 EST, Supply, 168, cm, 04/27/21 12:54:00 EDT, Height, 113.4, kg, 04/20/21 14:40:00... Start Date: 06/09/21 Status: Ordered [place] Lyte glucometer [place] Lyte glucometer, See Instructions, # 1 each, Refills 0, Tot. Refills 0, Maintenance, DX: 024.912 Please check blood sugars four times a day., 06/08/21 15:51:00 EST, Supply, 168, cm, 04/27/21 12:54:00 EDT, Height, 113.4, kg, 04/20/21 14:40:00... Start Date: 06/08/21 Status: Ordered [place] Lyte glucometer [place] Lyte glucometer, See Instructions, # 1 each, Refills 0, Tot. Refills 0, Maintenance, DX: 024.912 Please check blood sugars four times a day., 06/09/21 17:44:00 EST, Supply, 168, cm, 04/27/21 12:54:00 EDT, Height, 113.4, kg, 04/20/21 14:40:00... Start Date: 06/09/21 Status: Ordered [place] lyte lancets [place] lyte lancets, See Instructions, # 1 pack/packet, Refills 3, Tot. Refills 3, Maintenance, DX: 024.912 Please check blood sugars four times a day. [facility], schedule meter teaching.,06/07/21 9:48:00 EST, Supply, 168, cm, 04/27/21... Start Date: 06/07/21 Status: Ordered [place] lyte lancets [place] lyte lancets, See Instructions, # 1 pack/packet, Refills 3, Tot. Refills 3, Maintenance, DX: 024.912 Please check blood sugars four times a day. [facility], schedule meter teaching.,06/04/21 18:03:00 EST, Supply, 168, cm, 04/27/21... Start Date: 06/04/21 Status: Ordered [place] lyte lancets [place] lyte lancets, See Instructions, # 200 each, Refills 3, Tot. Refills 3, Maintenance, DX: 024.912 Please check blood sugars four times a day., 06/09/21 14:03:00 EST, Supply, 168, cm, 04/27/21 12:54:00 EDT, Height, 113.4, kg, 04/20/21 14:40:00... Start Date: 06/09/21 Status: Ordered [place] lyte lancets [place] lyte lancets, See Instructions, # 200 each, Refills 3, Tot. Refills 3, Maintenance, DX: 024.912 Please check blood sugars four times a day., 06/08/21 15:49:00 EST, Supply, 168, cm, 04/27/21 12:54:00 EDT, Height, 113.4, kg, 04/20/21 14:40:00... Start Date: 06/08/21 Status: Ordered [place] lyte lancets [place] lyte lancets, See Instructions, # 200 each, Refills 3, Tot. Refills 3, Maintenance, DX: 024.912 Please check blood sugars four times a day., 06/09/21 17:45:00 EST, Supply, 168, cm, 04/27/21 12:54:00 EDT, Height, 113.4, kg, 04/20/21 14:40:00... Start Date: 06/09/21 Status: Ordered [place] lyte test strips [place] lyte test strips, See Instructions, # 1 pack/packet, Refills 3, Tot. Refills 3, Maintenance, DX: 024.912 Please check blood sugars four times a day. [facility], schedule meter teaching., 06/07/21 9:48:00 EST, Supply, 168, cm, 04/27/... Start Date: 06/07/21 Status: Ordered [place] lyte test strips [place] lyte test strips, See Instructions, # 1 pack/packet, Refills 3, Tot. Refills 3, Maintenance, DX: 024.912 Please check blood sugars four times a day. [facility], schedule meter teaching., 06/04/21 18:04:00 EST, Supply, 168, cm, 05... Start Date: 06/04/21 Status: Ordered [place] lyte test strips [place] lyte test strips, See Instructions, # 200 each, Refills 3, Tot. Refills 3, Maintenance, DX:024.912 Please check blood sugars four times a day., 06/09/21 14:03:00 EST, Supply, 168, cm, 04/27/21 12:54:00 EDT, Height, 113.4, kg, 04/20/21 14:40:... Start Date: 06/09/21 Status: Ordered [place] lyte test strips [place] lyte test strips, See Instructions, # 200 each, Refills 3, Tot. Refills 3, Maintenance, DX:024.912 Please check blood sugars four times a day., 06/08/21 15:50:00 EST, Supply, 168, cm, 04/27/21 12:54:00 EDT, Height, 113.4, kg, 04/20/21 14:40:... Start Date: 06/08/21 Status: Ordered [place] lyte test strips [place] lyte test strips, See Instructions, # 200 [...]
--- OUTSIDE RECORDS SUMMARY | 2024-04-22 14:14 | XMS_ITS | Continuity of Care Document ---
Author Organization [facility] Jessy Davis Address [address], [address] [place] [address]- Care Team Providers Care Director Of Recruitment And Admissions Name Role Phone Not on Staff, PCP Primary Care Physician Unavail able [place] [facility] [place]06[place] [facility] [address] [place], [place] [address] Allergies, Adverse Reactions, Alerts Substance [...] tablet, 0 Refills, Maintenance, 10/26/21 12:58:00 EDT, [facility]/pharmacy #[id number], Partial fill upon patient request if the prescription is for a schedule II opioid drug., 165, cm, 10/26/21 9:33:00 EDT, Height, 1... Start Date: 10/26/21 Status: Ordered ferrous sulfate 325 mg oral tablet 1 tablet, By Mouth, Daily, # 90 tablet, 0 Refills, [facility] STORE [id number], 165, cm, 12/02/21 16:29:00 EDT,Height, 144.2, kg, 11/01/21 10:32:00 EDT, Dry Weight Start Date: 12/06/21 Status: Ordered Plus Low Iron oral tablet 1 tablet, By Mouth, Daily, # 90 tablet, 2 Refills, [facility] 07128, 90, TAKE 1 TABLET BY MOUTH EVERY [...]
--- OUTSIDE RECORDS SUMMARY | 2024-04-22 14:14 | XMS_ITS | Continuity of Care Document ---
Author Organization [facility] Jessy nguyenLendingStandards [facility] Address [address] [place] [address], [address] [place] [address]- Care Team Providers Care Car Driver Name Role Phone Carolynn ORDONEZ, Sara Arita Primary Care Physician Encounter [facility] [place] Date(s): 06/09/22 - 07/09/22 [facility] Rayneer LeilaniLendingStandards [facility] [address] [facility] [place], [place] [address] [...] Reference Physician Member Role: PCP Address: Address: [address] [place] [address]- Care Team Related Persons Name: CLARK MACHADO Address: home [address] [address] Name: NYA DURAND Address: home [address] [place] [address] Name: KARSTEN GALLAGHER Address: home [address] [place] [address] Name: JACKY PÉREZ Address: home [address] [place] [address] Name: JACKY AMOR Address: home [address] [place] [address] Name: LITTLE ELIAS Address: [address] Address: home [address] [place] [address] Name: CARLITOS DIAZ
--- OUTSIDE RECORDS SUMMARY | 2024-04-22 14:14 | XMS_ITS | Continuity of Care Document ---
Author Organization [facility] Address [address] [place] [address]- Care Team Providers Care Manager Financial Reporting Name Role Phone Carolynn ORDONEZ, Sara Arita Primary Care Physician [phone] Encounter [facility] Date(s): 09/29/22 - 01/01/[address] [address] Attending Physician: Not on Staff, Attending [...] 14:39:00 EDT, 12/27/22 14:39:00 EDT, [facility]aps[facility], [id number], Partial fill uponpatient request if the prescription [...] 12/19/22 16:07:00 EDT, Route to Pharmacy Electronically, [facility] STORE [id number], 168, cm, 12/13/22 17:39:00 EDT, Height, 150.4, [...] 12/16/22 13:59:00 EDT, Route to Pharmacy Electronically, [facility]/pharmacy #[id number], Partial fill upon patientrequest if the prescription is for a schedule II op... Start Date: 12/16/22 Status: Ordered Multivitamins with Folic Acid 1 mg oral tablet 1 tablet, By Mouth, Daily, # 90 tablet, 2 Refills, Maintenance, 05/10/22 18:35:00 EDT, Tablet, [facility]/pharmacy #[id number], Partial fill upon patient [...] 0 Refills, Maintenance, 11/02/22 18:45:00 EDT, Capsule, [facility]/pharmacy #[id number], Partial fill upon patient [...] Team Personnel Name: Evelyn Quezada RN Position: [facility] OB RN Member Role: Primary Care Nurse Name: Liliana RN, Vamshi Kirkland Position: S RN Member Role: Primary Care Nurse Name: Corine Yoder RN Position: S RN Member Role: Primary Care Nurse Name: Carolynn COMPLIANCE ADVISORSara Position: Reference Physician Member Role: PCP Address: Address: [address] [place] [address]- Care Team Related Persons Name: MAGUI MACHADOO Address: home [address] [address] Name: NYA DURAND Address: [address] [place] [address] Name: KARSTEN GALLAGHER Address: home [address] [place] [address] Name: JACKY PÉREZ Address: [address] [place] [address] Name: JACKY AMOR Address: [address] [place] [address] Name: LITTLE ELIAS Address: [address] Address: [address] [place] [address] [place] Name: MARVIN ELIAS Address: [address] Address: [address] [place] [address] [place] Name: MARVIN ELIAS Address: [address] [facility] [address] Name: CARLITOS DIAZ
--- OUTSIDE RECORDS SUMMARY | 2024-04-22 14:14 | XMS_ITS | Continuity of Care Document ---
Author Organization [facility] Address [address] [place] [address]- Care Team Providers Care Network Operations Center Engineer Name Role Phone Not on Staff, PCP Primary Care Physician Unavail able Encounter [facility] [place] Date(s): 10/08/21 - 11/11/[address] [address] Attending Physician: Rosetta Quinn DO Admitting Physician: Rosetta Quinn DO Referring Physician: Rosetta Quinn DO Allergies, Adverse Reactions, Alerts Substance Reaction [...]
--- OUTSIDE RECORDS SUMMARY | 2024-04-22 14:14 | XMS_ITS | Continuity of Care Document ---
Author Organization [facility] Address [address] [place] [address]- Care Team Providers Care Electronics Department Manager Name Role Phone Carolynn ORDONEZ, Sara Arita Primary Care Physician Encounter [facility] Date(s): 11/17/22 - 12/18/[address] [address] Attending Physician: Not on Staff, Attending [...] 09/23/22 13:46:00 EST, [id number], 170, cm, 09/09/22 8:52:00 EST, Height, 143.2, [...] 12/16/22 13:59:00 EDT, Route to Pharmacy Electronically, [facility]/pharmacy #[id number], Partial fill upon patientrequest if the prescription is for a schedule II op... Start Date: 12/16/22 Status: Ordered ondansetron 4 mg oral tablet, disintegrating See Instructions, TAKE 1 TABLET BY MOUTH ONCE DAY NEEDED FOR NAUSEA AND VOMITING, # 10 tablet, 0Refills, Maintenance, 10/10/22 12:02:00 EDT, [facility], 170, cm, 09/29/22 11:15:00 EST, Height, 143.2, [...] Reference Physician Member Role: PCP Address: Address: [address] [place] [address] Care Team Related Persons Name: CLARK MACHADO Address: home [address] [address] Name: NYA DURAND Address: [address] [place] [address] Name: KARSTEN GALLAGHER Address: home [address] [place] [address] Name: JACKY PÉREZ Address: [address] [place] [address] Name: JACKY AMOR Address: [address] [place] [address] Name: LITTLE ELIAS Address: [address] Address: [address] [place] [address] Name: MARVIN ELIAS Address: [address] Address: [address] [place] [address] Name: CARLITOS DIAZ
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
--- OUTSIDE RECORDS SUMMARY | 2024-04-22 14:14 | XMS_ITS | Continuity of Care Document ---
Author Organization [facility] ter Address [address] [place] [address]- Care Team Providers Care Sealer Dry Cell Name Role Phone Carolynn ORDONEZ, Sara Arita Primary Care Physician Encounter [facility] Date(s): 04/20/24 - 04/20/[address] [address]- Encounter Diagnosis Low back pain(Final) - 04/20/24 Discharge Disposition: A-D/C Home Attending Physician: Rosette Peoples MD Admitting Physician: Rosette Peoples MD Referring Physician: Not on Staff, Referring [...] 01/10/23 15:26:00 EDT, Route to Pharmacy Electronically, [facility]/pharmacy #[id number], Partial fill upon patient request if the prescriptio... Start Date: 01/10/23 Status: Ordered Dilaudid Inj 0.5 mg, Injection, IV Push Slowly, Once, STAT, 04/20/24 17:23:00 EDT, Stop date 04/20/24 17:23:00 EDT Start Date: 04/20/24 Stop Date: 04/20/24 Status: Completed famotidine 20 mg oral tablet 1, tablet, By Mouth, Daily at bedtime, # 90 tablet, Refills 0, Tot. Refills 0, Maintenance, 02/09/23 12:19:00 EDT, Route to Pharmacy Electronically, [facility]/pharmacy #[id number], 170, cm, 02/09/23 12:11:00 EDT, Height, 150.4, kg, 12/22/22 17:10:00 EDT, Dry Weight Start Date: 02/09/23 Stop Date: 05/10/23 Status: Ordered gabapentin 300 mg oral capsule 300 mg, 1, capsule, By Mouth, 3 times a day, # 90 capsule, Refills 5, Tot. Refills 5, Maintenance, 12/27/22 14:38:00 EDT, Route to Pharmacy Electronically, [facility]/pharmacy #[id number], Partial fill upon patient request if the prescription is for a schedule II... Start Date: 12/27/22 Stop Date: 06/25/23 Status: Ordered Medrol Dosepak 4 mg oral tablet 1 pack/packet, By Mouth, Daily, for 6 days, as directed on package labeling, # 21 tablet, 5 Refills, Acute 05/26/24 20:04:00 EST, 04/20/24 20:04:00 EDT, Tablet, [facility]/pharmacy #[id number], Partial fill upon patient request if the prescription is for a schedul... Start Date: 04/20/24 Stop Date: 05/26/24 Status: Ordered NIFEdipine 30 mg oral tablet, extended release 30 mg, 1, tablet, By Mouth, Every 24 hours, # 30 tablet, Refills 0, Tot. Refills 0, Maintenance, 02/09/23 10:43:00 EDT, Route to Pharmacy Electronically, [facility]/pharmacy #[id number], Partial fill upon patientrequest if the prescription is for a schedule II op... Start Date: 02/09/23 Status: Ordered oxyCODONE 5 mg oral tablet 5 mg, 1, tablet, By Mouth, Every 6 hours, PRN, # 12 tablet, Refills 0, Tot. Refills 0, Acute 04/23/24 8:00:00 EDT, as needed for pain, 04/20/24 20:04:00 EDT, Route to Pharmacy Electronically, [facility]/pharmacy #[id number], Partial fill upon patient request if th... Start Date: 04/20/24 Stop Date: 04/23/24 Status: Ordered OxyCODONE IR Tablet 10 mg, Tablet, By Mouth, Once, STAT, 04/20/24 20:01:00 EDT, Stop date 04/20/24 20:01:00 EDT Start Date: 04/20/24 Stop Date: 04/20/24 Status: Completed Multivitamins with Folic Acid 1 mg oral [...] oldest [Reference Range]: 1 2 3 Height 168 cm (04/20/24 11:05 AM) 168 cm (04/20/24 10:18 AM) Weight 150 kg (04/20/24 11:05 AM) 150 kg (04/20/24 10:18 AM) Oxygen Saturation [94-100 %] 99 % (04/20/24 6:06 PM) 100 % (04/20/24 2:41 PM) 100 % (04/20/24 12:18 PM) Pulse Rate [55-90 bpm] 74 bpm (04/20/24 6:06 PM) 70 bpm (04/20/24 2:41 PM) 73 bpm (04/20/24 12:18 PM) Body Mass Index [18.5-24.99 kg/m2] 53.15 kg/m2 *>HHI* (04/20/24 10:18 AM) Blood Pressure [90-138/55-84 mm Hg] 126/60mm Hg (04/20/24 6:06 PM) 143/70mm Hg *H* (04/20/24 2:41 PM) 140/79mm Hg *H* (04/20/24 12:18 PM) Respiratory Rate [16-30 br/min] 19 br/min (04/20/24 8:23 PM) 15 br/min *L* (04/20/24 6:14 PM) 15 br/min *L* (04/20/24 6:06 PM) Temperature [96.8-100.4 DegF] 97.9 DegF (04/20/24 10:18 AM) Mode of Delivery (Oxygen) Room air (04/20/24 6:06 PM) Room air (04/20/24 2:41 PM) Room air (04/20/24 12:18 PM) Temperature Route Oral (04/20/24 10:18 AM) Dry Weight 150 kg (04/20/24 11:05 AM) 150 kg (04/20/24 10:18 AM) Weight Obtained Via Patient/family state d (04/20/24 10:18 AM) Dry Weight Obtained Via Patient/family s tated (04/20/24 10:18 AM) Social History Social History Type Response Tobacco Use: 4 or less cigar ettes(less than 1/4 pack)/day in last 30 days. Sex Note * Ruthann Townsend: PERFORM, SIGN, VERIFY Event Display: Patient Education Handout Authored Date: [id number] * Ruthann Townsend: PERFORM Event Display: Patient Education Leaflets Authored Date: Opioid Prescription Risks and Treatment Resources ?? 223 Prescription Opioid Risks and Treatment Resources You have been prescribed an opioid as part of your pain treatment, which may be used following injury, surgery, or arising from other health conditions. All patients taking opioids are at risk for unintentional overdose, addiction, or . Therefore, you should discuss with your prescriber all treatment options available to you. ?? Common side effects of opioids include: ? Constipation ? Breathing problems ? Low Sex Drive, Energy, and Strength ? Sleepiness/drowsiness ? Confusion ? Nausea ?? Opioids are powerful painkillers, and if misused can have serious side effects including addiction.Your risk increases if: ? You are also taking other drugs like antihistamines, barbiturates, or antidepressant/anxiety medications (e.g., Benzodiazepines) ? You consume alcohol while taking opioids ? You or a family member have a history of substance use disorder or overdose ? You have a mental health condition, such as depression or anxiety ? You have sleep apnea ? You take more than the recommended prescribed amount ?? Know your options ? Read all instructions for your medication, take your medication exactly as prescribed, do not adjust your doses, and keep track of when you take your medication. ? If you have any questions about your medication ask your prescriber or pharmacist, including information about possible side effects as well as options for seeking a partial fill of the prescription. If you decide to partially fill your prescription opioid, you will need to contact your prescriber if additional medication is needed. ? Talk to your prescriber about non-opioid treatment options or if you don???t want rocael treated with opioids. ? Ask your prescriber about having an antidote (e.g., Naloxone) in case of an accidental overdose. ?? Protecting family, friends, and others Storage: Medications should be kept in a locked cabinet or box when not in use. Medications should be placed in a location hard for children and pets to reach Disposal: For the safety of others and the environment, patients are encouraged to take advantage of drug take-back programs and safe drop sites, which are available on the [place] PrescriptionDrop[employer] Location website.[1] When these programs are not accessible, other secondary methods including flushing the medication down the toilet should be considered Addiction Resources:?? Be aware of the signs of addiction, which include uncontrollable cravings and inability to control opioid use even though it is having negative effects on personal relationships or finances. If you suspect or are concerned about addiction, the following resources may help: ? For Youth, Young Adults (up to age 24), and Women : [facility] Intake & Care Coordination: or [phone] ? For all [place] residents: Information and Referrals for Substance Abuse Services: TTY: 298.260.3103 or online at www.helplinePicksPalonline.com ?? Recommendations for Medication Storage Medications can be an important part of any treatment but also come with serious risks.?? Prescription opioids in particular are used to treat moderate or severe pain following injury, surgery, or for other health conditions.?? To avoid accidental or illegal use of prescriptions by others, it is critical that you properly store medication in areas least likely to be found or accessible by children, family members, and guests ?? Commonly Abused Prescription Medications: ? Pain Medications prescribed for people with serious, long-term pain, and sometimes short term pain: Vicodin??, OxyContin??, Percocet??, and codeine ? Stimulants used to treat attention deficit hyperactivity disorder (ADHD), or other disorders: Ritalin??, Concerta??, Adderall??, Dexedrine??, and Meridia? Sedatives, Tranquilizers, and Barbituates prescribed to treat stress, anxiety, panicattack, insomnia and seizures: Valium??, Xanax??, Ativan??, Klonopin??, Ambien??, Lunesta? Keeping others Safe: It is important to store your medication in a place that is not likely to be found by children, family members, and guests. ? Keep your prescriptions in a secure location to make sure kids, family, and guests don???t have access to them, preferably in a locked box which you can purchase at your local pharmacy. ? Know where your prescription medications are at all times. ? Keep prescription medications in the original bottle with the label attached and thechild-resistant cap secured. ? Keep track of how many prescription pain pills are in your bottle so you are immediately aware if any are missing. ?? Additional Best Practices for Proper Storage: ? Don???t leave the cotton plug in a medicine bottle. ? Check the expiration date each time you take a drug. ? Never use a medication that has changed color, texture, or odor, even if it has not . Safely dispose of capsules or tablets that stick together, are harder or softer than normal, or are cracked or chipped. ? Ask your pharmacist about any specific storage instructions for your medications. ?? Why this information is important: According to recent statistics, approximately 71% of obtained prescription drugs are gifted, purchased, or stolen from friends and relatives. In fact, survey results from 3866-6444 suggest that 6.1 million people have used prescription drugs for non-medical purposes in a given month. Proper storageand keeping commonly abused medications out of reach of children, family members, and guests can prevent others from illegally or accidentally taking your medications and prevent harmful risks such as overdose or . ? [1] http://www.[facility].gov/eohhs/gov/departments/dph/programs/substance-abuse/preventio n/apicccnjaruo-ynpcwza-cjpwhgmwu.html ?? * Wei FRANKLIN, Ruthann Anthony: PERFORM Event Display: Patient Education Leaflets Authored Date: [id number] Back Pain (Acute or Chronic) ?? [id number] Back Pain (Acute or Chronic) Back pain is one of the most common problems. The good news is that most people feel better in 1 to2 weeks, and most of the rest in 1 to 2 months. Most people can remain active. People who have pain??describe it differently???not??everyone is the same. ??? The pain can be sharp, stabbing, shooting, aching, cramping or burning. ??? Movement, standing,bending, lifting, sitting, or walking may worsen pain. ??? It can be limited to one spot or area, or it can be more generalized. ??? It can spread upwards, to the front, or go down your arms or legs (sciatica). ??? It can cause muscle spasm. Most of the time, mechanical problems with the muscles??or spine cause the pain. Mechanical problems??are usually caused by an injury to the muscles or ligaments. Illness can cause back pain, but it's usually not caused by a serious illness. Mechanical problems include:? Physical activity such as sports, exercise, work, or normal activity ??? Overexertion, lifting,pushing, pulling incorrectly or too aggressively ??? Sudden twisting, bending, or stretching from an accident, or accidental movement ??? Poor posture ??? Stretching or moving wrong, without noticingpain at the time ??? Poor coordination, lack of regular exercise (check with your doctor about this) ??? Spinal disc disease or arthritis ??? Stress Pain can also be related to , or illness such as appendicitis, bladder or kidney infections, kidney stones, and pelvic infections. Acute back pain usually gets better in??1 to 2 weeks. Back pain related to disk disease, arthritis in the spinal joints, or narrowing of the spinal canal (spinal stenosis) can become chronic and lastfor months or years. Unless you had a physical injury such as a car accident or fall, X-rays are usually not needed for the first assessment of back pain. If pain continues and does not respond to medical treatment, you may need X-rays and other tests. Home care Try this home care advice: ??? When in bed, try??to find a position of comfort. A firm mattress is best. Try lying flat on your back with pillows under your knees. You can also try lying on your side with your knees bent up toward your chest and a pillow between your knees. ??? At first, don't try to stretch out the sore spots. If there is a strain, it's not like the good soreness you get after exercising without an injury. In this case, stretching may make it worse. ??? Don't sit for long periods, as in a long car ride or during other??travel. This puts more stress on the lower back than standing or walking. ??? During the first 24 to 72 hours after an acute injury or flare up of chronic back pain, apply an ice pack to the painful area for 20 minutes and then remove it for 20 minutes. Do this over a period of 60 to 90 minutes or several times a day. This will reduce swelling and pain. Wrap the ice pack in a thintowel or plastic to protect your skin. ??? You can start with ice, then switch to heat. Heat (hot shower, hot bath, or heating pad) reduces pain and works well for muscle spasms. Heat can be applied to the painful area for 20 minutes then remove it for 20 minutes. Do this over a period of 60 to 90 minutes or several times a day. Don't sleep on a heating pad. It can lead to skin harding or tissue damage. ??? You can alternate ice and heat therapy. Talk with your doctor about??the best treatment for your back pain. ??? Therapeutic massage can help relax the back muscles without stretching them. ??? Be aware of safe lifting methods. Don't lift anything without stretching first. Medicines Talk to your doctor before using medicine, especially if you have other medical problems or are taking other medicines. ??? You may use [id number] medicine as directed on the bottle to control pain, unless another pain medicine was prescribed. Talk with your healthcare provider before using these medicines if you have chronic conditions such as diabetes, liver or kidney disease, stomach ulcers, or digestive bleeding. Also talk with your provider if you take blood thinners. ??? Be careful if you are given a prescription medicines, narcotics, or medicine for muscle spasms. They can cause drowsiness, affect your coordination, reflexes, and judgment. Don't drive or operate heavy machinery. ?? Follow-up care Follow up with your healthcare provider, or as advised.?? If X-rays were taken, you will be told of any new findings that may affect your care. ?? Call 911 Call 911 if any of the following occur: ??? Trouble breathing ??? Confusion ??? Very drowsy or trouble awakening ??? Fainting or loss of consciousness ??? Rapid or very slow heart rate ??? Loss of bowel or bladder control ?? When to seek medical advice Call your healthcare provider right away if any of these occur:? Pain gets worse or spreads toyour legs ??? Your bowel or bladder control changes ??? Fever ??? Blood in your urine ??? Weakness or numbness in one or both legs ??? Numbness in the groin or genital area ?? Last Reviewed Date: 2021 ?? 3135-2397 [employer]. All rights reserved. This information is not intended as a substitute for professional medical care. Always follow your healthcare professional's instructions. ?? Patient Care team information Care Team Personnel Name: Evelyn Quezada RN Position: [facility] RN Member Role: Primary Care Nurse Name: Liliana RN, Vamshi Kirkland Position: S RN Member Role: Primary Care Nurse Name: Carolynn AERONAUTICAL RESEARCH ENGINEER, Sara Arita Position: Reference Physician Member Role: PCP Address: Address: [address] [place] [address]- Care Team Related Persons Name: CLARK MACHADO Address: home [address] [address] Name: NYA DURAND Address: [address] [place] [address] Name: STEVEN MALAVE Address: [address] [place] [address] Name: KARSTEN GALLAGHER Address: home [address] [place] [address] Name: JACKY PÉREZ Address: home [address] [place] [address] Name: JACKY AMOR Address: [address] [place] [address] Name: LITTLE ELIAS Address: [address] Address: [address] [place] [address] [place] Name: MARVIN ELIAS Address: [id number] Address: home [address] [place] [address] [place] Name: CARLITOS DIAZ
--- OUTSIDE RECORDS SUMMARY | 2024-04-22 14:14 | XMS_ITS | Continuity of Care Document ---
Author Organization [facility] Address [address] [place] [address]- Care Team Providers Care Rn Community Name Role Phone Ilan ORDONEZ, Lazaro Primary Care Physician [phone] [place] [facility] [place] 06/30/20 - 07/30/[address] [address] Attending Physician: Admtr, Ar8 Allergies, Adverse Reactions, [...] 16:40:00 EST, Route to Pharmacy Electronically, [facility]/pharmacy #[id number], 168, cm, 03/15/18 15:47:00 EDT, Height, 110.9, kg, 03/15/18 15:47:00 EDT, . Start Date: 07/28/19 Status: Ordered metronidazole topical 0.75% gel with applicator 1 applicator, Vaginally, Every Monday and Monday, for 5 week(s), # 70 Gm, 1 Refills, Acute 09/08/20 11:11:00 EST, 06/30/20 11:11:00 EST, Gel, [id number], suppression for BV, 1 applicator Vaginally Every Monday and Monday,x5 week(s), 168, cm,... Start Date: 06/30/20 Stop Date: 09/08/20 Status: Ordered Mirena 52 mg intrauteral device [...]
--- OUTSIDE RECORDS SUMMARY | 2024-04-22 14:14 | XMS_ITS | Continuity of Care Document ---
Author Organization [facility] Address [address] [place] [address]- Care Team Providers Care Cake Icer And Packer Name Role Phone Carolynn ORDONEZ, Sara Arita Primary Care Physician Encounter [facility] Date(s): 12/07/22 - 01/06/[address] [address] Allergies, Adverse Reactions, Alerts Substance [...] 14:39:00 EDT, 12/27/22 14:39:00 EDT, Capsule, [id number], Partial fill uponpatient request if the prescription [...] tablet, 0 Refills, Maintenance, 12/06/2316:40:00 EDT, Tablet, [facility]/pharmacy #[id number], Partial fill upon patient request if the prescription is for a schedule II opioid drug., 168, cm, 12/06/22 8:... Start Date: 12/06/22 Stop Date: 12/13/22 Status: Ordered famotidine 20 mg oral tablet 1, tablet, By Mouth, Daily at bedtime, # 30 tablet, Refills 1, Maintenance, 12/19/22 16:07:00 EDT, Route to Pharmacy Electronically, [facility] STORE [id number], 168, cm, 12/13/22 17:39:00 EDT, Height, 150.4, kg, 12/13/22 17:39:00 EDT, Dry Weight Start Date: 12/19/22 Status: Ordered gabapentin 300 mg oral capsule 300 mg, 1, capsule, By Mouth, 3 times a day, # 90 capsule, Refills 5, Tot. Refills 5, Maintenance, 12/27/22 14:38:00 EDT, Route to Pharmacy Electronically, [facility]/pharmacy #[id number], Partial fill upon patient [...] 12/16/22 13:59:00 EDT, Route to Pharmacy Electronically, [facility]/pharmacy #[id number], Partial fill upon patientrequest if the prescription is for a schedule II op... Start Date: 12/16/22 Status: Ordered Multivitamins with Folic Acid 1 mg oral tablet 1 tablet, By Mouth, Daily, # 90 tablet, 2 Refills, Maintenance, 05/10/22 18:35:00 EDT, Tablet, [facility]/pharmacy #[id number], Partial fill upon patient [...] 0 Refills, Maintenance, 11/02/22 18:45:00 EDT, Capsule, [facility]/pharmacy #[id number], Partial fill upon patient [...] Team Personnel Name: Evelyn Quezada RN Position: [facility] OB RN Member Role: Primary Care Nurse Name: Vamshi Ford RN Position: S RN Member Role: Primary Care Nurse Name: Corine Yoder RN Position: S RN Member Role: Primary Care Nurse Name: Sara Pradhan NP Position: Reference Physician Member Role: PCP Address: Address: [address] [place] [address]- Care Team Related Persons Name: CLARK MACHADO Address: home [address] [address] Name: NYA DURAND Address: home [address] [place] [address] Name: KARSTEN GALLAGHER Address: home [address] [place] [address] Name: JACKY PÉREZ Address: home [address] [place] [address] Name: JACKY AMOR Address: home [address] [place] [address] Name: LITTLE ELIAS Address: [address] Address: home [address] [place] [address] [place] Name: MARVIN ELIAS Address: home [address] [facility] [address] Name: MARVIN ELIAS Address: [address] Address: home [address] [place] [address] [place] Name: CARLITOS DIAZ
--- OUTSIDE RECORDS SUMMARY | 2024-04-22 14:14 | XMS_ITS | Continuity of Care Document ---
Author Organization [facility] Address [address] [place] [address]- Care Team Providers Care Senior Java Web Developer Name Role Phone Not on Staff, PCP Primary Care Physician Unavail able [facility]counter [facility] Date(s): 11/01/21 - 12/01/[address] [address] Allergies, Adverse Reactions, Alerts Substance Reaction Severity Status Toradol Active Immunizations Given and Recorded Vaccine Date Status Refusal Reason tetanus/diphtheria/pertussis, acel(Tdap) 09/09/21 Given tetanus/diphtheria/pertussis, acel(Tdap) 02/13/14 Given influenza virus vaccine, inactivated 06/22/21 Give n influenza virus vaccine, inactivated 1 05/13/14 Gi arpan influenza virus vaccine, inactivated 10/02/13 Give n influenza virus vaccine, inactivated 2 06/16/06 Gi apran 1Admin Note: vis given 03/11/14 2Admin Note: [...] 0 Refills, Maintenance, 09/09/21 15:28:00 EST, Tablet, [facility]/pharmacy #[id number], Partial fill upon patient [...] WITH BREAKFAST, # 30 tablet, 0 Refills, [facility] [id number], 165, cm, 10/26/21 9:33:00 EDT, Height, 144.2, [...] Refills, Maintenance, 03/09/21 15:40:00 EDT, Tablet, [id number], Partial fill upon patient request if the [...]
--- OUTSIDE RECORDS SUMMARY | 2024-04-22 14:14 | XMS_ITS | Continuity of Care Document ---
Author Organization [facility] Address [address] [place] [address]- Care Team Providers Care Film Spooler Name Role Phone Not on Staff, PCP Primary Care Physician Unavail able Encounter [facility] Date(s): 11/11/21 - 12/11/[address] [address] Allergies, Adverse Reactions, Alerts Substance Reaction [...] tablet, 0 Refills, Maintenance, 10/26/21 12:58:00 EDT, [facility]/pharmacy #[id number], Partial fill upon patient request if the prescription is for a schedule II opioid drug., 165, cm, 10/26/21 9:33:00 EDT, Height, 1... Start Date: 10/26/21 Status: Ordered ferrous sulfate 325 mg oral tablet 1 tablet, By Mouth, Daily, # 90 tablet, 0 Refills, [facility], 165, cm, 12/02/21 16:29:00 EDT,Height, 144.2, kg, 11/01/21 10:32:00 EDT, Dry Weight Start Date: 12/06/21 Status: Ordered Multivitamins with Folic Acid 1 mg oral tablet 1 tablet, By Mouth, Daily, # 30 tablet, 8 Refills, Maintenance, 03/09/21 15:40:00 EDT, Cecilia, [facility]/pharmacy #[id number], Partial fill upon patient request if the [...]
--- OUTSIDE RECORDS SUMMARY | 2024-04-22 14:14 | XMS_ITS | Continuity of Care Document ---
Author Organization [facility] Address [address] [place] [address]- Care Team Providers Care Heel Brusher Name Role Phone Carolynn ORDONEZ, Sara Arita Primary Care Physician Encounter [facility] Date(s): 08/05/22 - 09/11/[address] [address]- Attending Physician: Not on Staff, Attending MD [...] 0 Refills, Maintenance, 08/13/22 13:33:00 EST, Capsule, [facility]/pharmacy #[id number], Partial fill upon patient request if the prescription is for a schedule II opioid drug., 170,... Start Date: 08/13/22 Status: Ordered famotidine 20 mg oral tablet 1, tablet, By Mouth, Daily at bedtime, # 30 tablet, Refills 1, Maintenance, 08/28/22 16:08:00 EST, Route to [facility], [facility], 170, cm, 07/28/22 16:30:00 EST, Height, 143.2, [...] 2 Refills, Maintenance, 05/10/22 18:35:00 EDT, Tablet, [facility]/pharmacy #[id number], Partial fill upon patient request if the prescription is for a schedule II opioid drug., 1 tablet By Mouth Daily, 170, cm, 01/21/22 21:0... Start Date: 05/10/22 Status: Ordered Vistaril pamoate 25 mg oral capsule 1 capsule = 25 mg, By Mouth, 4 times a day, PRN for anxiety, # 40 capsule, 0 Refills, Maintenance, 09/09/22 9:19:00 EST, Capsule, [facility]/pharmacy #[id number], Partial fill upon patient request [...] Physician Member Role: PCP Address: Address: [address] [place] [address]- Care Team Related Persons Name: CLARK MACHADO Address: home [address] [place] [address] Name: NYA DURAND Address: home [address] [place] [address] Name: KARSTEN GALLAGHER Address: home [address] [place] [address] Name: JACKY PÉREZ Address: home [address] [place] [address] Name: JACKY AMOR Address: home [address] [place] [address] Name: LITTLE ELIAS Address: [address] Address: home [address] [place] [address] Name: CARLITOS DIAZ
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
--- OUTSIDE RECORDS SUMMARY | 2024-04-22 14:14 | XMS_ITS | Continuity of Care Document ---
Author Organization [facility] Address [address] [place] [address]- Care Team Providers Care Imaging Assistant Name Role Phone Carolynn ORDONEZ, Sara Arita Primary Care Physician Encounter [facility] Date(s): 10/14/22 - 11/13/[address] [address] Allergies, Adverse Reactions, Alerts Substance Reaction Severity [...] EST, Route to Pharmacy Electronically, [facility]/pharmacy #[id number], Partial fill upon patient requestif the prescription is for a schedule II opioid rosetta... Start Date: 09/29/22 Status: Ordered famotidine 20 mg oral tablet 1, tablet, By Mouth, Daily at bedtime, # 30 tablet, Refills 1, Maintenance, 09/23/22 13:46:00 EST, Route to Pharmacy Electronically, [facility] 54888, 170, cm, 09/09/22 8:52:00 EST, Height, 143.2, [...] 0Refills, Maintenance, 10/10/22 12:02:00 EDT, [facility], 170, cm, 09/29/22 11:15:00 EST, Height, 143.2, kg, 05/16/22 14:20:00 EDT, Dry Weight Start Date: 10/10/22 Status: Ordered Multivitamins with Folic Acid 1 mg oral tablet 1 tablet, By Mouth, Daily, # 90 tablet, 2 Refills, Maintenance, 05/10/22 18:35:00 EDT, Tablet, [facility]/pharmacy #[id number], Partial fill upon patient request if the prescription is for a schedule II opioid drug., 1 tablet By Mouth Daily, 170, cm, 01/21/22 21:0... Start Date: 05/10/22 Status: Ordered Vistaril pamoate 25 mg oral capsule 1 capsule = 25 mg, By Mouth, 4 times a day, PRN for anxiety, # 40 capsule, 0 Refills, Maintenance, 11/02/22 18:45:00 EDT, [facility]apsule, [facility], Partial fill upon patient request if the [...] Reference Physician Member Role: PCP Address: Address: [address] [place] [address]- Care Team Related Persons Name: CLARK MACHADO Address: home [address] [address] Name: NYA DURAND Address: home [address] [place] [address] Name: KARSTEN GALLAGHER Address: home [address] [place] [address] Name: JACKY PÉREZ Address: home [address] [place] [address] Name: JACKY AMOR Address: home [address] [place] [address] Name: LITTLE ELIAS Address: [address] Address: home [address] [place] [address] Name: CARLITOS DIAZ
--- OUTSIDE RECORDS SUMMARY | 2024-04-22 14:15 | XMS_ITS | Continuity of Care Document ---
Author Organization [facility] Address [address] [place] [address]- Care Team Providers Care Brush Stainer Name Role Phone Carolynn ORDONEZ, Sara Arita Primary Care Physician [facility]counter [facility] Date(s): 02/09/23 - 03/11/[address] [address] Allergies, Adverse Reactions, Alerts Substance [...] 01/10/23 15:26:00 EDT, Route to Pharmacy Electronically, [facility]/pharmacy #[id number], Partial fill upon patient request if the [...] Team Personnel Name: Evelyn Quezada RN Position: [facility] OB RN Member Role: Primary Care Nurse Name: Vamshi Ford RN Position: S RN Member Role: Primary Care Nurse Name: Corine Yoder RN Position: S RN Member Role: Primary Care Nurse Name: Sara Pradhan NP Position: Reference Physician Member Role: PCP Address: Address: [address] [place] [address] Care Team Related Persons Name: CLARK MACHADO Address: home [address] [address] Name: NYA DURAND Address: home [address] [place] [address] Name: KARSTEN GALLAGHER Address: home [address] [place] [address] Name: JACKY PÉREZ Address: home [address] [place] [address] Name: JACKY AMOR Address: [address] [place] [address] Name: LITTLE ELIAS Address: [address] Address: [address] [place] [address] [place] Name: MARVIN ELIAS Address: [address] [place] [address] Name: MARVIN ELIAS Address: [address] Address: [address] [place] [address] [place] Name: CARLITOS DIAZ
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
--- OUTSIDE RECORDS SUMMARY | 2024-04-22 14:15 | XMS_ITS | Continuity of Care Document ---
Author Organization [facility] Address [address] [place] [address]- Care Team Providers Care Anchorer Name Role Phone Carolynn ORDONEZ, Sara Arita Primary Care Physician Encounter [facility] Date(s): 11/13/23 - 12/13/[address] [address] Attending Physician: Admtr, [id number] Allergies, Adverse Reactions, Alerts Substance Reaction Severity [...] 01/10/23 15:26:00 EDT, Route to Pharmacy Electronically, [facility]/pharmacy #[id number], Partial fill upon patient request if the [...] Personnel Name: Damien RN, Evelyn Anthony Position: [facility] OB RN Member Role: Primary Care Nurse Name: Vamshi Ford RN Position: S RN Member Role: Primary Care Nurse Name: Sara Pradhan NP Position: Reference Physician Member Role: PCP Address: Address: [address] [place] [address]- Care Team Related Persons Name: CLARK MACHADO Address: home [address] [address] Name: NYA DURAND Address: home [address] [place] [address] Name: KARSTEN GALLAGHER Address: home [address] [place] [address] Name: JACKY PÉREZ Address: [address] [place] [address] Name: JACKY AOMR Address: home [address] [place] [address] Name: LITTLE ELIAS Address: [address] Address: home [address] [place] [address] [place] Name: MARVIN ELIAS Address: [address] [place] [address] Name: MARVIN ELIAS Address: [address] Address: [address] [place] [address] [place] Name: CARLITOS DIAZ
--- OUTSIDE RECORDS SUMMARY | 2024-04-22 14:15 | XMS_ITS | Continuity of Care Document ---
Author Organization [facility] Address [address] [place] [address]- Care Team Providers Care Director Of Vocational Training Name Role Phone Not on Staff, PCP Primary Care Physician Unavail able [facility]counter [facility] Date(s): 11/16/21 - 12/18/[address] [address] Attending Physician: Not on Staff, [...] tablet, 0 Refills, Maintenance, 10/26/21 12:58:00 EDT, [facility]/pharmacy #[id number], Partial fill upon patient request if the prescription is for a schedule II opioid drug., 165, cm, 10/26/21 9:33:00 EDT, Height, 1... Start Date: 10/26/21 Status: Ordered ferrous sulfate 325 mg oral tablet 1 tablet, By Mouth, Daily, # 90 tablet, 0 Refills, [facility] 28364, 165, cm, 12/02/21 16:29:00 EDT,Height, 144.2, kg, 11/01/21 10:32:00 EDT, Dry Weight Start Date: 12/06/21 Status: Ordered Multivitamins with Folic Acid 1 mg oral tablet 1 tablet, By Mouth, Daily, # 30 tablet, 8 Refills, Maintenance, 03/09/21 15:40:00 EDT, [facility]t, [id number], Partial fill upon patient request if the [...]
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
--- OUTSIDE RECORDS SUMMARY | 2024-04-22 14:15 | XMS_ITS | Continuity of Care Document ---
Author Organization [facility] Address [address] [place] [address]- Care Team Providers Care Curtain Drier Name Role Phone Carolynn ORDONEZ, Sara Arita Primary Care Physician Encounter [facility] Date(s): 12/29/21 - 03/30/[address] [address] Attending Physician: Not on Staff, Attending MD [...] tablet, 0 Refills, Maintenance, 10/26/21 12:58:00 EDT, [facility]/pharmacy #[id number], Partial fill upon patient request if the prescription is for a schedule II opioid drug., 165, cm, 10/26/21 9:33:00 EDT, Height, 1... Start Date: 10/26/21 Status: Ordered ferrous sulfate 325 mg oral tablet 1 tablet, By Mouth, Daily, # 90 tablet, 0 Refills, [facility] ST[facility] [id number], 165, cm, 12/02/21 16:29:00 EDT,Height, 144.2, kg, 11/01/21 10:32:00 EDT, Dry Weight Start Date: 12/06/21 Status: Ordered norethindrone 5 mg oral tablet 5 mg, 1, tablet, By Mouth, Daily, # 7 tablet, Refills 0, Tot. Refills 0, Maintenance, 01/21/22 22:46:00 EDT, Route to Pharmacy Electronically, [facility]/pharmacy #[id number], Partial fill upon patient request ifthe prescription is for a schedule II opioid drug.,... Start Date: 01/21/22 Stop Date: 01/28/22 Status: Ordered Plus Low Iron oral tablet 1 tablet, By Mouth, Daily, # 90 tablet, 2 Refills, [facility] ST[facility] [id number], 90, TAKE 1 TABLET BY MOUTH EVERY [...] Status Former smoker entered on: 04/27/14 Sex Care Team Personnel Name: Sara Pradhan NP Address: [address] [place] [address]-
--- OUTSIDE RECORDS SUMMARY | 2024-04-22 14:15 | XMS_ITS | Continuity of Care Document ---
Author Organization [facility] Address [address] [place] [address]- Care Team Providers Care Public Safety Dispatcher Name Role Phone Carolynn ORDONEZ, Sara Arita Primary Care Physician [phone] Encounter [facility] Date(s): 05/31/22 - 07/03/[address] [address] Attending Physician: Not on Staff, [...] Refills, Maintenance, 05/10/22 18:35:00 EDT, Tablet, [facility]acy #[id number], Partial fill upon patient request if the [...] Reference Physician Member Role: PCP Address: Address: [address] [place] [address]- Care Team Related Persons Name: MAGUI MACHADOO Address: home [address] [address] Name: NYA DURAND Address: home [address] [place] [address] Name: KARSTEN GALLAGHER Address: home [address] [place] [address] Name: JACKY PÉREZ Address: home [address] [place] [address] Name: JACKY AMOR Address: home [address] [place] [address] Name: LITTLE ELIAS Address: [address] Address: home [address] [place] [address] Name: CARLITOS DIAZ
--- OUTSIDE RECORDS SUMMARY | 2024-04-22 14:15 | XMS_ITS | Continuity of Care Document ---
Author Organization [facility] ter Address [address] [place] [address]- Care Team Providers Care Institution Librarian Name Role Phone Carolynn ORDONEZ, Sara M Primary Care Physician Encounter [facility] Date(s): 10/27/22 - 11/27/[address] [address] Attending Physician: Jacob Castillo [...] 09/29/22 14:34:00 EST, Route to Pharmacy Electronically, [facility]/pharmacy #[id number], Partial fill upon patient requestif the prescription is for a schedule II opioid rosetta... Start Date: 09/29/22 Status: Ordered famotidine 20 mg oral tablet 1, tablet, By Mouth, Daily at bedtime, # 30 tablet, Refills 1, Maintenance, 09/23/22 13:46:00 EST, Route to Pharmacy Electronically, [facility] ST[facility] [id number], 170, cm, 09/09/22 8:52:00 EST, Height, 143.2, [...] PATIENT, PLEASE COMPLETE METER TEACHING WITH PATIENT. BELARUSIAN SPEAKING, Supply,... Start Date: 11/25/22 Status: Ordered [...] 0Refills, Maintenance, 10/10/22 12:02:00 EDT, [id number], 170, cm, 09/29/22 11:15:00 EST, Height, 143.2, [...] Team Personnel Name: Evelyn Quezada RN Position: [facility] OB RN Member Role: Primary Care Nurse Name: Sara Pradhan NP Position: Reference Physician Member Role: PCP Address: Address: [address] [place] [phone]- [place] Care Team Related Persons Name: CLARK MACHADO Address: home [address] [address] Name: NYA DURAND Address: home [address] [place] [address] Name: KARSTEN GALLAGHER Address: home [address] [place] [address] Name: JACKY PÉREZ Address: [address] [place] [address] Name: JACKY AMOR Address: [address] [place] [address] Name: LITTLE ELIAS Address: [id number] Address: home [address] [place] [address] Name: CARLITOS DIAZ
--- OUTSIDE RECORDS SUMMARY | 2024-04-22 14:15 | XMS_ITS | Continuity of Care Document ---
Author Organization [facility] Address [address] [place] [address]- Care Team Providers Care Bryologist Name Role Phone Not on Staff, PCP Primary Care Physician Unavail able Encounter [facility] Date(s): 08/18/21 - 11/28/[address] [address] Attending Physician: Not on Staff, Attending [...] WITH BREAKFAST, # 30 tablet, 0 Refills, [facility] STORE [id number], 165, cm, 10/26/21 9:33:00 EDT, Height, 144.2, [...] 8 Refills, Maintenance, 03/09/21 15:40:00 EDT, Cecilia, [facility]/pharmacy #[id number], Partial fill upon patient request if the [...]
--- OUTSIDE RECORDS SUMMARY | 2024-04-22 14:15 | XMS_ITS | Continuity of Care Document ---
Author Organization [facility] ter Address [address] [place] [id number]- Care Team Providers Care Cage Loader Name Role Phone Carolynn ORDONEZ, Sara Arita Primary Care Physician [facility]counter [facility] Date(s): 12/10/22 - 12/11/[address] [address] Discharge Disposition: A-D/C Home Attending Physician: Susan Segal DO Admitting Physician: Susan Segal DO Referring Physician: Susan Segal DO Allergies, Adverse Reactions, Alerts Substance Reaction [...] 09/23/22 13:46:00 EST, Route to Pharmacy Electronically, [id number], 170, cm, 09/09/22 8:52:00 EST, Height, 143.2, kg,05/16/22 14:20:00 EDT, Dry Weight Start Date: 09/23/22 Status: Ordered Measles/Mumps/Rubella Virus Vaccine Inj 0.5, mL, Subcutaneous Injection, Once, Maintenance, 12/06/22 17:40:00 EDT Start Date: 12/06/22 Status: Ordered Motrin Tablet 800 mg, Tablet, By Mouth, 3 times a day, PRN for Pain , Mild, Routine, 12/10/22 23:29:00 EDT Start Date: 12/10/22 Stop Date: 12/11/22 Status: Discontinued ondansetron 4 mg oral tablet, disintegrating See Instructions, TAKE 1 TABLET BY MOUTH ONCE DAY NEEDED FOR NAUSEA AND VOMITING, # 10 tablet, 0Refills, Maintenance, 10/10/22 12:02:00 EDT, [id number], 170, cm, 09/29/22 11:15:00 EST, Height, 143.2, [...] Range]: 1 2 3 Height 168 cm (12/10/22 9:24 PM) Weight 152.5 kg (12/10/22 9:04 PM) Oxygen Saturation [94-100 %] 88 % *L* (12/10/22 11:30 PM) 88 % *L* (12/10/22 11:15 PM) 99 % (12/10/22 11:01 PM) Pulse Rate [55-90 bpm] 76 bpm (12/10/22 9:24 PM) Blood Pressure [90-138/55-84 mm Hg] 130/75mm Hg (12/11/22 3:03 AM) 130/70mm Hg (12/11/22 2:31 AM) 118/58mm Hg (12/11/22 2:00 AM) Respiratory Rate [16-30 br/min] 16 br/min (12/11/22 12:01 AM) 16 br/min (12/10/22 9:24 PM) Temperature [96.8-100.4 DegF] 98.4 DegF (12/10/22 9:04 PM) Mode of Delivery (Oxygen) Room air (12/10/22 9:24 PM) Blood pressure sites Arm, left (12/10/22 9:24 PM) Temperature Route Oral (12/10/22 9:04 PM) Dry Weight 152.5 kg (12/10/22 9:04 PM) Weight Obtained Via Standing scale (12/10/22 9:04 PM) Dry Weight Obtained Via Standing scale (12/10/22 9:04 PM) Social History Social History Type Response Tobacco Use: 4 or less cigar ettes(less than 1/4 pack)/day in last 30 days. Sex Female Note * Ceci Lloyd RN: PERFORM Event Display: Discharge/Transfer Note Hospital Authored Date: [id number] Nursing Discharge Note Entered On: 12/11/2022 3:27 EDT Performed On: 12/11/2022 3:26 EDT by Ceci Lloyd RN Nursing Discharge Note 2 Discharge Time : 12/11/2022 3:22 EDT Discharge Level of Care at Discharge : Home/Long-Term/Foster Care Patient Left Unit Via : Ambulatory Patient Accompanied Off Unit with : Significant other DC Instructions Provided & Signed by Pt : Yes Patient Understands D/C Instructions : Yes Verbalized Understanding of D/C Plan By : Patient Patient Instructions Discharge Signed : Yes Did Pt have Specialty Bed or Wound Vac : No Ceci Lloyd RN - 12/11/2022 3:26 EDT * Event Display: Discharge/Transfer Note Hospital Authored Date: * Gabino ARREGUIN, Ceci Anderson: PERFORM Event Display: Patient Education/Instruction Authored Date: Inpatient Adult Discharge Instructions [address] [address] Name: NASIM MACHADO : 1990 Visit: 12/10/2022 20:55:00 Current Date: 12/11/2022 03:07 Account: [id number] Inpatient Adult Discharge Instructions We would like [...] and their families. Surveys are administered by [employer] ?? If further treatment with your primary care physician or another doctor is recommended, it is important for you to keep the appointment. Call your primary care physician or return to the Emergency Department immediately if your condition worsens, fails to improve, or new symptoms develop. If you need to find a doctor, you can call [facility] for a referral at [phone] or toll free at [phone] or log in to [email or web address].. ?? You can view and manage your care through the patient portal or by using a health care tom of your choosing. [employer] is a website that allows you to securely view your medical information including your hospital discharge summary, office visit summaries, medications and follow-up visits. You can also request appointments, renew medications, and request access to your medical information using a health care tom of your choosing, or just ask a question. You can enroll at [email or web address] or register during your next office visit. You have been discharged from [facility], Patient Care Unit: [id number]. If you have any questions regarding these instructions after you leave, please call us and we will be happy to assist you. [facility] Your Care Team Attending Physician Susan Segal DO Reason for Your Visit PP ELEV BP Tests Performed Below is a partial list of the tests performed during your hospitalization. You may have had other tests and procedures not included in this list. Please discuss all test results with your provider. ALT AST CBC Creatinine Urine Protein/Creatinine Ratio Primary Care Provider Carolynn ORDONEZ, Sara Arita Advance Directive . Discharge Vitals Temperature: 98.4 DegF Height: 168 cm Pulse Rate: 76 bpm Weight: 152.5 kg Respiratory Rate: 16 br/min ?? Systolic Blood Pressure: 130 mm Hg ?? Diastolic Blood Pressure: 75 mm Hg ?? Oxygen Saturation:??88 %??Low ?? Studies Pending All tests and labs ordered during this hospital stay have been completed unless listed below. Please discuss all pending results with your provider listed above in these instructions. ?? No incomplete studies found What to do next Instructions From Your Doctor Discharge Orders Scheduled Follow-Up Appointments Monday 1:00 PM EDT ?? Where: [facility] [address] [place] [id number]- Status: Pending 2022 1:00 PM EDT ?? Where: [facility] [address] [place] [id number]- Status: Pending Monday 1:20 PM EDT ?? 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 Medications not listed below should be discontinued. Discuss any questions related to medications with your provider. What How Much When Instructions Next Dose Unchanged Acetaminophen (acetaminophen 325 mg oral tablet) 650 Milligram Oral Every 4 hours as needed for Pain , Mild Duration: 7 Days (1-3), may give 325mg per patient preference and re-dose with 325mg within 4 hours, if needed. ?? Patient should only receive a total of 650mg of Acetaminophen every 4 hours. ?? Unchanged Calcium Carbonate (Tums 500 mg oral tablet, chewable) 2 tab(s) Chew Every 4 hours as needed for Dyspepsia Unchanged Calcium Carbonate (Tums 500 mg Tablet) 1,000 Milligram Chew 3 times a day as needed for Indigestion Unchanged DiphenhydrAMINE (diphenhydrAMINE 50 mg oral tablet) 50 Milligram Oral Every 4 hours as needed for Itch Unchanged Docusate (docusate sodium 100 mg oral tablet) 100 Milligram Oral Twice a day as needed for Constipation Duration: 7 Days Unchanged Famotidine (famotidine 20 mg oral tablet) 1 tab(s) Oral Daily at Bedtime Unchanged HydrOXYzine (Vistaril pamoate 25 mg oral capsule) 1 capsule Oral 4 times a day as needed for for anxiety Unchanged Measles/ Mumps/ Rubella Virus Vaccine (Measles/ Mumps/ Rubella Virus Vaccine Inj) 0.5 Milliliter Subcutaneous Injection Once Unchanged Multivitamin, ( Multivitamins with Folic Acid 1 mg oral tablet) 1 tab(s) Oral Daily Unchanged Ondansetron (ondansetron 4 mg oral tablet, disintegrating) See instructions TAKE 1 TABLET BY MOUTH ONCE DAY NEEDED FOR NAUSEA AND VOMITING ?? Test Results Below is a partial list of the most recent Laboratory test results done prior to this discharge. You may have had other tests and procedures not included in this list. Please discuss all test resultswith your provider. Est Creatinine Clearance - 109.61 mL/min (12/10/2022) ALT (12/10/2022) ???ALT (SGPT) - 14 units/L AST (12/10/2022) ???AST (SGOT) - 16 units/L CBC (12/10/2022) ???WBC - 5.0 k/mm3???RBC - 3.53 m/mm3???Hgb - 9.9 Gm/dL???Hct - 30.9 %???MCV - 87.5 femtoliters???MCH - 28.0 pg???MCHC - 32.0 g/dL???Platelet Count - 313 k/mm3???RDW-SD - 40.6 femtoliters???MPV - 9.3femtoliters???Nucleated RBC (Automated) - 0.0 #/100 WBC'S???Abs. NRBC - 0.0 k/mm3 Creatinine (12/10/2022) ???Creatinine-Blood - 0.7 mg/dL???Estimated GFR Creatinine - 115 ML/MIN/1.73 M2 Urine Protein/Creatinine Ratio (12/10/2022) ???Protein, Total Urine Random - 11 mg/dL???TP/Cr Ratio - 0.06???Creatinine, Urine - 194.9 mg/dL Allergies (NKA means No Known Allergies) Toradol [...] Educational Leaflet Providered with your Discharge Instructions. Managing Tension-type Headache Symptoms?? OB PP Post Warning Signs?? OB PP [facility]- Discharge Instructions?? Valuables and Belongings I fully understand and agree that [facility] accepts no responsibility for all my personal [...] encouraged to send valuables and belongings home. ? Other Discharge Information ? Pulmonary Rehab Status?? Pulmonary Rehab Discharge Status?? Respiratory Rate: 16 br/min ? Common Emergency Awareness Tips IS [...] are strongly encouraged to quit. Please call [facility] at [phone] or [phone] ([phone]) or log in to [email or web address] for referrals to smoking cessation programs. ?? 992 Suicide & Crisis Lifeline is available 13/02 if you or someone you know needs to find a reason to keep living. By calling 978 you'll be connected to a skilled, trained counselor at a crisis center in your area. INPATIENT DISCHARGE INSTRUCTIONS SIGNATURE PAGE NASIM MACHADO Location:[facility] Registration Date and Time:12/10/2022 20:55 EDT Primary Care Physician: Sara Pradhan NP, Attending Physician: Susan Segal DO, I NASIM MACHADO, have received the above patient education materials/instructions and have verbalized understanding. If ambulance or transport services are being used I further acknowledge being given a choice of service. ?? If you need to contact me, please call me at this number: . Patient/Employee Relations Consultant Name: Patient/Employee Relations Consultant Signature: Relationship to Patient: Witness Name/Signature: Date: * Ceci Lloyd RN: PERFORM Event Display: Patient Education Leaflets Authored Date: [id number] Managing Tension-type Headache Symptoms ?? [address] Managing Tension-type Headache Symptoms A tension-type headache can develop slowly. Being aware of the symptoms helps you recognize a headache early. Then you can act to reduce pain and relieve tension. Methods for relieving your symptoms include self-care and medicine. Tension-type symptoms The earlier you recognize the symptoms of a tension-type headache, the easier it is to treat. Tension-type headaches may: ??? Start with fatigue, tension, or pain in the neck and shoulders ??? Feel like a band around the head ??? Be focused at the taoist, the back of the head, behind the eyes, or in the face ??? Come and go, or last for days, weeks, or even longer ??? Involve referred pain???thismeans that the area that hurts may not be where the problem starts ?? Self-care during a tension-type headache When you have a tension-type headache, there are things you can do to relax, loosen muscles, and reduce the pain: ??? [place] your scalp lightly.??Use a soft hairbrush. ??? Give yourself a massage. ??Knead the muscles running from your shoulders up the back of your skull. Or ask a friend to gently massage your neck and shoulders. ??? Use an ice pack.??To make an ice pack, put ice cubes in a plasticbag that seals at the top. Wrap the bag in a thin towel or cloth. Then apply this directly to the place where you feel pain (such as your neck or temples). ??? Use moist heat.??This can help relax your muscles. Take a warm shower or bath. Or drape a warm, moist towel around your neck and shoulders. ?? Relieving pain and tension Cwil-tzk-bojojkp or prescription medicine can help ease pain. Another way to reduce your pain is touse relaxation techniques to loosen tight muscles. ?? Medicine Medicines used for tension-type headaches include: ??? NSAIDs (nonsteroidal anti-inflammatory drugs). ??These include aspirin and ibuprofen. NSAIDs ease inflammation and help block pain signals. ??? Acetaminophen. This treats pain. Some formulations contain caffeine.? Muscle relaxants. These can reduce painful muscle contractions. ?? Taking medicine safely Be aware that: ??? Taking analgesics (pain relievers) or drinking too much coffee may lead to rebound headaches. These are frequent or severe headaches that can happen if you miss a dose of medicine.So take pain medicines only as needed.??If you think you have these headaches, contact your healthcare provider. ??? Taking too much medicine can cause sleep problems or stomach upset. Some zsyj-ivh-jbyetdu headache medicines may contain caffeine. These may disrupt sleep and worsen pain. ?? Relaxation techniques A green jobs trainer, class, book, or tape may help you learn these techniques. One or more of these methods may work for you: ??? Deep breathing.??Slow, calm, deep breathing can help you relax. Breathe in for a count of 5 or more. Then slowly let the breath out. ??? Visualization.??Imagining a peaceful, secure scene can give you a sense of control over your body and surroundings. ??? Progressive relaxation.??This is done by tightening and then releasing muscle groups. Start at the top of your head and work your way down your body. Tighten each muscle group for 5 to 10 seconds. Then release the muscle group for the same amount of time. ??? Biofeedback.??This is a type of training in which you learn tocontrol certain physical functions and responses. This helps you learn to reduce muscle tension. ?? Last Reviewed Date: 2021 ?? [employer]. All rights reserved. This information is not intended as a substitute for professional medical care. Always follow your healthcare professional's instructions. ?? * Gabino ARREGUIN, Ceci Anderson: PERFORM Event Display: Patient Education Leaflets Authored Date: [id number] OB PP Post Warning Signs ?? 221 SAVE YOUR LIFE Get Care for These POST- Warning signs ?? Most women who give recover without problems. But any woman can have complications after the of a baby. Learning to recognize these POST- warning signs and knowing what to do can save your life. ?? Call 911 if you have: ??? Pain in chest ??? Obstructed breathing or shortness of breath ??? Seizures ??? Thoughts of hurting yourself or your baby ?? Call healthcare provider if you have: ??? Bleeding, soaking through one pad/hour, or blood clots, the size of an egg or bigger ??? I ncision that is not healing ??? Red or swollen leg, that is painful or warm to touch ??? Temperature of 100.40??F or higher ??? Headache that does not get better, even after taking medicine, or bad headache with vision changes ?? If you can???t reach your healthcare provider, call 911 or go to an emergency room ? Tell 911 or your healthcare provider ???I had a baby on and ?(Date) I am having ?? . ? (Specific warning signs) ? These post- warning signs can become life-threatening if you don???t receive medical care right away because: ??? Pain in chest, obstructed breathing or shortness of breath (trouble catching your breath) may mean you have a blood clot in your lung or a heart problem ??? Seizures may mean you have a conditioncalled eclampsia ??? Thoughts or feelings of wanting to hurt yourself or your baby may mean you have depression ??? Bleeding (heavy) , soaking more than one pad in an hour or passing an egg- sized clot or bigger may mean you have an obstetric hemorrhage ??? Incision that is not healing, increased redness or any pus from episiotomy or site may mean you have an infection ??? Redness, swelling, warmth, or pain in the calf area of your leg may mean you have a blood clot ??? Temperature of 100.40??F or higher, bad smelling vaginal blood or discharge may mean you have an infection ??? Headache (very painful), vision changes, or pain in the upper right area of your belly may mean you have high blood pressure or post preeclampsia ?? GET HELP My Healthcare Provider/Clinic: Phone Number Hospital Closest To Ut: ? * Gabino ARREGUIN, Ceci Anderson: PERFORM Event Display: Patient Education Leaflets Authored Date: [id number] OB PP [facility]- Discharge Instructions ?? 209 Discharge Care Instructions for the New Mom and Baby Please take a few moments to read through these helpful instructions before you leave the hospital.?? Your nurse will be glad to answer any questions you may have.?? You can also find this and more information throughout the purple Becoming a Family booklet, [facility] New Beginnings Guide and the Consultation Services Guide given to you after the of your baby.?? You may also phone our nurses stations if you have further questions.?? [facility]:?? First Floor ([phone]), Second Floor ([phone]).?? Please call your provider if you have any questions or concerns?? before your next appointment. For ongoing support please ???Like?? us on our Facebook page ???[facility]?? andsign up for our email newsletter at [email or web address].?? News and information will besent to you until your baby???s third birthday. Instructions for the New Mother Activity: For the next 2 weeks at home ??? no heavy lifting, avoid unnecessary stair climbing, and no driving(especially if you are taking medicine that may make you sleepy or feel that you are sleep deprived).?? For the next 4-6 weeks - no tampons, no douches, no sexual intercourse. Use your gurjit bottle to rinse your perineum until your vaginal flow stops.?? If you have stitches in your bottom, they generally dissolve within 7-10 days.?? Apply Tucks/witch joey pads until your soreness subsides.?? Use your bathroom at home every 3 to 4 hours, rinse, and change your pads. Warm showers feel great on achy muscles, sore backs and sore bottoms. Exercise: Walking is the best form of exercise.?? Wait until your follow up appointment with your provider in4-6 weeks before engaging in more strenuous activity. Diet: Drink plenty of fluids to avoid constipation and to help support your recovery. Eat plenty of iron rich foods such as red meat, iron fortified cereals like Total and Cream of Wheat, raisins, prunes, greens and spinach.?? These will help to build your blood count back up as all women lose some blood after delivery.?? Also add foods rich in Vitamin C such as strawberries, oranges, papayas, kale and foley peppers. Continue to take your vitamins if you are .?? If you are not follow the instructions of your provider.?? If you were prescribed iron supplements such as ferrous sulfate, it is important to continue these until your doctor or high school guidance counselor tells you to stop. Breast Care for Nursing Mothers: Wear a comfortable fitting, supportive nursing bra.?? An underwire bra is not recommended. Express drops of breast milk and rub over your nipples and areola (brown area) before and after each feeding to protect and heal sensitive skin and then air dry your nipples.?? If you are experiencing any soreness, you may purchase nipple cream such as TenderCare or Lansinoh.?? Use it in the following manner:?? finish your feeding or pumping session, self-express colostrum onto your nipple and air dry, apply the nipple cream to the nipple and areola.?? Use only small amounts for best results. If you are having difficulty getting the baby to latch onto the breast due to swelling of the areola, try applying pressure with your fingers for a couple of minutes above and below your nipple and walk your fingers outward softening the area and pushing the swelling away.?? This technique is knownas reverse pressure softening.?? For demonstrations of this and other techniques such as the Higgins Hand Expression technique, please refer to the resources section of the Consultation Services Guide that you received from services. When your milk first comes in, usually within 3 to 5 days after delivery, you may experience engorgement.?? Your breasts may become swollen and very tender.?? Cold compresses work great to help with discomfort and reduce swelling. It will get better in a couple of days.?? Continue to nurse your baby frequently.?? Call [facility]???s Consultation Service at [phone], press 1 to schedule an outpatient appointment or press 3 and a inside solar sales consultant will return your call that day or the next if you call after 3pm. Breast Care for Bottle Feeding Mothers: Engorgement may occur within the first week after delivery.?? Your breasts may become hard and verytender.?? A cool compress of cleaned raw green cabbage leaves applied to the breast and changed as leaves wilt has been proven helpful for many women.?? Ice packs or frozen bags of peas also work nicely to ease the discomfort.?? The soreness will only last a couple of days. Keep your back turned to the water while showering to decrease breast stimulation. Wear a snug fitting bra such as a sports bra. Incision Care Following Tubal or Section: You may shower as directed by your doctor or high school guidance counselor.?? Pat your incision dry with a clean towel.??You will not need a bandage after the first day. Call your doctor or high school guidance counselor with any signs of infection such as a hard, hot swollen tender incision, especially if the skin around the incision looks pink or red.?? Yellow drainage with an odor may also be a sign of infection to report. Call your doctor or high school guidance counselor if the incision begins to separate. If you have steri-strips on the incision, they will likely fall off in the first week.?? If they have not fallen off by 10 days after delivery, you may remove them. Control: Your doctor or high school guidance counselor will discuss control methods with you when you are discharged from thespital or at your checkup.?? Be sure to let your provider know if you are . You had a Paragard IUD placed on .?? This control method is effective for 10 years. You had a Liletta placed on .?? This control method is effective for up to 5 years. You had a Nexplanon placed on .?? This control method is effective for up to 3 years. You received a Depo Provera injection on .?? This control method is effective as longas you repeat it every 3 months.?? Schedule your next dose before . You have a prescription for control pills .?? It is important to take a pill everyday at around the same time of day for effective control protection.?? Pain Management: Cramping after is common and increases in strength with each baby you have.?? If you experience painful cramps, and have no allergies to acetaminophen (Tylenol) or ibuprofen (Motrin), you may continue to take these medications as you did in the hospital.?? Ibuprofen is also helpful with back aches following epidurals, perineal pain following a vaginal delivery, and moderate incisional pain after a section or a tubal ligation.?? If you experience gas distention, especially after surgery, you may take an over the counter medication called simethicone.?? Take these chewable tablets 4 times a day as needed and directed on the package.?? Keep moving.?? Walking or rocking in a chair, will help to move the gas along.?? Diego tea made with heated diego jennifer (instead of water) and a tea bag, stirred to dissolve carbonation (bubbles) is a helpful drink to soothe a gassy stomach. Warning Signs of a Problem to Notify Your Doctor or Air Conditioning Technician of: Heavy vaginal bleeding ??? which is soaking a pad every hour with bright red blood. Passing blood clots the size of an egg or larger. An incision that is not healing. A temperature greater than or equal to 100.4 especially if accompanied by any of the following symptoms ??? painful, frequent urination; extreme back or flank pain; lower belly pain with a foul smellto your vaginal flow; a red hard hot area on your breast.?? Severe headache that does not go away after taking acetaminophen or ibuprofen.?? A headache that changes your vision, including seeing spots or blurring. Right sided upper abdominal pain along the rib cage area. Pain in your legs that is warm and tender to the touch. depression signs may include ??? loss of interest in your baby, weepiness, difficulty focusing, weight loss with no appetite, exhaustion, feeling overwhelmed or anxious, feelings of despair, or thoughts of harming yourself or your baby.?? These symptoms are important and should be discussed with your doctor or high school guidance counselor. depression may develop over a period of time and needs prompt medical attention.?? Do not suffer in silence.?? In both the Becoming a Family booklet and [facility] there is a screening tool used to identify women at risk, called the Breckenridge Scale which you have taken in the office prior to delivery and again during your hospital s myles.?? Three to four weeks after your delivery, and before your check with your provider, take this test and share your results with your provider.?? Be sure to mention any score of 10 or more.?? Many women, and even some partners, may experience the ???baby blues?? .?? This is a state of feeling overwhelmed and weepy.?? Discomfort from childbirth, hormonal changes, exhaustion, changes to your body and lifestyle are a few of the things that contribute to the highs and lows new parents go through.?? Don???t be afraid to ask your partner or family and friends for some help at home so you can get some rest and a few minutes to yourself.?? The blues will quickly pass. Personal Safety: Every person has the right to feel safe at home and live free from physical or emotional harm.?? Ifyou have suffered mental or physical abuse at home, you are not alone.?? There is help.?? Please call HOTLINE or the [employer] at [phone]. CARE Bathing: Give your baby a sponge bath until the cord falls off in about 1-3 weeks.?? It is not necessary to bathe your baby every day, usually every few days is sufficient. ??Keep the cord area dry.?? Some baby girls will have a small bloody vaginal discharge. No need to worry as this is normal. It is not necessary to use lotions on the baby???s skin.?? Powders and oils are not recommended.?? Babies often get rash on their skin which comes and goes quickly and does not require any special care.?? Diaper rash can be treated with a zinc oxide preparation such as Desitin or Balmex diaper cream. Circumcision Care: Your nurse will teach you how to care for your baby???s circumcision depending on the type of circumcision your doctor or high school guidance counselor performed.?? Most circumcisions require A&D ointment for about 4-5 days.?? Be generous with the amount of A&D used as this will prevent the diaper from sticking when you go to change it. If a plastibell circumcision was done, the plastic ring around the penis will fall off in a week orso. Diapers: After the 1st??few days, the baby will start wetting more often.?? A breast fed baby will wet about6-8 times a day once mom???s milk comes in ??? usually day 4 or 5.?? This is a good sign that the baby is getting plenty to eat.?? You may notice an orangey-pink stain in the diaper which is normal for the first few days. The baby???s first bowel movements are sticky, black and tarry.?? As the baby starts to feed more often over the next couple of days, the stool will change to a seedy yellowish green color and eventually a loose mustard like stool for a breast fed baby and a more formed yellow stool for a bottle fed baby. your Baby: ??Congratulations on deciding to breastfeed your baby! You are providing your baby with the most nourishing food source on the planet, your breast milk.?? Cues such as rooting, suckling, licking and fussing may be telling you that your baby is ready to eat ??? and it is time to offer your breasts. The first weeks following the are a time for you and your baby to learn.?? The baby may be sleepy the first day after with 8 to 12 attempts ??? including 2 to 4 good feedings.?? Over the next couple of days the baby will become more wakeful, feed 8 to 12 times a day and have more wet and poopy diapers.?? Cluster feeding, especially during the evening/night time, is normal. ?? Listen for swallowing sounds and watch the baby as they become more relaxed at the breast ??? both good signs that the baby is getting a good amount of milk.?? Refrain from smoking or eating edible marijuana while you are . Even though marijuana is legal in the state of [place],??it is harmful for your baby.??It stays in breast milk for along period of time and THC can be found in the baby's urine for up to 3 weeks. Second hand smoke can also increase the risk??of Sudden Infant Syndrome / SIDS. ?? Nursing is wonderful but many moms and babies have some degree of difficulty with at first. Don???t give up!?? There are many resources available to help you overcome these temporary problems. Your cotton tipper wants to hear from you if you are having difficulties and can offermany helpful suggestions.?? Some offices have consultants on staff. [facility]???s Consultation Service is available 7 days a week, 8am to 3pm at [phone].?? Press 1 to schedule an outpatient appointment.?? Press 3 to leave a message for the rn lactation consultant, a inside solar sales consultant will return your call that day or the next if you call after 3pm. Support Groups ??? [facility] offers free gatherings for moms and babies weekly.?? All groups meet at the [facility]???s 2nd??floor, typically in the [facility] Conference Room, Monday???s 1 to 2 pm.?? [employer] is a worldwide organization with local community support, mother to mother support.?? Information can be found at https://www.lllusa.org Formula Feeding your Baby: Formula fed babies should eat every 3 to 4 hours.?? Look for cues that your baby is ready ??? such as rooting and sucking, licking and fussing.?? At the baby???s stomach is small and may take 10-15ml of formula.?? Over the next few days the baby will become more wakeful and feed more frequently, gradually increasing the amounts of formula taken at a feeding.?? Your cotton tipper will provideinstructions on how to increase the amount.?? Refer to packaging for formula preparation directions, depending on the type of formula you purchase ??? powder, concentrate or ready to feed. Safety: ALWAYS REMEMBER - BACK TO SLEEP! Babies sleep safest on their backs.?? Every sleep.?? Every time.?? Every nap. Babies need a firm sleep surface with a tight fitting bottom sheet.?? NO loose bedding.?? NO pillows.?? NO bumper pads or rolls.?? NO heavy or fluffy blankets. NO stuffed toys. It is not safe for your baby to sleep in your bed, in a chair, or on a sofa.?? Your baby should notsleep with you or anyone else. Car Seat: Always place your baby in a rear facing car seat in the backseat of the car. Car seat inserts that come with the car seat can be used as they are crash tested with the seat.?? You should not buy additional inserts.?? Dress the baby in a weather appropriate outfit.?? Avoid bulky clothing such as snowsuits or jackets as the baby may squirm in the seat, loosening the shoulder straps and come out of the top of the harness if you need to brake hard or are in an accident.?? Once the baby issecured in the seat you can cover your little one with a blanket if needed.?? If your baby was bornprematurely, follow the directions given to you.?? If you have not already done so, check to make sure your car seat is installed correctly. Check with your local Fire and Police Department to see if they offer car seat inspections at a location close to you. Babies Can Move: ?? Never leave your baby unattended on any surface, raised or flat, or while bathing.?? They can squirm, fall or hurt themselves.?? Always fasten the safety belt when using an infantseat or swing ??? as they may lean forward and fall. Good Handwashing is the number one way you can protect the baby from too?? many germs and prevent infection.?? When family and friends visit ask that they wash their hands before holding your baby.??Also avoid crowds the first month of your baby???s life to protect from colds and flus. Shaking a baby out of frustration can cause severe and lasting damage, even to a baby.?? If you feel you are becoming angry or overwhelmed, place the baby in a safe place and walk away.?? Call a friend or family member.?? If they are not able to offer immediate help call the Parental Stress Hotline at?? , an anonymous 13/02 source of help. Warning Signs to notify your cotton tipper of: Most babies develop a small amount of jaundice (a yellowish skin color) in the face and upper chest, by about 3 days of age.?? If the yellow color extends below the baby???s belly or if the baby is very sleepy and not feeding well, call your cotton tipper. A rectal temperature of 100.4F as it could be a sign of infection. Projectile vomiting that continues with each feeding could indicate reflux or a problem with the formula. Extreme sleepiness or very fussy. Cold symptoms with nasal stuffiness, especially if the baby is having difficulty feeding. Constipation with hard stools. Blue or dusky color, call 911. If Your Baby Needs to Remain in the Hospital: Please leave your baby???s ID bracelets on if your baby needs to remain in the hospital after you are discharged home. The phone number to NICU is [phone]. The phone number to [facility] is [phone]. The phone number to Jessy Miguel 2 is [phone]. moms should pump every 2-3 hours or 8-12 times in 24 hours.?? If unable to place the baby to breast, if you are having difficulty getting the baby to latch on, or if the baby remains inthe hospital after you are discharged ??? bring the pumped milk to the hospital, labeled with name,date and time.?? Carry it in a small cooler or diaper bag with an ice pack and bring it the next time you visit your baby.?? Consultation Services is available if you need to rent or purchase a pump or products.?? Call and leave a message at [phone] ??? press 3 and a inside solar sales consultant will return your call that day or the next if you call after 3pm. ? Patient Care team information Care Team Personnel Name: Evelyn Quezada RN Position: S OB RN Member Role: Primary Care Nurse Name: Sara Pradhan NP Position: Reference Physician Member Role: PCP Address: Address: [address] [place] [address]- Care Team Related Persons Name: NASIM MACHADO Address: Address: [address] [place] [address] Name: CLARK MACHADO Address: home [address] [address] Name: NYA DURAND Address: home [address] [place] [address] Name: KARSTEN GALLAGHER Address: home [address] [place] [address] Name: JACKY PÉREZ Address: home [address] [place] [address] Name: JACKY AMOR Address: home [address] [place] [address] Name: LITTLE ELIAS Address: [address] Address: home [address] [place] [address] Name: CARLITOS DIAZ
--- OUTSIDE RECORDS SUMMARY | 2024-04-22 14:15 | XMS_ITS | Continuity of Care Document ---
Author Organization [facility] Address [address] [place] [address]- Care Team Providers Care Lactation Consultant Name Role Phone Carolynn ORDONEZ, Sara Arita Primary Care Physician Encounter [facility] Date(s): 11/07/23 - 12/13/[address] [address] Attending Physician: Not on Staff, [...] 01/10/23 15:26:00 EDT, Route to Pharmacy Electronically, [facility]/pharmacy #[id number], Partial fill upon patient request if the [...] Personnel Name: Damien RN, Evelyn Anthony Position: [facility] OB RN Member Role: Primary Care Nurse Name: Vamshi Ford RN Position: S RN Member Role: Primary Care Nurse Name: Sara Pradhan NP Position: Reference Physician Member Role: PCP Address: Address: [address] [place] [address]- Care Team Related Persons Name: CLARK MACHADO Address: home [address] [address] Name: NYA DURAND Address: home [address] [place] [address] Name: KARSTEN GALLAGHER Address: home [address] [place] [address] Name: JACKY PÉREZ Address: home [address] [place] [address] Name: JACKY AMOR Address: home [address] [place] [address] Name: LITTLE ELIAS Address: [address] Address: [address] [place] [address] [place] Name: MARVIN ELIAS Address: [address] [place] [address] Name: MARVIN ELIAS Address: [address] Address: [address] [place] [address] [place] Name: CARLITOS DIAZ
--- OUTSIDE RECORDS SUMMARY | 2024-04-22 14:15 | XMS_ITS | Continuity of Care Document ---
Author Organization [facility] Address [address] [place] [address]- Care Team Providers Care Sill Worker Name Role Phone Carolynn ORDONEZ, Sara Arita Primary Care Physician Encounter [facility] Date(s): 07/11/23 - 08/10/[address] [address] Attending Physician: Admtr, Ar8 Allergies, Adverse [...] 01/10/23 15:26:00 EDT, Route to Pharmacy Electronically, [facility]/pharmacy #[id number], Partial fill upon patient request if the [...] Personnel Name: Damien ARREGUIN, Evelyn Anthony Position: [facility] OB RN Member Role: Primary Care Nurse Name: Vamshi Ford RN Position: S RN Member Role: Primary Care Nurse Name: Sara Pradhan NP Position: Reference Physician Member Role: PCP Address: Address: [address] [place] [address]- Care Team Related Persons Name: CLARK MACHADO Address: home [address] [address] Name: NYA DURAND Address: [address] [place] [address] Name: KARSTEN GALLAGHER Address: home [address] [place] [address] Name: JACKY PÉREZ Address: [address] [place] [address] Name: JACKY AMOR Address: [address] [place] [address] Name: LITTLE ELIAS Address: [address] Address: [address] [place] [address] [place] Name: MARVIN ELIAS Address: [address] [place] [address] Name: MARVIN ELIAS Address: [address] Address: [address] [place] [address] [place] Name: CARLITOS DIAZ
--- OUTSIDE RECORDS SUMMARY | 2024-04-22 14:15 | XMS_ITS | Continuity of Care Document ---
Author Organization [facility] Address [address] [place] [address]- Care Team Providers Care Patient Financial Counselor Name Role Phone Carolynn ORDONEZ, Sara Arita Primary Care Physician Encounter [facility] Date(s): 03/08/24 - 04/07/[address] [address] Allergies, Adverse [...] 01/10/23 15:26:00 EDT, Route to Pharmacy Electronically, [facility]/pharmacy #[id number], Partial fill upon patient request if the prescriptio... Start Date: 01/10/23 Status: Ordered famotidine 20 mg oral tablet 1, tablet, By Mouth, Daily at bedtime, # 90 tablet, Refills 0, Tot. Refills 0, Maintenance, 02/09/23 12:19:00 EDT, Route to Pharmacy Electronically, [facility]/pharmacy #[id number], 170, cm, 02/09/23 12:11:00 EDT, Height, [...] Personnel Name: Damien ARREGUIN, Evelyn Anthony Position: [facility] OB RN Member Role: Primary Care Nurse Name: Vamshi Ford RN Position: S RN Member Role: Primary Care Nurse Name: Sara Prahdan NP Position: Reference Physician Member Role: PCP Address: Address: [address] [place] [address]- Care Team Related Persons Name: CLARK MACHADO Address: home [address] [address] Name: NYA DURAND Address: [address] [place] [address] Name: STEVEN MALAVE Address: home [address] [place] [address] Name: KARSTEN GALLAGHER Address: [address] [place] [address] Name: JACKY PÉREZ Address: [address] [place] [address] Name: JACKY AMOR Address: [address] [place] [address] Name: LITTLE ELIAS Address: [address] Address: [address] [place] [address] [place] Name: MARVIN ELIAS Address: [address] Address: [address] [place] [address] Name: CARLITOS DIAZ
--- OUTSIDE RECORDS SUMMARY | 2024-04-22 14:15 | XMS_ITS | Continuity of Care Document ---
Author Organization [facility] Address [address] [place] [address]- Care Team Providers Care Oracle Manufacturing Consultant Name Role Phone Not on Staff, PCP Primary Care Physician Unavail able Encounter [facility] Date(s): 12/02/21 - 01/01/22 [facility] [address] [address] Allergies, Adverse Reactions, Alerts Substance [...] tablet, 0 Refills, Maintenance, 10/26/21 12:58:00 EDT, [facility]/pharmacy #[id number], Partial fill upon patient request if the prescription is for a schedule II opioid drug., 165, cm, 10/26/21 9:33:00 EDT, Height, 1... Start Date: 10/26/21 Status: Ordered ferrous sulfate 325 mg oral tablet 1 tablet, By Mouth, Daily, # 90 tablet, 0 Refills, [facility] STORE [id number], 165, cm, 12/02/21 16:29:00 EDT,Height, 144.2, kg, 11/01/21 10:32:00 EDT, Dry Weight Start Date: 12/06/21 Status: Ordered Plus Low Iron oral tablet 1 tablet, By Mouth, Daily, # 90 tablet, 2 Refills, [facility] [id number], 90, TAKE 1 TABLET BY MOUTH EVERY [...]
--- OUTSIDE RECORDS SUMMARY | 2024-04-22 14:15 | XMS_ITS | Continuity of Care Document ---
Author Organization [facility] Address [address] [place] [address]- Care Team Providers Care Auto Mechanic Apprentice Name Role Phone Not on Staff, PCP Primary Care Physician Unavail able Encounter [facility] Date(s): 08/09/21 - 08/09/[address] [address]- Discharge Disposition: A-D/C Home Attending Physician: Lenin Smith MD Admitting Physician: Lenin Smith MD Referring Physician: Not on Staff, Referring [...] Please checkblood sugars four times a day. [facility], schedule meter teaching., 06/07/21 9:48:00 EST,Supply, 168, cm, 04/27/21 12:54:00 EDT, Height, 1... Start Date: 06/07/21 Status: Ordered Alcohol Pads See Instructions, # 1 pack/packet, Refills 3, Tot. Refills 3, Maintenance, DX: 024.912 Please checkblood sugars four times a day. [facility], schedule meter teaching., 06/04/21 18:03:00 EST, Supply, 168, cm, 04/27/21 12:54:00 EDT, Height,... Start Date: 06/04/21 Status: Ordered aspirin 81 mg oral tablet, chewable 162 mg, 2, tablet, Chew, Daily, continue until 2 weeks , # 60 tablet, Refills 8, Tot. Refills 8, Maintenance, 04/27/21 13:24:00 EDT, Route to Pharmacy Electronically, [facility]/pharmacy #[id number], Partial fill upon patient request if the prescription... Start Date: 04/27/21 Stop Date: 01/22/22 Status: Ordered Clint Lyte glucometer Clint Lyte glucometer, See Instructions, # 1 each, Refills 3, Tot. Refills 3, Maintenance, DX: 024.912 Please check blood sugars four times a day. [facility], schedule meter teaching., 06/07/21 9:48:00 EST, Supply, 168, cm, 04/27/21 12:5... Start Date: 06/07/21 Status: Ordered Clint Lyte glucometer Clint Lyte glucometer, See Instructions, # 1 each, Refills 3, Tot. Refills 3, Maintenance, DX: 024.912 Please check blood sugars four times a day. [facility], schedule meter teaching., 06/04/21 18:03:00 EST, Supply, 168, cm, 04/27/21 12:... Start Date: 06/04/21 Status: Ordered Clint Lyte glucometer Clint Lyte glucometer, See Instructions, # 1 each, Refills 0, Tot. Refills 0, Maintenance, DX: 024.912 Please check blood sugars four times a day., 06/09/21 14:04:00 EST, Supply, 168, cm, 04/27/21 12:54:00 EDT, Height, 113.4, kg, 04/20/21 14:40:00... Start Date: 06/09/21 Status: Ordered Clint Lyte glucometer Clint Lyte glucometer, See Instructions, # 1 each, Refills 0, Tot. Refills 0, Maintenance, DX: 024.912 Please check blood sugars four times a day., 06/08/21 15:51:00 EST, Supply, 168, cm, 04/27/21 12:54:00 EDT, Height, 113.4, kg, 04/20/21 14:40:00... Start Date: 06/08/21 Status: Ordered Clint Lyte glucometer Clint Lyte glucometer, See Instructions, # 1 each, Refills 0, Tot. Refills 0, Maintenance, DX: 024.912 Please check blood sugars four times a day., 06/09/21 17:44:00 EST, Supply, 168, cm, 04/27/21 12:54:00 EDT, Height, 113.4, kg, 04/20/21 14:40:00... Start Date: 06/09/21 Status: Ordered Clint lyte lancets Clint lyte lancets, See Instructions, # 1 pack/packet, Refills 3, Tot. Refills 3, Maintenance, DX: 024.912 Please check blood sugars four times a day. [facility], schedule meter teaching.,06/07/21 9:48:00 EST, Supply, 168, cm, 04/27/21... Start Date: 06/07/21 Status: Ordered Clint lyte lancets Clint lyte lancets, See Instructions, # 1 pack/packet, Refills 3, Tot. Refills 3, Maintenance, DX: 024.912 Please check blood sugars four times a day. [facility], schedule meter teaching.,06/04/21 18:03:00 EST, Supply, 168, cm, 04/27/21... Start Date: 06/04/21 Status: Ordered Clint lyte lancets Clint lyte lancets, See Instructions, # 200 each, Refills 3, Tot. Refills 3, Maintenance, DX: 024.912 Please check blood sugars four times a day., 06/09/21 14:03:00 EST, Supply, 168, cm, 04/27/21 12:54:00 EDT, Height, 113.4, kg, 04/20/21 14:40:00... Start Date: 06/09/21 Status: Ordered Clint lyte lancets Clint lyte lancets, See Instructions, # 200 each, Refills 3, Tot. Refills 3, Maintenance, DX: 024.912 Please check blood sugars four times a day., 06/08/21 15:49:00 EST, Supply, 168, cm, 04/27/21 12:54:00 EDT, Height, 113.4, kg, 04/20/21 14:40:00... Start Date: 06/08/21 Status: Ordered Clint lyte lancets Clint lyte lancets, See Instructions, # 200 each, Refills 3, Tot. Refills 3, Maintenance, DX: 024.912 Please check blood sugars four times a day., 06/09/21 17:45:00 EST, Supply, 168, cm, 04/27/21 12:54:00 EDT, Height, 113.4, kg, 04/20/21 14:40:00... Start Date: 06/09/21 Status: Ordered Clint lyte test strips Clint lyte test strips, See Instructions, # 1 pack/packet, Refills 3, Tot. Refills 3, Maintenance, DX: 024.912 Please check blood sugars four times a day. [facility], schedule meter teaching., 06/07/21 9:48:00 EST, Supply, 168, cm, 04/27/... Start Date: 06/07/21 Status: Ordered Clint lyte test strips Clint lyte test strips, See Instructions, # 1 pack/packet, Refills 3, Tot. Refills 3, Maintenance, DX: 024.912 Please check blood sugars four times a day. [facility], schedule meter teaching., 06/04/21 18:04:00 EST, Supply, 168, cm, 04/27... Start Date: 06/04/21 Status: Ordered Clint lyte test strips Clint lyte test strips, See Instructions, # 200 each, Refills 3, Tot. Refills 3, Maintenance, DX:024.912 Please check blood sugars four times a day., 06/09/21 14:03:00 EST, Supply, 168, cm, 04/27/21 12:54:00 EDT, Height, 113.4, kg, 04/20/21 14:40:... Start Date: 06/09/21 Status: Ordered Clint lyte test strips Clint lyte test strips, See Instructions, # 200 each, Refills 3, Tot. Refills 3, Maintenance, DX:024.912 Please check blood sugars four times a day., 06/08/21 15:50:00 EST, Supply, 168, cm, 04/27/21 12:54:00 EDT, Height, 113.4, kg, 04/20/21 14:40:... Start Date: 06/08/21 Status: Ordered Clint lyte test strips Clint lyte test strips, See Instructions, # 200 [...] [Reference Range]: 1 Oxygen Saturation [94-100 %] 99 % (08/09/21 1:36 PM) Pulse Rate [55-90 bpm] 120 bpm *H* (08/09/21 1:36 PM) Blood Pressure [90-138/55-84 mm Hg] 139/ 85mm Hg *H* (08/09/21 1:36 PM) Respiratory Rate [16-30 br/min] 18 br/mi n (08/09/21 1:36 PM) Temperature [96.8-100.4 DegF] 98.6 DegF (08/09/21 1:36 PM) Mode of Delivery (Oxygen) Room air (08/09/21 1:36 PM) Temperature Route Oral (08/09/21 1:36 PM) Social History Social History Type Response Smoking Status Former smoker entered on: 04/27/14 Sex Female
--- OUTSIDE RECORDS SUMMARY | 2024-04-22 14:15 | XMS_ITS | Continuity of Care Document ---
Author Organization [facility] Address [address] [place] [address]- Care Team Providers Care Dipper And Drier Name Role Phone Carolynn ORDONEZ, Sara Arita Primary Care Physician [phone] Encounter [facility] Date(s): 10/26/22 - 11/25/[address] [address] Allergies, Adverse Reactions, Alerts Substance [...] 09/29/22 14:34:00 EST, Route to Pharmacy Electronically, [facility]/pharmacy #[id number], Partial fill upon patient requestif the prescription is for a schedule II opioid rosetta... Start Date: 09/29/22 Status: Ordered famotidine 20 mg oral tablet 1, tablet, By Mouth, Daily at bedtime, # 30 tablet, Refills 1, Maintenance, 09/23/22 13:46:00 EST, Route to Pharmacy Electronically, [facility] STORE 46119, 170, cm, 09/09/22 8:52:00 EST, Height, 143.2, [...] PATIENT, PLEASE COMPLETE METER TEACHING WITH PATIENT. LATVIAN SPEAKING, Supply,... Start Date: 11/25/22 Status: Ordered [...] 0Refills, Maintenance, 10/10/22 12:02:00 EDT, [facility], 170, cm, 09/29/22 11:15:00 EST, Height, 143.2, [...] Physician Member Role: PCP Address: Address: [address] [place] [address]- [place] Care Team Related Persons Name: MAGUI MACHADOO Address: home [address] [address] Name: NYA DURAND Address: home [address] [place] [address] Name: KARSTEN GALLAGHER Address: home [address] [place] [address] Name: JACKY PÉREZ Address: home [address] [place] [address] Name: JACKY AMOR Address: home [address] [place] [address] Name: LITTLE ELIAS Address: [address] Address: home [address] [place] [address] Name: CARLITOS DIAZ
--- OUTSIDE RECORDS SUMMARY | 2024-04-22 14:16 | XMS_ITS | Continuity of Care Document ---
Author Organization [facility] Address [address] [place] [address]- Care Team Providers Care Group Director Name Role Phone Carolynn ORDONEZ, Sara Arita Primary Care Physician Encounter [facility] Date(s): 07/29/22 - 09/04/[address] [address]- Attending Physician: Not on Staff, Attending MD [...] 09/08/22 17:18:00 EST, 09/01/22 17:18:00 EST, Capsule, [facility]/pharmacy #[id number], Partial fill upon patient [...] 0 Refills, Maintenance, 08/13/22 13:33:00 EST, Capsule, [facility]/pharmacy #[id number], Partial fill upon patient request if the prescription is for a schedule II opioid drug., 170,... Start Date: 08/13/22 Status: Ordered famotidine 20 mg oral tablet 1, tablet, By Mouth, Daily at bedtime, # 30 tablet, Refills 1, Maintenance, 08/28/22 16:08:00 EST, Route to Pharmacy Electronically, [facility] STORE 00360, 170, cm, 07/28/22 16:30:00 EST, Height, 143.2, [...] Stop, 08/23/22 22:06:00 EST, DIS Tablet, [facility], Partial fill upon patient request if the [...] Reference Physician Member Role: PCP Address: Address: [address] [place] [address] [facility] Care Team Related Persons Name: CLARK MACHADO Address: home [address] [address] Name: NYA DURAND Address: home [address] [place] [address] Name: KARSTEN GALLAGHER Address: home [address] [place], [place] Name: JACKY PÉREZ Address: home [address] [place], [place] Name: JACKY AMOR Address: [address] [place], [place] Name: LITTLE ELIAS Address: [address] Address: home [address] [place] [address] Name: CARLITOS DIAZ
--- OUTSIDE RECORDS SUMMARY | 2024-04-22 14:16 | XMS_ITS | Continuity of Care Document ---
Author Organization [facility] Address [address] [place] [address]- Care Team Providers Care Information Systems Security Specialist Name Role Phone Carolynn ORDONEZ, Sara Arita Primary Care Physician Encounter [facility] Date(s): 09/13/22 - 10/13/[address] [address]- Allergies, Adverse Reactions, Alerts Substance Reaction Severity [...] 09/29/22 14:34:00 EST, Route to Pharmacy Electronically, [facility]/pharmacy #[id number], Partial fill upon patient requestif the prescription is for a schedule II opioid rosetta... Start Date: 09/29/22 Status: Ordered Docu Soft sodium 100 mg oral capsule 1 capsule = 100 mg, By Mouth, 2 times a day, PRN for constipation, # 100 capsule, 0 Refills, Maintenance, 08/13/22 13:33:00 EST, Capsule, [facility]/pharmacy #[id number], Partial fill upon patient request if the prescription is for a schedule II opioid drug., 170,... Start Date: 08/13/22 Status: Ordered famotidine 20 mg oral tablet 1, tablet, By Mouth, Daily at bedtime, # 30 tablet, Refills 1, Maintenance, 09/23/22 13:46:00 EST, Route to Pharmacy Electronically, [facility] STORE 75220, 170, cm, 09/09/22 8:52:00 EST, Height, 143.2, [...] Refills, Maintenance, 09/09/22 9:19:00 EST, Cream, [facility], Partial fill upon patient request if the prescription is for a schedule II opioid drug., 1 application Vaginally Daily at bed... Start Date: 09/09/22 Status: Ordered ondansetron 4 mg oral tablet, disintegrating See Instructions, TAKE 1 TABLET BY MOUTH ONCE DAY NEEDED FOR NAUSEA AND VOMITING, # 10 tablet, 0Refills, Maintenance, 10/10/22 12:02:00 EDT, [facility], 170, cm, 09/29/22 11:15:00 EST, Height, 143.2, kg, 05/16/22 14:20:00 EDT, Dry Weight Start Date: 10/10/22 Status: Ordered Multivitamins with Folic Acid 1 mg oral tablet 1 tablet, By Mouth, Daily, # 90 tablet, 2 Refills, Maintenance, 05/10/22 18:35:00 EDT, Tablet, [facility]/pharmacy #[id number], Partial fill upon patient request if the prescription is for a schedule II opioid drug., 1 tablet By Mouth Daily, 170, cm, 01/21/22 21:0... Start Date: 05/10/22 Status: Ordered Vistaril pamoate 25 mg oral capsule 1 capsule = 25 mg, By Mouth, 4 times a day, PRN for anxiety, # 40 capsule, 0 Refills, Maintenance, 09/09/22 9:19:00 EST, Capsule, [facility]/pharmacy #4471, Partial fill upon patient request [...] Physician Member Role: PCP Address: Address: [address] [place] [address] Care Team Related Persons Name: CLARK MACHADO Address: home [address] [address] Name: NYA DURAND Address: [address] [place] [address] Name: KARSTEN GALLAGHER Address: home [address] [place] [address] Name: JACKY PÉREZ Address: [address] [place] [address] Name: JACKY AMOR Address: [address] [place] [address] Name: LITTLE ELIAS Address: [address] Address: home [address] [place] [address] Name: CARLITOS DIAZ
--- OUTSIDE RECORDS SUMMARY | 2024-04-22 14:16 | XMS_ITS | Continuity of Care Document ---
Author Organization [facility] Address [address] [place] [address]- Care Team Providers Care Stone Grader Name Role Phone Carolynn ORDONEZ, Sara Arita Primary Care Physician Encounter [facility] Date(s): 02/09/23 - 03/11/[address] [address] Allergies, Adverse Reactions, [...] 01/10/23 15:26:00 EDT, Route to Pharmacy Electronically, [facility]/pharmacy #[id number], Partial fill upon patient request if the [...] Team Personnel Name: Evelyn Quezada RN Position: [facility] OB RN Member Role: Primary Care Nurse Name: Vamshi Ford RN Position: S RN Member Role: Primary Care Nurse Name: Corine Yoder RN Position: S RN Member Role: Primary Care Nurse Name: Sara Pradhan NP Position: Reference Physician Member Role: PCP Address: Address: [address] [place] [id number] Care Team Related Persons Name: CLARK MACHADO Address: home [address] [address] Name: NYA DURAND Address: [address] [place] [address] Name: KARSTEN GALLAGHER Address: [address] [place] [address] Name: JACKY PÉREZ Address: [address] [place] [address] Name: JACKY AMOR Address: [address] [place] [address] Name: LITTLE ELIAS Address: [address] Address: [address] [place] [address] [place] Name: MARVIN ELIAS Address: [address] [place] [address] Name: MARVIN ELIAS Address: [address] Address: [address] [place] [address] [place] Name: CARLITOS DIAZ
--- OUTSIDE RECORDS SUMMARY | 2024-04-22 14:16 | XMS_ITS | Continuity of Care Document ---
Author Organization [facility] Address [address] [place] [address]- Care Team Providers Care Polysomnography Technologist Name Role Phone Carolynn ORDONEZ, Sara Arita Primary Care Physician [phone] Encounter [facility] Date(s): 01/19/24 - 02/25/[address] [address] Attending Physician: Not on [...] 01/10/23 15:26:00 EDT, Route to Pharmacy Electronically, [facility]/pharmacy #0810, Partial fill upon patient request if the [...] Refills, Maintenance, 11/02/22 18:45:00 EDT, [facility], [facility], Partial fill upon patient request if the [...] Team Personnel Name: Evelyn Quezada RN Position: [facility] OB RN Member Role: Primary Care Nurse Name: Vamshi Ford RN Position: S RN Member Role: Primary Care Nurse Name: Carolynn REGISTERED CLIENT ASSOCIATE, Sara Arita Position: Reference Physician Member Role: PCP Address: Address: [address] [place] [address]- Care Team Related Persons Name: CLARK MACHADO Address: home [address] [address] Name: NYA DURAND Address: [address] [place] [address] Name: STEVEN MALAVE Address: [address] [place] [address] Name: KARSTEN GALLAGHER Address: home [address] [place] [address] Name: JACKY PÉREZ Address: [address] [place], [place] Name: JACKY AMOR Address: [address] [place], [place] Name: LITTLE ELIAS Address: Address: [address] [place] [address] [place] Name: MARVIN ELIAS Address: [address] Address: [address] [place] [address] Name: CARLITOS DIAZ
--- OUTSIDE RECORDS SUMMARY | 2024-04-22 14:16 | XMS_ITS | Continuity of Care Document ---
Author Organization [facility] Address [address] [place] [address]- Care Team Providers Care Rag Sorter And Cutter Name Role Phone Carolynn ORDONEZ, Sara Arita Primary Care Physician [phone] [place] [facility] Date(s): 02/28/22 - 03/30/[address] [address] Attending Physician: Admtr, Ar8 Allergies, [...] tablet, 0 Refills, Maintenance, 10/26/21 12:58:00 EDT, [facility]/pharmacy #7102, Partial fill upon patient request if the prescription is for a schedule II opioid drug., 165, cm, 10/26/21 9:33:00 EDT, Height, 1... Start Date: 10/26/21 Status: Ordered ferrous sulfate 325 mg oral tablet 1 tablet, By Mouth, Daily, # 90 tablet, 0 Refills, [facility] STORE 62501, 165, cm, 12/02/21 16:29:00 EDT,Height, 144.2, kg, 11/01/21 10:32:00 EDT, Dry Weight Start Date: 12/06/21 Status: Ordered norethindrone 5 mg oral tablet 5 mg, 1, tablet, By Mouth, Daily, # 7 tablet, Refills 0, Tot. Refills 0, Maintenance, 01/21/22 22:46:00 EDT, Route to Pharmacy Electronically, [facility]/pharmacy #0793, Partial fill upon patient request ifthe prescription is for a schedule II opioid drug.,... Start Date: 01/21/22 Stop Date: 01/28/22 Status: Ordered Plus Low Iron oral tablet 1 tablet, By Mouth, Daily, # 90 tablet, 2 Refills, [facility] STORE 92747, 90, TAKE 1 TABLET BY MOUTH EVERY [...] Team Personnel Name: Sara Pradhan NP Address: [address] [place] [address]-
--- OUTSIDE RECORDS SUMMARY | 2024-04-22 14:16 | XMS_ITS | Continuity of Care Document ---
Author Organization [facility] Address [address] [place] [address]- Care Team Providers Care Sales Associate Cashier Name Role Phone Carolynn ORDONEZ, Sara Arita Primary Care Physician [phone] Encounter [facility] Date(s): 06/09/22 - 07/20/[address] [address] Attending Physician: Not on Staff, Attending MD Referring Physician: Leyla ORDONEZ CNLyla, Alina [...] VIS GIVEN Medications aspirin 81 mg oral delayed release tablet 162 mg, 2, tablet, By Mouth, Daily, # 30 tablet, Refills 5, Maintenance, 07/12/22 16:12:00 EST, Partial fill upon patient request if the prescription is for a schedule II opioid drug. Start Date: 07/12/22 Status: Ordered Multivitamins with Folic Acid 1 mg oral tablet 1 tablet, By Mouth, Daily, # 90 tablet, 2 Refills, Maintenance, 05/10/22 18:35:00 EDT, Tablet, [facility], Partial fill upon patient request if the prescription is for a schedule II opioid drug., 1 tablet By Mouth Daily, 170, cm, 01/21/22 21:0... Start Date: 05/10/22 Status: Ordered sertraline 25 mg oral tablet 1 tablet = 25 mg, By Mouth, Daily, # 30 tablet, 3 Refills, Maintenance, 07/05/22 16:15:00 EST, Tablet, [facility], Partial fill upon patient request if the [...] Physician Member Role: PCP Address: Address: [address] [place] [address]- Care Team Related Persons Name: CLARK MACHADO Address: home [address] [address] Name: NYA DURAND Address: [address] [place] [address] Name: KARSTEN GALLAGHER Address: home [address] [place] [address] Name: JACKY PÉREZ Address: [address] [place] [address] Name: JACKY AMOR Address: [address] [place] [address] Name: LITTLE ELIAS Address: [address] Address: [address] [place] [address] Name: CARLITOS DIAZ
--- OUTSIDE RECORDS SUMMARY | 2024-04-22 14:16 | XMS_ITS | Continuity of Care Document ---
Author Organization [facility] Address [address] [place] [address]- Care Team Providers Care Pediatrician Name Role Phone Sara Pradhan NP Primary Care Physician Encounter [facility] Date(s): 04/04/23 - 05/04/23 [facility] [address] [place] [address]- Attending Physician: Poli Matta Admitting Physician: Poli Matta Referring Physician: Poli Matta Allergies, Adverse Reactions, [...] EDT, Route to Pharmacy Electronically, [facility]/pharmacy #5155, Partial fill upon patient request if the [...] 12/27/22 14:38:00 EDT, Route to Pharmacy Electronically, [facility]/pharmacy #4471, Partial fill upon patient request if the prescription is for a schedule II... Start Date: 12/27/22 Stop Date: 06/25/23 Status: Ordered NIFEdipine 30 mg oral tablet, extended release 30 mg, 1, tablet, By Mouth, Every 24 hours, # 30 tablet, Refills 0, Tot. Refills 0, Maintenance, 02/09/23 10:43:00 EDT, Route to Pharmacy Electronically, [facility]/pharmacy #[id number], Partial fill upon patientrequest if the [...] Personnel Name: Damien ARREGUIN, Evelyn Anthony Position: [facility] OB RN Member Role: Primary Care Nurse Name: Vamshi Ford RN Position: S RN Member Role: Primary Care Nurse Name: Corine Yoder RN Position: S RN Member Role: Primary Care Nurse Name: Sara Pradhan NP Position: Reference Physician Member Role: PCP Address: Address: [address] [place] [address]- Care Team Related Persons Name: CLARK MACHADO Address: home [address] [address] Name: NYA DURAND Address: [address] [place] [address] Name: KARSTEN GALLAGHER Address: [address] [place] [address] Name: JACKY PÉREZ Address: [address] [place] [address] Name: JACKY AMOR Address: [address] [place] [address] Name: LITTLE ELIAS Address: [address] Address: [address] [place] [address] [place] Name: MARVIN ELIAS Address: [address] [place] [address] Name: MARVIN ELIAS Address: [address] Address: [address] [place] [address] [place] Name: CARLITOS DIAZ
--- OUTSIDE RECORDS SUMMARY | 2024-04-22 14:16 | XMS_ITS | Continuity of Care Document ---
Author Organization [facility] Address [address] [place] [address]- Care Team Providers Care Felled Seam Operator Name Role Phone Carolynn ORDONEZ, Sara Arita Primary Care Physician [phone] Encounter [place] Date(s): 12/06/22 - 02/19/[address] [address] Attending Physician: Not on Staff, [...] 01/10/23 15:26:00 EDT, Route to Pharmacy Electronically, [facility]/pharmacy #[id number], Partial fill upon patient request if the [...] 2 Refills, Maintenance, 05/10/22 18:35:00 EDT, Tablet, [facility]/pharmacy #[id number], Partial fill upon patient request [...] 0 Refills, Maintenance, 11/02/22 18:45:00 EDT, Capsule, [facility]/pharmacy #4471, Partial fill upon patient request [...] Team Personnel Name: Evelyn Quezada RN Position: [facility] OB RN Member Role: Primary Care Nurse Name: Vamshi Ford RN Position: S RN Member Role: Primary Care Nurse Name: Corine Yoder RN Position: S RN Member Role: Primary Care Nurse Name: Carolynn ORDONEZ, Sara Arita Position: Reference Physician Member Role: PCP Address: Address: [address] [place] [address]- Care Team Related Persons Name: CLARK MACHADO Address: home [address] [address] Name: NYA DURAND Address: [address] [place] [address] Name: KARSTEN GALLAGHER Address: [address] [place] [address] Name: JACKY PÉREZ Address: [address] [place] [address] Name: JACKY AMOR Address: [address] [place] [address] Name: LITTLE ELIAS Address: [address] Address: [address] [place] [address] [place] Name: MARVIN ELIAS Address: [address] Address: [address] [place] [address] [place] Name: MARVIN ELIAS Address: [address] [place] [address] Name: CARLITOS DIAZ
--- OUTSIDE RECORDS SUMMARY | 2024-04-22 14:16 | XMS_ITS | Continuity of Care Document ---
Author Organization [facility] Address [address] [place] [address]- Care Team Providers Care Wire Border Assembler Name Role Phone Not on Staff, PCP Primary Care Physician Unavail able Encounter [facility] Date(s): 08/18/21 - 11/21/[address] [address] Attending Physician: Not on [...] WITH BREAKFAST, # 30 tablet, 0 Refills, [facility] STORE 15787, 165, cm, 10/26/21 9:33:00 EDT, Height, 144.2, [...] 8 Refills, Maintenance, 03/09/21 15:40:00 EDT, Cecilia, [facility]/pharmacy #8291, Partial fill upon patient request if the [...]
--- OUTSIDE RECORDS SUMMARY | 2024-04-22 14:16 | XMS_ITS | Continuity of Care Document ---
Author Organization [facility] Address [address] [place] [address]- Care Team Providers Care Configuration Management Manager Name Role Phone Not on Staff, PCP Primary Care Physician Unavail able Encounter [facility] Date(s): 07/14/21 - 08/19/[address] [address] Attending Physician: Sly ORDONEZ, Belkis Admitting Physician: Sly ORDONEZ, Belkis Referring Physician: Sly ORDONEZ, Belkis Allergies, Adverse [...] Please checkblood sugars four times a day. [facility], schedule meter teaching., 06/07/21 9:48:00 EST,Supply, 168, cm, 04/27/21 12:54:00 EDT, Height, 1... Start Date: 06/07/21 Status: Ordered Alcohol Pads See Instructions, # 1 pack/packet, Refills 3, Tot. Refills 3, Maintenance, DX: 024.912 Please checkblood sugars four times a day. [facility], schedule meter teaching., 06/04/21 18:03:00 EST, Supply, 168, cm, 04/27/21 12:54:00 EDT, Height,... Start Date: 06/04/21 Status: Ordered aspirin 81 mg oral tablet, chewable 162 mg, 2, tablet, Chew, Daily, continue until 2 weeks , # 60 tablet, Refills 8, Tot. Refills 8, Maintenance, 04/27/21 13:24:00 EDT, Route to Pharmacy Electronically, [facility]/pharmacy #4504, Partial fill upon patient request if the prescription... Start Date: 04/27/21 Stop Date: 01/22/22 Status: Ordered Seminole Lyte glucometer Seminole Lyte glucometer, See Instructions, # 1 each, Refills 3, Tot. Refills 3, Maintenance, DX: 024.912 Please check blood sugars four times a day. [facility], schedule meter teaching., 06/07/21 9:48:00 EST, Supply, 168, cm, 04/27/21 12:5... Start Date: 06/07/21 Status: Ordered Seminole Lyte glucometer Seminole Lyte glucometer, See Instructions, # 1 each, Refills 3, Tot. Refills 3, Maintenance, DX: 024.912 Please check blood sugars four times a day. [facility], schedule meter teaching., 06/04/21 18:03:00 EST, Supply, 168, cm, 04/27/21 12:... Start Date: 06/04/21 Status: Ordered Seminole Lyte glucometer Seminole Lyte glucometer, See Instructions, # 1 each, Refills 0, Tot. Refills 0, Maintenance, DX: 024.912 Please check blood sugars four times a day., 06/09/21 14:04:00 EST, Supply, 168, cm, 04/27/21 12:54:00 EDT, Height, 113.4, kg, 04/20/21 14:40:00... Start Date: 06/09/21 Status: Ordered Seminole Lyte glucometer Seminole Lyte glucometer, See Instructions, # 1 each, Refills 0, Tot. Refills 0, Maintenance, DX: 024.912 Please check blood sugars four times a day., 06/08/21 15:51:00 EST, Supply, 168, cm, 04/27/21 12:54:00 EDT, Height, 113.4, kg, 04/20/21 14:40:00... Start Date: 06/08/21 Status: Ordered Seminole Lyte glucometer Seminole Lyte glucometer, See Instructions, # 1 each, Refills 0, Tot. Refills 0, Maintenance, DX: 024.912 Please check blood sugars four times a day., 06/09/21 17:44:00 EST, Supply, 168, cm, 04/27/21 12:54:00 EDT, Height, 113.4, kg, 04/20/21 14:40:00... Start Date: 06/09/21 Status: Ordered Seminole lyte lancets Seminole lyte lancets, See Instructions, # 1 pack/packet, Refills 3, Tot. Refills 3, Maintenance, DX: 024.912 Please check blood sugars four times a day. [facility], schedule meter teaching.,06/07/21 9:48:00 EST, Supply, 168, cm, 04/27/21... Start Date: 06/07/21 Status: Ordered Seminole lyte lancets Seminole lyte lancets, See Instructions, # 1 pack/packet, Refills 3, Tot. Refills 3, Maintenance, DX: 024.912 Please check blood sugars four times a day. [facility], schedule meter teaching.,06/04/21 18:03:00 EST, Supply, 168, cm, 04/27/21... Start Date: 06/04/21 Status: Ordered Seminole lyte lancets Seminole lyte lancets, See Instructions, # 200 each, Refills 3, Tot. Refills 3, Maintenance, DX: 024.912 Please check blood sugars four times a day., 06/09/21 14:03:00 EST, Supply, 168, cm, 04/27/21 12:54:00 EDT, Height, 113.4, kg, 04/20/21 14:40:00... Start Date: 06/09/21 Status: Ordered Seminole lyte lancets Seminole lyte lancets, See Instructions, # 200 each, Refills 3, Tot. Refills 3, Maintenance, DX: 024.912 Please check blood sugars four times a day., 06/08/21 15:49:00 EST, Supply, 168, cm, 04/27/21 12:54:00 EDT, Height, 113.4, kg, 04/20/21 14:40:00... Start Date: 06/08/21 Status: Ordered Seminole lyte lancets Seminole lyte lancets, See Instructions, # 200 each, Refills 3, Tot. Refills 3, Maintenance, DX: 024.912 Please check blood sugars four times a day., 06/09/21 17:45:00 EST, Supply, 168, cm, 04/27/21 12:54:00 EDT, Height, 113.4, kg, 04/20/21 14:40:00... Start Date: 06/09/21 Status: Ordered Seminole lyte test strips Seminole lyte test strips, See Instructions, # 1 pack/packet, Refills 3, Tot. Refills 3, Maintenance, DX: 024.912 Please check blood sugars four times a day. [facility], schedule meter teaching., 06/07/21 9:48:00 EST, Supply, 168, cm, 04/27/... Start Date: 06/07/21 Status: Ordered Seminole lyte test strips Seminole lyte test strips, See Instructions, # 1 pack/packet, Refills 3, Tot. Refills 3, Maintenance, DX: 024.912 Please check blood sugars four times a day. [facility], schedule meter teaching., 06/04/21 18:04:00 EST, Supply, 168, cm, 04/27... Start Date: 06/04/21 Status: Ordered Seminole lyte test strips Seminole lyte test strips, See Instructions, # 200 each, Refills 3, Tot. Refills 3, Maintenance, DX:024.912 Please check blood sugars four times a day., 06/09/21 14:03:00 EST, Supply, 168, cm, 04/27/21 12:54:00 EDT, Height, 113.4, kg, 04/20/21 14:40:... Start Date: 06/09/21 Status: Ordered Seminole lyte test strips Seminole lyte test strips, See Instructions, # 200 each, Refills 3, Tot. Refills 3, Maintenance, DX:024.912 Please check blood sugars four times a day., 06/08/21 15:50:00 EST, Supply, 168, cm, 04/27/21 12:54:00 EDT, Height, 113.4, kg, 04/20/21 14:40:... Start Date: 06/08/21 Status: Ordered Seminole lyte test strips Seminole lyte test strips, See Instructions, # 200 [...]
--- OUTSIDE RECORDS SUMMARY | 2024-04-22 14:16 | XMS_ITS | Continuity of Care Document ---
Author Organization [facility] Address [address] [place] [address]- Care Team Providers Care Environmental Emergencies Planner Name Role Phone Carolynn ORDONEZ, Sara Arita Primary Care Physician [place] [facility] [place] 05/17/22 - 06/18/[address] [address] Attending Physician: Not on [...] Refills, Maintenance, 05/10/22 18:35:00 EDT, Tablet, [id number], Partial fill upon patient request if the [...] Physician Member Role: PCP Address: Address: [address] [place] [address]- Care Team Related Persons Name: CLARK MACHADO Address: home [address] [address] Name: NYA DURAND Address: home [address] [place] [address] Name: KARSTEN GALLAGHER Address: home [address] [place] [address] Name: JACKY PÉREZ Address: home [address] [place] [address] Name: JACKY AMOR Address: home [address] [place] [address] Name: LITTLE ELIAS Address: [address] Address: home [address] [place] [address] Name: CARLITOS DIAZ
--- OUTSIDE RECORDS SUMMARY | 2024-04-22 14:16 | XMS_ITS | Continuity of Care Document ---
Author Organization [facility] Address [address] [place] [address]- Care Team Providers Care Buckle Assembler Name Role Phone Not on Staff, PCP Primary Care Physician Unavail able Encounter [facility] [place] Date(s): 08/11/21 - 09/10/[address] [address] Allergies, Adverse Reactions, Alerts Substance Reaction Severity [...] Please checkblood sugars four times a day. [facility], schedule meter teaching., 06/07/21 9:48:00 EST,Supply, 168, cm, 04/27/21 12:54:00 EDT, Height, 1... Start Date: 06/07/21 Status: Ordered Alcohol Pads See Instructions, # 1 pack/packet, Refills 3, Tot. Refills 3, Maintenance, DX: 024.912 Please checkblood sugars four times a day. [facility], schedule meter teaching., 06/04/21 18:03:00 EST, Supply, 168, cm, 04/27/21 12:54:00 EDT, Height,... Start Date: 06/04/21 Status: Ordered aspirin 81 mg oral tablet, chewable 162 mg, 2, tablet, Chew, Daily, continue until 2 weeks , # 60 tablet, Refills 8, Tot. Refills 8, Maintenance, 04/27/21 13:24:00 EDT, [id number] Partial fill upon patient request if the prescription... Start Date: 04/27/21 Stop Date: 01/22/22 Status: Ordered famotidine 10 mg oral tablet 1 tablet = 10 mg, By Mouth, 2 times a day, # 180 tablet, 0 Refills, Maintenance, 09/09/21 18:50:00 EST, Tablet, [facility] #[id number], Partial fill upon patient request if the prescription is for a schedule II opioid drug., 168, cm, 09/09/21 14:57:00 EST... Start Date: 09/09/21 Status: Ordered ferrous sulfate 325 mg oral tablet 1 tablet = 325 mg, By Mouth, Daily, # 90 tablet, 0 Refills, Maintenance, 09/09/21 15:28:00 EST, Tablet, [id number] Partial fill upon patient request if the prescription is for a schedule II opioid drug., 168, cm, 09/09/21 14:57:00 EST, Height... Start Date: 09/09/21 Status: Ordered Dallas Lyte glucometer Dallas Lyte glucometer, See Instructions, # 1 each, Refills 3, Tot. Refills 3, Maintenance, DX: 024.912 Please check blood sugars four times a day. [facility], schedule meter teaching., 06/07/21 9:48:00 EST, Supply, 168, cm, 04/27/21 12:5... Start Date: 06/07/21 Status: Ordered Dallas Lyte glucometer Dallas Lyte glucometer, See Instructions, # 1 each, Refills 3, Tot. Refills 3, Maintenance, DX: 024.912 Please check blood sugars four times a day. [facility], schedule meter teaching., 06/04/21 18:03:00 EST, Supply, 168, cm, 04/27/21 12:... Start Date: 06/04/21 Status: Ordered Dallas Lyte glucometer Dallas Lyte glucometer, See Instructions, # 1 each, Refills 0, Tot. Refills 0, Maintenance, DX: 024.912 Please check blood sugars four times a day., 06/09/21 14:04:00 EST, Supply, 168, cm, 04/27/21 12:54:00 EDT, Height, 113.4, kg, 04/20/21 14:40:00... Start Date: 06/09/21 Status: Ordered Dallas Lyte glucometer Dallas Lyte glucometer, See Instructions, # 1 each, Refills 0, Tot. Refills 0, Maintenance, DX: 024.912 Please check blood sugars four times a day., 06/08/21 15:51:00 EST, Supply, 168, cm, 04/27/21 12:54:00 EDT, Height, 113.4, kg, 04/20/21 14:40:00... Start Date: 06/08/21 Status: Ordered Dallas Lyte glucometer Dallas Lyte glucometer, See Instructions, # 1 each, Refills 0, Tot. Refills 0, Maintenance, DX: 024.912 Please check blood sugars four times a day., 06/09/21 17:44:00 EST, Supply, 168, cm, 04/27/21 12:54:00 EDT, Height, 113.4, kg, 04/20/21 14:40:00... Start Date: 06/09/21 Status: Ordered Dallas lyte lancets Dallas lyte lancets, See Instructions, # 1 pack/packet, Refills 3, Tot. Refills 3, Maintenance, DX: 024.912 Please check blood sugars four times a day. [facility], schedule meter teaching.,06/07/21 9:48:00 EST, Supply, 168, cm, 04/27/21... Start Date: 06/07/21 Status: Ordered Dallas lyte lancets Dallas lyte lancets, See Instructions, # 1 pack/packet, Refills 3, Tot. Refills 3, Maintenance, DX: 024.912 Please check blood sugars four times a day. [facility], schedule meter teaching.,06/04/21 18:03:00 EST, Supply, 168, cm, 04/27/21... Start Date: 06/04/21 Status: Ordered Dallas lyte lancets Dallas lyte lancets, See Instructions, # 200 each, Refills 3, Tot. Refills 3, Maintenance, DX: 024.912 Please check blood sugars four times a day., 06/09/21 14:03:00 EST, Supply, 168, cm, 04/27/21 12:54:00 EDT, Height, 113.4, kg, 04/20/21 14:40:00... Start Date: 06/09/21 Status: Ordered Dallas lyte lancets Dallas lyte lancets, See Instructions, # 200 each, Refills 3, Tot. Refills 3, Maintenance, DX: 024.912 Please check blood sugars four times a day., 06/08/21 15:49:00 EST, Supply, 168, cm, 04/27/21 12:54:00 EDT, Height, 113.4, kg, 04/20/21 14:40:00... Start Date: 06/08/21 Status: Ordered Dallas lyte lancets Dallas lyte lancets, See Instructions, # 200 each, Refills 3, Tot. Refills 3, Maintenance, DX: 024.912 Please check blood sugars four times a day., 06/09/21 17:45:00 EST, Supply, 168, cm, 04/27/21 12:54:00 EDT, Height, 113.4, kg, 04/20/21 14:40:00... Start Date: 06/09/21 Status: Ordered Dallas lyte test strips Dallas lyte test strips, See Instructions, # 1 pack/packet, Refills 3, Tot. Refills 3, Maintenance, DX: 024.912 Please check blood sugars four times a day. [facility], schedule meter teaching., 06/07/21 9:48:00 EST, Supply, 168, cm, 04/27/... Start Date: 06/07/21 Status: Ordered Dallas lyte test strips Dallas lyte test strips, See Instructions, # 1 pack/packet, Refills 3, Tot. Refills 3, Maintenance, DX: 024.912 Please check blood sugars four times a day. [facility], schedule meter teaching., 06/04/21 18:04:00 EST, Supply, 168, cm, 04/27... Start Date: 06/04/21 Status: Ordered Dallas lyte test strips Dallas lyte test strips, See Instructions, # 200 each, Refills 3, Tot. Refills 3, Maintenance, DX:024.912 Please check blood sugars four times a day., 06/09/21 14:03:00 EST, Supply, 168, cm, 04/27/21 12:54:00 EDT, Height, 113.4, kg, 04/20/21 14:40:... Start Date: 06/09/21 Status: Ordered Dallas lyte test strips Dallas lyte test strips, See Instructions, # 200 each, Refills 3, Tot. Refills 3, Maintenance, DX:024.912 Please check blood sugars four times a day., 06/08/21 15:50:00 EST, Supply, 168, cm, 04/27/21 12:54:00 EDT, Height, 113.4, kg, 04/20/21 14:40:... Start Date: 06/08/21 Status: Ordered Dallas lyte test strips Dallas lyte test strips, See Instructions, # 200 [...] tablet, 3 Refills, Maintenance, 09/09/21 15:40:00 EST, [facility]/pharmacy #[id number], Partial fill upon patient request if the prescription is for a schedule II opioid drug., 168, cm, 09/09/21 14:57:00 EST, Height, 149.7,... Start Date: 09/09/21 Status: Ordered Multivitamins with Folic Acid 1 mg oral tablet 1 tablet, By Mouth, Daily, # 30 tablet, 8 Refills, Maintenance, 03/09/21 15:40:00 EDT, Tablet, [facility]/pharmacy #[id number], Partial fill upon patient [...]
--- OUTSIDE RECORDS SUMMARY | 2024-04-22 14:16 | XMS_ITS | Continuity of Care Document ---
Author Organization [facility] Jessy Davis Address [address] [place] [address]- Care Team Providers Care Math Teacher Name Role Phone Not on Staff, PCP Primary Care Physician Unavail able [place] [facility] [place] 10[place] [facility] [address] [place], [place] [address] Allergies, Adverse Reactions, Alerts Substance [...] Please checkblood sugars four times a day. [facility], schedule meter teaching., 06/07/21 9:48:00 EST,Supply, 168, cm, 04/27/21 12:54:00 EDT, Height, 1... Start Date: 06/07/21 Status: Ordered Alcohol Pads See Instructions, # 1 pack/packet, Refills 3, Tot. Refills 3, Maintenance, DX: 024.912 Please checkblood sugars four times a day. [facility], schedule meter teaching., 06/04/21 18:03:00 EST, Supply, 168, cm, 04/27/21 12:54:00 EDT, Height,... Start Date: 06/04/21 Status: Ordered aspirin 81 mg oral tablet, chewable 162 mg, 2, tablet, Chew, Daily, continue until 2 weeks , # 60 tablet, Refills 8, Tot. Refills 8, Maintenance, 04/27/21 13:24:00 EDT, [id number] Partial fill upon patient request if the prescription... Start Date: 04/27/21 Stop Date: 01/22/22 Status: Ordered famotidine 10 mg oral tablet 1 tablet = 10 mg, By Mouth, 2 times a day, # 180 tablet, 0 Refills, Maintenance, 09/09/21 18:50:00 EST, Tablet, [facility]/pharmacy #[id number], Partial fill upon patient request if the prescription is for a schedule II opioid drug., 168, cm, 09/09/21 14:57:00 EST... Start Date: 09/09/21 Status: Ordered ferrous sulfate 325 mg oral tablet 1 tablet = 325 mg, By Mouth, Daily, # 90 tablet, 0 Refills, Maintenance, 09/09/21 15:28:00 EST, Tablet, [id number] Partial fill upon patient request if the prescription is for a schedule II opioid drug., 168, cm, 09/09/21 14:57:00 EST, Height... Start Date: 09/09/21 Status: Ordered Wimberley Lyte glucometer Wimberley Lyte glucometer, See Instructions, # 1 each, Refills 3, Tot. Refills 3, Maintenance, DX: 024.912 Please check blood sugars four times a day. [facility], schedule meter teaching., 06/07/21 9:48:00 EST, Supply, 168, cm, 04/27/21 12:5... Start Date: 06/07/21 Status: Ordered Wimberley Lyte glucometer Wimberley Lyte glucometer, See Instructions, # 1 each, Refills 3, Tot. Refills 3, Maintenance, DX: 024.912 Please check blood sugars four times a day. [facility], schedule meter teaching., 06/04/21 18:03:00 EST, Supply, 168, cm, 04/27/21 12:... Start Date: 06/04/21 Status: Ordered Wimberley Lyte glucometer Wimberley Lyte glucometer, See Instructions, # 1 each, Refills 0, Tot. Refills 0, Maintenance, DX: 024.912 Please check blood sugars four times a day., 06/09/21 14:04:00 EST, Supply, 168, cm, 04/27/21 12:54:00 EDT, Height, 113.4, kg, 04/20/21 14:40:00... Start Date: 06/09/21 Status: Ordered Wimberley Lyte glucometer Wimberley Lyte glucometer, See Instructions, # 1 each, Refills 0, Tot. Refills 0, Maintenance, DX: 024.912 Please check blood sugars four times a day., 06/08/21 15:51:00 EST, Supply, 168, cm, 04/27/21 12:54:00 EDT, Height, 113.4, kg, 04/20/21 14:40:00... Start Date: 06/08/21 Status: Ordered Wimberley Lyte glucometer Wimberley Lyte glucometer, See Instructions, # 1 each, Refills 0, Tot. Refills 0, Maintenance, DX: 024.912 Please check blood sugars four times a day., 06/09/21 17:44:00 EST, Supply, 168, cm, 04/27/21 12:54:00 EDT, Height, 113.4, kg, 04/20/21 14:40:00... Start Date: 06/09/21 Status: Ordered Wimberley lyte lancets Wimberley lyte lancets, See Instructions, # 1 pack/packet, Refills 3, Tot. Refills 3, Maintenance, DX: 024.912 Please check blood sugars four times a day. [facility], schedule meter teaching.,06/07/21 9:48:00 EST, Supply, 168, cm, 04/27/21... Start Date: 06/07/21 Status: Ordered Wimberley lyte lancets Wimberley lyte lancets, See Instructions, # 1 pack/packet, Refills 3, Tot. Refills 3, Maintenance, DX: 024.912 Please check blood sugars four times a day. [facility], schedule meter teaching.,06/04/21 18:03:00 EST, Supply, 168, cm, 04/27/21... Start Date: 06/04/21 Status: Ordered Wimberley lyte lancets Wimberley lyte lancets, See Instructions, # 200 each, Refills 3, Tot. Refills 3, Maintenance, DX: 024.912 Please check blood sugars four times a day., 06/09/21 14:03:00 EST, Supply, 168, cm, 04/27/21 12:54:00 EDT, Height, 113.4, kg, 04/20/21 14:40:00... Start Date: 06/09/21 Status: Ordered Wimberley lyte lancets Wimberley lyte lancets, See Instructions, # 200 each, Refills 3, Tot. Refills 3, Maintenance, DX: 024.912 Please check blood sugars four times a day., 06/08/21 15:49:00 EST, Supply, 168, cm, 04/27/21 12:54:00 EDT, Height, 113.4, kg, 04/20/21 14:40:00... Start Date: 06/08/21 Status: Ordered Wimberley lyte lancets Wimberley lyte lancets, See Instructions, # 200 each, Refills 3, Tot. Refills 3, Maintenance, DX: 024.912 Please check blood sugars four times a day., 06/09/21 17:45:00 EST, Supply, 168, cm, 04/27/21 12:54:00 EDT, Height, 113.4, kg, 04/20/21 14:40:00... Start Date: 06/09/21 Status: Ordered Wimberley lyte test strips Wimberley lyte test strips, See Instructions, # 1 pack/packet, Refills 3, Tot. Refills 3, Maintenance, DX: 024.912 Please check blood sugars four times a day. [facility], schedule meter teaching., 06/07/21 9:48:00 EST, Supply, 168, cm, 04/27/... Start Date: 06/07/21 Status: Ordered Wimberley lyte test strips Wimberley lyte test strips, See Instructions, # 1 pack/packet, Refills 3, Tot. Refills 3, Maintenance, DX: 024.912 Please check blood sugars four times a day. [facility], schedule meter teaching., 06/04/21 18:04:00 EST, Supply, 168, cm, 04/27... Start Date: 06/04/21 Status: Ordered Wimberley lyte test strips Wimberley lyte test strips, See Instructions, # 200 each, Refills 3, Tot. Refills 3, Maintenance, DX:024.912 Please check blood sugars four times a day., 06/09/21 14:03:00 EST, Supply, 168, cm, 04/27/21 12:54:00 EDT, Height, 113.4, kg, 04/20/21 14:40:... Start Date: 06/09/21 Status: Ordered Wimberley lyte test strips Wimberley lyte test strips, See Instructions, # 200 each, Refills 3, Tot. Refills 3, Maintenance, DX:024.912 Please check blood sugars four times a day., 06/08/21 15:50:00 EST, Supply, 168, cm, 04/27/21 12:54:00 EDT, Height, 113.4, kg, 04/20/21 14:40:... Start Date: 06/08/21 Status: Ordered Wimberley lyte test strips Wimberley lyte test strips, See Instructions, # 200 [...] tablet, 3 Refills, Maintenance, 09/09/21 15:40:00 EST, [facility]acy #[id number], Partial fill upon patient request [...]
--- OUTSIDE RECORDS SUMMARY | 2024-04-22 14:16 | XMS_ITS | Continuity of Care Document ---
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 Start Date: 09/09/21 Status: Ordered Flexeril 10 mg oral tablet 10 mg, Tablet, By Mouth, Once, Routine, 10/26/21 14:00:00 EDT, Stop date 10/26/21 14:00:00 EDT Start Date: 10/26/21 Stop Date: 10/26/21 Status: Completed magnesium oxide 400 mg oral tablet 1 [...] oldest [Reference Range]: 1 2 3 Height 165 cm (10/26/21 9:10 AM) 165 cm (10/26/21 12:30 AM) 165 cm (10/25/21 4:40 PM) Weight 152 kg (10/23/21 10:49 PM) 152 kg (10/23/21 8:27 PM) Oxygen Saturation [94-100 %] 100 % (10/26/21 1:50 PM) 99 % (10/26/21 12:30 AM) 100 % (10/24/21 5:15 PM) Pulse Rate [55-90 bpm] 90 bpm (10/26/21 1:50 PM) 79 bpm (10/26/21 9:10 AM) 87 bpm (10/26/21 12:30 AM) Body Mass Index [18.5-24.99] 55.83 *>HHI* (10/23/21 8:27 PM) Blood Pressure [90-138/55-84 mm Hg] 132/72mm Hg (10/26/21 1:50 PM) 126/59mm Hg (10/26/21 9:10 AM) 131/65mm Hg (10/26/21 12:30 AM) Respiratory Rate [16-30 br/min] 18 br/min (10/26/21 1:50 PM) 18 br/min (10/26/21 9:10 AM) 20 br/min (10/26/21 12:30 AM) Temperature [96.8-100.4 DegF] 97.7 DegF (10/26/21 9:10 AM) 98.0 DegF (10/26/21 12:30 AM) 97.7 DegF (10/25/21 4:40 PM) Mode of Delivery (Oxygen) Room air (10/26/21 12:30 AM) Blood pressure sites Arm, right (10/26/21 1:50 PM) Arm, right (10/26/21 11:46 AM) Arm, right (10/25/21 4:40 PM) Temperature Route Oral (4/5/22 9:10 AM) Oral (10/26/21 12:30 AM) Axillary (10/25/21 4:40 PM) Dry Weight 152 kg (10/23/21 8:27 PM) Social History Social History Type Response Smoking Status Former smoker entered on: 04/27/14 Sex Female
--- OUTSIDE RECORDS SUMMARY | 2024-04-22 14:16 | XMS_ITS | Continuity of Care Document ---
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
--- OUTSIDE RECORDS SUMMARY | 2024-04-22 14:16 | XMS_ITS | Continuity of Care Document ---
Author Organization [facility] Address [address] [place] [address]- Care Team Providers Care Sand Filler Name Role Phone Carolynn ORDONEZ, Sara Arita Primary Care Physician [phone] [place] [facility] [place] - 08/27/[address] [address]- Attending Physician: Not on Staff, Attending MD [...] 0 Refills, Maintenance, 08/13/22 13:33:00 EST, Capsule, [facility] #[id number], Partial fill upon patient request if the prescription is for a schedule II opioid drug., 170,... Start Date: 08/13/22 Status: Ordered famotidine 20 mg oral tablet 20 mg, 1, tablet, By Mouth, Daily at bedtime, # 30 tablet, Refills 1, Tot. Refills 1, Maintenance, 07/28/22 16:45:00 EST, Route to Pharmacy Electronically, [facility] #[id number], Partial fill upon patient request if [...] Soft Stop, 08/23/22 22:06:00 EST, DIS Tablet, [facility]/pharmacy #[id number], Partial fill upon patient request if [...] Reference Physician Member Role: PCP Address: Address: [address] [place] [address]- Care Team Related Persons Name: CLARK MACHADO Address: home [address] [address] Name: NAY DURAND Address: home [address] [place] [address] Name: KARSTEN GALLAGHER Address: home [address] [place] [address] Name: JACKY PÉREZ Address: home [address] [place] [address] Name: JACKY AMOR Address: home [address] [place] [address] Name: LITTLE ELIAS Address: [address] Address: home [address] [place] [address] Name: CARLITOS DIAZ
--- OUTSIDE RECORDS SUMMARY | 2024-04-22 14:17 | XMS_ITS | Continuity of Care Document ---
Author Organization [facility] Address [address] [place] [address]- Care Team Providers Care Securities Adviser Name Role Phone Carolynn ORDONEZ, Sara Arita Primary Care Physician Encounter [facility] [place] Date(s): 07/05/22 - 08/25/[address] [address]- Attending Physician: Not on Staff, Attending MD [...] 0 Refills, Maintenance, 08/13/22 13:33:00 EST, Capsule, [facility]/pharmacy #[id number], Partial fill upon patient request if the prescription is for a schedule II opioid drug., 170,... Start Date: 08/13/22 Status: Ordered famotidine 20 mg oral tablet 20 mg, 1, tablet, By Mouth, Daily at bedtime, # 30 tablet, Refills 1, Tot. Refills 1, Maintenance, 07/28/22 16:45:00 EST, Route to Pharmacy Electronically, [facility]/pharmacy #[id number], Partial fill [...] Dry Weight Start Date: 07/29/22 Status: Ordered MiraLax oral powder for reconstitution = 17 Gm, By Mouth, Daily, for 14 days, dissolve in water before taking, # 238 Gm, 0 Refills, Acute 08/27/22 13:34:00 EST, 08/13/22 13:34:00 EST, REC Powder, [facility]/pharmacy #[id number], Partial fill upon patient request if the prescription is for a schedule II... Start Date: 08/13/22 Stop Date: 08/27/22 Status: Ordered ondansetron 4 mg oral tablet, disintegrating 1 tablet = 4 mg, By Mouth, Once, PRN as needed for nausea/vomiting, # 10 tablet, 0 Refills, Soft Stop, 08/23/22 22:06:00 EST, DIS Tablet, [facility]/pharmacy #[id number], Partial fill upon patient request if the prescription is for a schedule II opioid drug., 170,... Start Date: 08/23/22 Status: Ordered Multivitamins with Folic Acid 1 mg oral tablet 1 tablet, By Mouth, Daily, # 90 tablet, 2 Refills, Maintenance, 05/10/22 18:35:00 EDT, Tablet, [facility]/pharmacy #[id number], Partial fill [...] 08/27/22 16:46:00 EST, 07/28/22 16:45:00 EST, Capsule, [facility]/pharmacy #[id number], Partial fill upon patient request if the prescription is for a schedule II opioid dr... Start Date: 07/28/22 Stop Date: 08/27/22 Status: [...] Reference Physician Member Role: PCP Address: Address: [address] [place] [address]- Care Team Related Persons Name: CLARK MACHADO Address: home [address] [place] [id number] Name: NYA DURAND Address: home [address] [place] [address] Name: KARSTEN GALLAGHER Address: home [address] [place] [address] Name: JAKCY PÉREZ Address: [address] [place] [address] Name: JACKY AMOR Address: home [address] [place] [address] Name: LITTLE ELIAS Address: [id number] Address: home [address] [place] [address] Name: CARLITOS DIAZ
--- OUTSIDE RECORDS SUMMARY | 2024-04-22 14:17 | XMS_ITS | Continuity of Care Document ---
Author Organization [facility] Address [address] [place] [id number]- Care Team Providers Care Emergency Room Rn Name Role Phone Carolynn ORDONEZ, Sara Arita Primary Care Physician Encounter [facility] Date(s): 12/09/22 - 12/09/[address] [address] Discharge Disposition: A-D/C Home Attending Physician: [...] tablet, 0 Refills, Maintenance, 12/06/2316:40:00 EDT, Tablet, [facility]/pharmacy #[id number], Partial fill upon patient request if the prescription is for a schedule II opioid drug., 168, cm, 12/06/22 8:... Start Date: 12/06/22 Stop Date: 12/13/22 Status: Ordered famotidine 20 mg oral tablet 1, tablet, By Mouth, Daily at bedtime, # 30 tablet, Refills 1, Maintenance, 09/23/22 13:46:00 EST, Route to Pharmacy Electronically, [facility], 170, cm, 09/09/22 8:52:00 EST, Height, 143.2, kg,05/16/22 14:20:00 EDT, Dry Weight Start Date: 09/23/22 Status: Ordered Measles/Mumps/Rubella Virus Vaccine Inj 0.5, mL, Subcutaneous Injection, Once, Maintenance, 12/06/22 17:40:00 EDT Start Date: 12/06/22 Status: Ordered ondansetron 4 mg oral tablet, disintegrating See Instructions, TAKE 1 TABLET BY MOUTH ONCE DAY NEEDED FOR NAUSEA AND VOMITING, # 10 tablet, 0Refills, Maintenance, 10/10/22 12:02:00 EDT, [facility], 170, cm, 09/29/22 11:15:00 EST, Height, 143.2, [...] 0 Refills, Maintenance, 11/02/22 18:45:00 EDT, Capsule, [facility]/pharmacy #[id number], Partial fill [...] Active 1related to past life trauma Results Radiology Reports * Exam Date Time Procedure Performing Provider Status 12/09/22 11:59 AM US Doppler Ext Lower Venous Bilat Chitra Archibald; Stephanie (Verified) Notes: (US Doppler Ext Lower Venous Bilat) Reason For Exam: Swelling Extremities RESULT: US Doppler Ext Lower Venous Bilat US Doppler Ext Lower Venous Bilat Reason: Swelling Extremities; Clinical Question(s): Thrombosis COMPARISON: None IMAGING TECHNIQUE: Ultrasound of the veins from the groin through the calf was performed using grayscale, color, and spectral Doppler ultrasound assessing for complete compressibility and normal flowcharacteristics. FINDINGS: RIGHT LOWER EXTREMITY: Common femoral vein: Patent. No thrombosis. Femoral vein: Patent. No thrombosis. Popliteal vein: Patent. No thrombosis. Gastrocnemius veins: The visualized portions are patent without evidence of thrombosis. Peroneal veins: The visualized portions are patent without evidence of thrombosis. Posterior tibial veins: The visualized portions are patent without evidence of thrombosis. LEFT LOWER EXTREMITY: Common femoral vein: Patent. No thrombosis. Femoral vein: Patent. No thrombosis. Popliteal vein: Patent. No thrombosis. Gastrocnemius veins: The visualized portions are patent without evidence of thrombosis. Peroneal veins: The visualized portions are patent without evidence of thrombosis. Posterior tibial veins: The visualized portions are patent without evidence of thrombosis. IMPRESSION: No evidence of deep venous thrombosis. WSN: [id number] Ordering Physician: Dolores Perrin Dictated By: Micah Ramirez MD Dictated Date/Time: 12/09/22 12:10 p Reviewed By: Micah Ramirez MD Signed By: Micah Ramirez MD Signed Date/Time: 12/09/22 12:10 pm Transcribed By: KAZ Transcribed Date/Time: 12/09/22 12:00 pm Vital Signs Most recent to oldest [Reference Range]: 1 2 3 Height 168 cm (12/09/22 9:33 AM) 168 cm (12/09/22 9:27 AM) Weight 152.4 kg (12/09/22 9:27 AM) Oxygen Saturation [94-100 %] 100 % (12/09/22 11:03 AM) 100 % (12/09/22 10:48 AM) 99 % (12/09/22 10:32 AM) Pulse Rate [55-90 bpm] 89 bpm (12/09/22 9:27 AM) Body Mass Index [18.5-24.99 kg/m2] 54 kg/m2 *>HHI* (12/09/22 9:27 AM) Blood Pressure [90-138/55-84 mm Hg] 145/81mm Hg *H* (12/09/22 11:03 AM) 133/85mm Hg (12/09/22 10:48 AM) 126/73mm Hg (12/09/22 10:32 AM) Respiratory Rate [16-30 br/min] 18 br/min (12/09/22 9:48 AM) 18 br/min (12/09/22 9:27 AM) Temperature [96.8-100.4 DegF] 98.3 DegF (12/09/22 9:27 AM) Mode of Delivery (Oxygen) Room air (12/09/22 9:27 AM) Blood pressure sites Arm, left (12/09/22 9:48 AM) Arm, left (12/09/22 9:27 AM) Temperature Route Oral (12/09/22 9:27 AM) Dry Weight 152.4 kg (12/09/22 9:27 AM) Weight Obtained Via Standing scale (12/09/22 9:27 AM) Dry Weight Obtained Via Standing scale (12/09/22 9:27 AM) Social History Social History Type Response Tobacco Use: 4 or less cigar ettes(less than 1/4 pack)/day in last 30 days. Sex Female EKG study * Event Display: ECG 12-Lead Authored Date: Please click on pdf link to open report * Event Display: ECG 12-Lead Authored Date: Ventricular Rate: 79 BPM Atrial Rate: 79 BPM P-R Interval: 192 ms QRS Duration: 88 ms Q-T Interval: 368 ms QTC Calculation(Bazett): 421 ms P Brentwood: 28 degrees R Brentwood: 6 degrees T Brentwood: 15 degrees Normal sinus rhythm Poor R wave progression in V1-V3 may be normal variant or due to anteroseptal infarct or misplaced leads Abnormal ECG When compared with ECG of 08-NOV-2022 15:50, No significant change was found Confirmed by FANNY CRUZ ([id number]) on 12/09/2022 2:03:08 PM Sullivan: FANNY CRUZ Note * Melva Sanches RN: PERFORM Event Display: Discharge/Transfer Note Hospital Authored Date: Nursing Discharge Note Entered On: 12/09/2022 13:33 EDT Performed On: 12/09/2022 13:27 EDT by Melva Sanches RN Nursing Discharge Note 2 Discharge Time : 12/09/2022 13:27 EDT Discharge Level of Care at Discharge : Home/Fdc/Foster Care Patient Left Unit Via : Ambulatory Patient Accompanied Off Unit with : Other: self DC Instructions Provided & Signed by Pt : Yes Patient Understands D/C Instructions : Yes Patient Instructions Discharge Signed : Yes Did Pt have Specialty Bed or Wound Vac : No Melva Sanches RN - 12/09/2022 13:33 EDT * Melva Sanches RN: PERFORM Event Display: Patient Education/Instruction Authored Date: [id number] Inpatient Adult Discharge Instructions [address] [address] Name: NASIM MACHADO : 1990 Visit: 12/09/2022 09:16:00 Current Date: 12/09/2022 13:20 Account: [id number] Inpatient Adult Discharge Instructions We would like [...] and their families. Surveys are administered by [employer] ?? If further treatment with your primary care physician or another doctor is recommended, it is important for you to keep the appointment. Call your primary care physician or return to the Emergency Department immediately if your condition worsens, fails to improve, or new symptoms develop. If you need to find a doctor, you can call [facility] [employer] for a referral at [phone] or toll free at [phone]) or log in to [email or web address].. ?? You can view and manage your care through the patient portal or by using a health care tom of your choosing. [employer] is a website that allows you to securely view your medical information including your hospital discharge summary, office visit summaries, medications and follow-up visits. You can also request appointments, renew medications, and request access to your medical information using a health care tom of your choosing, or just ask a question. You can enroll at [email or web address] or register during your next office visit. You have been discharged from [facility], Patient Care Unit: [id number]. If you have any questions regarding these instructions after you leave, please call us and we will be happy to assist you. [facility] Your Care Team Attending Physician Donald PATHAK, Byrson Ghotra Reason for Your Visit PREG PP 4 DAYS SOBSWELLING Tests Performed Below is a partial list of the tests performed during your hospitalization. You may have had other tests and procedures not included in this list. Please discuss all test results with your provider. Doppler Ext Lower Venous Bilat (US) Primary Care Provider Carolynn ORDONEZ, Sara Arita Advance Directive . Discharge Vitals Temperature: 98.3 DegF Height: 168 cm Pulse Rate: 89 bpm Weight: 152.4 kg Respiratory Rate: 18 br/min Body Mass Index:??54 kg/m2??Critical Systolic Blood Pressure:??145 mm Hg??High Body surface area: 2.67 Diastolic Blood Pressure: 81 mm Hg ?? Oxygen Saturation: 100 % ?? Studies Pending All tests and labs ordered during this hospital stay have been completed unless listed below. Please discuss all pending results with your provider listed above in these instructions. ?? No incomplete studies found What to do next Instructions From Your Doctor Discharge Orders Scheduled Follow-Up Appointments Monday 1:00 PM EDT ?? Where: [facility]Project [facility] [address] [place] [address]- Status: Pending 2022 1:00 PM EDT ?? Where: [facility] [address] [place] [id number]- Status: Pending Monday 1:20 PM EDT ?? With: Adam SANTILLAN NP, Alina Arita Where: [facility]Project Manager [address] [place] [id number]- Status: Pending You Need to Schedule the Following Appointments Follow Up with??[facility] [phone] Discharge Medications NASIM MACHADO :1990 Visit Date:12/09/2022 Medications: Please continue your medications until treatment [...] Please discuss all test resultswith your provider. Allergies (NKA means No Known Allergies) Toradol [...] Educational Leaflet Providered with your Discharge Instructions. After a Vaginal ?? Valuables and Belongings I fully understand and agree that [facility] accepts no responsibility for all my personal [...] Rehab Discharge Status?? Respiratory Rate: 18 br/min ? Common Emergency [...] are strongly encouraged to quit. Please call [facility] Its[employer]On Link at [phone] or [phone] ([phone]) or log in to [email or web address] for referrals to smoking cessation programs. ?? 988 Suicide & Crisis Lifeline is available 13/02 if you or someone you know needs to find a reason to keep living. By calling 258 you'll be connected to a skilled, trained counselor at a crisis center in your area. INPATIENT DISCHARGE INSTRUCTIONS SIGNATURE PAGE NASIM MACHADO Location:[facility] Registration Date and Time:12/09/2022 09:16 EDT Primary Care Physician: Sara Pradhan NP, Attending Physician: Bryson Bennett MD, I NASIM MACHADO, have received the above patient education materials/instructions and have verbalized understanding. If ambulance or transport services are being used I further acknowledge being given a choice of service. ?? If you need to contact me, please call me at this number: . Patient/Insulation Inspector Name: Patient/Insulation Inspector Signature: Relationship to Patient: Witness Name/Signature: Date: * Melva Sanches RN: PERFORM Event Display: Patient Education Leaflets Authored Date: [id number] After a Vaginal ?? After a Vaginal [...] pain), an ice pack can help. ?? [place] care While still in the hospital or [...] pain ?? Last Reviewed Date: 2022 ?? 2018-9452 [employer]. All rights reserved. This information is not intended as a substitute for professional medical care. Always follow your healthcare professional's instructions. ?? US.doppler Lower extremity vein - bilateral * BH[employer]ers[employer] , CIS S: TRANSCRIBE Micah Ramirez MD: VERIFY Event Display: Result: Authored Date: [id number] US Doppler Ext Lower Venous Bilat Reason: Swelling Extremities; Clinical Question(s): Thrombosis COMPARISON: None IMAGING TECHNIQUE: Ultrasound of the veins from the groin through the calf was performed using grayscale, color, and spectral Doppler ultrasound assessing for complete compressibility and normal flowcharacteristics. FINDINGS: RIGHT LOWER EXTREMITY: Common femoral vein: Patent. No thrombosis. Femoral vein: Patent. No thrombosis. Popliteal vein: Patent. No thrombosis. Gastrocnemius veins: The visualized portions are patent without evidence of thrombosis. Peroneal veins: The visualized portions are patent without evidence of thrombosis. Posterior tibial veins: The visualized portions are patent without evidence of thrombosis. LEFT LOWER EXTREMITY: Common femoral vein: Patent. No thrombosis. Femoral vein: Patent. No thrombosis. Popliteal vein: Patent. No thrombosis. Gastrocnemius veins: The visualized portions are patent without evidence of thrombosis. Peroneal veins: The visualized portions are patent without evidence of thrombosis. Posterior tibial veins: The visualized portions are patent without evidence of thrombosis. IMPRESSION: No evidence of deep venous thrombosis. WSN: [id number] Ordering Physician: Dolores Perrin Dictated By: Micah Ramirez MD Dictated Date/Time: 12/09/22 12:10 p Reviewed By: Micah Ramirez MD Signed By: Micah Ramirez MD Signed Date/Time: 12/09/22 12:10 pm Transcribed By: CSVirgen Transcribed Date/Time: 12/09/22 12:00 pm Patient Care team information Care Team Personnel Name: Evelyn Quezada RN Position: S OB RN Member Role: Primary Care Nurse Name: Sara Pradhan NP Position: Reference Physician Member Role: PCP Address: Address: [address] [place] [address] Care Team Related Persons Name: NASIM MACHADO Address: [id number] Address: [address] [place] [address] Name: CLARK MACHADO Address: [address] [address] Name: NYA DURAND Address: [address] [place] [address] Name: KARSTEN GALLAGHER Address: home [address] [place] [address] Name: JACKY PÉREZ Address: [address] [place] [address] Name: JACKY AMOR Address: [address] [place] [address] Name: LITTLE ELIAS Address: [address] Address: [address] [place] [address] Name: CARLITOS DIAZ
--- OUTSIDE RECORDS SUMMARY | 2024-04-22 14:17 | XMS_ITS | Continuity of Care Document ---
Author Organization [facility] Address [address] [place] [address]- Care Team Providers Care Professor Of History Name Role Phone Not on Staff, PCP Primary Care Physician Unavail able Encounter [facility] Date(s): 07/08/21 - 08/07/[address] [address] Allergies, Adverse Reactions, [...] Please checkblood sugars four times a day. [facility], schedule meter teaching., 06/07/21 9:48:00 EST,Supply, 168, cm, 04/27/21 12:54:00 EDT, Height, 1... Start Date: 06/07/21 Status: Ordered Alcohol Pads See Instructions, # 1 pack/packet, Refills 3, Tot. Refills 3, Maintenance, DX: 024.912 Please checkblood sugars four times a day. [facility], schedule meter teaching., 06/04/21 18:03:00 EST, Supply, 168, cm, 04/27/21 12:54:00 EDT, Height,... Start Date: 06/04/21 Status: Ordered aspirin 81 mg oral tablet, chewable 162 mg, 2, tablet, Chew, Daily, continue until 2 weeks , # 60 tablet, Refills 8, Tot. Refills 8, Maintenance, 04/27/21 13:24:00 EDT, Route to Pharmacy Electronically, [facility]/pharmacy #[id number], Partial fill upon patient request if the prescription... Start Date: 04/27/21 Stop Date: 01/22/22 Status: Ordered Vallejo Lyte glucometer Vallejo Lyte glucometer, See Instructions, # 1 each, Refills 3, Tot. Refills 3, Maintenance, DX: 024.912 Please check blood sugars four times a day. [facility], schedule meter teaching., 06/07/21 9:48:00 EST, Supply, 168, cm, 04/27/21 12:5... Start Date: 06/07/21 Status: Ordered Vallejo Lyte glucometer Vallejo Lyte glucometer, See Instructions, # 1 each, Refills 3, Tot. Refills 3, Maintenance, DX: 024.912 Please check blood sugars four times a day. [facility], schedule meter teaching., 06/04/21 18:03:00 EST, Supply, 168, cm, 04/27/21 12:... Start Date: 06/04/21 Status: Ordered Vallejo Lyte glucometer Vallejo Lyte glucometer, See Instructions, # 1 each, Refills 0, Tot. Refills 0, Maintenance, DX: 024.912 Please check blood sugars four times a day., 06/09/21 14:04:00 EST, Supply, 168, cm, 04/27/21 12:54:00 EDT, Height, 113.4, kg, 04/20/21 14:40:00... Start Date: 06/09/21 Status: Ordered Vallejo Lyte glucometer Vallejo Lyte glucometer, See Instructions, # 1 each, Refills 0, Tot. Refills 0, Maintenance, DX: 024.912 Please check blood sugars four times a day., 06/08/21 15:51:00 EST, Supply, 168, cm, 04/27/21 12:54:00 EDT, Height, 113.4, kg, 04/20/21 14:40:00... Start Date: 06/08/21 Status: Ordered Vallejo Lyte glucometer Vallejo Lyte glucometer, See Instructions, # 1 each, Refills 0, Tot. Refills 0, Maintenance, DX: 024.912 Please check blood sugars four times a day., 06/09/21 17:44:00 EST, Supply, 168, cm, 04/27/21 12:54:00 EDT, Height, 113.4, kg, 04/20/21 14:40:00... Start Date: 06/09/21 Status: Ordered Vallejo lyte lancets Vallejo lyte lancets, See Instructions, # 1 pack/packet, Refills 3, Tot. Refills 3, Maintenance, DX: 024.912 Please check blood sugars four times a day. [facility], schedule meter teaching.,06/07/21 9:48:00 EST, Supply, 168, cm, 04/27/21... Start Date: 06/07/21 Status: Ordered Vallejo lyte lancets Vallejo lyte lancets, See Instructions, # 1 pack/packet, Refills 3, Tot. Refills 3, Maintenance, DX: 024.912 Please check blood sugars four times a day. [facility], schedule meter teaching.,06/04/21 18:03:00 EST, Supply, 168, cm, 04/27/21... Start Date: 06/04/21 Status: Ordered Vallejo lyte lancets Vallejo lyte lancets, See Instructions, # 200 each, Refills 3, Tot. Refills 3, Maintenance, DX: 024.912 Please check blood sugars four times a day., 06/09/21 14:03:00 EST, Supply, 168, cm, 04/27/21 12:54:00 EDT, Height, 113.4, kg, 04/20/21 14:40:00... Start Date: 06/09/21 Status: Ordered Vallejo lyte lancets Vallejo lyte lancets, See Instructions, # 200 each, Refills 3, Tot. Refills 3, Maintenance, DX: 024.912 Please check blood sugars four times a day., 06/08/21 15:49:00 EST, Supply, 168, cm, 04/27/21 12:54:00 EDT, Height, 113.4, kg, 04/20/21 14:40:00... Start Date: 06/08/21 Status: Ordered Vallejo lyte lancets Vallejo lyte lancets, See Instructions, # 200 each, Refills 3, Tot. Refills 3, Maintenance, DX: 024.912 Please check blood sugars four times a day., 06/09/21 17:45:00 EST, Supply, 168, cm, 04/27/21 12:54:00 EDT, Height, 113.4, kg, 04/20/21 14:40:00... Start Date: 06/09/21 Status: Ordered Vallejo lyte test strips Vallejo lyte test strips, See Instructions, # 1 pack/packet, Refills 3, Tot. Refills 3, Maintenance, DX: 024.912 Please check blood sugars four times a day. [facility], schedule meter teaching., 06/07/21 9:48:00 EST, Supply, 168, cm, 04/27/... Start Date: 06/07/21 Status: Ordered Vallejo lyte test strips Vallejo lyte test strips, See Instructions, # 1 pack/packet, Refills 3, Tot. Refills 3, Maintenance, DX: 024.912 Please check blood sugars four times a day. [facility], schedule meter teaching., 06/04/21 18:04:00 EST, Supply, 168, cm, 04/27... Start Date: 06/04/21 Status: Ordered Vallejo lyte test strips Vallejo lyte test strips, See Instructions, # 200 each, Refills 3, Tot. Refills 3, Maintenance, DX:024.912 Please check blood sugars four times a day., 06/09/21 14:03:00 EST, Supply, 168, cm, 04/27/21 12:54:00 EDT, Height, 113.4, kg, 04/20/21 14:40:... Start Date: 06/09/21 Status: Ordered Vallejo lyte test strips Vallejo lyte test strips, See Instructions, # 200 each, Refills 3, Tot. Refills 3, Maintenance, DX:024.912 Please check blood sugars four times a day., 06/08/21 15:50:00 EST, Supply, 168, cm, 04/27/21 12:54:00 EDT, Height, 113.4, kg, 04/20/21 14:40:... Start Date: 06/08/21 Status: Ordered Vallejo lyte test strips Vallejo lyte test strips, See Instructions, # 200 [...] 20 tablet, 0Refills, Maintenance, 06/22/21 10:32:00 EST, [facility]/pharmacy #[id number], Partial fill upon patient request if the prescription is for a schedule II opioid drug... Start Date: 06/22/21 Status: Ordered Multivitamins with Folic Acid 1 mg oral tablet 1 tablet, By Mouth, Daily, # 30 tablet, 8 Refills, Maintenance, 03/09/21 15:40:00 EDT, Tablet, [facility]/pharmacy #[id number], Partial fill upon patient request if the prescription is for a schedule II opioid drug., 1 tablet By Mouth Daily, 168, cm, 02/03/21 12:2... Start Date: 03/09/21 Status: Ordered Zofran 4 mg oral tablet 1 tablet = 4 mg, By Mouth, Every 4 hours, PRN as needed for nausea/vomiting, # 30 tablet, 0 Refills, Maintenance, 05/25/21 10:12:00 EDT, Tablet, [facility]/pharmacy #[id number], Partial fill upon patient request if [...]
--- OUTSIDE RECORDS SUMMARY | 2024-04-22 14:17 | XMS_ITS | Continuity of Care Document ---
Author Organization [facility] Address [address] [place] [address]- Care Team Providers Care Income Tax Manager Name Role Phone Carolynn ORDONEZ, Sara Arita Primary Care Physician Encounter [facility] Date(s): 10/29/22 - 12/04/[address] [address]- Attending Physician: Hue Hale MD Admitting Physician: Hue Hale MD Referring Physician: Uzair PATHAK, Ana Anderson Allergies, Adverse Reactions, Alerts Substance Reaction [...] 09/29/22 14:34:00 EST, Route to Pharmacy Electronically, [facility]/pharmacy #[id number], Partial fill upon patient requestif the prescription is for a schedule II opioid rosetta... Start Date: 09/29/22 Status: Ordered famotidine 20 mg oral tablet 1, tablet, By Mouth, Daily at bedtime, # 30 tablet, Refills 1, Maintenance, 09/23/22 13:46:00 EST, Route to Pharmacy Electronically, [facility] 94[facility], 170, cm, 09/09/22 8:52:00 EST, Height, 143.2, [...] 0Refills, Maintenance, 10/10/22 12:02:00 EDT, [id number], 170, cm, 09/29/22 11:15:00 EST, Height, 143.2, [...] Reference Physician Member Role: PCP Address: Address: [address] [place] [address]- Care Team Related Persons Name: CLARK MACHADO Address: home [address] [address] Name: NYA DURAND Address: [address] [place] [address] Name: KARSTEN GALLAGHER Address: [address] [place] [address] Name: JACKY PÉREZ Address: [address] [place] [address] Name: JACKY AMOR Address: [address] [place] [address] Name: LITTLE ELIAS Address: [address] Address: [address] [place] [address] Name: CARLITOS DIAZ
--- OUTSIDE RECORDS SUMMARY | 2024-04-22 14:17 | XMS_ITS | Continuity of Care Document ---
Author Organization [facility] ter Address [address] [place] [address]- Care Team Providers Care Final Assembly Inspector Name Role Phone Carolynn ORDONEZ, Sara Arita Primary Care Physician [phone] Encounter [facility] Date(s): 11/17/22 - 11/17/[address] [address] Discharge Disposition: A-D/C Home Attending Physician: Jorden [...] 09/29/22 14:34:00 EST, Route to Pharmacy Electronically, [facility]/pharmacy #[id number], Partial fill upon patient requestif the prescription is for a schedule II opioid rosetta... Start Date: 09/29/22 Status: Ordered famotidine 20 mg oral tablet 1, tablet, By Mouth, Daily at bedtime, # 30 tablet, Refills 1, Maintenance, 09/23/22 13:46:00 EST, Route to Pharmacy Electronically, [facility] STORE 13575, 170, cm, 09/09/22 8:52:00 EST, Height, 143.2, [...] 0Refills, Maintenance, 10/10/22 12:02:00 EDT, [facility], 170, cm, 09/29/22 11:15:00 EST, Height, 143.2, kg, 05/16/22 14:20:00 EDT, Dry Weight Start Date: 10/10/22 Status: Ordered Multivitamins with Folic Acid 1 mg oral tablet 1 tablet, By Mouth, Daily, # 90 tablet, 2 Refills, Maintenance, 05/10/22 18:35:00 EDT, Tablet, [facility]/pharmacy #[id number], Partial fill upon patient [...] oldest [Reference Range]: 1 2 3 Weight 151.2 kg (11/17/22 4:27 PM) Oxygen Saturation [94-100 %] 91 % *L* (11/17/22 5:25 PM) 99 % (11/17/22 5:10 PM) 96 % (11/17/22 4:55 PM) Blood Pressure [90-138/55-84 mm Hg] 116/70mm Hg (11/17/22 5:25 PM) 112/78mm Hg (11/17/22 5:10 PM) 118/58mm Hg (11/17/22 4:55 PM) Respiratory Rate [16-30 br/min] 18 br/min (11/17/22 4:55 PM) Temperature [96.8-100.4 DegF] 98.9 DegF (11/17/22 4:27 PM) Mode of Delivery (Oxygen) Room air (11/17/22 4:55 PM) Blood pressure sites Arm, right (11/17/22 4:55 PM) Temperature Route Oral (11/17/22 4:27 PM) Dry Weight 151.2 kg (11/17/22 4:27 PM) Weight Obtained Via Standing scale (11/17/22 4:27 PM) Dry Weight Obtained Via Standing scale (11/17/22 4:27 PM) Social History Social History Type Response Tobacco Use: 4 or less cigar ettes(less than 1/4 pack)/day in last 30 days. Sex Female Hospital Progress note * Tawnya Delacruz RN: PERFORM, SIGN, VERIFY Event Display: Progress Note Hospital Authored Date: [id number] Patient: NASIM MACHADO Age: 32 years Sex: Female : 1990 Associated Diagnoses: None Author: Tawnya Delacruz RN Pt set up with [employer] at home bp monitoring system. Robin downloaded, cuff set up & pt taught how to take a bp accurately. Pt instructed on normal range bps & when to call OB for high pressures. Pt practiced a bp via return demo along with how to chart bps in robin. All questions answered appropriately. Note * Cherelle Cyr: PERFORM Event Display: Discharge/Transfer Note Hospital Authored Date: [id number] Nursing Discharge Note Entered On: 11/17/2022 18:50 EDT Performed On: 11/17/2022 18:49 EDT by Cherelle Cyr Nursing Discharge Note 2 Discharge Time : 11/17/2022 18:36 EDT Discharge Level of Care at Discharge : Home/Correction/Foster Care Patient Left Unit Via : Ambulatory Patient Accompanied Off Unit with : Other: Self DC Instructions Provided & Signed by Pt : Yes Patient Understands D/C Instructions : Yes Patient Instructions Discharge Signed : Yes Did Pt have Specialty Bed or Wound Vac : No Cherelle Cyr - 11/17/2022 18:49 EDT * Stella JENNINGS Cherelle: PERFORM Event Display: Patient Education/Instruction Authored Date: [id number] Inpatient Adult Discharge Instructions [address] [address] Name: NASIM MACHADO : 1990 Visit: 11/17/2022 16:09:00 Current Date: 11/17/2022 17:53 Account: [id number] Inpatient Adult Discharge Instructions We would like [...] and their families. Surveys are administered by [employer] ?? If further treatment with your primary care physician or another doctor is recommended, it is important for you to keep the appointment. Call your primary care physician or return to the Emergency Department immediately if your condition worsens, fails to improve, or new symptoms develop. If you need to find a doctor, you can call [facility] for a referral at [phone] or toll free at [phone] ([phone]) or log in to [email or web address].. ?? You can view and manage your care through the patient portal or by using a health care robin of your choosing. [employer] is a website that allows you to securely view your medical information including your hospital discharge summary, office visit summaries, medications and follow-up visits. You can also request appointments, renew medications, and request access to your medical information using a health care robin of your choosing, or just ask a question. You can enroll at [email or web address] or register during your next office visit. You have been discharged from [facility], Patient Care Unit: WETU1. If you have any questions regarding these instructions after you leave, please call us and we will be happy to assist you. [facility] Your Care Team Attending Physician Jorden Tinajero MD Tests Performed Below is a partial list of the tests performed during your hospitalization. You may have had other tests and procedures not included in this list. Please discuss all test results with your provider. Primary Care Provider Sara Pradhan NP Advance Directive . Discharge Vitals Temperature: 98.9 DegF Weight: 151.2 kg Respiratory Rate: 18 br/min ?? Systolic Blood Pressure: 116 mm Hg ?? Diastolic Blood Pressure: 70 mm Hg ?? Oxygen Saturation:??91 %??Low ?? Studies Pending All tests and labs ordered during this hospital stay have been completed unless listed below. Please discuss all pending results with your provider listed above in these instructions. ?? No incomplete studies found What to do next Instructions From Your Doctor Discharge Orders Scheduled Follow-Up Appointments Monday. 2022 10:20 AM EDT ?? With: Skylar Araya MD Where: [facility] [address] [place] [address]- Monday 10:20 AM EDT ?? With: Skylar Araya MD Where: [facility] [address] [place] [address]- You Need to Schedule the Following Appointments Follow Up with??[facility] [phone] When?? Why: Please keep next scheduled appointment. Where: Discharge Medications NASIM MACHADO :1990 Visit Date:11/17/2022 Medications: Please continue your medications until treatment is completed or stopped by your provider. Medications not listed below should be discontinued. Discuss any questions related to medications with your provider. What How Much When Why Instructions Next Dose Unchanged Aspirin (aspirin 81 mg oral delayed releasetablet) 2 tab(s) Oral Daily Unchanged Durable Medical Equipment (Alcohol Pads) See instructions DX: 424.810 - Please test blood sugars 4 times a day. ?? Unchanged Durable Medical Equipment (Alcohol Pads) See instructions as directed ?? Unchanged Durable Medical Equipment (Freestyle Lite Lancets) See instructions test 4x daily fasting and 2hr pc ?? Unchanged Durable Medical Equipment (Freestyle Lite Lancets) See instructions DX: 099.810 - Please test blood sugars 4 times a day. ?? Unchanged Durable Medical Equipment (Freestyle Lite Monitor) See instructions DX: 099.810 - Please test blood sugars 4 times a day. ?? Unchanged Durable Medical Equipment (Freestyle Lite Monitor) See instructions Please teach how to use monitor test 4 xday fasting & 2 hr after meals. ??Test for 1 week ?? Unchanged Durable Medical Equipment (Freestyle Lite Test Strips) See instructions Abnormal glucose tolerance in DX: 099.810 - Please test blood sugars 4 times a day. ?? Unchanged Durable Medical Equipment (Freestyle Lite Test Strips) See instructions test 4x day for 1 week ?? Unchanged Famotidine (famotidine 20 mg oral tablet) 1 tab(s) Oral Daily at Bedtime Unchanged HydrOXYzine (Vistaril pamoate 25 mg oral capsule) 1 capsule Oral 4 times a day as needed for for anxiety Unchanged Multivitamin, ( Multivitamins with Folic Acid [...] means No Known Allergies) Toradol Problems Active Problems??(11) Chronic hypertension?? DCF case?? Former smoker?? Hidradenitis suppurativa?? History of gestational diabetes?? Obesity during ? PTSD (post-traumatic stress disorder)?? Rubella non-immune status, antepartum?? Severe obesity?? Short interval between pregnancies affecting , antepartum?? Education Materials Below is the list of Educational Leaflet Providered with your Discharge Instructions. Chronic Hypertension During ?? Kick Counts?? Valuables and Belongings I fully understand and agree that [facility] accepts no responsibility for all my [...] are strongly encouraged to quit. Please call [facility] [employer] [facility] at [phone] or [phone] ([phone]) or log in to [email or web address] for referrals to smoking cessation programs. ?? 152 Suicide & Crisis Lifeline is available 13/02 if you or someone you know needs to find a reason to keep living. By calling 548 you'll be connected to a skilled, trained counselor at a crisis center in your area. INPATIENT DISCHARGE INSTRUCTIONS SIGNATURE PAGE NASIM MACHADO Location:[facility] Registration Date and Time:11/17/2022 16:09 EDT Primary Care Physician: Carolynn ORDONEZ, Sara Arita, Sandro NASIM MACHADO, have received the above patient education materials/instructions and have verbalized understanding. If ambulance or transport services are being used I further acknowledge being given a choice of service. ?? If you need to contact me, please call me at this number: . Patient/Stick Feeder Name: Patient/Stick Feeder Signature: Relationship to Patient: Witness Name/Signature: Date: * Douglas Cherelle JENNINGS: PERFORM Event Display: Patient Education Leaflets Authored Date: [id number] Chronic Hypertension During ?? Chronic Hypertension During - Video Normal blood pressure is essential for a healthy . If you have high blood pressure before you become , you are at higher risk for developing certain problems during . This video explains how chronic high blood pressure can affect you and your growing baby and why special monitoring is important. To view the video go to this web address: [email or web address] Or, scan this QR code with your smart phone Last Reviewed Date: 2019 ?? [employer]. All rights reserved. This information is not intended as a substitute for professional medical care. Always follow your healthcare professional's instructions. ?? * Stella CNRUSTY-RN, Cherelle: PERFORM Event Display: Patient Education Leaflets Authored Date: [id number] Kick Counts ?? [address] Kick Counts It???s normal to worry about your baby???s health. Generally, you will feel your baby start to movein your 2nd trimester at around 16 to 24 weeks. Getting to know the pattern of your baby's movements is one way to know what's normal for you and baby. This is called a kick count. Talk with your healthcare provider about kick counts and your specific situation. Always follow your provider's instructions. How to count kicks Here is just one way to do kick counts. Always follow your healthcare provider's instructions. Starting at 28 weeks, count your baby's movements daily. Time how long it takes you to feel 10 kicks, flutters, swishes, or rolls. Ideally, you want to feel at least 10 movements in 2 hours. You will likely feel 10 movements in less time than that. Here are tips for counting kicks: ??? Choose a time when the baby is active, such as after a meal.? Sit comfortably or lie on your side.? The first time the baby moves,??write down??the time.? Count each movement until the baby has moved?? 10??times. This can take from 20 minutes to 2??hours.? If you haven't felt 10 kicks by the end of the second hour, wait a few hours. Then try again. ??? Try to do it at the same time each day. ?? When to call your healthcare provider Follow your provider's instructions about when to call about your baby's movements. Don't hesitate to call if you have concerns. Call your healthcare provider?? right away??if: ??? You do a couple sets of kick counts during the day and your baby moves fewer than 10??times in??2??hours. ??? Your baby moves much less often than on the??days before. ??? You haven't felt your baby move all day. ?? Last Reviewed Date: 2022 ?? [employer]. All rights reserved. This information is not intended as a substitute for professional medical care. Always follow your healthcare professional's instructions. ?? Patient Care team information Care Team Personnel Name: Damien RN, Evelyn Anthony Position: S OB RN Member Role: Primary Care Nurse Name: Carolynn BOOSTER ASSEMBLER, Sara Arita Position: Reference Physician Member Role: PCP Address: Address: [address] [place] [address] Care Team Related Persons Name: MAGUI MACHADOO Address: home [address] [address] Name: NYA DURAND Address: home [address] [place] [address] Name: KARSTEN GALLAGHER Address: home [address] [place] [address] Name: JACKY PÉREZ Address: home [address] [place] [address] Name: JACKY AMOR Address: home [address] [place] [address] Name: LITTLE ELIAS Address: [address] Address: home [address] [place] [address] Name: CARLITOS DIAZ
--- OUTSIDE RECORDS SUMMARY | 2024-04-22 14:17 | XMS_ITS | Continuity of Care Document ---
Author Organization [facility] Address [address] [place] [address]- Care Team Providers Care Metal Bench Patternmaker Name Role Phone Carolynn ORDONEZ, Sara Arita Primary Care Physician Encounter [facility] Date(s): 10/31/22 - 11/30/[address] [address] Allergies, Adverse Reactions, Alerts Substance [...] 14:34:00 EST, Route to Pharmacy Electronically, [facility]/pharmacy #[id number], Partial fill upon patient requestif the prescription is for a schedule II opioid rosetta... Start Date: 09/29/22 Status: Ordered famotidine 20 mg oral tablet 1, tablet, By Mouth, Daily at bedtime, # 30 tablet, Refills 1, Maintenance, 09/23/22 13:46:00 EST, Route to Pharmacy Electronically, [facility] STORE 03654, 170, cm, 09/09/22 8:52:00 EST, Height, 143.2, [...] PATIENT, PLEASE COMPLETE METER TEACHING WITH PATIENT. LAO SPEAKING, Supply,... Start Date: 11/25/22 Status: Ordered [...] 0Refills, Maintenance, 10/10/22 12:02:00 EDT, [facility], 170, cm, 09/29/22 11:15:00 EST, Height, 143.2, kg, 05/16/22 14:20:00 EDT, Dry Weight Start Date: 10/10/22 Status: Ordered Multivitamins with Folic Acid 1 mg oral tablet 1 tablet, By Mouth, Daily, # 90 tablet, 2 Refills, Maintenance, 05/10/22 18:35:00 EDT, Tablet, [facility]/pharmacy #[id number], Partial fill upon patient request if [...] Reference Physician Member Role: PCP Address: Address: [address] [place] [address]- Care Team Related Persons Name: CLARK MACHADO Address: home [address] [address] Name: NYA DURAND Address: home [address] [place] [address] Name: KARSTEN GALLAGHER Address: home [address] [place] [address] Name: JACKY PÉREZ Address: home [address] [place] [address] Name: JACKY AMOR Address: home [address] [place] [address] Name: LITTLE ELIAS Address: [id number] Address: home [address] [place] [address] Name: CARLITOS DIAZ
--- OUTSIDE RECORDS SUMMARY | 2024-04-22 14:17 | XMS_ITS | Continuity of Care Document ---
Author Organization [facility] Address [address] [place] [address]- Care Team Providers Care Middleware Developer Name Role Phone Not on Staff, PCP Primary Care Physician Unavail able Encounter [facility] Date(s): 08/18/21 - 11/14/[address] [address] Attending Physician: Not on Staff, Attending [...] WITH BREAKFAST, # 30 tablet, 0 Refills, [facility] STORE 80930, 165, cm, 10/26/21 9:33:00 EDT, Height, 144.2, [...] 8 Refills, Maintenance, 03/09/21 15:40:00 EDT, Cecilia, [facility]/pharmacy #[id number], Partial fill upon patient request if the [...]
--- OUTSIDE RECORDS SUMMARY | 2024-04-22 14:17 | XMS_ITS | Continuity of Care Document ---
Author Organization [facility] Address [address] [place] [address]- Care Team Providers Care Manager Credit Collections Name Role Phone Carolynn ORDONEZ, Sara Arita Primary Care Physician [place] [facility] Date(s): 03/04/23 - 07/02/[address] [address] Attending Physician: Aleida Escalona MD Admitting Physician: Aleida Escalona MD Referring Physician: Susan Segal DO Allergies, Adverse [...] 01/10/23 15:26:00 EDT, Route to Pharmacy Electronically, [facility]/pharmacy #[id number], Partial fill upon patient request if the [...] Name: Damien ARREGUIN, Evelyn Anthony Position: [facility] OB RN Member Role: Primary Care Nurse Name: Vamshi Ford RN Position: S RN Member Role: Primary Care Nurse Name: Corine Yoder RN Position: S RN Member Role: Primary Care Nurse Name: Sara Pradhan NP Position: Reference Physician Member Role: PCP Address: Address: [address] [place] [address]- Care Team Related Persons Name: MAGUI MACHADOO Address: home [address] [address] Name: NYA DURAND Address: home [address] [place] [address] Name: KARSTEN GALLAGHER Address: home [address] [place] [address] Name: JACKY PÉREZ Address: [address] [place] [address] Name: JACKY AMOR Address: home [address] [place] [address] Name: LITTLE ELIAS Address: [address] Address: home [address] [place] [address] [place] Name: MARVIN ELIAS Address: [address] Address: [address] [place] [address] [place] Name: MARVIN ELIAS Address: [address] [place] [address] Name: CARLITOS DIAZ
--- OUTSIDE RECORDS SUMMARY | 2024-04-22 14:17 | XMS_ITS | Continuity of Care Document ---
Author Organization [facility] Address [address] [place] [id number]- Care Team Providers Care Soloist Dancer Name Role Phone Not on Staff, PCP Primary Care Physician Unavail able Encounter [facility] [place] Date(s): 08/18/21 - 10/17/[address] [address] Attending Physician: Not on Staff, Attending MD [...] Please checkblood sugars four times a day. [facility], schedule meter teaching., 06/07/21 9:48:00 EST,Supply, 168, cm, 04/27/21 12:54:00 EDT, Height, 1... Start Date: 06/07/21 Status: Ordered Alcohol Pads See Instructions, # 1 pack/packet, Refills 3, Tot. Refills 3, Maintenance, DX: 024.912 Please checkblood sugars four times a day. [facility], schedule meter teaching., 06/04/21 18:03:00 EST, Supply, 168, cm, 04/27/21 12:54:00 EDT, Height,... Start Date: 06/04/21 Status: Ordered aspirin 81 mg oral tablet, chewable 162 mg, 2, tablet, Chew, Daily, continue until 2 weeks , # 60 tablet, Refills 8, Tot. Refills 8, Maintenance, 04/27/21 13:24:00 EDT, [id number] fill upon patient request if the prescription... Start Date: 04/27/21 Stop Date: 01/22/22 Status: Ordered famotidine 10 mg oral tablet 1 tablet = 10 mg, By Mouth, 2 times a day, # 180 tablet, 0 Refills, Maintenance, 09/09/21 18:50:00 EST, Tablet, [facility]/pharmacy #[id number], Partial fill upon patient request if the prescription is for a schedule II opioid drug., 168, cm, 09/09/21 14:57:00 EST... Start Date: 09/09/21 Status: Ordered ferrous sulfate 325 mg oral tablet 1 tablet = 325 mg, By Mouth, Daily, # 90 tablet, 0 Refills, Maintenance, 09/09/21 15:28:00 EST, Tablet, [facility]/pharmacy #[id number], Partial fill upon patient request if the prescription is for a schedule II opioid drug., 168, cm, 09/09/21 14:57:00 EST, Height... Start Date: 09/09/21 Status: Ordered [place] Lyte glucometer [place] Lyte glucometer, See Instructions, # 1 each, Refills 3, Tot. Refills 3, Maintenance, DX: 024.912 Please check blood sugars four times a day. [facility], schedule meter teaching., 06/07/21 9:48:00 EST, Supply, 168, cm, 04/27/21 12:5... Start Date: 06/07/21 Status: Ordered [place] Lyte glucometer [place] Lyte glucometer, See Instructions, # 1 each, Refills 3, Tot. Refills 3, Maintenance, DX: 024.912 Please check blood sugars four times a day. [facility], schedule meter teaching., 06/04/21 18:03:00 EST, Supply, 168, cm, 04/27/21 12:... Start Date: 06/04/21 Status: Ordered [place] Lyte glucometer [place] Lyte glucometer, See Instructions, # 1 each, Refills 0, Tot. Refills 0, Maintenance, DX: 024.912 Please check blood sugars four times a day., 06/09/21 14:04:00 EST, Supply, 168, cm, 04/27/21 12:54:00 EDT, Height, 113.4, kg, 04/20/21 14:40:00... Start Date: 06/09/21 Status: Ordered [place] Lyte glucometer [place] Lyte glucometer, See Instructions, # 1 each, Refills 0, Tot. Refills 0, Maintenance, DX: 024.912 Please check blood sugars four times a day., 06/08/21 15:51:00 EST, Supply, 168, cm, 04/27/21 12:54:00 EDT, Height, 113.4, kg, 04/20/21 14:40:00... Start Date: 06/08/21 Status: Ordered [place] Lyte glucometer [place] Lyte glucometer, See Instructions, # 1 each, Refills 0, Tot. Refills 0, Maintenance, DX: 024.912 Please check blood sugars four times a day., 06/09/21 17:44:00 EST, Supply, 168, cm, 04/27/21 12:54:00 EDT, Height, 113.4, kg, 04/20/21 14:40:00... Start Date: 06/09/21 Status: Ordered [place] lyte lancets Jamaica lyte lancets, See Instructions, # 1 pack/packet, Refills 3, Tot. Refills 3, Maintenance, DX: 024.912 Please check blood sugars four times a day. [facility], schedule meter teaching.,06/07/21 9:48:00 EST, Supply, 168, cm, 04/27/21... Start Date: 06/07/21 Status: Ordered [place] lyte lancets Jamaica lyte lancets, See Instructions, # 1 pack/packet, Refills 3, Tot. Refills 3, Maintenance, DX: 024.912 Please check blood sugars four times a day. [facility], schedule meter teaching.,06/04/21 18:03:00 EST, Supply, 168, cm, 04/27/21... Start Date: 06/04/21 Status: Ordered [place] lyte lancets Jamaica lyte lancets, See Instructions, # 200 each, Refills 3, Tot. Refills 3, Maintenance, DX: 024.912 Please check blood sugars four times a day., 06/09/21 14:03:00 EST, Supply, 168, cm, 04/27/21 12:54:00 EDT, Height, 113.4, kg, 04/20/21 14:40:00... Start Date: 06/09/21 Status: Ordered [place] lyte lancets Jamaica lyte lancets, See Instructions, # 200 each, Refills 3, Tot. Refills 3, Maintenance, DX: 024.912 Please check blood sugars four times a day., 06/08/21 15:49:00 EST, Supply, 168, cm, 04/27/21 12:54:00 EDT, Height, 113.4, kg, 04/20/21 14:40:00... Start Date: 06/08/21 Status: Ordered [place] lyte lancets Jamaica lyte lancets, See Instructions, # 200 each, Refills 3, Tot. Refills 3, Maintenance, DX: 024.912 Please check blood sugars four times a day., 06/09/21 17:45:00 EST, Supply, 168, cm, 04/27/21 12:54:00 EDT, Height, 113.4, kg, 04/20/21 14:40:00... Start Date: 06/09/21 Status: Ordered [place] lyte test strips Jamaica lyte test strips, See Instructions, # 1 pack/packet, Refills 3, Tot. Refills 3, Maintenance, DX: 024.912 Please check blood sugars four times a day. [facility], schedule meter teaching., 06/07/21 9:48:00 EST, Supply, 168, cm, ... Start Date: 06/07/21 Status: Ordered [place] lyte test strips Jamaica lyte test strips, See Instructions, # 1 pack/packet, Refills 3, Tot. Refills 3, Maintenance, DX: 024.912 Please check blood sugars four times a day. [facility], schedule meter teaching., 06/04/21 18:04:00 EST, Supply, 168, cm, 04/27... Start Date: 06/04/21 Status: Ordered [place] lyte test strips Jamaica lyte test strips, See Instructions, # 200 each, Refills 3, Tot. Refills 3, Maintenance, DX:024.912 Please check blood sugars four times a day., 06/09/21 14:03:00 EST, Supply, 168, cm, 04/27/21 12:54:00 EDT, Height, 113.4, kg, 04/20/21 14:40:... Start Date: 06/09/21 Status: Ordered [place] lyte test strips Jamaica lyte test strips, See Instructions, # 200 each, Refills 3, Tot. Refills 3, Maintenance, DX:024.912 Please check blood sugars four times a day., 06/08/21 15:50:00 EST, Supply, 168, cm, 04/27/21 12:54:00 EDT, Height, 113.4, kg, 04/20/21 14:40:... Start Date: 06/08/21 Status: Ordered [place] lyte test strips Jamaica lyte test strips, See Instructions, # 200 [...] Status: Ordered metFORMIN 500 mg oral tablet 1 tablet = 500 mg, By Mouth, Daily, with meals in the morning, # 30 tablet, 0 Refills, Maintenance,10/15/21 12:36:00 EDT, Tablet, [id number], Partial fill upon patient request if the prescription is for a schedule II opioid drug., 168, cm, 03... Start Date: 10/15/21 Status: Ordered Multivitamins with Folic Acid 1 [...]
--- OUTSIDE RECORDS SUMMARY | 2024-04-22 14:17 | XMS_ITS | Continuity of Care Document ---
Author Organization [facility] Address [address] [place] [id number]- Care Team Providers Care Inter Fold Roll Cutter Name Role Phone Carolynn ORDONEZ, Sara Arita Primary Care Physician Encounter [facility] [place] Date(s): 12/07/22 - 01/06/[address] [address] Allergies, Adverse Reactions, Alerts [...] 14:39:00 EDT, 12/27/22 14:39:00 EDT, Capsule, [id number], Partial fill uponpatient request if the prescription [...] tablet, 0 Refills, Maintenance, 12/06/2316:40:00 EDT, Tablet, [facility]/pharmacy #[id number], Partial fill upon patient request if the prescription is for a schedule II opioid drug., 168, cm, 12/06/22 8:... Start Date: 12/06/22 Stop Date: 12/13/22 Status: Ordered famotidine 20 mg oral tablet 1, tablet, By Mouth, Daily at bedtime, # 30 tablet, Refills 1, Maintenance, 12/19/22 16:07:00 EDT, Route to Pharmacy Electronically, [id number], 168, cm, 12/13/22 17:39:00 EDT, Height, 150.4, kg, 12/13/22 17:39:00 EDT, Dry Weight Start Date: 12/19/22 Status: Ordered gabapentin 300 mg oral capsule 300 mg, 1, capsule, By Mouth, 3 times a day, # 90 capsule, Refills 5, Tot. Refills 5, Maintenance, 12/27/22 14:38:00 EDT, Route to Pharmacy Electronically, [facility]/pharmacy #[id number], Partial fill upon patient request [...] 12/16/22 13:59:00 EDT, Route to Pharmacy Electronically, [facility]/pharmacy #[id number], Partial fill upon patientrequest if the prescription is for a schedule II op... Start Date: 12/16/22 Status: Ordered Multivitamins with Folic Acid 1 mg oral tablet 1 tablet, By Mouth, Daily, # 90 tablet, 2 Refills, Maintenance, 05/10/22 18:35:00 EDT, Tablet, [facility]/pharmacy #[id number], Partial fill upon patient request [...] 0 Refills, Maintenance, 11/02/22 18:45:00 EDT, Capsule, [facility]/pharmacy #[id number], Partial fill upon patient request [...] Team Personnel Name: Evelyn Quezada RN Position: [facility] OB RN Member Role: Primary Care Nurse Name: Vamshi Ford RN Position: S RN Member Role: Primary Care Nurse Name: Corine Yoder RN Position: S RN Member Role: Primary Care Nurse Name: Sara Pradhan NP Position: Reference Physician Member Role: PCP Address: Address: [address] [place] [id number]- Care Team Related Persons Name: CLARK MACHADO Address: home [address] [address] Name: NYA DURAND Address: home [address] [place] [address] Name: KARSTEN GALLAGHER Address: home [address] [place] [address] Name: JACKY PÉREZ Address: home [address] [place] [address] Name: JACKY AMOR Address: home [address] [place] [address] Name: LITTLE ELIAS Address: [address] Address: home [address] [place] [address] [place] Name: MARVIN ELIAS Address: [address] [facility] [address] Name: MARVIN ELIAS Address: [id number] Address: [address] [place] [address] [place] Name: CARLITOS DIAZ
--- OUTSIDE RECORDS SUMMARY | 2024-04-22 14:17 | XMS_ITS | Continuity of Care Document ---
Author Organization [facility] Address [address] [place] [address]- Care Team Providers Care Coding Support Specialist Name Role Phone Not on Staff, PCP Primary Care Physician Unavail able [place] [facility] [place](s): 11/30/21 - 12/30/21 [facility] [address] [address] Allergies, Adverse [...] 0 Refills, Maintenance, 10/26/21 12:58:00 EDT, [facility]/pharmacy #[id number], Partial fill upon patient request if the prescription is for a schedule II opioid drug., 165, cm, 10/26/21 9:33:00 EDT, Height, 1... Start Date: 10/26/21 Status: Ordered ferrous sulfate 325 mg oral tablet 1 tablet, By Mouth, Daily, # 90 tablet, 0 Refills, [id number], 165, cm, 12/02/21 16:29:00 EDT,Height, 144.2, kg, 11/01/21 10:32:00 EDT, Dry Weight Start Date: 12/06/21 Status: Ordered Multivitamins with Folic Acid 1 mg oral tablet 1 tablet, By Mouth, Daily, # 30 tablet, 8 Refills, Maintenance, 03/09/21 15:40:00 EDT, Tablet, [facility]/pharmacy #[id number], Partial fill upon patient request if the [...]
--- OUTSIDE RECORDS SUMMARY | 2024-04-22 14:17 | XMS_ITS | Continuity of Care Document ---
Author Organization [facility] ter Address [address] [place] [id number]- Care Team Providers Care Back Stayer Name Role Phone Carolynn ORDONZE, Sara Arita Primary Care Physician [phone] Encounter [facility] Date(s): 12/13/22 - 12/16/[address] [address] Discharge Disposition: A-D/C Home Attending Physician: Moshe PATHAK [OB], Dolores Anderson Admitting Physician: Moshe PATHAK [OB]Dolores Referring Physician: Moshe PATHAK [OB], Dolores Anderson [...] GIVEN Medications acetaminophen 325 mg oral tablet 975 mg, Tablet, By Mouth, Every 6 hours, PRN for Pain , Mild, Routine, 12/13/22 20:29:00 EDT Start Date: 12/13/22 Stop Date: 12/17/22 Status: Discontinued diphenhydrAMINE 50 mg oral tablet [...] 0 Refills, Maintenance, 12/06/2316:40:00 EDT, Tablet, [facility]/pharmacy #[id number], Partial fill upon patient request if the prescription is for a schedule II opioid drug., 168, cm, 12/06/22 8:... Start Date: 12/06/22 Stop Date: 12/13/22 Status: Ordered famotidine 20 mg oral tablet 1, tablet, By Mouth, Daily at bedtime, # 30 tablet, Refills 1, Maintenance, 09/23/22 13:46:00 EST, Route to Pharmacy Electronically, [id number], 170, cm, 09/09/22 8:52:00 EST, Height, 143.2, kg,05/16/22 14:20:00 EDT, Dry Weight Start Date: 09/23/22 Status: Ordered Flexeril 10 mg oral tablet 10 mg, Tablet, By Mouth, 12/16/22 9:00:00 EDT Start Date: 12/16/22 Stop Date: 12/16/22 Status: Completed ibuprofen 600 mg oral tablet 600 mg, Tablet, By Mouth, Every 6 hours, PRN for Pain , Mild, Routine, 12/13/22 20:32:00 EDT Start Date: 12/13/22 Stop Date: 12/17/22 Status: Discontinued Measles/Mumps/Rubella Virus Vaccine Inj 0.5, mL, Subcutaneous Injection, Once, Maintenance, 12/06/22 17:40:00 EDT Start Date: 12/06/22 Status: Ordered NIFEdipine 30 mg oral tablet, extended release 30 mg, 1, tablet, By Mouth, Every 24 hours, # 30 tablet, Refills 0, Tot. Refills 0, Maintenance, 12/16/22 13:59:00 EDT, Route to Pharmacy Electronically, [facility]/pharmacy #[id number], Partial fill upon patientrequest if the prescription is for a schedule II op... Start Date: 12/16/22 Status: Ordered ondansetron 4 mg oral tablet, disintegrating See Instructions, TAKE 1 TABLET BY MOUTH ONCE DAY NEEDED FOR NAUSEA AND VOMITING, # 10 tablet, 0Refills, Maintenance, 10/10/22 12:02:00 EDT, [id number], 170, cm, 09/29/22 11:15:00 EST, Height, 143.2, kg, 05/16/22 14:20:00 EDT, Dry Weight Start Date: 10/10/22 Status: Ordered Multivitamins with Folic Acid 1 mg oral tablet 1 tablet, By Mouth, Daily, # 90 tablet, 2 Refills, Maintenance, 05/10/22 18:35:00 EDT, Tablet, [facility]/pharmacy #[id number], Partial fill upon patient request if [...] Refills, Maintenance, 11/02/22 18:45:00 EDT, Capsule, [facility]/pharmacy #[id number], Partial fill upon patient request if [...] Exam Date Time Procedure Performing Provider Status 12/15/22 9:05 PM MRA Head W+W/O Contrast Tee Skelton; Auth (Verified) Notes: (MRA Head W+W/O Contrast) Reason For Exam: severe headache;Headache(s) RESULT: MRA Head W+W/O Contrast MRA Head W+W/O Contrast INDICATION: Reason: Headache(s); severe headache; Clinical Question(s): Other:; Special Instructions: needs MRV; Order Comment: ALSO PERFORM MRV Other: TECHNIQUE: MR venogram of the head was performed with intravenous contrast. 25 mL of Clariscan was administered intravenously. A 3-D [id number] noncontrast MRA of the head was also performed. 3D rotational MIP reformats of the vessels were created on a separate workstation and used in the interpretation. COMPARISON: No prior studies are available for comparison at the time of interpretation. FINDINGS: MR VENOGRAM OF THE HEAD The superior sagittal, transverse, and sigmoid sinuses are patent. There is moderate narrowing of the distal transverse sinuses bilaterally. The jugular bulbs are widely patent. The paired internal cerebral veins, straight sinus, and vein of Ortega are patent. Other findings: Limited visualization of the intracranial and extracranial structures demonstrates no significant abnormality. No abnormal intracranial enhancement. MRA OF THE HEAD The visualized extracranial right ICA follows a medial course towards the midline. The intracranialinternal carotid arteries are widely patent. The ICA termini are unremarkable. The A1 and A2 segments of the anterior cerebral arteries are patent, and the anterior communicating artery is unremarkable. The M1 segments of the middle cerebral arteries are patent, and the M2 branch origins and MCA bifurcations are unremarkable. The intracranial vertebral arteries are patent. The basilar artery, superior cerebellar arteries, and posterior cerebral arteries are patent. IMPRESSION: 1. No evidence of dural venous sinus thrombosis. 2. Narrowing of the distal transverse sinuses is noted. This can be seen in patients with pseudotumor cerebri, which can be correlated with funduscopic examination to evaluate for papilledema. 3. Unremarkable MRA of the head. WSN: [id number] Ordering Physician: Ann Maradiaga Dictated By: Nguyễn Concepcion MD Dictated Date/Time: 12/16/22 8:15 am Reviewed By: Nguyễn Concepcion MD Signed By: Nguyễn Concepcion MD Signed Date/Time: 12/16/22 8:15 am Transcribed By: KAZ Transcribed Date/Time: 12/16/22 8:06 am * Exam Date Time Procedure Performing Provider Status 12/13/22 3:50 PM Chest 2 Views Frontal and Lat Laura Lujan; Auth (Verified) Notes: (Chest 2 Views Frontal and Lat) Reason For Exam: Shortness of Breath RESULT: Chest 2 Views Frontal and Lat Chest 2 Views Frontal and Lat Reason: Shortness of Breath; Clinical Question(s): Other:; preeclampsia with worsening orthopnea, concern for fluid overload COMPARISON: Multiple prior examinations with the most recent dated 05/07/2016. FINDINGS: LINES AND TUBES: None. LUNGS AND PLEURA: Clear lungs. Normal pulmonary vascularity. No pleural effusion. No pneumothorax. HEART, MEDIASTINUM AND ANGELO: Heart is normal in size. Normal mediastinal and hilar contour. BONES AND SOFT TISSUES: No acute abnormality. IMPRESSION: No acute abnormality. WSN: [id number] Ordering Physician: Susan Segal Dictated By: Gaudencio Solo MD, V Dictated Date/Time: 12/13/22 3:59 pm Reviewed By: Gaudencio Solo MD, V Signed By: Gaudencio Solo MD, V Signed Date/Time: 12/13/22 3:59 pm Transcribed By: KAZ Transcribed Date/Time: 12/13/22 3:59 pm Vital Signs Most recent to oldest [Reference Range]: 1 2 3 4 Height 168 cm (12/13/22 5:39 PM) Weight 148.7 kg (12/16/22 9:37 AM) 149.4 kg (12/15/22 8:00 AM) 149.7 kg (12/14/22 9:54 AM) Oxygen Saturation [94-100 %] 100 % (12/16/22 12:28 PM) 100 % (12/16/22 10:33 AM) 100 % (12/16/22 8:23 AM) Pulse Rate [55-90 bpm] 110 bpm *H* (12/13/22 5:39 PM) Body Mass Index [18.5-24.99 kg/m2] 53.29 kg/m2 *>HHI* (12/13/22 5:39 PM) Blood Pressure [90-138/55-84 mm Hg] 137/65mm Hg (12/16/22 12:28 PM) 141/81mm Hg *H* (12/16/22 10:33 AM) 136/68mm Hg (12/16/22 8:23 AM) Respiratory Rate [16-30 br/min] 18 br/min (12/16/22 10:42 AM) 18 br/min (12/16/22 10:33 AM) 18 br/min (12/16/22 10:22 AM) 18 br/min (12/16/22 10:22 AM) Temperature [96.8-100.4 DegF] 98.9 DegF (12/16/22 8:23 AM) 97.9 DegF (12/15/22 7:21 PM) 98.5 DegF (12/15/22 3:00 PM) Mode of Delivery (Oxygen) Room air (12/15/22 7:21 PM) Room air (12/15/22 5:53 PM) Room air (12/15/22 3:00 PM) Blood pressure sites Arm, right (12/16/22 5:24 AM) Arm, right (12/16/22 1:09 AM) Arm, right (12/15/22 9:52 PM) Temperature Route Oral (12/16/22 8:23 AM) Oral (12/15/22 7:21 PM) Oral (12/15/22 3:00 PM) Dry Weight 150.4 kg (12/13/22 5:39 PM) 150.4 kg (12/13/22 12:34 PM) Weight Obtained Via Standing scale (12/16/22 9:37 AM) Standing scale (12/13/22 12:34 PM) Dry Weight Obtained Via Standing scale (12/13/22 12:34 PM) Social History Social History Type Response Tobacco Use: 4 or less cigar ettes(less than 1/4 pack)/day in last 30 days. Sex Female History and physical note * Dolores Perrin MD: PERFORM Event Display: History and Physical Hospital Authored Date: [id number] Patient: ??NASIM MACHADO ? Age:??32 Years?Sex:??Female?:??1990?? Chief Complaint Pre-e History of Present Illness 32yo PPD8 from an uncomplicated following IOL for cHTN presenting with elevated BPs at home and a headache, SOB, and chest pain. She has been normotensive to mild range since delivery.?? Shesays this headache has been on and off. She has had this headache for the past 3 days. Her chest pain prior, she stated had felt muscular, however her chest pain??today feels more central.??She denies vision changes. She states she feels SOB with walking and lying down. Denies fever/chills, DUMONT, dizziness, changes in vision, RUQ pain,??pain with urination, UE/LE swelling, calf tenderness. ?? In [facility], she had sustained severe range blood pressures, ruling her in for pre-eclampsia with severe features,??and received 10mg IR nifedipine. Review of Systems Negative except as noted in the HPI. Physical Exam Vitals & Measurements T:??98.3?F?? HR:??65??(Monitored)?? RR:??18?? RR:??18?? BP:??165/86?? SpO2:??100%?? WT:??150.4??kg?? Constitutional:??Normal affect, no acute distress, well-developed. Respiratory:??Normal exam, not labored, clear to auscultation, equal bilaterally, not rales, crackles, wheezing,??or rhonchi.? Cardiovascular:??RRR, no murmurs.? Abdomen/GI:??Soft, non-tender, and non-distended, no guarding, no rebound tenderness.?? Extremities:??Mild edema bilaterally, no erythema or pain Skin:??No rash or jaundice. Normal for ethnicity. Neurological/Psychiatric:??Appearance appropriate, mood and affect stable. Assessment/Plan Assessment:??32yo PPD8 from an uncomplicated following IOL for cHTN admitted with pre-eclampsia with severe features.??She presented with elevated BPs at home and a headache, SOB, and chest pain.??In [facility], she had sustained severe range blood pressures, ruling her in for pre-eclampsia withsevere features, and received 10mg IR nifedipine.??Remainder of vitals WNL.?EKG was WNL. CXR wasordered and WNL. HELLP labs WNL, pro-BNP elevated at 244. Will order echo given persistent chest pain and shortness of breath on exertion and elevated pro-BNP. Given persistent headache, will admit for magnesium sulfate for seizure prophylaxis. ?? We discussed the etiology and features of pre-eclampsia. We discussed that in the setting of pre-eclampsia with severe-range blood pressures or severe features, that the risk of seizure and eclampsiaindicates prophylactic treatment with IV magnesium sulphate. We discussed that this medication decreases the risks of seizure, and that concurrent treatment of blood pressures decreases the rare riskof stroke in the setting of severe-range BPs. ?? The risks of magnesium were discussed including respiratory paralysis or cardiac conduction abnormalities or cardiac arrest with hypermagnesemia. We discussed that she will be monitored for clinical signs of magnesium toxicity every 4-6 hours to prevent this. Side effects of magnesium include feeling warm/diaphoretic, flushed, nausea/vomiting, headache, shortness of breath or mild chest pain or palpitations, feeling slow or foggy, and muscle weakness. She will be monitored for these symptoms. Patient expressed understanding and agreement with plan. ?? Patient seen and discussed with Dr. Wilson, attending physician ?? Pre-eclampsia superimposed on chronic hypertension, (O11.5):? Superimposed preE w SF: Diagnosed based on cHTN with severe headache not responding to medications -- s/p Nifedipine 10mg IR?? -- Will initiate on nifedipine 30mg ER -- HELLP labs on admission wnl -- 4g Mag bolus-- >2g mag/ hr -- I&O q 4hr -- BP q1h -- SCDs in place -- Mag check q 4-6 hr ?? Anxiety (F41.9):? - Will consider re-initiating Zoloft as she feels her anxiety has worsened ?? Chest pain (R07.9):? - CXR WNL, no cardiomegaly - pro-BNP: 244 - (p) echo ?? Headache (R51.9):? - s/p ibuprofen and tylenol ?? state (Z39.2):? - Routine PP care ?? Shortness of breath (R06.02):? CXR WNL ?? OB History History?(6,0,2,6)? # 1 ?Baby 1 [...] History IUD - Intrauterine device procedure: 05/13/14 [place] tooth Home Medications Acetaminophen: 650 mg, By Mouth, [...] Use: Never. Employment/School Status: Employed. Other: part [place] at [employer]. Exercise Self assessment: Fair condition. Home/Environment Living [...] mellitus type II Sister: Hypertension Brother: Hypertension EKG study * Event Display: ECG 12-Lead Authored Date: Please click on pdf link to open report * Event Display: ECG 12-Lead Authored Date: Ventricular Rate: 77 BPM Atrial Rate: 77 BPM P-R Interval: 186 ms QRS Duration: 98 ms Q-T Interval: 378 ms QTC Calculation(Bazett): 427 ms P Reno: 10 degrees R Reno: 8 degrees T Reno: 13 degrees Normal sinus rhythm Normal ECG When compared with ECG of 09-DEC-2022 12:33, No significant change was found Confirmed by JE LICONA MD ([id number]) on 12/13/2022 9:04:15 PM [place]: JE LICONA MD US Heart * Event Display: Echocardiogram - Complete Authored Date: Transthoracic Echocardiography Report (TTE) Patient Demographics Patient Name NASIM MACHADO Date of Study 12/14/2022 Corporate Gender Female Facility Race Ethnicity or Date of 1990 Height: 66.14 inches Age 32 year(s) Weight: 330.7 pounds Accession Number [id number] BSA: 2.48 m2 Room Number [id number] BMI: 53.15 kg/m2 Referring Physician Anayeli Dos Santos MD Interpreting Cherelle Garcia MD Physician Underwriting Consultant Catarina Lopez [facility] Indications Chest pain. Clinical History No cardiac risk factors. Study Data Type of Study TTE procedure:Echo Complete-Doppler, Colorflow, M-Mode. Study Date12/14/2022 Start Time: 10:26 AM Study Location: [facility] Adult Echo Study Status: Echo lab Patient Status: Routine Technical Quality: Fair due to body habitus. Blood Pressure:132/65 mmHg EKG: Normal sinus rhythm HR: 85 bpm 2D Measurements LV Diastolic Dimension: 4.5 cm LV Systolic Dimension: 3 cm LV Septum Diastolic: 1.1 cm LV PW Diastolic: 1.3 cm AO Root Dimension: 2.7 cm LA ESV (BP):91.3 ml LVOT Stroke Volume: 98.9 ml LA ESV Index: 37 ml/m2 Stroke Volume Index39.88 ml/m2 LVOT: 1.9 cm Cardiac Index:3.39 l/min/m2 Ascending Aorta:2.4 cm Doppler Measurements AV Peak Velocity: 205 cm/s MV Peak E-Wave: 117 cm/s AV Peak Gradient: 16.81 mmHg MV Peak A-Wave: 133 cm/s AV Mean Gradient: 9 mmHg MV E/A Ratio: 0.88 AV VTI:38.2 cm MV P1/2t: 39 msec LVOT Peak Velocity: 170 cm/s LVOT VTI34.9 cm MV Deceleration Time: 134 msec AV Area (Continuity):2.59 cm2 MV Area (PHT): 5.64 cm2 E' Septal Velocity: 9.79 cm/s E' Lateral Velocity: 12.7 cm/s E/Med E':11.18795 E/Lat E':[id number] Cardiac Anatomy Left Ventricle/Interventricular Septum The left ventricle is normal in size. There is mildly increased wall thickness. Overall left ventricular systolic function is normal. LVEF visually estimated at 60-65%. There are no definite wall motion abnormalities. Normal diastolic function. Left Atrium/Interatrial Septum The left atrium is mildly dilated. Aortic Valve The aortic valve is probably trileaflet . There is no aortic regurgitation. There is no aortic stenosis. Mitral Valve The mitral valve is normal in structure and function. There is no mitral stenosis or insufficiency. Aorta The aortic root appears normal. Right Ventricle The right ventricle is normal in size and function. Right Atrium The right atrial size is at the upper limit of normal. Pulmonic Valve The pulmonic valve is functionally normal. Tricuspid Valve The tricuspid valve is normal in structure and function. There is trace regurgitation. Pumonary Artery An accurate pulmonary artery pressure could not be obtained. Venous Structures The inferior vena cava appears normal. Pericardium/Extracardiac There is no pericardial effusion. Summary The left ventricle is normal in size. There is mildly increased wall thickness. Overall left ventricular systolic function is normal. LVEF visually estimated at 60-65%. There are no definite wall motion abnormalities. Normal diastolic function. The right ventricle is normal in size and function. Comparison Comparison is made to the study of October 20, 2022. There is no significant change. Signature * Event Display: Echocardiogram - Complete Authored Date: [facility] Progress note * Laisha Roberts RN: PERFORM, SIGN, VERIFY Event Display: Progress Note Hospital Authored Date: [id number] Patient: NASIM MACHADO Age: 32 years Sex: Female : 1990 Associated Diagnoses: None Author: Laisha Roberts RN Pt was readmitted for preeclampsia and was started on nifedipine with good effect. Pt is now pain free from her headache and feeling better. Pt's fob was present throughout her stay to help take careof their boy. * Susan Manriquez RN: SIGN, MODIFY, PERFORM, SIGN, VERIFY Event Display: Progress Note Hospital Authored Date: [id number] Patient: NASIM MACHADO Age: 32 years Sex: Female : 1990 Associated Diagnoses: None Author: Susan Manriquez RN Findings Assumed care. Safety check done. Pt feeling well still c/o of dull h/a but declining tylenol/motrinthis AM. BPs continue to be mild range. No other concerns. Awaiting MRA to be done and possible d/c. * Susan Manriquez RN: PERFORM Event Display: Progress [facility] Authored Date: [id number] MRA to be done at the earliest overnight tonight. Pt agreeable to stay overnight while awaiting MRA * Renee DO, Jose: PERFORM Event Display: Progress Note Hospital Authored Date: [id number] Patient: ??NASIM MACHADO ? Age:??32 Years?Sex:??Female?:??1990?? Subjective Patient??resting in bed with baby??comfortably at time of evaluation. ??She states she continues tofeel her headache and is largely??unchanged following her waking up. ??She reports that??she localizes it mostly to the frontal region??as well as experiences significant tension in her neck. ??She denies any focal vision changes like spots in her vision but does report overall dizziness and blurriness with her vision. Review of Systems Constitutional, Eye, Skin, Head/Neck, ENMT, Respiratory, Cardio, Gastrointestinal, Breast, Gynecologic, Genitourinary, Endocrine, Musculoskeletal, Immunologic, Hematologic, Lymphatic, Neurologic, Psych reviewed and negative except as noted in HPI. Physical Exam Vitals & Measurements T:??98.2?F?? HR:??75??(Monitored)?? RR:??19?? RR:??19?? BP:??149/81?? SpO2:??98%?? HT:??168??cm?? WT:??149.4??kg?? BMI:??53.29?? Constitutional:??Well-developed, no acute distress. Respiratory:??unlabored breathing?clear to auscultation bilaterally Cardiovascular:??Regular rate??and rhythm??no murmurs or other adventitious sounds Abdomen/GI:??Soft, non-tender, non-distended, no guarding or rebound tenderness. Extremities:??No edema or tenderness. Warm and well-perfused.?? Skin:??No rash or jaundice. Neurological/Psychiatric:??Appearance appropriate, mood and affect stable. Assessment/Plan Assessment:??32yo PPD8 from an uncomplicated following IOL for cHTN who is now admitted with superimposed pre-eclampsia with severe features based on sustained severe range BPs and persistent headache; she is s/p??magnesium for seizure prophylaxis.?She received an echocardiogram which was unremarkable. Her headache is still persisting and as such will obtain an MRV to evaluation for cranial etiologies of her headache. patient is describing neck tension as a component of her headache, will trial Flexeril for relief while awaiting MRV to be done??She is currently on Nifedipine 30mg for anti-hypertensive.??She did have 1 high mild yesterday but has otherwise been normo-mild range.??Will continue to monitor but can consider increasing to 60mg Nifedipine ?? Headache (R51.9):? Tylenol, ibuprofen, Benadryl Pt declines reglan (p) MRV - Flexeril ?? state (Z39.2):? Continue routine care ?? Pre-eclampsia superimposed on chronic hypertension, (O11.5):? - s/p Mag bolus-- >2g mag/ hr - I&O q 4hr - BP q2h awake, q4h sleeping - SCDs in place - PO antihypertensive: Nifedipine 30 ?? Shortness of breath (R06.02):? - CXR WNL, no cardiomegaly - pro-BNP: 244 - echo wnl ?? Intake and Output Intake and Output Results?? This visit (24 hour periods starting at 07:00 EDT)? 12/15/22 *?? 12/14/22?? 12/13/22?? Total Summary?Intake mL?? --?? 1,600?? --?Output mL?? --?? 2,800?? 1,800?Fluid Balance ?? --?? -1,200?? -1,800?? Intake (1)?Oral Fluids mL?? --?? 1,600?? --?Total?? --?? 1,600?? --?? Output (1)?Urine Voided mL?? --?? 2,800?? 1,800?Total?? --?? 2,800?? 1,800?? Counts (2)?Oral Fluids mL?? --?? 1,600?? --?Urine Voided mL?? --?? 2,800?? 1,800? * This column has not completed the indicated time period.?? * Kayla PATHAK, Anali Ghotra: PERFORM Event Display: Progress Note Hospital Authored Date: [id number] ?Attending Attestation:??I have seen and evaluated this patient. ??I have discussed the case and its management with the resident and agree with the findings and plan as documented in the resident???s note.PBS Note * Laisha Roberts RN: PERFORM Event Display: Discharge/Transfer Note Hospital Authored Date: [id number] Nursing Discharge Note Entered On: 12/16/2022 15:11 EDT Performed On: 12/16/2022 15:10 EDT by Laisha Roberts RN Nursing Discharge Note 2 Discharge Time : 12/16/2022 15:00 EDT Discharge Level of Care at Discharge : Home/Penitentiary/Foster Care Finance Broker Utilized : No Patient Left Unit Via : Ambulatory Patient Accompanied Off Unit with : Responsible adult DC Instructions Provided & Signed by Pt : Yes Patient Understands D/C Instructions : Yes Patient Instructions Discharge Signed : Yes Did Pt have Specialty Bed or Wound Vac : No Laisha Roberts RN - 12/16/2022 15:10 EDT * Jose Renee DO: PERFORM Event Display: Discharge/Transfer Note Hospital Authored Date: [id number] Patient: ??MACHADO, NASIM ? Age:??32 Years?Sex:??Female?:??1990?? Admit Date Admission Date: 12/13/2022 Discharge Date 12/16/2022 Discharge Diagnoses Anxiety, 12/13/2022 Chest pain, 12/13/2022 Chronic hypertension, 12/13/2022 Headache, 12/13/2022 state, 12/13/2022 Pre-eclampsia superimposed on chronic hypertension, , 12/13/2022 Shortness of breath, 12/13/2022 [facility] Hospital Course ??32yo PPD8 from an uncomplicated following IOL for cHTN admitted with pre-eclampsia with severe features. She is receiving magnesium for seizure prophylaxis.?? She is started on Nifedipine 30mg daily for management of her hypertension. Objective/Physical Exam on Day of Discharge Vitals & Measurements T:??98.9?F?? HR:??66??(Monitored)?? RR:??18?? BP:??137/65?? SpO2:??100%?? HT:??168??cm?? WT:??148.7??kg?? BMI:??53.29?? Constitutional:??Well-developed, no acute distress. Respiratory:??unlabored breathing?clear to auscultation bilaterally Cardiovascular:??Regular rate??and rhythm??no murmurs or other adventitious sounds Abdomen/GI:??Soft, non-tender, non-distended, no guarding or rebound tenderness.??_Gravid. Extremities:??No edema or tenderness. Warm and well-perfused.?? Skin:??No rash or jaundice. Neurological/Psychiatric:??Appearance appropriate, mood and affect stable. Assessment/Plan Assessment:??32yo PPD8 from an uncomplicated following IOL for cHTN who is now admitted with superimposed pre-eclampsia with severe features based on sustained severe range BPs and persistent headache; she is s/p??magnesium for seizure prophylaxis.?She received an echocardiogram which was unremarkable. She is s/p MRV and MRA of her head which demonstrated narrowing of distal transverse sinus concerning for possible pseudotumor cerebri.??As a result of this finding, consulted neurology who stated that she does not have evidence of??papilledema and suspect headache is related to herpre-eclampsia.??She is encouraged for outpatient follow up for her??incidental findings on MRA and no concern for pseduotumor.??She is currently on Nifedipine 30mg for anti- hypertensive.??She will??be continued on??[employer]s which she had previously ?? Headache (R51.9):? Tylenol, ibuprofen, Benadryl Pt declines reglan - s/p flexeril K pad without relief - s/p MRV/MRA with distal narrowing of distal transverse sinus - s/p Neuro consult ?? state (Z39.2):? Continue routine care ?? Pre-eclampsia superimposed on chronic hypertension, (O11.5):? - Patient already on baby scripts - Continue Nifedipine 30mg - Return precautions provided - RN BP check next week ?? Shortness of breath (R06.02):? - CXR WNL, no cardiomegaly - pro-BNP: 244 - echo wnl ?? Future Appointments 2022 1:00 PM EDT ?? Where: [facility] - Certified Control Systems Technician [address] [place] [address]- Status: Pending Monday 1:20 PM EDT ?? With: Adam SANTILLAN, SLEEVE SETTER, Alina Arita Where: [facility] - Certified Control Systems Technician [address] [place] [id number]- Status: Pending Discharge Medications ???Calcium Carbonate (Tums 500 mg Tablet)???Calcium Carbonate (Tums 500 mg oral tablet, chewable)???DiphenhydrAMINE (diphenhydrAMINE 50 mg oral tablet)???Docusate (docusate sodium 100 mg oral tablet)???Famotidine (famotidine 20 mg oral tablet)???HydrOXYzine (Vistaril pamoate 25 mg oral capsule)???Me asles/Mumps/Rubella Virus Vaccine (Measles/Mumps/Rubella Virus Vaccine Inj)???Multivitamin, ( Multivitamins with Folic Acid 1 mg oral tablet)???NIFEdipine (NIFEdipine 30 mg oral tablet, extended release)???Ondansetron (ondansetron 4 mg oral tablet, disintegrating) Immunizations during Hospitalization Vaccine Date Status Measles/Mumps/Rubella Virus Vaccine 12/07/2022 Given tetanus/diphtheria/pertussis, acel(Tdap) 10/27/2022 Given tetanus/diphtheria/pertussis, acel(Tdap) 09/09/2021 Given influenza virus vaccine, inactivated 06/22/2021 Given influenza virus vaccine, inactivated 05/13/2014 Given Comments : vis given 03/11/14 tetanus/diphtheria/pertussis, acel(Tdap) 02/13/2014 Given influenza virus vaccine, inactivated 10/02/2013 Given influenza virus vaccine, inactivated 06/16/2006 Given Comments : VIS GIVEN Patient Education Titles Understanding Preeclampsia?? Patient Instructions Discharge: home, Call your the office with any concerns including:?? Heavy vaginal bleeding?? Fever of 100.4 or greater Foul-smelling vaginal discharge Difficulty or burning with urination?? Nausea and vomiting with inability to tolerate food,?? Pain not controlled by your prescribed medications Shortness of breath or chest pain. Swelling of the extremities. Changes in vision or blurry vision Headache that doesn't improve with tylenol or ibuprofen extreme right upper quadrant pain shortness of breath, difficulty breathing, or chest pain ?? You are being discharged with a blood pressure cuff.?? It is recommended that you take your blood pressures as instructed once you go home.?? Please contact your doctor if your blood pressure is greater than 160 on the top or 110 on the bottom or if you experience any of the symptoms stated above ?? You are being discharged on Nifedipine for blood pressure control; it is recommended that you take it as prescribed * Donald PATHAK, Bryson Ghotra: PERFORM Event Display: Discharge/Transfer Note Hospital Authored Date: I saw the above patient and reviewed the findings and plan with the resident. Agree with assessmentand plan. Zaheer Bennett MD * Alejandra ARREGUIN, Laisha: PERFORM Event Display: Patient Education/Instruction Authored Date: Inpatient Adult Discharge Instructions [address] [address] Name: NASIM MACHADO : 1990 Visit: 12/13/2022 16:47:00 Current Date: 12/16/2022 14:06 Account: [id number] Inpatient Adult Discharge Instructions We would like [...] and their families. Surveys are administered by [employer] ?? If further treatment with your primary care physician or another doctor is recommended, it is important for you to keep the appointment. Call your primary care physician or return to the Emergency Department immediately if your condition worsens, fails to improve, or new symptoms develop. If you need to find a doctor, you can call [facility] [employer] for a referral at [phone] or toll free at [phone] or log in to [email or web address].. ?? You can view and manage your care through the patient portal or by using a health care tom of your choosing. [employer] is a website that allows you to securely view your medical information including your hospital discharge summary, office visit summaries, medications and follow-up visits. You can also request appointments, renew medications, and request access to your medical information using a health care tom of your choosing, or just ask a question. You can enroll at [email or web address] or register during your next office visit. You have been discharged from [facility], Patient Care Unit: [facility]. If you have any questions regarding these instructions after you leave, please call us and we will be happy to assist you. [facility] Your Care Team Attending Physician Lior PATHAK, Jorden; Moshe PATHAK [OB], Dolores Anderson Consulting Providers Donald PATHAK, Bryson Ghotra Reason for Your Visit POST HIGH BPSOB Your Diagnosis Anxiety Chest pain Chronic hypertension Headache state Pre-eclampsia superimposed on chronic hypertension, Shortness of breath Tests Performed Below is a partial list of the tests performed during your hospitalization. You may have had other tests and procedures not included in this list. Please discuss all test results with your provider. ALT AST BUN CBC Creatinine PROBNP Urine Protein/Creatinine Ratio CXR W/ Frontal and Lat Head MRA W+W/O Contrast Primary Care Provider Sara Pradhan NP Advance Directive . Discharge Vitals Temperature: 98.9 DegF Height: 168 cm Pulse Rate:??110 bpm??High Weight: 148.7 kg Respiratory Rate: 18 br/min Body Mass Index:??53.29 kg/m2??Critical Systolic Blood Pressure: 137 mm Hg Body surface area: 2.65 Diastolic Blood Pressure: 65 mm Hg ?? Oxygen Saturation: 100 % ?? Studies Pending All tests and labs ordered during this hospital stay have been completed unless listed below. Please discuss all pending results with your provider listed above in these instructions. ?? B Type Natriuretic Peptide (ProBNP) COVID-19 (2019 Novel Coronavirus) PCR What to do next Instructions From Your Doctor Discharge Orders Instructions from your Care Team Discharge Care Instructions for the New Mom?? Please take a few moments to read through these helpful instructions before you leave the hospital.??Your nurse will be glad to answer any questions you may have. ??You can also find this and more information throughout the purple??Becoming a Family??booklet,??[facility]???s New Beginnings Guide??and the?? Consultation Services Guide??given to you after the of your baby. ??You may also phone our nurses stations if you have further questions. ??[facility]: ??First Floor ([phone]), Second Floor ([phone]). ?? Please call your provider if you have any questions or concerns ??before your next appointment. For ongoing support??please?Like?us on our Facebook page?[facility]???[facility] New Beginnings?and sign up for our email newsletter at??[email or web address]. ??News and information will be sent to you??until your baby???s third birthday. Instructions for the New Mother Activity:?? For the next 2 weeks at home?no heavy lifting, avoid unnecessary stair climbing, and no driving (especially if you are taking medicine that may make you sleepy or feel that you are sleep deprived). ?? For the next 4-6 weeks - no tampons, no douches, no sexual intercourse. Use your gurjit bottle to rinse your perineum until your vaginal flow stops. ??If you have stitches in your bottom, they generally dissolve within 7-10 days. ??Apply Tucks/witch joey pads until your soreness subsides. ??Use your bathroom at home every 3 to 4 hours, rinse, and change your pads. Warm showers feel great on achy muscles, sore backs and sore bottoms. Exercise: Walking is the best form of exercise. ??Wait until your follow up appointment with your provider in4-6 weeks before engaging in more strenuous activity. Diet: Drink plenty of fluids to avoid constipation and to help support your recovery. Eat plenty of iron rich foods such as red meat, iron fortified cereals like Total and Cream of Wheat, raisins, prunes, greens and spinach. ??These will help to build your blood count back up as all women lose some blood after delivery. ??Also add foods rich in Vitamin C such as strawberries, oranges, papayas, kale and foley peppers. Continue to take your vitamins if you are . ??If you are not follow the instructions of your provider. ??If you were prescribed iron supplements such as ferrous sulfate, it is important to continue these until your doctor or hogshead weigher tells you to stop. Breast Care for Nursing Mothers: Wear a comfortable fitting, supportive nursing bra. ??An underwire bra is not recommended. Express drops of breast milk and rub over your nipples and areola (brown area) before and after each feeding to protect and heal sensitive skin and then air dry your nipples. ??If you are experiencing any soreness, you may purchase nipple cream such as TenderCare or Lansinoh. ??Use it in the following manner: ??finish your feeding or pumping session, self-express colostrum onto your nipple and air dry, apply the nipple cream to the nipple and areola. ??Use only small amounts for best results. If you are having difficulty getting the baby to latch onto the breast due to swelling of the areola, try applying pressure with your fingers for a couple of minutes above and below your nipple and walk your fingers outward softening the area and pushing the swelling away. ??This technique is knownas reverse pressure softening. ??For demonstrations of this and other techniques such as the [place] Hand Expression technique, please refer to the resources section of the Consultation Services Guide that you received from services.?? When your milk first comes in, usually within 3 to 5 days after delivery, you may experience engorgement. ??Your breasts may become swollen and very tender. ??Cold compresses work great to help with discomfort and reduce swelling. It will get better in a couple of days. ??Continue to nurse your baby frequently. ?? Call [facility]???s Consultation Service at [phone], press 1 to schedule an outpatient appointment or press 3??and a dairy consultant will return your call that day or the next if you call after 3pm. Breast Care for Bottle Feeding Mothers: Engorgement may occur within the first week after delivery. ??Your breasts may become hard and verytender. ??A cool compress of cleaned raw green cabbage leaves applied to the breast and changed as leaves wilt has been proven helpful for many women. ??Ice packs or frozen bags of peas also work nicely to ease the discomfort. ??The soreness will only last a couple of days. Keep your back turned to the water while showering to decrease breast stimulation. Wear a snug fitting bra such as a sports bra. ?? Control: Your doctor or hogshead weigher will discuss control methods with you when you are discharged from thespital or at your checkup. ??Be sure to let your provider know if you are . ?? Pain Management: Cramping after is common and increases in strength with each baby you have. ??If you experience painful cramps, and have no allergies to acetaminophen (Tylenol) or ibuprofen (Motrin), you may continue to take these medications as you did in the hospital. ??Ibuprofen is also helpful with back aches following epidurals, perineal pain following a vaginal delivery, and moderate incisional pain after a section or a tubal ligation. ?? If you experience gas distention, especially after surgery, you may take an over the counter medication called simethicone. ??Take these chewable tablets 4 times a day as needed and directed on the package. ??Keep moving. ??Walking or rocking in a chair, will help to move the gas along. ??Diego tea made with heated diego jennifer (instead of water) and a tea bag, stirred to dissolve carbonation (bubbles) is a helpful drink to soothe a gassy stomach. Warning Signs of a Problem to Notify Your Doctor or Brake Operator of: Heavy vaginal bleeding?which is??soaking a pad every hour??with bright red blood. Passing blood clots the size of an egg or larger. An incision that is not healing. A temperature greater than or equal to 100.4 especially if accompanied by any of the following symptoms?painful, frequent urination; extreme back or flank pain; lower belly pain with a foul smell to your vaginal flow; a red hard hot area on your breast. ?? Severe headache that does not go away after taking acetaminophen or ibuprofen. ?? A headache that changes your vision, including seeing spots or blurring. Right sided upper abdominal pain along the rib cage area. Pain in your legs that is warm and tender to the touch. depression signs may include?loss of interest in your baby, weepiness, difficulty focusing, weight loss with no appetite, exhaustion, feeling overwhelmed or anxious, feelings??of despair, or thoughts of harming yourself or your baby. ??These symptoms are important and should be discussed with your doctor or hogshead weigher. depression may develop over a period of time and needs prompt medical attention. ??Do not suffer in silence. ??In both the??Becoming a Family??booklet and the??[facility]??New Beginnings Guide??there is a screening tool used to identify women at risk, called the Downey Scale which you have taken in the office prior to delivery and again during your ho spital stay. ??Three to four weeks after your delivery, and before your check with your provider, take this test and share your results with your provider. ??Be sure to mention any score of 10 or more. ?? Many women, and even some partners, may experience the?baby blues?? . ??This is a state of feeling overwhelmed and weepy. ??Discomfort from childbirth, hormonal changes, exhaustion, changes to your body and lifestyle are a few of the things that contribute to the highs and lows new parents go through. ??Don???t be afraid to ask your partner or family and friends for some help at home so you can get some rest and a few minutes to yourself. ??The blues will quickly pass. Personal Safety: Every person has the right to feel safe at home and live free from physical or emotional harm. ??Ifyou have suffered mental or physical abuse at home, you are not alone. ??There is help. ??Please call [facility] or the [facility] Program at [phone]. Scheduled Follow-Up Appointments 2022 1:00 PM EDT ?? Where: [facility] - Certified Control Systems Technician [address] [place] [id number]- Status: Pending Monday 1:20 PM EDT ?? With: Adam SANTILLAN, JOSÉ LUIS, Alina Arita Where: [facility] - Certified Control Systems Technician [address] [place] [address]- Status: Pending Discharge Medications NASIM MACHADO :1990 Visit Date:12/13/2022 Medications: Please continue your medications until treatment is completed or stopped by your provider. Medications not listed below should be discontinued. Discuss any questions related to medications with your provider. What How Much When Instructions Next Dose New NIFEdipine (NIFEdipine 30 mg oral tablet, extended release) 1 tab(s) Oral Every 24 hours Pickup at [facility]/pharmacy #[id number] 12/16/22 8 pm Unchanged Calcium Carbonate (Tums 500 mg oral tablet, chewable) 2 tab(s) Chew Every 4 hours as needed for Dyspepsia as needed Unchanged Calcium Carbonate (Tums 500 mg Tablet) 1,000 Milligram Chew 3 times a day as needed for Indigestion as needed Unchanged DiphenhydrAMINE (diphenhydrAMINE 50 mg oral tablet) 50 Milligram Oral Every 4 hours as needed for Itch as needed Unchanged Docusate (docusate sodium 100 mg oral tablet) 100 Milligram Oral Twice a day as needed for Constipation Duration: 7 Days as needed Unchanged Famotidine (famotidine 20 mg oral tablet) 1 tab(s) Oral Daily at Bedtime 12/16/22 10 pm as needed Unchanged HydrOXYzine (Vistaril pamoate 25 mg oral capsule) 1 capsule Oral 4 times a day as needed for for anxiety as needed Unchanged Measles/ Mumps/ Rubella Virus Vaccine (Measles/ Mumps/ Rubella Virus Vaccine Inj) 0.5 Milliliter Subcutaneous Injection Once received?? after delivery 12/05/22 x 1 Unchanged Multivitamin, ( Multivitamins with Folic Acid 1 mg oral tablet) 1 tab(s) Oral Daily as ordered. Unchanged Ondansetron (ondansetron 4 mg oral tablet, disintegrating) See instructions TAKE 1 TABLET BY MOUTH ONCE DAY NEEDED FOR NAUSEA AND VOMITING ?? as needed Pharmacy Information [facility]/pharmacy #[id number]: [address], [place] [id number] [phone] Test Results Below is a partial list of the most recent Laboratory test results done prior to this discharge. You may have had other tests and procedures not included in this list. Please discuss all test resultswith your provider. Est Creatinine Clearance - 127.88 mL/min (12/13/2022) ALT (12/13/2022) ???ALT (SGPT) - 16 units/L AST (12/13/2022) ???AST (SGOT) - 14 units/L BUN (12/13/2022) ???BUN - 11 mg/dL CBC (12/13/2022) ???WBC - 4.7 k/mm3???RBC - 3.91 m/mm3???Hgb - 11.0 Gm/dL???Hct - 33.9 %???MCV - 86.7 femtoliters???MCH - 28.1 pg???MCHC - 32.4 g/dL???Platelet Count - 361 k/mm3???RDW-SD - 38.8 femtoliters???MPV - 9.2 femtoliters???Nucleated RBC (Automated) - 0.0 #/100 WBC'S???Abs. NRBC - 0.0 k/mm3 Creatinine (12/13/2022) ???Creatinine-Blood - 0.6 mg/dL???Estimated GFR Creatinine - 121 ML/MIN/1.73 M2 PROBNP (12/13/2022) ???Nt-Probnp - 244 pg/mL Urine Protein/Creatinine Ratio (12/13/2022) ???Protein, Total Urine Random - 8 mg/dL???TP/Cr Ratio - 0.07???Creatinine, Urine - 108.9 mg/dL Allergies (NKA means No Known Allergies) [...] Educational Leaflet Providered with your Discharge Instructions. Understanding Preeclampsia?? Understanding Preeclampsia?? Valuables and Belongings I fully understand and agree that [facility] accepts no responsibility for all [...] are strongly encouraged to quit. Please call [facility] [employer] at [phone] or [phone] [email or web address] ([phone]) or log in to [email or web address] for referrals to smoking cessation programs. ?? 058 Suicide & Crisis Lifeline is available 13/02 if you or someone you know needs to find a reason to keep living. By calling 261 you'll be connected to a skilled, trained counselor at a crisis center in your area. INPATIENT DISCHARGE INSTRUCTIONS SIGNATURE PAGE NASIM MACHADO Location:[facility] Registration Date and Time:12/13/2022 16:47 EDT Primary Care Physician: Sara Pradhan NP, Attending Physician: Jorden Tinajero MD, Moshe PATHAK [OB], Dolores Anderson, I NASIM MACHADO, have received the above patient education materials/instructions and have verbalized understanding. If ambulance or transport services are being used I further acknowledge being given a choice of service. ?? If you need to contact me, please call me at this number: . Patient/Taker Out Name: Patient/Taker Out Signature: Relationship to Patient: Witness Name/Signature: Date: * Laisha Roberts RN: PERFORM Event Display: Patient Education Leaflets Authored Date: [id number] Understanding Preeclampsia ?? [address] Understanding Preeclampsia Preeclampsia is a condition that can happen in . It includes high blood pressure (hypertension), swelling, and signs of organ problems.??It can show up around week 20 of . It often goes away by 12 weeks after you give . It can lead to serious health risks for you and your baby. During your , your healthcare provider will watch your blood pressure. Your blood pressure will be monitored regularly throughout your to help check for preeclampsia. Dangers of preeclampsia If not treated, preeclampsia can cause problems for you and your baby. The placenta is the organ that nourishes your baby. It may tear away from the wall of the uterus. This can put the baby at risk for health problems ( distress). It can put the baby at risk for . Preeclampsia can also cause these health problems in you: ??? Kidney failure or other organ damage ??? Seizures ???Stroke ?? Who???s at risk for preeclampsia? No one knows what causes preeclampsia. It can happen in any person. But there are things that increase your risk. You may need to take a daily low dose of aspirin if you are at risk for preeclampsia. You???re at higher risk for preeclampsia if you have any of these: ??? Diabetes ??? High blood pressure ??? Obesity ??? Kidney disease ??? Autoimmune disease such as lupus ??? A family history of preeclampsia You???re at higher risk if any of these apply to you: ??? This is your first ??? You are having twins or more ??? You???re under age 18 or overage 40 ??? You used in vitro fertilization ??? You are Black And you???re at higher risk if you had any of these in a past : ??? Preeclampsia ??? Intrauterine growth restriction (IUGR) ? Placental abruption ? Symptoms A common symptom of preeclampsia is high blood pressure. Other symptoms may include: ??? Fast weight gain ??? Protein in your urine ??? Headache ??? Belly (abdominal) pain on your right side ??? Vision problems such as flashes or spots ??? Swelling (edema) in your face or hands (this often happens near the end of a normal ) ?? Tests you may have Your healthcare provider will want to check your blood pressure. This will need to be done often inyour . If your blood pressure is high, you may have??these tests: ??? Urine tests to look for protein ??? Blood tests to confirm preeclampsia ??? monitoring to make sure that your babyis healthy ?? Treating preeclampsia Preeclampsia almost always ends soon after you give . Until then, your healthcare provider canhelp you manage it. If your symptoms are mild, you may to: ? Limit your activity ??? Rest in bed ??? Not do heavy lifting ?? If your symptoms are severe, you will stay in the hospital. Treatment here may include: ??? Limits to your activity. This is to help control your blood pressure. You should not lift anything heavy. You will need to spend 8 hours a day lying down with your feet up. ??? Magnesium IV (intravenous) drip. This is done during labor. It's to prevent seizures ??? Induced labor or section. ?? When to call your healthcare provider Call your healthcare provider if your symptoms start quickly or are severe. This includes swelling,weight gain, or other symptoms.??Some cases of preeclampsia are more severe than others. Your symptoms also may change or get worse as you get closer to your due date. ?? Once you give In most cases, preeclampsia goes away on its own soon after you give . This is often by the 12th week after you deliver. Within days after you give , your blood pressure, swelling, and other symptoms??should get better. But for some people, problems from preeclampsia can continue after . ?? preeclampsia Preeclampsia that starts after is rare. There are 2 types: ??? preeclampsia. This may start in the first 48 hours after . ??? Late-onset preeclampsia. This starts more than 48 hours after . Both of these types are rare. But call your healthcare provider right away if you have symptoms of preeclampsia after you give . ?? How daily issues affect your health Many things in your daily life impact your health. This can include transportation, money problems,housing, access to food, and child and adolescent psychiatrist. If you can???t get to medical appointments, you may not receive the care you need. When money is tight, it may be difficult to pay for medicines. And living far from a grocery store can make it hard to buy healthy food. If you have concerns in any of these or other areas, talk with your healthcare team. They may know of local resources to assist you. Or they may have a staff person who can help. ?? Last Reviewed Date: 2021 ?? [employer]. All rights reserved. This information is not intended as a substitute for professional medical care. Always follow your healthcare professional's instructions. ?? * Susan Manriquez RN: PERFORM Event Display: Patient Education Leaflets Authored Date: [id number] Understanding Preeclampsia ?? [address] Understanding Preeclampsia Preeclampsia is a condition that can happen in . It includes high blood pressure (hypertension), swelling, and signs of organ problems.??It can show up around week 20 of . It often goes away by 12 weeks after you give . It can lead to serious health risks for you and your baby. During your , your healthcare provider will watch your blood pressure. Your blood pressure will be monitored regularly throughout your to help check for preeclampsia. Dangers of preeclampsia If not treated, preeclampsia can cause problems for you and your baby. The placenta is the organ that nourishes your baby. It may tear away from the wall of the uterus. This can put the baby at risk for health problems ( distress). It can put the baby at risk for . Preeclampsia can also cause these health problems in you: ??? Kidney failure or other organ damage ??? Seizures ???Stroke ?? Who???s at risk for preeclampsia? No one knows what causes preeclampsia. It can happen in any person. But there are things that increase your risk. You may need to take a daily low dose of aspirin if you are at risk for preeclampsia. You???re at higher risk for preeclampsia if you have any of these: ??? Diabetes ??? High blood pressure ??? Obesity ??? Kidney disease ??? Autoimmune disease such as lupus ??? A family history of preeclampsia You???re at higher risk if any of these apply to you: ??? This is your first ??? You are having twins or more ??? You???re under age 18 or overage 40 ??? You used in vitro fertilization ??? You are Black And you???re at higher risk if you had any of these in a past : ??? Preeclampsia ??? Intrauterine growth restriction (IUGR) ? Placental abruption ? Symptoms A common symptom of preeclampsia is high blood pressure. Other symptoms may include: ??? Fast weight gain ??? Protein in your urine ??? Headache ??? Belly (abdominal) pain on your right side ??? Vision problems such as flashes or spots ??? Swelling (edema) in your face or hands (this often happens near the end of a normal ) ?? Tests you may have Your healthcare provider will want to check your blood pressure. This will need to be done often inyour . If your blood pressure is high, you may have??these tests: ??? Urine tests to look for protein ??? Blood tests to confirm preeclampsia ??? monitoring to make sure that your babyis healthy ?? Treating preeclampsia Preeclampsia almost always ends soon after you give . Until then, your healthcare provider canhelp you manage it. If your symptoms are mild, you may to: ? Limit your activity ??? Rest in bed ??? Not do heavy lifting ?? If your symptoms are severe, you will stay in the hospital. Treatment here may include: ??? Limits to your activity. This is to help control your blood pressure. You should not lift anything heavy. You will need to spend 8 hours a day lying down with your feet up. ??? Magnesium IV (intravenous) drip. This is done during labor. It's to prevent seizures ??? Induced labor or section. ?? When to call your healthcare provider Call your healthcare provider if your symptoms start quickly or are severe. This includes swelling,weight gain, or other symptoms.??Some cases of preeclampsia are more severe than others. Your symptoms also may change or get worse as you get closer to your due date. ?? Once you give In most cases, preeclampsia goes away on its own soon after you give . This is often by the 12th week after you deliver. Within days after you give , your blood pressure, swelling, and other symptoms??should get better. But for some people, problems from preeclampsia can continue after . ?? preeclampsia Preeclampsia that starts after is rare. There are 2 types: ??? preeclampsia. This may start in the first 48 hours after . ??? Late-onset preeclampsia. This starts more than 48 hours after . Both of these types are rare. But call your healthcare provider right away if you have symptoms of preeclampsia after you give . ?? How daily issues affect your health Many things in your daily life impact your health. This can include transportation, money problems,housing, access to food, and child and adolescent psychiatrist. If you can???t get to medical appointments, you may not receive the care you need. When money is tight, it may be difficult to pay for medicines. And living far from a grocery store can make it hard to buy healthy food. If you have concerns in any of these or other areas, talk with your healthcare team. They may know of local resources to assist you. Or they may have a staff person who can help. ?? Last Reviewed Date: 2021 ?? [employer]. All rights reserved. This information is not intended as a substitute for professional medical care. Always follow your healthcare professional's instructions. ?? MRA Head vessels WO and W contrast IV * Nguyễn Concepcion MD: VERIFY Nguyễn Concepcion MD: VERIFY Event Display: Result: Authored Date: [id number] MRA Head W+W/O Contrast INDICATION: Reason: Headache(s); severe headache; Clinical Question(s): Other:; Special Instructions: needs MRV; Order Comment: ALSO PERFORM MRV Other: TECHNIQUE: MR venogram of the head was performed with intravenous contrast. 25 mL of Clariscan was administered intravenously. A 3-D etjs-vx-svmbat noncontrast MRA of the head was also performed. 3D rotational MIP reformats of the vessels were created on a separate workstation and used in the interpretation. COMPARISON: No prior studies are available for comparison at the time of interpretation. FINDINGS: MR VENOGRAM OF THE HEAD The superior sagittal, transverse, and sigmoid sinuses are patent. There is moderate narrowing of the distal transverse sinuses bilaterally. The jugular bulbs are widely patent. The paired internal cerebral veins, straight sinus, and vein of Ortega are patent. Other findings: Limited visualization of the intracranial and extracranial structures demonstrates no significant abnormality. No abnormal intracranial enhancement. MRA OF THE HEAD The visualized extracranial right ICA follows a medial course towards the midline. The intracranialinternal carotid arteries are widely patent. The ICA termini are unremarkable. The A1 and A2 segments of the anterior cerebral arteries are patent, and the anterior communicating artery is unremarkable. The M1 segments of the middle cerebral arteries are patent, and the M2 branch origins and MCA bifurcations are unremarkable. The intracranial vertebral arteries are patent. The basilar artery, superior cerebellar arteries, and posterior cerebral arteries are patent. IMPRESSION: 1. No evidence of dural venous sinus thrombosis. 2. Narrowing of the distal transverse sinuses is noted. This can be seen in patients with pseudotumor cerebri, which can be correlated with funduscopic examination to evaluate for papilledema. 3. Unremarkable MRA of the head. WSN: [id number] Ordering Physician: Ann Maradiaga Dictated By: Nguyễn Concepcion MD Dictated Date/Time: 12/16/22 8:15 am Reviewed By: Nguyễn Concepcion MD Signed By: Nguyễn Concepcion MD Signed Date/Time: 12/16/22 8:15 am Transcribed By: KAZ Transcribed Date/Time: 12/16/22 8:06 am Laboratory * Patric , AUNG S: TRANSCRIBE Gaudencio Solo MD V: VERIFY Event Display: Result: Authored Date: [id number] Chest 2 Views Frontal and Lat Reason: Shortness of Breath; Clinical Question(s): Other:; preeclampsia with worsening orthopnea, concern for fluid overload COMPARISON: Multiple prior examinations with the most recent dated 05/07/2016. FINDINGS: LINES AND TUBES: None. LUNGS AND PLEURA: Clear lungs. Normal pulmonary vascularity. No pleural effusion. No pneumothorax. HEART, MEDIASTINUM AND ANGELO: Heart is normal in size. Normal mediastinal and hilar contour. BONES AND SOFT TISSUES: No acute abnormality. IMPRESSION: No acute abnormality. WSN: [id number] Ordering Physician: Susan Segal Dictated By: Gaudencio Solo MD, V Dictated Date/Time: 12/13/22 3:59 pm Reviewed By: Gaudencio Solo MD, V Signed By: Gaudencio Solo MD, V Signed Date/Time: 12/13/22 3:59 pm Transcribed By: CSVirgen Transcribed Date/Time: 12/13/22 3:59 pm Patient Care team information Care Team Personnel Name: Damien RN, Evelyn Anthony Position: S OB RN Member Role: Primary Care Nurse Name: Sara Pradhan NP Position: Reference Physician Member Role: PCP Address: Address: [address] [place] [address] Name: Mckenzie Walton RN Position: S OB RN Member Role: OB RN Name: Laisha Roberts RN Position: [facility] OB RN Member Role: OB RN Care Team Related Persons Name: CLARK MACHADO Address: home [address] [address] Name: NYA DURAND Address: home [address] [place] [address] Name: KARSTEN GALLAGHER Address: home [address] [place] [address] Name: JACKY PÉREZ Address: home [address] [place] [address] Name: JACKY AMOR Address: home [address] [place] [address] Name: LITTLE ELIAS Address: [address] Address: home [address] [place] [address] [place] Name: MARVIN ELIAS Address: [address] Address: home [address] [place] [address] Name: CARLITOS DIAZ
--- OUTSIDE RECORDS SUMMARY | 2024-04-22 14:17 | XMS_ITS | Continuity of Care Document ---
Author Organization [facility] Address [address] [place] [address]- Care Team Providers Care Casing Wringer Operator Name Role Phone Carolynn ORDONEZ, aSra Arita Primary Care Physician [place] [facility] [place]/22 [facility] [address] [place] [address]- [place] Allergies, Adverse Reactions, Alerts Substance Reaction [...] 07/28/22 16:45:00 EST, Route to Pharmacy Electronically, [facility]/pharmacy #[id number], Partial fill upon patient request if the [...] 2 Refills, Maintenance, 05/10/22 18:35:00 EDT, Tablet, [facility]/pharmacy #[id number], Partial fill upon [...] prescription is for a schedule II opioid Start Date: 07/28/22 Stop Date: 08/27/22 Status: [...] Reference Physician Member Role: PCP Address: Address: [address] [place] [address]- Care Team Related Persons Name: MACHADO CLARK Address: home [address] [address] Name: NYA DURAND Address: home [address] [place] [address] Name: KARSTEN GALLAGHER Address: home [address] [place] [address] Name: JACKY PÉREZ Address: [address] [place] [address] Name: JACKY AMOR Address: home [address] [place] [address] Name: LITTLE ELIAS Address: [address] Address: home [address] [place] [address] Name: CARLITOS DIAZ
--- OUTSIDE RECORDS SUMMARY | 2024-04-22 14:17 | XMS_ITS | Continuity of Care Document ---
Author Organization [facility] Address [address] [place] [address]- Care Team Providers Care Account Specialist Name Role Phone Carolynn ORDNOEZ, Sara Arita Primary Care Physician [phone] [place] [facility] [place] - 01/[place]/[address] [address] Attending Physician: Not on [...] Pharmacy Electronically, [facility]/pharmacy #[id number], Partial fill upon patient request if the [...] Electronically, [facility] STORE [id number], 168, cm, 12/13/22 17:39:00 EDT, Height, 150.4, [...] 0 Refills, Maintenance, 11/02/22 18:45:00 EDT, Capsule, [facility]/pharmacy #[id number], Partial [...] Reference Physician Member Role: PCP Address: Address: [address] [place] [address]- [place] Care Team Related Persons Name: CLARK MACHADO Address: home [address] [address] Name: NYA DURAND Address: home [address] [place] [address] Name: KARSTEN GALLAGHER Address: home [address] [place] [address] Name: JACKY PÉREZ Address: home [address] [place] [address] Name: JACKY AMOR Address: home [address] [place] [address] Name: LITTLE ELIAS Address: [address] Address: home [address] [place] [address] [place] Name: MARVIN ELIAS Address: home [address] [facility] [address] Name: MARVIN ELIAS Address: [address] Address: [address] [place] [address] Name: CARLITOS DIAZ
[2024-04-22 14:18] VITALS: BP 140/78; PULSE 93; RESP 16; TEMP 36.8; O2SAT 97
--- OUTSIDE RECORDS SUMMARY | 2024-04-22 14:18 | XMS_ITS | Continuity of Care Document ---
Author Organization [facility] Address [address] [place] [address]- Care Team Providers Care Airset Molder Name Role Phone Carolynn ORDONEZ, Sara Arita Primary Care Physician Encounter [facility] Date(s): 02/01/23 - 04/01/23 [facility] [address] [address] Attending Physician: Sandra Pichardo CNM Admitting Physician: Sandra Pichardo CNM Allergies, Adverse Reactions, Alerts Substance Reaction Severity [...] Pharmacy Electronically, [facility]/pharmacy #[id number], Partial fill upon patient request if the prescriptio... Start Date: 01/10/23 Status: Ordered famotidine 20 mg oral tablet 1, tablet, By Mouth, Daily at bedtime, # 90 tablet, Refills 0, Tot. Refills 0, Maintenance, 02/09/23 12:19:00 EDT, Route to Pharmacy Electronically, [facility]/pharmacy #[id number], 170, cm, 02/09/23 12:11:00 EDT, Height, 150.4, kg, 12/22/22 17:10:00 EDT, Dry Weight Start Date: 02/09/23 Stop Date: 05/10/23 Status: Ordered gabapentin 300 mg oral capsule 300 mg, 1, capsule, By Mouth, 3 times a day, # 90 capsule, Refills 5, Tot. Refills 5, Maintenance, 12/27/22 14:38:00 EDT, Route to Pharmacy Electronically, [facility]/pharmacy #[id number], Partial fill upon patient [...] Personnel Name: Damien ARREGUIN, Evelyn Anthony Position: [facility] OB RN Member Role: Primary Care Nurse Name: Liliana RN, Vamshi Kirkland Position: S RN Member Role: Primary Care Nurse Name: Corine Yoder RN Position: S RN Member Role: Primary Care Nurse Name: Sara Pradhan NP Position: Reference Physician Member Role: PCP Address: Address: [address] [place] [address]- Care Team Related Persons Name: CLARK MACHADO Address: home [address] [address] Name: NYA DURAND Address: [address] [place] [address] Name: KARSTEN GALLAGHER Address: home [address] [place] [address] Name: JACKY PÉREZ Address: [address] [place] [address] Name: JACKY AMOR Address: [address] [place] [address] Name: LITTLE ELIAS Address: [address] Address: home [address] [place] [address] [place] Name: MARVIN ELIAS Address: [address] Address: [address] [place] [address] [place] Name: MARVIN ELIAS Address: [address] [place] [address] Name: CARLITOS DIAZ
--- OUTSIDE RECORDS SUMMARY | 2024-04-22 14:18 | XMS_ITS | Continuity of Care Document ---
Author Organization [facility] Address [address] [place] [address]- Care Team Providers Care Shock Absorber Installer Name Role Phone Not on Staff, PCP Primary Care Physician Unavail able Encounter [facility] Date(s): 08/19/21 - 09/24/[address] [address] Attending Physician: Ann Marie Maddox MD Admitting Physician: Ann Marie Maddox MD Referring Physician: Yari Kumari CNM Allergies, Adverse Reactions, Alerts Substance Reaction [...] Please checkblood sugars four times a day. [facility], schedule meter teaching., 06/07/21 9:48:00 EST,Supply, 168, cm, 04/27/21 12:54:00 EDT, Height, 1... Start Date: 06/07/21 Status: Ordered Alcohol Pads See Instructions, # 1 pack/packet, Refills 3, Tot. Refills 3, Maintenance, DX: 024.912 Please checkblood sugars four times a day. [facility], schedule meter teaching., 06/04/21 18:03:00 EST, Supply, 168, cm, 04/27/21 12:54:00 EDT, Height,... Start Date: 06/04/21 Status: Ordered aspirin 81 mg oral tablet, chewable 162 mg, 2, tablet, Chew, Daily, continue until 2 weeks , # 60 tablet, Refills 8, Tot. Refills 8, Maintenance, 04/27/21 13:24:00 EDT, Route to Pharmacy Electronically, [facility]/pharmacy #[id number], Partial fill upon patient request if the prescription... Start Date: 04/27/21 Stop Date: 01/22/22 Status: Ordered famotidine 10 mg oral tablet 1 tablet = 10 mg, By Mouth, 2 times a day, # 180 tablet, 0 Refills, Maintenance, 09/09/21 18:50:00 EST, Tablet, [facility]/pharmacy #[id number], Partial fill upon patient request if the prescription is for a schedule II opioid drug., 168, cm, 09/09/21 14:57:00 EST... Start Date: 09/09/21 Status: Ordered ferrous sulfate 325 mg oral tablet 1 tablet = 325 mg, By Mouth, Daily, # 90 tablet, 0 Refills, Maintenance, 09/09/21 15:28:00 EST, Tablet, [facility]/pharmacy #[id number], Partial fill upon patient request if the prescription is for a schedule II opioid drug., 168, cm, 09/09/21 14:57:00 EST, Height... Start Date: 09/09/21 Status: Ordered Accident Lyte glucometer Accident Lyte glucometer, See Instructions, # 1 each, Refills 3, Tot. Refills 3, Maintenance, DX: 024.912 Please check blood sugars four times a day. [facility], schedule meter teaching., 06/07/21 9:48:00 EST, Supply, 168, cm, 04/27/21 12:5... Start Date: 06/07/21 Status: Ordered Accident Lyte glucometer Accident Lyte glucometer, See Instructions, # 1 each, Refills 3, Tot. Refills 3, Maintenance, DX: 024.912 Please check blood sugars four times a day. [facility], schedule meter teaching., 06/04/21 18:03:00 EST, Supply, 168, cm, 04/27/21 12:... Start Date: 06/04/21 Status: Ordered Accident Lyte glucometer Accident Lyte glucometer, See Instructions, # 1 each, Refills 0, Tot. Refills 0, Maintenance, DX: 024.912 Please check blood sugars four times a day., 06/09/21 14:04:00 EST, Supply, 168, cm, 04/27/21 12:54:00 EDT, Height, 113.4, kg, 04/20/21 14:40:00... Start Date: 06/09/21 Status: Ordered Accident Lyte glucometer Accident Lyte glucometer, See Instructions, # 1 each, Refills 0, Tot. Refills 0, Maintenance, DX: 024.912 Please check blood sugars four times a day., 06/08/21 15:51:00 EST, Supply, 168, cm, 04/27/21 12:54:00 EDT, Height, 113.4, kg, 04/20/21 14:40:00... Start Date: 06/08/21 Status: Ordered Accident Lyte glucometer Accident Lyte glucometer, See Instructions, # 1 each, Refills 0, Tot. Refills 0, Maintenance, DX: 024.912 Please check blood sugars four times a day., 06/09/21 17:44:00 EST, Supply, 168, cm, 04/27/21 12:54:00 EDT, Height, 113.4, kg, 04/20/21 14:40:00... Start Date: 06/09/21 Status: Ordered Accident lyte lancets Accident lyte lancets, See Instructions, # 1 pack/packet, Refills 3, Tot. Refills 3, Maintenance, DX: 024.912 Please check blood sugars four times a day. [facility], schedule meter teaching.,06/07/21 9:48:00 EST, Supply, 168, cm, 04/27/21... Start Date: 06/07/21 Status: Ordered Accident lyte lancets Accident lyte lancets, See Instructions, # 1 pack/packet, Refills 3, Tot. Refills 3, Maintenance, DX: 024.912 Please check blood sugars four times a day. [facility], schedule meter teaching.,06/04/21 18:03:00 EST, Supply, 168, cm, 04/27/21... Start Date: 06/04/21 Status: Ordered Accident lyte lancets Accident lyte lancets, See Instructions, # 200 each, Refills 3, Tot. Refills 3, Maintenance, DX: 024.912 Please check blood sugars four times a day., 06/09/21 14:03:00 EST, Supply, 168, cm, 04/27/21 12:54:00 EDT, Height, 113.4, kg, 04/20/21 14:40:00... Start Date: 06/09/21 Status: Ordered Accident lyte lancets Accident lyte lancets, See Instructions, # 200 each, Refills 3, Tot. Refills 3, Maintenance, DX: 024.912 Please check blood sugars four times a day., 06/08/21 15:49:00 EST, Supply, 168, cm, 04/27/21 12:54:00 EDT, Height, 113.4, kg, 04/20/21 14:40:00... Start Date: 06/08/21 Status: Ordered Accident lyte lancets Accident lyte lancets, See Instructions, # 200 each, Refills 3, Tot. Refills 3, Maintenance, DX: 024.912 Please check blood sugars four times a day., 06/09/21 17:45:00 EST, Supply, 168, cm, 04/27/21 12:54:00 EDT, Height, 113.4, kg, 04/20/21 14:40:00... Start Date: 06/09/21 Status: Ordered Accident lyte test strips Accident lyte test strips, See Instructions, # 1 pack/packet, Refills 3, Tot. Refills 3, Maintenance, DX: 024.912 Please check blood sugars four times a day. [facility], schedule meter teaching., 06/07/21 9:48:00 EST, Supply, 168, cm, ... Start Date: 06/07/21 Status: Ordered Accident lyte test strips Accident lyte test strips, See Instructions, # 1 pack/packet, Refills 3, Tot. Refills 3, Maintenance, DX: 024.912 Please check blood sugars four times a day. [facility], schedule meter teaching., 06/04/21 18:04:00 EST, Supply, 168, cm, 04/27... Start Date: 06/04/21 Status: Ordered Accident lyte test strips Accident lyte test strips, See Instructions, # 200 each, Refills 3, Tot. Refills 3, Maintenance, DX:024.912 Please check blood sugars four times a day., 06/09/21 14:03:00 EST, Supply, 168, cm, 04/27/21 12:54:00 EDT, Height, 113.4, kg, 04/20/21 14:40:... Start Date: 06/09/21 Status: Ordered Accident lyte test strips Accident lyte test strips, See Instructions, # 200 each, Refills 3, Tot. Refills 3, Maintenance, DX:024.912 Please check blood sugars four times a day., 06/08/21 15:50:00 EST, Supply, 168, cm, 04/27/21 12:54:00 EDT, Height, 113.4, kg, 04/20/21 14:40:... Start Date: 06/08/21 Status: Ordered Accident lyte test strips Accident lyte test strips, See Instructions, # 200 [...]
--- OUTSIDE RECORDS SUMMARY | 2024-04-22 14:18 | XMS_ITS | Continuity of Care Document ---
Author Organization [facility] Address [address] [place] [address]- Care Team Providers Care Social Services Technician Name Role Phone Carolynn ORDONEZ, Sara Arita Primary Care Physician [place] [facility] [place] 10/08/22 [facility] [address] [address]- Attending Physician: Hue Hale MD Admitting Physician: [...] 14:34:00 EST, Route to Pharmacy Electronically, [facility]/pharmacy #[id number], Partial fill upon patient requestif the prescription is for a schedule II opioid rosetta... Start Date: 09/29/22 Status: Ordered Docu Soft sodium 100 mg oral capsule 1 capsule = 100 mg, By Mouth, 2 times a day, PRN for constipation, # 100 capsule, 0 Refills, Maintenance, 08/13/22 13:33:00 EST, Capsule, [facility]/pharmacy #[id number], Partial fill upon patient request if the prescription is for a schedule II opioid drug., 170,... Start Date: 08/13/22 Status: Ordered famotidine 20 mg oral tablet 1, tablet, By Mouth, Daily at bedtime, # 30 tablet, Refills 1, Maintenance, 09/23/22 13:46:00 EST, Route to Pharmacy Electronically, [facility] [id number], 170, cm, 09/09/22 8:52:00 EST, Height, 143.2, [...] Refills, Maintenance, 09/09/22 9:19:00 EST, Cream, [id number], Partial fill upon patient request if the prescription is for a schedule II opioid drug., 1 application Vaginally Daily at bed... Start Date: 09/09/22 Status: Ordered ondansetron 4 mg oral tablet, disintegrating 1 tablet = 4 mg, By Mouth, Once, PRN as needed for nausea/vomiting, # 10 tablet, 0 Refills, Soft Stop, 08/23/22 22:06:00 EST, DIS Tablet, [facility]/pharmacy #[id number], Partial fill upon patient request if the prescription is for a schedule II opioid drug., 170,... Start Date: 08/23/22 Status: Ordered Multivitamins with Folic Acid 1 mg oral tablet 1 tablet, By Mouth, Daily, # 90 tablet, 2 Refills, Maintenance, 05/10/22 18:35:00 EDT, Tablet, [facility]/pharmacy #[id number], Partial fill upon patient request if the prescription is for a schedule II opioid drug., 1 tablet By Mouth Daily, 170, cm, 01/21/22 21:0... Start Date: 05/10/22 Status: Ordered Vistaril pamoate 25 mg oral capsule 1 capsule = 25 mg, By Mouth, 4 times a day, PRN for anxiety, # 40 capsule, 0 Refills, Maintenance, 09/09/22 9:19:00 EST, Capsule, [facility]/pharmacy #[id number], Partial fill upon patient request if the prescription is for a schedule II opioid drug., 170, cm, 02... Start Date: 09/09/22 Status: Ordered Problem List [...] Physician Member Role: PCP Address: Address: [address] [place] [address]- Care Team Related Persons Name: CLARK MACHADO Address: home [address] [address] Name: NYA DURAND Address: home [address] [place] [address] Name: KARSTEN GALLAGHER Address: home [address] [place] [address] Name: JACKY PÉREZ Address: home [address] [place] [address] Name: JACKY AMOR Address: home [address] [place] [address] Name: LITTLE ELIAS Address: [address] Address: home [address] [place] [address] Name: CARLITOS DIAZ
--- OUTSIDE RECORDS SUMMARY | 2024-04-22 14:18 | XMS_ITS | Continuity of Care Document ---
[facility] Address [address] [place] [address]- Care Team Providers Care Hotel Room Attendant Name Role Phone Carolynn ORDONEZ, Sara Arita Primary Care Physician [phone] Encounter [facility] [place] Date(s): 07/05/22 - 08/04/22 [facility] [address] [address] Allergies, Adverse [...] 07/28/22 16:45:00 EST, Route to Pharmacy Electronically, [facility]/pharmacy #[id number], Partial fill upon patient request if the [...] Physician Member Role: PCP Address: Address: [address] [place] [address]- Care Team Related Persons Name: MAGUI MACHADOO Address: home [address] [address] Name: NYA DURAND Address: home [address] [place] [address] Name: KARSTEN GALLAGHER Address: home [address] [place] [address] Name: JACKY PÉREZ Address: home [address] [place] [address] Name: JACKY AMOR Address: [address] [place] [address] Name: LITTLE ELIAS Address: [address] Address: home [address] [place] [address] Name: CARLITOS DIAZ
--- OUTSIDE RECORDS SUMMARY | 2024-04-22 14:18 | XMS_ITS | Continuity of Care Document ---
Author Organization [facility] ter Address [address] [place] [address]- Care Team Providers Care Operational Risk Manager Name Role Phone Carolynn ORDONEZ, Sara M Primary Care Physician [place] [facility] [place]/23/[place] - 12/29/[address] [address] Attending Physician: Jacob Castillo DO Admitting Physician: [...] 12/26/22 13:42:00 EDT, Route to Pharmacy Electronically, [facility], Partial fill upon patient request if the prescription is... Start Date: 12/26/22 Stop Date: 01/02/23 Status: Ordered acetaminophen 500 mg oral capsule 2 capsule = 1,000 mg, By Mouth, Every 6 hours, PRN for fever, for 15 days, # 120 capsule, 0 Refills, Acute 01/11/23 14:39:00 EDT, 12/27/22 14:39:00 EDT, Capsule, [facility]/pharmacy #[id number], Partial fill uponpatient request if the prescription [...] tablet, 0 Refills, Maintenance, 12/06/2316:40:00 EDT, Tablet, [facility]/pharmacy #[id number], Partial fill upon patient request if the prescription is for a schedule II opioid drug., 168, cm, 12/06/22 8:... Start Date: 12/06/22 Stop Date: 12/13/22 Status: Ordered famotidine 20 mg oral tablet 1, tablet, By Mouth, Daily at bedtime, # 30 tablet, Refills 1, Maintenance, 12/19/22 16:07:00 EDT, Route to Pharmacy Electronically, [facility] [id number], 168, cm, 12/13/22 17:39:00 EDT, Height, 150.4, kg, 12/13/22 17:39:00 EDT, Dry Weight Start Date: 12/19/22 Status: Ordered gabapentin 300 mg oral capsule 300 mg, 1, capsule, By Mouth, 3 times a day, # 90 capsule, Refills 5, Tot. Refills 5, Maintenance, 12/27/22 14:38:00 EDT, Route to Pharmacy Electronically, [facility]/pharmacy #[id number], Partial fill upon patient request [...] 12/16/22 13:59:00 EDT, Route to Pharmacy Electronically, [facility]/pharmacy #[id number], Partial fill upon patientrequest if [...] Team Personnel Name: Evelyn Quezada RN Position: [facility] OB RN Member Role: Primary Care Nurse Name: Vamshi Ford RN Position: S RN Member Role: Primary Care Nurse Name: Corine Yoder RN Position: S RN Member Role: Primary Care Nurse Name: Sara Pradhan NP Position: Reference Physician Member Role: PCP Address: Address: [address] [place] [address]- Care Team Related Persons Name: MAGUI MACHADOO Address: home [address] [address] Name: NYA DURAND Address: home [address] [place] [address] Name: KARSTEN GALLAGHER Address: home [address] [place] [address] Name: JACKY PÉREZ Address: home [address] [place] [address] Name: JACKY AMOR Address: home [address] [place] [address] Name: LITTLE ELIAS Address: Address: home [address] [place] [address] [place] Name: MARVIN ELIAS Address: home [address] [facility] [address] Name: MARVIN ELIAS Address: [address] Address: home [address] [place] [address] [place] Name: CARLITOS DIAZ
--- OUTSIDE RECORDS SUMMARY | 2024-04-22 14:18 | XMS_ITS | Continuity of Care Document ---
Author Organization [facility] Address [address] [place] [address]- Care Team Providers Care Senior Web Services Developer Name Role Phone Carolynn ORDONEZ, Sara Arita Primary Care Physician Encounter [facility] Date(s): 11/12/22 - 12/18/[address] [address]- Attending Physician: Hue Hale MD Admitting Physician: [...] EST, [facility] to [id number], 170, cm, 09/09/22 8:52:00 EST, Height, 143.2, [...] 12/16/22 13:59:00 EDT, Route to Pharmacy Electronically, [facility]/pharmacy #[id number], Partial fill upon patientrequest if the prescription is for a schedule II op... Start Date: 12/16/22 Status: Ordered ondansetron 4 mg oral tablet, disintegrating See Instructions, TAKE 1 TABLET BY MOUTH ONCE DAY NEEDED FOR NAUSEA AND VOMITING, # 10 tablet, 0Refills, Maintenance, 10/10/22 12:02:00 EDT, [id number], 170, cm, 09/29/22 11:15:00 EST, Height, 143.2, [...] Physician Member Role: PCP Address: Address: [address] [place] [address]- [place] Care Team Related Persons Name: CLARK MACHADO Address: home [address] [address] Name: NYA DURAND Address: home [address] [place] [address] Name: KARSTEN GALLAGHER Address: home [address] [place] [address] Name: JACKY PÉREZ Address: home [address] [place] [address] Name: JACKY AMOR Address: home [address] [place] [address] Name: LITTLE ELIAS Address: [address] Address: home [address] [place] [address] [place] Name: MARVIN ELIAS Address: [address] Address: home [address] [place] [address] Name: CARLITOS DIAZ
--- OUTSIDE RECORDS SUMMARY | 2024-04-22 14:18 | XMS_ITS | Continuity of Care Document ---
Author Organization [facility] Address [address] [place] [address]- Care Team Providers Care Comparator Operator Name Role Phone Carolynn ORDONEZ, Sara Arita Primary Care Physician Encounter [facility] [place] Date(s): 11/26/22 - 01/01/[address] [address] Attending Physician: Hue Hale MD Admitting Physician: [...] 14:39:00 EDT, 12/27/22 14:39:00 EDT, [facility]aps[facility], [id number], Partial fill uponpatient request if the prescription [...] 12/19/22 16:07:00 EDT, Route to Pharmacy Electronically, [facility] ST[facility] [id number], 168, cm, 12/13/22 17:39:00 EDT, Height, 150.4, kg, 12/13/22 17:39:00 EDT, Dry Weight Start Date: 12/19/22 Status: Ordered gabapentin 300 mg oral capsule 300 mg, 1, capsule, By Mouth, 3 times a day, # 90 capsule, Refills 5, Tot. Refills 5, Maintenance, 12/27/22 14:38:00 EDT, Route to Pharmacy Electronically, [facility]/pharmacy #[id number], Partial fill upon patient request if the prescription is for a schedule II... Start Date: 12/27/22 Stop Date: 06/25/23 Status: Ordered ibuprofen 800 mg oral tablet 800 mg, 1, tablet, By Mouth, Every 8 hours, for 10 days, # 30 tablet, Refills 0, Tot. Refills 0, Acute 01/06/23 14:38:00 EDT, 12/27/22 14:38:00 EDT, Route to Pharmacy Electronically, [facility]/pharmacy #[id number], Partial fill upon patient request [...] 12/16/22 13:59:00 EDT, Route to Pharmacy Electronically, [facility]/pharmacy #[id number], Partial fill upon patientrequest if the prescription is for a schedule II op... Start Date: 12/16/22 Status: Ordered Multivitamins with Folic Acid 1 mg oral tablet 1 tablet, By Mouth, Daily, # 90 tablet, 2 Refills, Maintenance, 05/10/22 18:35:00 EDT, Tablet, [facility]/pharmacy #[id number], Partial fill upon patient request [...] 0 Refills, Maintenance, 11/02/22 18:45:00 EDT, Capsule, [facility]/pharmacy #[id number], Partial fill upon patient request [...] Team Personnel Name: Evelyn Quezada RN Position: [facility] OB RN Member Role: Primary Care Nurse Name: Vamshi Ford RN Position: S RN Member Role: Primary Care Nurse Name: Corine Yoder RN Position: S RN Member Role: Primary Care Nurse Name: Sara Pradhan NP Position: Reference Physician Member Role: PCP Address: Address: [address] [place] [address] Care Team Related Persons Name: CLARK MACHADO Address: home [address] [address] Name: NYA DURAND Address: home [address] [place] [address] Name: KARSTEN GALLAGHER Address: home [address] [place] [address] Name: JACKY PÉREZ Address: home [address] [place] [address] Name: JACKY AMOR Address: home [address] [place] [address] Name: LITTLE ELIAS Address: [address] Address: home [address] [place] [address] [place] Name: MARVIN ELIAS Address: home [address] [facility] [address] Name: MARVIN ELIAS Address: [address] Address: home [address] [place] [address] [place] Name: CARLITOS DIAZ
--- OUTSIDE RECORDS SUMMARY | 2024-04-22 14:18 | XMS_ITS | Continuity of Care Document ---
Author Organization [facility] Address [address] [place] [address]- Care Team Providers Care Mathematics Lecturer Name Role Phone Carolynn ORDONEZ, Sara Arita Primary Care Physician Encounter [facility] [place] Date(s): 05/27/22 - 06/30/[address] [address] Attending Physician: Not on Staff, Attending [...] Refills, Maintenance, 05/10/22 18:35:00 EDT, [facility]t, [id number], Partial fill upon patient request if the [...] Reference Physician Member Role: PCP Address: Address: [address] [place] [address]- Care Team Related Persons Name: MAGUI MACHADOO Address: home [address] [address] Name: NYA DURAND Address: home [address] [place] [address] Name: KARSTEN GALLAGHER Address: home [address] [place] [address] Name: JACKY PÉREZ Address: home [address] [place] [address] Name: JACKY AMOR Address: [address] [place] [address] Name: LITTLE ELIAS Address: [address] Address: home [address] [place] [address] Name: CARLITOS DIAZ
--- OUTSIDE RECORDS SUMMARY | 2024-04-22 14:18 | XMS_ITS | Continuity of Care Document ---
Author Organization [facility] ter Address [address] [place] [address]- Care Team Providers Care Railcar Foreman Name Role Phone Not on Staff, PCP Primary Care Physician Unavail able [place] [facility] [place](s): 11/01/21 - 11/01/[address] [address] Discharge Disposition: A-D/C Home Attending Physician: Jorden Tinajero MD Admitting Physician: Jordne Tinajero MD Referring Physician: Jorden Tinajero MD [...] 03/11/14 2Admin Note: VIS GIVEN Medications cyclobenzaprine 10 mg oral tablet 10 mg, Tablet, By Mouth, Once, STAT, 11/01/21 15:28:00 EDT, Stop date 11/01/21 15:28:00 EDT Start Date: 11/01/21 Stop Date: 11/01/21 Status: Completed cyclobenzaprine 5 mg oral tablet 1 tablet = 5 mg, By Mouth, 3 times a day, # 30 tablet, 0 Refills, Maintenance, 10/26/21 12:58:00 EDT, [facility]/pharmacy #[id number], Partial fill upon patient request if the [...] Maintenance, 03/09/21 15:40:00 EDT, Cecilia, [facility]/pharmacy #[id number], Partial fill upon patient request if the [...] oldest [Reference Range]: 1 2 3 Weight 144.2 kg (11/01/21 10:32 AM) Oxygen Saturation [94-100 %] 97 % (11/01/21 1:34 PM) 96 % (11/01/21 12:50 PM) 97 % (11/01/21 12:16 PM) Blood Pressure [90-138/55-84 mm Hg] 123/66mm Hg (11/01/21 4:19 PM) 137/67mm Hg (11/01/21 3:33 PM) 128/75mm Hg (11/01/21 3:12 PM) Respiratory Rate [16-30 br/min] 20 br/min (11/01/21 4:19 PM) 18 br/min (11/01/21 4:13 PM) 20 br/min (11/01/21 3:33 PM) Temperature [96.8-100.4 DegF] 97.6 DegF (11/01/21 10:32 AM) Temperature Route Oral (11/01/21 10:32 AM) Dry Weight 144.2 kg (4/11/22 10:32 AM) Weight Obtained Via Standing scale (11/01/21 10:32 AM) Dry Weight Obtained Via Standing scale (11/01/21 10:32 AM) Social History Social History Type Response Smoking Status Former smoker entered on: 04/27/14 Sex
--- OUTSIDE RECORDS SUMMARY | 2024-04-22 14:18 | XMS_ITS | Continuity of Care Document ---
Author Organization [facility] Address [address] [place] [address]- Care Team Providers Care Housing Quality Standard Inspector Name Role Phone Carolynn ORDONEZ, Sara Arita Primary Care Physician [phone] Encounter [facility] [place] Date(s): 12/13/22 - 01/15/[address] [id number] Attending Physician: Not on Staff, Attending [...] 15:26:00 EDT, Route to Pharmacy Electronically, [facility]/pharmacy #[id number], Partial fill upon patient request if the [...] 16:07:00 EDT, Route to Pharmacy Electronically, [facility] STORE [id number], 168, cm, 12/13/22 17:39:00 EDT, Height, 150.4, [...] Refills, Maintenance, 05/10/22 18:35:00 EDT, Tablet, [facility]/pharmacy #[id number], Partial fill upon patient request [...] Refills, Maintenance, 11/02/22 18:45:00 EDT, Capsule, [facility]/pharmacy #[id number], Partial fill upon patient request [...] Team Personnel Name: Evelyn Quezada RN Position: [facility] OB RN Member Role: Primary Care Nurse Name: Vamshi Ford RN Position: S RN Member Role: Primary Care Nurse Name: Corine Yoder RN Position: S RN Member Role: Primary Care Nurse Name: Sara Pradhan NP Position: Reference Physician Member Role: PCP Address: Address: [address] [place] [address]- [place] Care Team Related Persons Name: CLARK MACHADO Address: home [address] [address] Name: NYA DURAND Address: home [address] [place] [address] Name: KARSTEN GALLAGHER Address: home [address] [place] [address] Name: JACKY PÉREZ Address: home [address] [place] [address] Name: JACKY AMOR Address: [address] [place] [address] Name: LITTLE ELIAS Address: [address] Address: home [address] [place] [address] [place] Name: MARVIN ELIAS Address: home [address] [facility] [address] Name: MARVIN ELIAS Address: [address] Address: home [address] [place] [address] Name: CARLITOS DIAZ
--- OUTSIDE RECORDS SUMMARY | 2024-04-22 14:18 | XMS_ITS | Continuity of Care Document ---
Author Organization [facility] Address [address] [place] [address]- Care Team Providers Care Supervisor Heat Treating Name Role Phone Carolynn ORDONEZ, Sara Arita Primary Care Physician [place] [facility] [place] 11/21/22 - 12/21/[address] [address] Allergies, Adverse Reactions, Alerts Substance Reaction [...] 0 Refills, Maintenance, 12/06/2316:40:00 EDT, [id number], Partial fill upon patient request if the prescription is for a schedule II opioid drug., 168, cm, 12/06/22 8:... Start Date: 12/06/22 Stop Date: 12/13/22 Status: Ordered famotidine 20 mg oral tablet 1, tablet, By Mouth, Daily at bedtime, # 30 tablet, Refills 1, Maintenance, 12/19/22 16:07:00 EDT, [facility], 168, cm, 12/13/22 17:39:00 EDT, Height, 150.4, [...] 12/16/22 13:59:00 EDT, Route to Pharmacy Electronically, [facility]/pharmacy #[id number], Partial fill upon patientrequest if the prescription is for a schedule II op... Start Date: 12/16/22 Status: Ordered ondansetron 4 mg oral tablet, disintegrating See Instructions, TAKE 1 TABLET BY MOUTH ONCE DAY NEEDED FOR NAUSEA AND VOMITING, # 10 tablet, 0Refills, Maintenance, 10/10/22 12:02:00 EDT, [facility], 170, cm, 09/29/22 11:15:00 EST, Height, 143.2, kg, 05/16/22 14:20:00 EDT, Dry Weight Start Date: 10/10/22 Status: Ordered Multivitamins with Folic Acid 1 mg oral tablet 1 tablet, By Mouth, Daily, # 90 tablet, 2 Refills, Maintenance, 05/10/22 18:35:00 EDT, Tablet, [facility]/pharmacy #[id number], Partial [...] Reference Physician Member Role: PCP Address: Address: [address] [place] [address]- Care Team Related Persons Name: CLARK MACHADO Address: home [address] [place] [address] Name: NYA DURAND Address: home [address] [place] [address] Name: KARSTEN GALLAGHER Address: home [address] [place] [address] Name: JACKY PÉREZ Address: [address] [place] [address] Name: JACKY AMOR Address: [address] [place] [address] Name: LITTLE ELIAS Address: [address] Address: [address] [place] [address] [place] Name: MARVIN ELIAS Address: [address] Address: [address] [place] [address] Name: CARLITOS DIAZ
--- OUTSIDE RECORDS SUMMARY | 2024-04-22 14:18 | XMS_ITS | Continuity of Care Document ---
Author Organization [facility] Address [address] [place] [address]- Care Team Providers Care Narrative Writer Name Role Phone Not on Staff, PCP Primary Care Physician Unavail able Encounter [facility] Date(s): 06/22/21 - 07/22/21 [facility] [address], [place] [address] Allergies, Adverse Reactions, Alerts Substance Reaction [...] Please checkblood sugars four times a day. [facility], schedule meter teaching., 06/07/21 9:48:00 EST,Supply, 168, cm, 04/27/21 12:54:00 EDT, Height, 1... Start Date: 06/07/21 Status: Ordered Alcohol Pads See Instructions, # 1 pack/packet, Refills 3, Tot. Refills 3, Maintenance, DX: 024.912 Please checkblood sugars four times a day. [facility], schedule meter teaching., 06/04/21 18:03:00 EST, Supply, 168, cm, 04/27/21 12:54:00 EDT, Height,... Start Date: 06/04/21 Status: Ordered aspirin 81 mg oral tablet, chewable 162 mg, 2, tablet, Chew, Daily, continue until 2 weeks , # 60 tablet, Refills 8, Tot. Refills 8, Maintenance, 04/27/21 13:24:00 EDT, Route to Pharmacy Electronically, [facility]/pharmacy #[id number], Partial fill upon patient request if the prescription... Start Date: 04/27/21 Stop Date: 01/22/22 Status: Ordered [place]te glucometer Sharon Lyte glucometer, See Instructions, # 1 each, Refills 3, Tot. Refills 3, Maintenance, DX: 024.912 Please check blood sugars four times a day. [facility], schedule meter teaching., 06/07/21 9:48:00 EST, Supply, 168, cm, 04/27/21 12:5... Start Date: 06/07/21 Status: Ordered Sharon Lyte glucometer Sharon Lyte glucometer, See Instructions, # 1 each, Refills 3, Tot. Refills 3, Maintenance, DX: 024.912 Please check blood sugars four times a day. [facility], schedule meter teaching., 06/04/21 18:03:00 EST, Supply, 168, cm, 04/27/21 12:... Start Date: 06/04/21 Status: Ordered Sharon Lyte glucometer Sharon Lyte glucometer, See Instructions, # 1 each, Refills 0, Tot. Refills 0, Maintenance, DX: 024.912 Please check blood sugars four times a day., 06/09/21 14:04:00 EST, Supply, 168, cm, 04/27/21 12:54:00 EDT, Height, 113.4, kg, 04/20/21 14:40:00... Start Date: 06/09/21 Status: Ordered Sharon Lyte glucometer Sharon Lyte glucometer, See Instructions, # 1 each, Refills 0, Tot. Refills 0, Maintenance, DX: 024.912 Please check blood sugars four times a day., 06/08/21 15:51:00 EST, Supply, 168, cm, 04/27/21 12:54:00 EDT, Height, 113.4, kg, 04/20/21 14:40:00... Start Date: 06/08/21 Status: Ordered [place] Lyte glucometer [place]te glucometer, See Instructions, # 1 each, Refills 0, Tot. Refills 0, Maintenance, DX: 024.912 Please check blood sugars four times a day., 06/09/21 17:44:00 EST, Supply, 168, cm, 04/27/21 12:54:00 EDT, Height, 113.4, kg, 04/20/21 14:40:00... Start Date: 06/09/21 Status: Ordered Sharon lyte lancets Sharon lyte lancets, See Instructions, # 1 pack/packet, Refills 3, Tot. Refills 3, Maintenance, DX: 024.912 Please check blood sugars four times a day. [facility], schedule meter teaching.,06/07/21 9:48:00 EST, Supply, 168, cm, 04/27/21... Start Date: 06/07/21 Status: Ordered Sharon lyte lancets Sharon lyte lancets, See Instructions, # 1 pack/packet, Refills 3, Tot. Refills 3, Maintenance, DX: 024.912 Please check blood sugars four times a day. [facility], schedule meter teaching.,06/04/21 18:03:00 EST, Supply, 168, cm, 04/27/21... Start Date: 06/04/21 Status: Ordered Sharon lyte lancets Sharon lyte lancets, See Instructions, # 200 each, Refills 3, Tot. Refills 3, Maintenance, DX: 024.912 Please check blood sugars four times a day., 06/09/21 14:03:00 EST, Supply, 168, cm, 04/27/21 12:54:00 EDT, Height, 113.4, kg, 04/20/21 14:40:00... Start Date: 06/09/21 Status: Ordered Sharon lyte lancets Sharon lyte lancets, See Instructions, # 200 each, Refills 3, Tot. Refills 3, Maintenance, DX: 024.912 Please check blood sugars four times a day., 06/08/21 15:49:00 EST, Supply, 168, cm, 04/27/21 12:54:00 EDT, Height, 113.4, kg, 04/20/21 14:40:00... Start Date: 06/08/21 Status: Ordered Sharon lyte lancets Sharon lyte lancets, See Instructions, # 200 each, Refills 3, Tot. Refills 3, Maintenance, DX: 024.912 Please check blood sugars four times a day., 06/09/21 17:45:00 EST, Supply, 168, cm, 04/27/21 12:54:00 EDT, Height, 113.4, kg, 04/20/21 14:40:00... Start Date: 06/09/21 Status: Ordered Sharon lyte test strips Sharon lyte test strips, See Instructions, # 1 pack/packet, Refills 3, Tot. Refills 3, Maintenance, DX: 024.912 Please check blood sugars four times a day. [facility], schedule meter teaching., 06/07/21 9:48:00 EST, Supply, 168, cm, ... Start Date: 06/07/21 Status: Ordered Sharon lyte test strips Sharon lyte test strips, See Instructions, # 1 pack/packet, Refills 3, Tot. Refills 3, Maintenance, DX: 024.912 Please check blood sugars four times a day. [facility], schedule meter teaching., 06/04/21 18:04:00 EST, Supply, 168, cm, 05... Start Date: 06/04/21 Status: Ordered Sharon lyte test strips Sharon lyte test strips, See Instructions, # 200 each, Refills 3, Tot. Refills 3, Maintenance, DX:024.912 Please check blood sugars four times a day., 06/09/21 14:03:00 EST, Supply, 168, cm, 04/27/21 12:54:00 EDT, Height, 113.4, kg, 04/20/21 14:40:... Start Date: 06/09/21 Status: Ordered Sharon lyte test strips Sharon lyte test strips, See Instructions, # 200 each, Refills 3, Tot. Refills 3, Maintenance, DX:024.912 Please check blood sugars four times a day., 06/08/21 15:50:00 EST, Supply, 168, cm, 04/27/21 12:54:00 EDT, Height, 113.4, kg, 04/20/21 14:40:... Start Date: 06/08/21 Status: Ordered Sharon lyte test strips Sharon lyte test strips, See Instructions, # 200 [...] 20 tablet, 0Refills, Maintenance, 06/22/21 10:32:00 EST, [facility]/pharmacy #[id number], Partial fill upon patient request if the [...]
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
--- OUTSIDE RECORDS SUMMARY | 2024-04-22 14:18 | XMS_ITS | Continuity of Care Document ---
Author Organization [facility] Address [address] [place] [address]- Care Team Providers Care Products Mechanical Design Engineer Name Role Phone Carolynn ORDONEZ, Sara Arita Primary Care Physician Encounter [facility] Date(s): 12/09/22 - 01/08/[address] [address] Allergies, Adverse Reactions, Alerts [...] 14:39:00 EDT, 12/27/22 14:39:00 EDT, Capsule, [id number], Partial fill uponpatient request if the prescription [...] tablet, 0 Refills, Maintenance, 12/06/2316:40:00 EDT, Tablet, [facility]/pharmacy #[id number], Partial fill upon patient request if the prescription is for a schedule II opioid drug., 168, cm, 12/06/22 8:... Start Date: 12/06/22 Stop Date: 12/13/22 Status: Ordered famotidine 20 mg oral tablet 1, tablet, By Mouth, Daily at bedtime, # 30 tablet, Refills 1, Maintenance, 12/19/22 16:07:00 EDT, Route to Pharmacy Electronically, [facility] STORE [id number], 168, cm, 12/13/22 17:39:00 EDT, Height, 150.4, kg, 12/13/22 17:39:00 EDT, Dry Weight Start Date: 12/19/22 Status: Ordered gabapentin 300 mg oral capsule 300 mg, 1, capsule, By Mouth, 3 times a day, # 90 capsule, Refills 5, Tot. Refills 5, Maintenance, 12/27/22 14:38:00 EDT, Route to Pharmacy Electronically, [facility]/pharmacy #[id number], Partial fill upon patient request [...] 12/16/22 13:59:00 EDT, Route to Pharmacy Electronically, [facility]/pharmacy #[id number], Partial fill upon patientrequest if the prescription is for a schedule II op... Start Date: 12/16/22 Status: Ordered Multivitamins with Folic Acid 1 mg oral tablet 1 tablet, By Mouth, Daily, # 90 tablet, 2 Refills, Maintenance, 05/10/22 18:35:00 EDT, Tablet, [facility]/pharmacy #[id number], Partial fill upon patient request [...] 0 Refills, Maintenance, 11/02/22 18:45:00 EDT, Capsule, [facility]/pharmacy #[id number], Partial fill upon patient request [...] Team Personnel Name: Evelyn Quezada RN Position: [facility] OB RN Member Role: Primary Care Nurse Name: Vamshi Ford RN Position: S RN Member Role: Primary Care Nurse Name: Corine Yoder RN Position: S RN Member Role: Primary Care Nurse Name: Sara Pradhan NP Position: Reference Physician Member Role: PCP Address: Address: [address] [place] [address]- Care Team Related Persons Name: CLARK MACHADO Address: home [address] [address] Name: NYA DURAND Address: home [address] [place] [address] Name: KARTSEN GALLAGHER Address: home [address] [place] [address] Name: JACKY PÉREZ Address: home [address] [place] [address] Name: JACKY AMOR Address: home [address] [place] [address] Name: LITTLE ELIAS Address: [address] Address: home [address] [place] [address] Name: MARVIN ELIAS Address: [address] Address: home [address] [place] [address] Name: MARVIN ELIAS Address: home [address] [facility] [address] Name: CARLITOS DIAZ
--- OUTSIDE RECORDS SUMMARY | 2024-04-22 14:19 | XMS_ITS | Continuity of Care Document ---
Author Organization [facility] Address [address] [place] [address]- Care Team Providers Care Concrete Mixer Operator Helper Name Role Phone Carolynn ORDONEZ, Sara Arita Primary Care Physician Encounter [facility] Date(s): 11/17/22 - 12/17/[address] [address] Allergies, Adverse Reactions, Alerts [...] 09/23/22 13:46:00 EST, Route to Pharmacy Electronically, [facility] [id number], 170, cm, 09/09/22 8:52:00 EST, Height, 143.2, [...] 12/16/22 13:59:00 EDT, Route to Pharmacy Electronically, [facility]/pharmacy #[id number], Partial fill upon patientrequest if the prescription is for a schedule II op... Start Date: 12/16/22 Status: Ordered ondansetron 4 mg oral tablet, disintegrating See Instructions, TAKE 1 TABLET BY MOUTH ONCE DAY NEEDED FOR NAUSEA AND VOMITING, # 10 tablet, 0Refills, Maintenance, 10/10/22 12:02:00 EDT, [facility] 82848, 170, cm, 09/29/22 11:15:00 EST, Height, 143.2, kg, 05/16/22 14:20:00 EDT, Dry Weight Start Date: 10/10/22 Status: Ordered Multivitamins with Folic Acid 1 mg oral tablet 1 tablet, By Mouth, Daily, # 90 tablet, 2 Refills, Maintenance, 05/10/22 18:35:00 EDT, Tablet, [facility]/pharmacy #[id number], Partial fill upon [...] Reference Physician Member Role: PCP Address: Address: [address] [place] [address]- Care Team Related Persons Name: CLARK MACHADO Address: home [address] [address] Name: NYA DURAND Address: [address] [place] [address] Name: KARSTEN GALLAGHER Address: [address] [place] [address] Name: JACKY PÉREZ Address: home [address] [place] [address] Name: JACKY AMOR Address: [address] [place] [address] Name: LITTLE ELIAS Address: [address] Address: home [address] [place] [address] Name: MARVIN ELIAS Address: [address] Address: [address] [place] [address] Name: CARLITOS DIAZ
--- OUTSIDE RECORDS SUMMARY | 2024-04-22 14:19 | XMS_ITS | Continuity of Care Document ---
Author Organization [facility] Address [address] [place] [address]- Care Team Providers Care Dog Behaviorist Name Role Phone Carolynn ORDONEZ, Sara Arita Primary Care Physician [facility]counter [facility] Date(s): 12/08/22 - 01/21/[address] [address] Attending Physician: Not on Staff, Attending [...] to Pharmacy Electronically, [facility]/pharmacy #[id number], Partial fill upon patient request if the [...] 12/19/22 16:07:00 EDT, Route to Pharmacy Electronically, [facility] STORE 25584, 168, cm, 12/13/22 17:39:00 EDT, Height, 150.4, [...] Maintenance, 05/10/22 18:35:00 EDT, Tablet, [facility]/pharmacy #[id number], [...] Refills, Maintenance, 11/02/22 18:45:00 EDT, Capsule, [facility]/pharmacy #[id number], Partial fill [...] Team Personnel Name: Evelyn Quezada RN Position: [facility] OB RN Member Role: Primary Care Nurse Name: Vamshi Ford RN Position: S RN Member Role: Primary Care Nurse Name: Corine Yoder RN Position: S RN Member Role: Primary Care Nurse Name: Carolynn ORDONEZ, Sara Arita Position: Reference Physician Member Role: PCP Address: Address: [address] [place] [address]- Care Team Related Persons Name: CLARK MACHADO Address: home [address] [address] Name: NYA DURAND Address: [address] [place] [address] Name: KARSTEN GALLAGHER Address: [address] [place] [address] Name: JACKY PÉREZ Address: [address] [place] [address] Name: JACKY AMOR Address: [address] [place] [address] Name: LITTLE ELIAS Address: [address] Address: [address] [place] [address] [place] Name: MARVIN ELIAS Address: [address] Address: [address] [place] [address] [place] Name: MARVIN ELIAS Address: [address] [place] [address] Name: CARLITOS DIAZ
--- OUTSIDE RECORDS SUMMARY | 2024-04-22 14:19 | XMS_ITS | Continuity of Care Document ---
Author Organization [facility] Address [address] [place] [address]- Care Team Providers Care Foreign Exchange Clerk Name Role Phone Carolynn ORDONEZ, Sara Arita Primary Care Physician [phone] Encounter [facility] Date(s): 09/29/22 - 11/12/[address] [address]- Attending Physician: Not on Staff, Attending MD [...] EST, Route to Pharmacy Electronically, [facility]/pharmacy #[id number], Partial fill upon patient requestif the prescription is for a schedule II opioid rosetta... Start Date: 09/29/22 Status: Ordered famotidine 20 mg oral tablet 1, tablet, By Mouth, Daily at bedtime, # 30 tablet, Refills 1, Maintenance, 09/23/22 13:46:00 EST, Route to Pharmacy Electronically, [facility] 33094, 170, cm, 09/09/22 8:52:00 EST, Height, 143.2, [...] 0Refills, Maintenance, 10/10/22 12:02:00 EDT, [facility], 170, cm, 09/29/22 11:15:00 EST, Height, 143.2, kg, 05/16/22 14:20:00 EDT, Dry Weight Start Date: 10/10/22 Status: Ordered Multivitamins with Folic Acid 1 mg oral tablet 1 tablet, By Mouth, Daily, # 90 tablet, 2 Refills, Maintenance, 05/10/22 18:35:00 EDT, Tablet, [facility]/pharmacy #[id number], Partial fill upon patient request if the prescription is for a schedule II opioid drug., 1 tablet By Mouth Daily, 170, cm, 01/21/22 21:0... Start Date: 05/10/22 Status: Ordered Vistaril pamoate 25 mg oral capsule 1 capsule = 25 mg, By Mouth, 4 times a day, PRN for anxiety, # 40 capsule, 0 Refills, Maintenance, 11/02/22 18:45:00 EDT, [facility]apsule, [id number], Partial fill upon patient request if the [...] Member Role: Primary Care Nurse Name: Carolynn RIPRAP PLACER, Sara Arita Position: Reference Physician Member Role: PCP Address: Address: [address] [place] [address]- Care Team Related Persons Name: CLARK MACHADO Address: home [address] [address] Name: NYA DURAND Address: [address] [place] [address] Name: KARSTEN GALLAGHER Address: [address] [place] [address] Name: JACKY PÉREZ Address: [address] [place] [address] Name: JACKY AMOR Address: [address] [place] [address] Name: LITTLE ELIAS Address: [address] Address: [address] [place] [address] Name: CARLITOS DIAZ
--- OUTSIDE RECORDS SUMMARY | 2024-04-22 14:19 | XMS_ITS | Continuity of Care Document ---
Author Organization [facility] Address [address] [place] [address]- Care Team Providers Care Publicity Director Name Role Phone Carolynn ORDONEZ, Sara Arita Primary Care Physician Encounter [facility] Date(s): 07/11/23 - 08/10/[address] [address] Allergies, Adverse Reactions, Alerts Substance [...] 01/10/23 15:26:00 EDT, Route to Pharmacy Electronically, [facility]/pharmacy #[id number], Partial fill upon patient request if the prescriptio... Start Date: 01/10/23 Status: Ordered famotidine 20 mg oral tablet 1, tablet, By Mouth, Daily at bedtime, # 90 tablet, Refills 0, Tot. Refills 0, Maintenance, 02/09/23 12:19:00 EDT, Route to Pharmacy Electronically, [facility]/pharmacy #[id number], 170, cm, 02/09/23 12:11:00 EDT, Height, [...] Personnel Name: Damien RN, Evelyn Anthony Position: [facility] OB RN Member Role: Primary Care Nurse Name: Vamshi Ford RN Position: S RN Member Role: Primary Care Nurse Name: Sara Pradhan NP Position: Reference Physician Member Role: PCP Address: Address: [address] [place] [address]- Care Team Related Persons Name: CLARK MACHADO Address: home [address] [address] Name: NYA DURAND Address: [address] [place] [address] Name: KARSTEN GALLAGHER Address: [address] [place] [address] Name: JACKY PÉREZ Address: [address] [place] [address] Name: JACKY AMOR Address: [address] [place] [address] Name: LITTLE ELIAS Address: [address] Address: [address] [place] [address] [place] Name: MARVIN ELIAS Address: [address] [place] [address] Name: MARVIN ELIAS Address: [address] Address: [address] [place] [address] [place] Name: CARLITOS DIAZ
--- OUTSIDE RECORDS SUMMARY | 2024-04-22 14:19 | XMS_ITS | Continuity of Care Document ---
Author Organization [facility] Address [address] [place] [address] [address] [place] [address]- Care Team Providers Care Car Ferry Captain Name Role Phone Sara Pradhan NP Primary Care Physician [phone] Encounter [facility] [place] Date(s): 01/10/23 - 02/09/[address] [place], [place] [address] Attending Physician: Admkong, Poli Admitting Physician: AdmtrPoli Referring Physician: Admtr, Ar8 Allergies, Adverse Reactions, Alerts [...] 01/10/23 15:26:00 EDT, Route to Pharmacy Electronically, [facility]/pharmacy #[id number], Partial fill upon patient request if the [...] 02/09/23 10:43:00 EDT, Route to Pharmacy Electronically, [facility]/pharmacy #[id number], Partial fill upon patientrequest if the prescription is for a schedule II op... Start Date: 02/09/23 Status: Ordered Multivitamins with Folic Acid 1 mg oral tablet 1 tablet, By Mouth, Daily, # 90 tablet, 2 Refills, Maintenance, 05/10/22 18:35:00 EDT, Tablet, [facility]/pharmacy #[id number], Partial fill upon patient request [...] 0 Refills, Maintenance, 11/02/22 18:45:00 EDT, Capsule, [facility]/pharmacy #[id number], Partial fill upon patient request [...] Team Personnel Name: Evelyn Quezada RN Position: [facility] OB RN Member Role: Primary Care Nurse Name: Vamshi Ford RN Position: S RN Member Role: Primary Care Nurse Name: Corine Yoder RN Position: S RN Member Role: Primary Care Nurse Name: Carolynn [facility] IN[facility] SPECIALISTS[facility] Position: Reference Physician Member Role: PCP Address: Address: [address] [place] [id number] Care Team Related Persons Name: CLARK MACHADO Address: home [address] [address] Name: NYA DURAND Address: home [address] [place] [address] Name: KARSTEN GALLAGHER Address: home [address] [place] [address] Name: JACKY PÉREZ Address: home [address] [place] [address] Name: JACKY AMOR Address: home [address] [place] [address] Name: LITTLE ELIAS Address: [address] Address: home [address] [place] [address] Name: MARVIN ELIAS Address: [address] Address: home [address] [place] [address] [place] Name: MARVIN ELAIS Address: home [address] [place] [address] Name: CARLITOS DIAZ
--- OUTSIDE RECORDS SUMMARY | 2024-04-22 14:19 | XMS_ITS | Continuity of Care Document ---
Author Organization [facility] Address [address] [place] [address]- Care Team Providers Care Roving Changer Name Role Phone Carolynn ORDONEZ, Sara Arita Primary Care Physician [phone] [place] [facility] [place]16[place] - 09/15/22 [facility] [address] [place] [address] Attending Physician: AdmPoli triana Admitting Physician: AdmtrPoli Referring Physician: Admtr, Ar8 [...] 0 Refills, Maintenance, 08/13/22 13:33:00 EST, Capsule, [facility]/pharmacy #[id number], Partial fill upon patient request if the prescription is for a schedule II opioid drug., 170,... Start Date: 08/13/22 Status: Ordered famotidine 20 mg oral tablet 1, tablet, By Mouth, Daily at bedtime, # 30 tablet, Refills 1, Maintenance, 08/28/22 16:08:00 EST, Route to Pharmacy Electronically, [id number], 170, cm, 07/28/22 16:30:00 EST, Height, 143.2, [...] Dry Weight Start Date: 07/29/22 Status: Ordered metroNIDAZOLE 500 mg oral tablet 1 tablet = 500 mg, By Mouth, Every 12 hours, for 7 days, # 14 tablet, 0 Refills, Acute 09/20/22 8:13:00 EST, 09/13/22 8:13:00 EST, Tablet, [id number], Partial fill upon patient request if theprescription is for a schedule II opioid drug., 170... Start Date: 09/13/22 Stop Date: 09/20/22 Status: Ordered Monistat 7 2% cream with [...] 01/21/22 21:0... Start Date: 05/10/22 Status: Ordered Vandazole 0.75% vaginal gel with applicator 1 applicator, Vaginally, Daily at bedtime, for 5 days, # 70 Gm, 0 Refills, Acute 09/18/22 9:29:00 EST, 09/13/22 9:29:00 EST, Gel, [id number], Partial fill upon patient request if the prescription is for a schedule II opioid drug., 1 applicator... Start Date: 09/13/22 Stop Date: 09/18/22 Status: Ordered Vistaril pamoate 25 mg oral capsule 1 capsule = 25 mg, By Mouth, 4 times a day, PRN for anxiety, # 40 capsule, 0 Refills, Maintenance, 09/09/22 9:19:00 EST, Capsule, [id number], Partial fill upon patient request if the prescription is for a schedule II opioid drug., 170, cm, 02/... Start Date: 09/09/22 Status: Ordered Problem List [...] Reference Physician Member Role: PCP Address: Address: [address] [place] [address]- Care Team Related Persons Name: SCARLETT MACHADOBERTO Address: home [address] [address] Name: NYA DURAND Address: home [address] [place] [address] Name: KARSTEN GALLAGHER Address: home [address] [place] [address] Name: JACKY PÉREZ Address: home [address] [place] [address] Name: JACKY AMOR Address: [address] [place] [address] Name: LITTLE ELIAS Address: [address] Address: home [address] [place] [address] Name: CARLITOS DIAZ
--- OUTSIDE RECORDS SUMMARY | 2024-04-22 14:19 | XMS_ITS | Continuity of Care Document ---
Author Organization [facility] Address [address] [place] [address]- Care Team Providers Care Eligibility Consultant Name Role Phone Carolynn ORDONEZ, Sara Arita Primary Care Physician [place] [facility] [place] - 05/19/[address] [address] Allergies, Adverse Reactions, Alerts Substance [...] Refills, Maintenance, 05/10/22 18:35:00 EDT, Tablet, [id number], Partial fill upon patient request if the [...] Personnel Name: Sara Pradhan NP Address: Address: [address] [place] [address]
--- OUTSIDE RECORDS SUMMARY | 2024-04-22 14:19 | XMS_ITS | Continuity of Care Document ---
Author Organization [facility] Address [address] [place] [address]- Care Team Providers Care Barrel Bung Remover And Dumper Name Role Phone Carolynn ORDONEZ, Sara Arita Primary Care Physician [place] [facility] [place] - 07/14/[address] [address] Attending Physician: Not on [...] Refills, Maintenance, 05/10/22 18:35:00 EDT, Tablet, [id number], Partial fill upon patient request if the prescription is for a schedule II opioid drug., 1 tablet By Mouth Daily, 170, cm, 01/21/22 21:0... Start Date: 05/10/22 Status: Ordered sertraline 25 mg oral tablet 1 tablet = 25 mg, By Mouth, Daily, # 30 tablet, 3 Refills, Maintenance, 07/05/22 16:15:00 EST, Tablet, [facility]/pharmacy #[id number], Partial fill upon patient request if the [...] Physician Member Role: PCP Address: Address: [address] [place] [address]- Care Team Related Persons Name: CLARK MACHADO Address: home [address] [address] Name: NYA DURAND Address: [address] [place] [address] Name: KARSTEN GALLAGHER Address: [address] [place] [address] Name: JACKY PÉREZ Address: home [address] [place] [address] Name: JACKY AMOR Address: [address] [place] [address] Name: LITTLE ELIAS Address: [address] Address: home [address] [place] [address] Name: CARLITOS DIAZ
--- OUTSIDE RECORDS SUMMARY | 2024-04-22 14:19 | XMS_ITS | Continuity of Care Document ---
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 [facility], schedule meter teaching., 06/07/21 9:48:00 EST,Supply, 168, cm, 04/27/21 12:54:00 EDT, Height, 1... Start Date: 06/07/21 Status: Ordered Alcohol Pads See Instructions, # 1 pack/packet, Refills 3, Tot. Refills 3, Maintenance, DX: 024.912 Please checkblood sugars four times a day. [facility], schedule meter teaching., 06/04/21 18:03:00 EST, Supply, 168, cm, 04/27/21 12:54:00 EDT, Height,... Start Date: 06/04/21 Status: Ordered aspirin 81 mg oral tablet, chewable 162 mg, 2, tablet, Chew, Daily, continue until 2 weeks , # 60 tablet, Refills 8, Tot. Refills 8, Maintenance, 04/27/21 13:24:00 EDT, Route to Pharmacy Electronically, [facility]/pharmacy #[id number], Partial fill upon patient request if the prescription... Start Date: 04/27/21 Stop Date: 01/22/22 Status: Ordered Montville Lyte glucometer Montville Lyte glucometer, See Instructions, # 1 each, Refills 3, Tot. Refills 3, Maintenance, DX: 024.912 Please check blood sugars four times a day. [facility], schedule meter teaching., 06/07/21 9:48:00 EST, Supply, 168, cm, 04/27/21 12:5... Start Date: 06/07/21 Status: Ordered Montville Lyte glucometer Montville Lyte glucometer, See Instructions, # 1 each, Refills 3, Tot. Refills 3, Maintenance, DX: 024.912 Please check blood sugars four times a day. [facility], schedule meter teaching., 06/04/21 18:03:00 EST, Supply, 168, cm, 04/27/21 12:... Start Date: 06/04/21 Status: Ordered Montville Lyte glucometer Montville Lyte glucometer, See Instructions, # 1 each, Refills 0, Tot. Refills 0, Maintenance, DX: 024.912 Please check blood sugars four times a day., 06/09/21 14:04:00 EST, Supply, 168, cm, 04/27/21 12:54:00 EDT, Height, 113.4, kg, 04/20/21 14:40:00... Start Date: 06/09/21 Status: Ordered Montville Lyte glucometer Montville Lyte glucometer, See Instructions, # 1 each, Refills 0, Tot. Refills 0, Maintenance, DX: 024.912 Please check blood sugars four times a day., 06/08/21 15:51:00 EST, Supply, 168, cm, 04/27/21 12:54:00 EDT, Height, 113.4, kg, 04/20/21 14:40:00... Start Date: 06/08/21 Status: Ordered Montville Lyte glucometer Montville Lyte glucometer, See Instructions, # 1 each, Refills 0, Tot. Refills 0, Maintenance, DX: 024.912 Please check blood sugars four times a day., 06/09/21 17:44:00 EST, Supply, 168, cm, 04/27/21 12:54:00 EDT, Height, 113.4, kg, 04/20/21 14:40:00... Start Date: 06/09/21 Status: Ordered Montville lyte lancets Montville lyte lancets, See Instructions, # 1 pack/packet, Refills 3, Tot. Refills 3, Maintenance, DX: 024.912 Please check blood sugars four times a day. [facility], schedule meter teaching.,06/07/21 9:48:00 EST, Supply, 168, cm, 04/27/21... Start Date: 06/07/21 Status: Ordered Montville lyte lancets Montville lyte lancets, See Instructions, # 1 pack/packet, Refills 3, Tot. Refills 3, Maintenance, DX: 024.912 Please check blood sugars four times a day. [facility], schedule meter teaching.,06/04/21 18:03:00 EST, Supply, 168, cm, 04/27/21... Start Date: 06/04/21 Status: Ordered Montville lyte lancets Montville lyte lancets, See Instructions, # 200 each, Refills 3, Tot. Refills 3, Maintenance, DX: 024.912 Please check blood sugars four times a day., 06/09/21 14:03:00 EST, Supply, 168, cm, 04/27/21 12:54:00 EDT, Height, 113.4, kg, 04/20/21 14:40:00... Start Date: 06/09/21 Status: Ordered Montville lyte lancets Montville lyte lancets, See Instructions, # 200 each, Refills 3, Tot. Refills 3, Maintenance, DX: 024.912 Please check blood sugars four times a day., 06/08/21 15:49:00 EST, Supply, 168, cm, 04/27/21 12:54:00 EDT, Height, 113.4, kg, 04/20/21 14:40:00... Start Date: 06/08/21 Status: Ordered Montville lyte lancets Montville lyte lancets, See Instructions, # 200 each, Refills 3, Tot. Refills 3, Maintenance, DX: 024.912 Please check blood sugars four times a day., 06/09/21 17:45:00 EST, Supply, 168, cm, 04/27/21 12:54:00 EDT, Height, 113.4, kg, 04/20/21 14:40:00... Start Date: 06/09/21 Status: Ordered Montville lyte test strips Montville lyte test strips, See Instructions, # 1 pack/packet, Refills 3, Tot. Refills 3, Maintenance, DX: 024.912 Please check blood sugars four times a day. [facility], schedule meter teaching., 06/07/21 9:48:00 EST, Supply, 168, cm, 04/27/... Start Date: 06/07/21 Status: Ordered Montville lyte test strips Montville lyte test strips, See Instructions, # 1 pack/packet, Refills 3, Tot. Refills 3, Maintenance, DX: 024.912 Please check blood sugars four times a day. [facility], schedule meter teaching., 06/04/21 18:04:00 EST, Supply, 168, cm, 04/27... Start Date: 06/04/21 Status: Ordered Montville lyte test strips Montville lyte test strips, See Instructions, # 200 each, Refills 3, Tot. Refills 3, Maintenance, DX:024.912 Please check blood sugars four times a day., 06/09/21 14:03:00 EST, Supply, 168, cm, 04/27/21 12:54:00 EDT, Height, 113.4, kg, 04/20/21 14:40:... Start Date: 06/09/21 Status: Ordered Montville lyte test strips Montville lyte test strips, See Instructions, # 200 each, Refills 3, Tot. Refills 3, Maintenance, DX:024.912 Please check blood sugars four times a day., 06/08/21 15:50:00 EST, Supply, 168, cm, 04/27/21 12:54:00 EDT, Height, 113.4, kg, 04/20/21 14:40:... Start Date: 06/08/21 Status: Ordered Montville lyte test strips Montville lyte test strips, See Instructions, # 200 [...] 20 tablet, 0Refills, Maintenance, 06/22/21 10:32:00 EST, [facility]/pharmacy #[id number], Partial fill upon patient request if the prescription is for a schedule II opioid drug... Start Date: 06/22/21 Status: Ordered Multivitamins with Folic Acid 1 mg oral tablet 1 tablet, By Mouth, Daily, # 30 tablet, 8 Refills, Maintenance, 03/09/21 15:40:00 EDT, Tablet, [facility]/pharmacy #[id number], Partial fill upon patient request if the prescription is for a schedule II opioid drug., 1 tablet By Mouth Daily, 168, cm, 02/03/21 12:2... Start Date: 03/09/21 Status: Ordered Zofran 4 mg oral tablet 1 tablet = 4 mg, By Mouth, Every 4 hours, PRN as needed for nausea/vomiting, # 30 tablet, 0 Refills, Maintenance, 05/25/21 10:12:00 EDT, Tablet, [facility]/pharmacy #[id number], Partial fill upon patient request [...]
--- OUTSIDE RECORDS SUMMARY | 2024-04-22 14:19 | XMS_ITS | Continuity of Care Document ---
Author Organization [facility] Address [address] [place] [address]- Care Team Providers Care Doctor Chiropractic Name Role Phone Carolynn ORDONEZ, Sara Arita Primary Care Physician [phone] Encounter [facility] [place] Date(s): 09/29/22 - 01/08/[address] [address] Attending Physician: Not on Staff, Attending MD [...] 14:39:00 EDT, 12/27/22 14:39:00 EDT, [id number], Partial fill uponpatient request if the prescription [...] 12/19/22 16:07:00 EDT, Route to Pharmacy Electronically, [id number], 168, cm, 12/13/22 17:39:00 EDT, Height, 150.4, [...] Maintenance, 05/10/22 18:35:00 EDT, Tablet, [facility]/pharmacy #[id number], Partial fill upon patient request if [...] 0 Refills, Maintenance, 11/02/22 18:45:00 EDT, Capsule, [facility]/pharmacy #[id number], Partial fill upon patient request if [...] Quezada RN Position: [facility] OB RN Member Role: Primary Care Nurse Name: Vamshi Ford RN Position: S RN Member Role: Primary Care Nurse Name: Corine Yoder RN Position: [facility] RN Member Role: Primary Care Nurse Name: Carolynn ORDONEZ, Sara Arita Position: Reference Physician Member Role: PCP Address: Address: [address] [place] [address]- Care Team Related Persons Name: CLARK MACHADO Address: home [address] [address] Name: NYA DURAND Address: [address] [place] [address] Name: KARSTEN GALLAGHER Address: home [address] [place] [address] Name: JACKY PÉREZ Address: home [address] [place] [address] Name: JACKY AMOR Address: [address] [place] [address] Name: LITTLE ELIAS Address: [address] Address: [address] [place] [address] Name: MARVIN ELIAS Address: [address] Address: [address] [place] [address] [place] Name: MARVIN ELIAS Address: home [address] [facility] [address] Name: CARLITOS DIAZ
== END 2024-04-22 15:00 | disposition home or self-care (01) ==
PROVIDERS: Visit Provider Nurse Practitioner Family
DX: M54.41 Lumbago with sciatica, right side (principal)

== ENCOUNTER → 2024-04-22 14:08 | Outpatient (BNVA) | payer OTHER, SELFPAY | DX: M54.41 Lumbago with sciatica, right side (principal) | CPT/HCPCS: 99212 ==

== ENCOUNTER 2024-05-30 12:55 | Outpatient (AMB) | payer OTHER, SELFPAY ==
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
[2024-05-30 13:12] VITALS: BP 134/98; PULSE 86; RESP 16; TEMP 36.3; O2SAT 98; BMI 51.7
== END 2024-05-30 13:47 | disposition home or self-care (01) ==
LOC: HO.HMCFM 12:55
PROVIDERS: Visit Provider Nurse Practitioner Family
DX: M54.41 Lumbago with sciatica, right side (principal)

== ENCOUNTER → 2024-05-30 12:55 | Outpatient (BNVA) | payer OTHER, SELFPAY | PROVIDERS: Visit Provider Nurse Practitioner Family | DX: M54.41 Lumbago with sciatica, right side (principal) | CPT/HCPCS: 99212 ==

== ENCOUNTER 2024-09-03 10:22 | Outpatient (AMB) | payer OTHER, SELFPAY ==
--- NOTE | 2024-09-03 10:25 | A.OFFPC_ITS ---
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: No Is last menstrual period known: Yes Last menstrual period: 07/26/24 Post menopausal: No Patient : No Allergies ketorolac [From TORADOL] Allergy (Unknown, Verified 09/03/24 10:57) HIVES metronidazole Allergy (Unknown, Verified 09/03/24 10:57) heart races, nausea Medication List - Last Reconciled 09/03/24 by Jose Martin Coleman CNP No Known Home Meds Tobacco use date assessed: 09/03/24 Dental Screening Dental Screen Date: 09/03/24 Did you have a dental visit in the last 12 months?: Yes Did you have a dental problem in the last 6 months where you did not have access to dental care?: No Was dental information given to patient?: Patient has dentist HPI HPI Comments History of Present Illness Details 34-year-old female presents for transfer of care. Her former PCP is Sara Pradhan [facility]. Acute issue(s) Reports anxiety and depressive symptoms for the past several years She was on psychotropic medications but stopped taking them 2 years ago because she wanted to manage her symptoms without medication. She does not want to take scheduled medications. She prefers PRN medications. PRN clonidine was effective in the past. She is being followed by a therapist via telehealth once monthly and on a wait list for psychiatric evaluation Past Medical History - Hypertension, anxiety, depression, mor bid obesity, low back pain Surgical Hystory - Cholecystectomy Family History - Dad: IA, kidney failure - Mom: IA, kidney failure - MGM: kidney failure, diabetes, cervica l cancer - MGF: DM - PGF: Gangrene Social History - Smokes 4 cigarettes, has been smoking on/off for over 13 years. Vapes nicotine 3 times times weekly. Drinks 4-5 cups of mixed drinks monthly. Denies recreational drug use - She makes healthy dietary choices at [facility]. Walks routinely. Sleeps an average of 5 hours nightly Health maintenance - Last eye exam was 4 years ago. Referre d to Ophthalmology for routine eye care - Last dental visit was 6-7 months ago - Last tetanus vaccine was was on 10/28/19 23 - She notes that she is up-to-date on flu vaccine - Last pap smear test was 3 weeks ago at [facility] Medical History (Updated 09/03/24 @ 15:02 by Jose Martin Coleman CNP) Depression History of hypertension Surgical History (Updated 09/03/24 @ 12:35 by Karolina Michelle) History of cholecystectomy No pertinent past surgical history Family History (Updated 09/03/24 @ 12:39 by Karolina Michelle) Father Heart failure Acute kidney failure Mother Acute kidney failure Brother In good health Sister In good health Sister In good health Sister In good health Son In good health Daughter In good health Daughter In good health Daughter No problems noted. Maternal Grandmother Acute kidney failure Diabetes Cervical cancer Maternal Grandfather Diabetes Paternal Grandfather Gangrene Social History Housing: Other Alcohol intake: never Patient Tobacco Use Status: Current everyday Tobacco user Tobacco use type: Cigarette Cigarette Packs Per Day: 0.5 Years Smoked: 17 on and off e-Cigarette/Vaping Use: Never Used Second Hand Smoke Exposure: No service: No Current occupational status: disabled Cognitive needs: No Hearing needs: No Vision needs: No Female Reproductive History Menstrual Date of last menstrual period: 07/26/24 Questionnaire PHQ-9 Over the last 2 weeks, how often have you been bothered by any of the following problems? 1. Little interest or pleasure in doing things: several days 2. Feeling down, depressed, or hopeless: several days 3. Trouble falling or staying asleep, or sleeping too much: nearly every day 4. Feeling tired or having little energy: more than half the days 5. Poor appetite or overeating: several days 6. Feeling bad about yourself - or that you are a failure or have let yourself or your family down: several days 7. Trouble concentrating on things, such as reading the newspaper or watching television: more than half the days 8. Moving or speaking so slowly that other people could have noticed. Or the opposite - being so fidgety or restless that you have been moving around a lot more than usual: nearly every day 9. Thoughts that you would be better off or of hurting yourself in some way: not at all Total score: 14 Depression Screening Interpretation: Positive Depression Screening Follow-up: Existing condition and New Medication prescribed Depression Screening Done: Yes 50439 - PHQ-9 Billing: Yes Source: Developed by Drs. Miguel Singh, Alejandra Conrad, Raffi Reyna and colleagues, with an educational cody from [employer]. Thrive Questionnaire Date Thrive assessed: 09/03/24 I am a: Patient What is your living situation today?: I have a steady place to live Within the past 12 months, did the food you bought not last and you didn't have the money to get more?: Never true Within the past 12 months, did you worry whether your food would run out before you got money to buy more?: Never true Do you have trouble paying for medicines?: No Do you have trouble getting transportation to medical appointments?: No Do you have trouble paying your heating and electricity bill?: No Do you have trouble taking care of your child, family member or friend?: No Do you have trouble with day-to-day activities such as bathing, preparing meals, shopping, managing finances, etc.?: No Are you currently unemployed and looking for a job?: No Are you interested in more education?: No Currently or been in a relationship where the following occur: No concerns reported THRIVE Score: 0 AUDIT C Alcohol Use Questionnaire (AUDIT-C) 1. How often do you have a drink containing alcohol?: Monthly or less 2. How many drinks containing alcohol do you have on a typical day when you are drinking?: 3 or 4 3. How often do you have six or more drinks on one occasion?: Less than monthly Total Score: 3 Score Reviewed/Action Taken: Yes BRENNAN-7 AMB Questionnaire BRENNAN-7 Date BRENNAN - 7 assessed: 09/03/24 Feeling nervous, anxious, or on edge: 3 = Nearly every day Not being able to stop or control worryin = Nearly every day Worrying too much about different things: 3 = Nearly every day Trouble relaxin = More than half the days Being so restless that it is hard to sit still: 1 = Several days Becoming easily annoyed or irritable: 3 = Nearly every day Feeling afraid as if something awful might happen: 1 = Several days Total BRENNAN-7 score (0-4 normal; 5-9 mild; 10-14 moderate; 15-21 severe): 16 Source: Developed by Drs. Miguel Singh, Alejandra Conrad, Raffi Reyna and colleagues, with an educational cody from [employer]. BRENNAN-7 Assessment Billing BRENNAN-7 Assessment Tool: BRENNAN-7 Assessment 05699 Review of Systems Const Details: Denies chills, Denies fatigue, Denies fever(s), Denies headache(s) and Denies weakness HEENT Denies change in vision, Denies dizziness, Denies headache(s), Denies hearing loss, Denies nasal congestion, Denies sinus pain, Denies sinus pressure and Denies sore throat Card Denies chest pain, Denies lightheadedness, Denies dyspnea and Denies other (palpitations) Resp Denies cough, Denies dyspnea and Denies wheezing GI Denies abdominal pain, Denies melena, Denies hematochezia, Denies change in bowel habits, Denies dyspepsia and Denies nausea Denies hematuria and Denies dysuria Musc Denies abnormal gait, Denies myalgias, Denies arthralgias, Denies numbness and Denies tingling Skin/Breast Denies rash, Denies unusual bruising and Denies wounds Neuro Denies abnormal gait, Denies dizziness, Denies headache(s), Denies memory loss, Denies numbness, Denies Sensory deficit (Neuro), Denies tingling and Denies weakness Psych Reports anxiety, Reports depression and Denies memory loss Endo Denies cold intolerance, Denies fatigue, Denies heat intolerance, Denies polydipsia and Denies polyuria Patrick/Lymph Denies easy bleeding and Denies easy bruising Aller/Immun Denies wheezing Physical exam (Primary Care) Vital Signs: Last Vital Signs Temp 98.0 F 09/03/24 10:40 Pulse 92 09/03/24 10:40 Resp 16 09/03/24 10:40 BP 118/56 L 09/03/24 10:40 Pulse Ox 96 09/03/24 10:40 Oxygen Delivery Method Room Air 09/03/24 10:40 BMI result Body Mass Index 50.5 Tobacco/Smoking Status: Tobacco use Status Tobacco use date assessed 09/03/24 09/03/24 10:31 Patient Tobacco Use Status Current everyday Tobacco 09/03/24 10:27 Tobacco use type Cigarette 09/03/24 10:27 e-Cigarette/Vaping Use Never Used 09/03/24 10:27 PHQ-9: PHQ-9 Score PHQ-9: Total score 14 09/03/24 12:39 Depression Screening Interpretation: Positive Depression Screening Follow-up: Existing condition and New Medication prescribed Thrive Assessment: Date of Thrive Assessment Date Thrive assessed 09/03/24 09/03/24 10:49 Currently or been in a relationship where the following occur: No concerns reported Const Other: General: no acute distress, well developed, alert and awake Nutritional Appearance: well nourished Orientation/consciousness: patient oriented x3 HENMT Head: Yes normocephalic and Yes atraumatic Ears: hearing grossly normal bilaterally and TM's normal bilaterally General nose exam: Normal external nose present and Normal nares present Mouth: Normal oral and palatal mucosa present and moist mucous membranes Teeth and gingiva: dentition normal Throat: Yes oropharynx normal Eyes Pupils: Equal, round and reactive pupils present and Pupil accommodation reflex normal EOM: EOMs intact bilaterally Neck Neck: Yes normal visual inspection, Yes no lymphadenopathy and Yes trachea midline Thyroid: Thyroid normal Carotids: no bruits Lymphatic: no lymphadenopathy noted Chest Chest palpation & inspection: normal inspection of the chest Resp Effort & Inspection: normal respiratory effort Auscultation: clear to auscultation bilaterally Cardio Rate: regular rate Rhythm: regular rhythm Heart sounds: S1 normal heart sound present, S2 normal heart sound present, no gallops, no murmurs and no rubs Bruits: no abdominal aortic bruits and no carotid bruits GI Palpation (GI): No Abdominal aortic bruit present, Soft to palpation, nontender, No hepatosplenomegaly present and No Rebound tenderness present Auscultation: normal bowel sounds General: Yes no CVA tenderness Back/Spine/Pelvis Back: no CVA tenderness Cervical Spine: cervical ROM normal and No Cervical spine tenderness Thoracic/Lumbar Spine: thoraco-lumbar ROM normal, No pain with thoraco-lumbar ROM, No thoracic spinal tenderness and No lumbar spinal tenderness Skin General: warm and dry. Normal skin color. Normal skin turgor Lesions: no lesions Rashes: no rashes Trauma: no lacerations or abrasions Wounds: no wounds Nails: normal Neuro General: patient oriented x3, gait normal and CN's II-XI intact bilaterally Cranial nerves: Yes Equal, round and reactive pupils present Cognition (Neuro): normal cognition Gait exam (Neuro): Normal gait present Motor exam (neuro): 5/5 motor strength present throughout Sensory Exam: No Sensory deficit (Neuro) Deep tendon reflexes (DTR's): Right patellar reflex intensity grade: 2+ and Left patellar reflex intensity grade: 2+ Extrem General: Yes normal to inspection, No edema and No calf tenderness Psych Appearance: grossly normal Affect: normal affect Attitude: cooperative Thought process: Normal thought process present Coding Level of Care Code New Pt Level 4 (30651) New Pt Prev Care 18-39yr(25577 Diagnoses Normal physical exam Z00.00 Morbid obesity with BMI of 50.0-59.9, adult E66.01; Z68.43 Eye exam, routine Z01.00 Smoking 1/2 pack a day or less F17.210 Engages in vaping Z72.89 Anxiety and depression F41.9; F32.A Laboratory tests ordered as part of a complete physical exam (CPE) Z00.00 Additional Codes BRENNAN-7 Assessment Billing - BRENNAN-7 Assessment Tool: BRENNAN-7 Assessment 45265 ([id number]) PHQ-9 - 93669 - PHQ-9 Billing: Yes ([id number]) Assessment & Plan Assessment & Plan (1) Normal physical exam: Code(s): Z00.00 - Encounter for general adult medical examination without abnormal findings Category: Medical Plan: No significant functional limitations noted. (2) Morbid obesity with BMI of 50.0-59.9, adult: Code(s): E66.01 - Morbid (severe) obesity due to excess calories; Z68.43 - Body mass index [BMI] 50.0-59.9, adult Category: Medical Plan: She currently weighs 213 lb, BMI is 50.5 Healthy diet and routine exercise encouraged. Referred to [facility] weight management as requested. Follow-up as needed. Verbalized understanding and agreed with treatment plan. (3) Eye exam, routine: Code(s): Z01.00 - Encounter for examination of eyes and vision without abnormal findings Category: Medical Plan: Last eye exam was 4 years ago. Referred to Ophthalmology for routine eye care (4) Smoking 1/2 pack a day or less: Code(s): F17.210 - Nicotine dependence, cigarettes, uncomplicated Category: Social Hx Plan: Smokes 4 cigarettes, has been smoking on/off for over 13 years. Instructed on the health risks and complications of smoking. Smoking cessation encouraged. Declines medication treatment for smoking cessation at this time. Encouraged to follow-up with PCP as needed. Verbalized understanding and agreed with plan. (5) Engages in vaping: Code(s): Z72.89 - Other problems related to lifestyle Category: Medical Plan: Vapes nicotine 3 times times weekly. Instructed on the risks, and complications of vaping. Encouraged to stop vaping. Declines medication treatment for nicotine use. Advised to follow-up with PCP as needed. Verbalized understanding and agreed with the plan. (6) Anxiety and depression: Code(s): F41.9 - Anxiety disorder, unspecified; F32.A - Depression, unspecified Category: Medical Plan: Anxiety and depressive symptoms for the past several years. Stop taking psychotropic medications about 2 years ago to manage her symptoms without pharmacotherapy. She is willing to start medication at this time but does not want a scheduled medication. Will trial hydroxyzine 25 mg twice daily as needed; advised to take as prescribed. Instructed on the risks, benefits, and potential adverse reactions of the medication. Continue follow-up with therapist as planned. Return in 3-4 weeks or sooner with worsening or new symptoms. Verbalized understanding and agreed with treatment plan. (7) Laboratory tests ordered as part of a complete physical exam (CPE): Code(s): Z00.00 - Encounter for general adult medical examination without abnormal findings Category: Medical Plan: Fasting labs ordered as part of a complete physical exam. Advised to fast for at least 10 hours before getting labs drawn. May drink water Verbalized understanding and agreed with treatment plan. Orders: Orders Complete Blood Count Auto Diff Today Z00.00 - Encounter for general adult medical examination without abnormal findings Comprehensive [place]. Panel Fast Today Z00.00 - Encounter for general adult medical examination without abnormal findings Lipid Panel Today Z00.00 - Encounter for general adult medical examination without abnormal findings TSH reflex Free T4 Today Z00.00 - Encounter for general adult medical examinat ion without abnormal findings UA CC w/rflx Micro + Cult Today Z00.00 - Encounter for general adult medical examination without abnormal findings Referrals Ophthalmology Referral Z01.00 - Encounter for examination of eyes and vision without abnormal findings Medical Weight Management Referral E66.01 - Morbid (severe) obesity due to excess calories, Z68.43 - Body mass index [BMI] 50.0-59.9, adult Medications: New hydroxyzine HCl 25 mg PO BID PRN 60 tabs 3RF anxiety
[2024-09-03 10:40] VITALS: BP 118/56; PULSE 92; RESP 16; TEMP 36.7; O2SAT 96; BMI 50.5
--- OUTSIDE RECORDS SUMMARY | 2024-09-03 11:34 | XMS_ITS | Clinical Summary ---
[facility] Address [address] [place] [address] Care Team Providers Care Installation Tech Name Role Phone Unavailable Primary Care Provider Unavailabl e Surgical History Surgery Date Site/Laterality Comments OTHER SURGICAL HISTORY PROCEDURE: DENIES PREVIOUS SURGERY Medical History Medical History Date Comments PTSD (post-traumatic stress disorder) 2012 DX:PTSD (post-traumatic stress disorder) Atypical squamous cells of undetermined significance (ASCUS) on Papanicolaou smear of cervix 09/28/2018 DX:Atypical squamous cell s of undetermined significance (ASCUS) on Papanicolaou smear of cervix; COMMENT: 2013; H/o LGSIL (date unclear in records) Anxiety 10/15/2018 DX:Anxiety Depression 10/15/2018 DX:Depression Panic attacks 10/15/2018 DX:Panic attacks IUD (intrauterine device) in place 04/2014 DX:IUD (intrauterine device) in place; COMMENT: Mirena placed after last delivery Family History Medical History Relation Name Comments Asthma Brother Hypertension Father Kidney failure Father Other: prediabetes Father Diabetes Maternal Grandfather Diabetes Maternal Grandmother Kidney failure Maternal Grandmother Other: heart disease Maternal Grandmother Hypertension Mother Kidney failure Mother Other: type 2 diabetes Mother Other: gangrene Paternal Grandfather Heart attack Paternal Grandmother No Known Problems Sister Relation Name Status Comments Brother Alive Daughter 1 Alive Daughter 2 Alive Daughter 3 Alive Father (Age 44) Maternal Grandfather Maternal Grandmother Mother (Age 42) Paternal Grandfather Paternal Grandmother Sister Alive Son Alive Social History Tobacco Use Types Packs/Day Years Used Date Smoking Tobacco: Every Day Cigarettes Last attempted to quit: 04/23/2018 Smokeless Tobacco: Never Alcohol Use Standard Drinks/Week Comments No 0 (1 standard drink = 0.6 oz pur e alcohol) Comments Unknown Sex and Gender Information Value Date Recorded Sex Assigned at Not on file Legal Sex Female 9:53 AM EST Gender Identity Not on file Sexual Orientation Not on file Obstetrics History Plan of Treatment Health Maintenance Due Date Last Done Comments DTaP,Tdap,and Td Vaccines (1 - Tdap) 1998 Hepatitis B Vaccines (1 of 3 - 19+ 3-dose series) 2010 Pneumococcal Vaccine: Pediat rics (0 to 5 Years) and At-Risk Patients (6 to 64 Years) (1 of 2 - PCV) 2010 Cervical Cancer Screening: P ap Smear 02/10/2012 Cholesterol Screening (Lipid Panel) 06/21/2022 Depression Screening 06/21/2022 HIV Screening 06/21/2022 Hepatitis C Screening 06/21/2022 Social Influencers of Health Screening 06/21/2022 COVID-19 Vaccine (2023-2 5 season) 2024 Influenza Vaccine (#1) 2024 HIB Vaccines Aged Out No longer eligi ble based on patient's age to complete this topic HPV Vaccines Aged Out No longer eligi ble based on patient's age to complete this topic Hepatitis A Vaccines Aged Out No long er eligible based on patient's age to complete this topic IPV Vaccines Aged Out No longer eligi ble based on patient's age to complete this topic MMR Vaccines Aged Out No longer eligi ble based on patient's age to complete this topic Meningococcal ACWY Vaccine Aged Out N o longer eligible based on patient's age to complete this topic Meningococcal B Vacine Aged Out No lo nger eligible based on patient's age to complete this topic RSV Immunization Patients Un lauren 20 months Aged Out No longer eligible b ased on patient's age to complete this topic Varicella Vaccines Aged Out No longer eligible based on patient's age to complete this topic
== END 2024-09-03 11:25 | disposition home or self-care (01) ==
PROVIDERS: Visit Provider Nurse Practitioner Family
DX: Z00.00 Encounter for general adult medical examination without abnormal findings (principal); F41.9 Anxiety disorder, unspecified; E66.01 Morbid (severe) obesity due to excess calories; Z68.43 Body mass index [BMI] 50.0-59.9, adult; F17.210 Nicotine dependence, cigarettes, uncomplicated; Z72.89 Other problems related to lifestyle; F32.A Depression, unspecified

== ENCOUNTER → 2024-09-03 10:22 | Outpatient (BNVA) | payer OTHER, SELFPAY | PROVIDERS: Visit Provider Nurse Practitioner Family | DX: Z00.00 Encounter for general adult medical examination without abnormal findings (principal); E66.01 Morbid (severe) obesity due to excess calories; Z68.43 Body mass index [BMI] 50.0-59.9, adult; F41.9 Anxiety disorder, unspecified; F32.A Depression, unspecified; Z71.3 Dietary counseling and surveillance; F17.210 Nicotine dependence, cigarettes, uncomplicated; Z71.6 Tobacco abuse counseling; Z72.89 Other problems related to lifestyle | CPT/HCPCS: 96127; 99212; 99395 ==

== ENCOUNTER 2024-10-03 09:52 | Outpatient (REF) | payer OTHER, SELFPAY ==
[2024-10-03 10:19] LABS: MANUAL DIFF FLAG NO
[2024-10-03 10:47] LABS: Basophils Absolute Auto 0.1 X10*3/uL (0.0-0.2); Basophils Percent Auto 1.2 % (0-2); Eosinophils Absolute Auto 0.2 X10*3/uL (0.0-0.4); Eosinophils Percent Auto 4.5 % (0-4); Hemoglobin 11.9 g/dl (12.0-16.0); Imm Gran Abs Auto 0.01 X10*3/uL (0.00-0.03); Imm Gran Pct Auto 0.2 % (0.0-0.4); Lymphocytes Absolute Auto 1.4 X10*3/uL (1.2-4.9); Lymphocytes Percent Auto 35.1 % (20-40); Mean Corpuscular HGB Conc 33.1 g/dl (31.0-35.0); Mean Corpuscular Hemoglobin 28.3 pg (27.0-33.0); Mean Corpuscular Volume 85.7 fL (80.0-98.0); Mean Platelet Volume 9.4 fL (9.4-12.3); Monocytes Absolute Auto 0.3 X10*3/uL (0.1-1.2); Monocytes Percent Auto 8.5 % (2-11); Neutrophils Percent Auto 50.5 % (45-73); Platelet Count 256 X10*3/uL (160-400); Red Cell Distribution Width 13.2 % (11.0-16.0)
[2024-10-03 11:15] LABS: Appearance Urine Clear; Color Urine Yellow; Glucose Urine UA Negative (Negative); Leukocyte Esterase Urine Trace (Negative); Nitrite Urine Negative (Negative); UMIC TRIGGER UACC YES; Urine Blood Negative (Negative); Urine Ketones Negative (Negative); Urine Protein Negative (Neg-Trace)
[2024-10-03 11:21] LABS: Bacteria Urine None Seen (None Seen); Hyaline Casts Urine 0-2 /LPF (0-2); RBC Urine 0-2 /HPF (0-2); Squamous Epithelial Cell Urine 0-2 /HPF (0-2); WBC Urine 0-5 /HPF (0-5)
[2024-10-03 11:31] LABS: Alanine Aminotransferase 23 U/L (0-31); Albumin Level 4.1 g/dL (3.5-5.0); Alkaline Phosphatase 52 U/L (39-117); Anion Gap 10 (12-20); Aspartate Amino Transferase 22 U/L (5-31); Bilirubin Total 0.4 mg/dL (0.0-1.0); Blood Urea Nitrogen 15 mg/dL (9-16); Calcium 9.1 mg/dL (8.4-10.2); Carbon Dioxide 26 mmol/L (22-29); Chloride 109 mmol/L (96-108); Cholesterol 137 mg/dL (<200); Estimated Glomerular Filt Rate > 60; Glucose Fasting 87 mg/dL (60-99); HDL Cholesterol 45 mg/dL (>40); LDL Cholesterol Calculated 79 mg/dL (<100); Potassium 4.5 mmol/L (3.3-5.1); Sodium 140 mmol/L (135-145); Total Protein 7.2 g/dL (6.5-8.0); Triglycerides 65 mg/dL (<150)
[2024-10-03 11:49] LABS: TSH reflex Free T4 0.84 uIU/mL (0.32-4.0); Vitamin D 25-OH Total 14.1 ng/mL (>30)
--- OUTSIDE RECORDS SUMMARY | 2024-10-03 12:04 | XMS_ITS | Encounter Summary ---
Author Organization [facility] Address [address] [place] [address] Care Team Providers Care Dietitian Helper Name Role Phone Pennie Luna MD Primary Care Provider Un available Community, Pcp Primary Care Provider Unavailabl e Encounter Details Date Type Department Care Team Description 06/28/2018 Release of Information Medical Records [address] [place] [id number] Abstract, Provider Social History Tobacco Use Types Packs/Day Years Used Date Smoking Tobacco: Former Cigarettes 0.5 13 Q uit: 04/23/2018 Smokeless Tobacco: Never Comments:quit 04/2018 Alcohol Use Standard Drinks/Week Comments No 0 (1 standard drink = 0.6 oz pur e alcohol) Sex Assigned at Date Recorded Not on file documented as of this encounter Plan of Treatment Not on file documented as of this encounter Visit Diagnoses Not on filedocumented in this encounter Care Teams Dietitian Helper Relationship Specialty Start Date End Date Pennie Luna MD PCP - General Internal Medicine 06/25/18 [facility], Pcp PCP - General Internal Medicine 04/17/19 documented as of this encounter
--- OUTSIDE RECORDS SUMMARY | 2024-10-03 12:04 | XMS_ITS | Clinical Summary ---
Author Organization [facility] Address [address] [place] [address] Care Team Providers Care Pompom Maker Name Role Phone Unavailable Primary Care Provider [...] Comments DTaP,Tdap,and Td Vaccines (1 - Tdap) 2010 Hepatitis B Vaccines (1 of 3 - [...]
== END 2024-10-03 09:53 | disposition home or self-care (01) ==
LOC: HO.LAB 09:52
PROVIDERS: PCP Nurse Practitioner Family; Visit Provider Nurse Practitioner Family
DX: F41.9 Anxiety disorder, unspecified (principal); F32.A Depression, unspecified; D64.9 Anemia, unspecified; D72.819 Decreased white blood cell count, unspecified; E55.9 Vitamin D deficiency, unspecified; Z00.00 Encounter for general adult medical examination without abnormal findings; Z11.1 Encounter for screening for respiratory tuberculosis
CPT/HCPCS: 36415; 80053; 80061; 81001; 82306; 84443; 85025; 86481; 96127

== ENCOUNTER 2024-10-03 14:00 | Outpatient (AMB) | payer OTHER, SELFPAY ==
--- NOTE | 2024-10-03 13:57 | MHC.PC.OV ---
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 Is last menstrual period known: Yes Last menstrual period: 08/26/24 Post menopausal: No Patient : No Allergies ketorolac [From TORADOL] Allergy (Unknown, Verified 10/03/24 13:58) HIVES metronidazole Allergy (Unknown, Verified 10/03/24 13:58) heart races, nausea Tobacco use date assessed: 10/03/24 Dental Screening Dental Screen Date: 10/03/24 Did you have a dental visit in the last 12 months?: Yes Did you have a dental problem in the last 6 months where you did not have access to dental care?: No Was dental information given to patient?: Patient has dentist HPI HPI Comments History of Present Illness Details 34-year-old female presents for a telehealth visit for anxiety, depression, and recent labs review follow-up. She admits to taking hydroxyzine as prescribed without adverse reactions. She notes that her mood has improved since starting hydroxyzine. However, she continues to experience panic attacks during the day, 2-3 times weekly. She insists on starting daily psychotropic medication for her anxiety and depression and notes that she will consider this. [facility] Medical History (Updated 10/03/24 @ 14:12 by Jose Martin Coleman CNP) Depression History of hypertension Surgical History (Updated 09/03/24 @ 12:35 by Karolina Michelle MA) History of cholecystectomy No pertinent past surgical history Family History (Updated 09/03/24 @ 12:39 by Karolina Michelle MA) Father Heart failure Acute kidney failure Mother Acute kidney failure Brother In good health Sister In good health Sister In good health Sister In good health Son In good health Daughter In good health Daughter In good health Daughter No problems noted. Maternal Grandmother Acute kidney failure Diabetes Cervical cancer Maternal Grandfather Diabetes Paternal Grandfather Gangrene Social History Housing: Other Alcohol intake: never Patient Tobacco Use Status: Current everyday Tobacco user Tobacco use type: Cigarette Cigarette Packs Per Day: 0.5 Years Smoked: 17 on and off e-Cigarette/Vaping Use: Never Used Second Hand Smoke Exposure: No service: No Current occupational status: disabled Cognitive needs: No Hearing needs: No Vision needs: No Female Reproductive History Menstrual Date of last menstrual period: 08/26/24 Questionnaire PHQ-9 Over the last 2 weeks, how often have you been bothered by any of the following problems? 1. Little interest or pleasure in doing things: several days 2. Feeling down, depressed, or hopeless: several days 3. Trouble falling or staying asleep, or sleeping too much: several days 4. Feeling tired or having little energy: several days 5. Poor appetite or overeating: several days 6. Feeling bad about yourself - or that you are a failure or have let yourself or your family down: not at all 7. Trouble concentrating on things, such as reading the newspaper or watching television: several days 8. Moving or speaking so slowly that other people could have noticed. Or the opposite - being so fidgety or restless that you have been moving around a lot more than usual: several days 9. Thoughts that you would be better off or of hurting yourself in some way: not at all Total score: 7 Depression Screening Interpretation: Positive Depression Screening Follow-up: Existing condition and In treatment Depression Screening Done: Yes 75667 - PHQ-9 Billing: Yes Source: Developed by Drs. Miguel Singh, Alejandra Conrad, Raffi Reyna and colleagues, with an educational cody from [employer] Thrive Questionnaire Date Thrive assessed: 10/03/24 I am a: Patient What is your living situation today?: I have a steady place to live Within the past 12 months, did the food you bought not last and you didn't have the money to get more?: Never true Within the past 12 months, did you worry whether your food would run out before you got money to buy more?: Never true Do you have trouble paying for medicines?: No Do you have trouble getting transportation to medical appointments?: No Do you have trouble paying your heating and electricity bill?: No Do you have trouble taking care of your child, family member or friend?: No Do you have trouble with day-to-day activities such as bathing, preparing meals, shopping, managing finances, etc.?: No Are you currently unemployed and looking for a job?: No Are you interested in more education?: No Please select the resources that you would like help with: None Currently or been in a relationship where the following occur: No concerns reported THRIVE Score: 0 AUDIT C Alcohol Use Questionnaire (AUDIT-C) 1. How often do you have a drink containing alcohol?: Monthly or less 2. How many drinks containing alcohol do you have on a typical day when you are drinking?: 5 or 6 3. How often do you have six or more drinks on one occasion?: Monthly Total Score: 5 Score Reviewed/Action Taken: Yes BRENNAN-7 AMB Questionnaire BRENNAN-7 Date BRENNAN - 7 assessed: 10/03/24 Feeling nervous, anxious, or on edge: 1 = Several days Not being able to stop or control worryin = Several days Worrying too much about different things: 1 = Several days Trouble relaxin = Several days Being so restless that it is hard to sit still: 1 = Several days Becoming easily annoyed or irritable: 3 = Nearly every day Feeling afraid as if something awful might happen: 3 = Nearly every day Total BRENNAN-7 score (0-4 normal; 5-9 mild; 10-14 moderate; 15-21 severe): 11 Source: Developed by Drs. Miguel Singh, Alejandra Conrad, Raffi Reyna and colleagues, with an educational cody from [employer] BRENNAN-7 Assessment Billing BRENNAN-7 Assessment Tool: BRENNAN-7 Assessment 82464 Review of Systems Const Details: Denies chills, Denies fatigue, Denies fever(s), Denies headache(s) and Denies weakness Cardiac Denies chest pain, Denies claudication, Denies leg edema, Denies lightheadedness, Denies palpitations, Denies dyspnea, Denies dyspnea on exertion, Denies orthopnea and Denies other (Loss of consciousness) Resp Denies cough, Denies excessive phlegm production, Denies dyspnea, Denies dyspnea on exertion, Denies snoring and Denies wheezing Psych Reports anxiety, Reports depression Physical exam (Primary Care) Tobacco/Smoking Status: Tobacco use Status Tobacco use date assessed 10/03/24 10/03/24 13:59 Patient Tobacco Use Status Current everyday Tobacco 10/03/24 13:59 Tobacco use type Cigarette 10/03/24 13:59 e-Cigarette/Vaping Use Never Used 10/03/24 13:59 Depression Screening Interpretation: Positive Depression Screening Follow-up: Existing condition and In treatment Thrive Assessment: Date of Thrive Assessment Date Thrive assessed 09/03/24 10/03/24 13:59 Currently or been in a relationship where the following occur: No concerns reported Const Other: Patient is alert and oriented x3. Coding Level of Care Code Tele Est Pt Level 3 (17082) Diagnoses Anxiety and depression F41.9; F32.A Normocytic anemia D64.9 Leukopenia D72.819 Vitamin D deficiency E55.9 Additional Codes PHQ-9 - 59739 - PHQ-9 Billing: Yes ([id number]) BRENNAN-7 Assessment Billing - BRENNAN-7 Assessment Tool: BRENNAN-7 Assessment 28949 ([id number]) Time Spent (min) 15 Assessment & Plan Assessment & Plan (1) Anxiety and depression: Code(s): F41.9 - Anxiety disorder, unspecified; F32.A - Depression, unspecified Category: Medical Plan: Her mood has improved since starting hydroxyzine. However, she continues to experience panic attacks during the day, 2-3 times week. She insists on taking daily psychotropic medication for her symptoms and notes she will consider this. PHQ-9 and BRENNAN-7 scores revealed moderate depression and mild anxiety respectively. Vitamin-D deficiency may contribute to her fluctuating mood. Continue current treatment regimen. Take vitamin D3 as prescribed. Routine exercise encouraged. Follow-up in 2 months or sooner with worsening or new symptoms. Verbalized understanding and agreed with treatment plan. (2) Normocytic anemia: Code(s): D64.9 - Anemia, unspecified Category: Medical Plan: Recent H&H levels are slightly low, 11.9/36.0 respectively, MCV is normal. Equivocal. Will check iron profile, ferritin, vitamin B12, and folate levels and make changes as needed. Verbalized understanding and agreed with treatment plan. (3) Leukopenia: Code(s): D72.819 - Decreased white blood cell count, unspecified Category: Medical Plan: Recent WBC is slightly low, 4.0. Equivocal. Will recheck WBC and check vitamin B12, and folate levels and make changes as needed. Verbalized understanding and agreed with treatment plan. (4) Vitamin D deficiency: Code(s): E55.9 - Vitamin D deficiency, unspecified Category: Medical Plan: Recent vitamin-D level is significantly low, 14.1. Vitamin D3 1250 mcg ordered; advised to take as prescribed. Perform vitamin-D blood work 2-3 days before next visit. Follow-up in 2 months. Verbalized understanding and agreed with treatment plan. Orders: Orders Vitamin D 25-OH Total Today Z00.00 - Encounter for general adult medical examination without abnormal findings IRON PROFILE Today D64.9 - Anemia, unspecified, D72.819 - Decreased white blood cell count, unspecified Ferritin Today D64.9 - Anemia, unspecified, D72.819 - Decreased white blood cell count, unspecified Vitamin B12 and Folate Today D64.9 - Anemia, unspecified, D72.819 - Decreased white blood cell count, unspecified Vitamin D 25-OH Total 8 Weeks E55.9 - Vitamin D deficiency, unspecified WBC ONLY Today D72.819 - Decreased white blood cell count, unspecified Medications: New cholecalciferol (vitamin D3) 1,250 mcg PO QWEEK 28 days 4 tabs 1RF
--- OUTSIDE RECORDS SUMMARY | 2024-10-03 17:48 | XMS_ITS | Encounter Summary ---
Author Organization [facility] Address [address] [place] [address] Care Team Providers Care Customer Relations Assistant Name Role Phone Pennie Luna MD Primary Care Provider Un available Community, Pcp Primary Care Provider Unavailabl e Reason for Visit * Reason Onset Date Comments immunizations 02/28/2019 Encounter Details Date Type Department Care Team Description 02/28/2019 Telephone Adult [address] [address] Pennie Luna MD immunizations Social History Tobacco Use Types Packs/Day Years Used Date Smoking Tobacco: Every Day Cigarettes 0.5 13 Last attempted to quit: 04/23/2018 Smokeless Tobacco: Never Comments:quit 04/2018 Alcohol Use Standard Drinks/Week Comments No 0 (1 standard drink = 0.6 oz pur e alcohol) Sex Assigned at Date Recorded Not on file documented as of this encounter Miscellaneous Notes * Telephone Encounter - Lillian Woods PA-C - 02/28/2019 4:38 PM EDT ordered * Telephone Encounter - Altagracia Zheng - 02/28/2019 4:10 PM EDT Patient requesting a order for ppd please place order * Telephone Encounter - Starla Hinds - 02/28/2019 4:04 PM EDT [place] / Product Type: [place]ICARE [id number] Patient is requesting a list of their previous immunizations NO Does the patient have an immunization form to be completed? NO Is the patient requesting immunizations to be administered? NO If yes, which immunizations are needed? testing for tuberculosis . For work, school, employment or exposure? work Is the patient traveling to a foreign country: NO If traveling: Which country: Date patient is leaving: documented in this encounter Plan of Treatment Scheduled Orders Name Type Priority Associated Diagnoses Orde r Schedule TB INTRADERMAL TEST Lab Routine Screening examination for pulmonary tuberculosis 1 Occurrences starting 02/28/2019 until 08/27/2019 documented as of this encounter Visit Diagnoses Diagnosis Screening examination for pulmonary tuberculosis- Primary documented in this encounter Care Teams Customer Relations Assistant Relationship Specialty Start Date End Date Pennie Luna MD PCP - General Internal Medicine 06/25/18 [facility], Pcp PCP - General Internal Medicine 04/17/19 documented as of this encounter
--- OUTSIDE RECORDS SUMMARY | 2024-10-03 17:48 | XMS_ITS | Encounter Summary ---
Author Organization [facility] Address [address] [place] [address] Care Team Providers Care Sand Mill Operator Name Role Phone Pennie Luna MD Primary Care Provider Un available Community, Pcp Primary Care Provider Unavailabl e Encounter Details Date Type Department Care Team Description 06/28/2018 Release of Information Medical Records [address] [place] [id number] Abstract, Provider Social History Tobacco Use Types [...] on filedocumented in this encounter Care Teams Sand Mill Operator Relationship Specialty Start Date End Date Pennie Luna MD PCP - General Internal Medicine 06/25/18 [facility], Pcp PCP - General Internal Medicine 04/17/19 documented as of this encounter
--- OUTSIDE RECORDS SUMMARY | 2024-10-03 17:48 | XMS_ITS | Encounter Summary ---
Author Organization [facility] Address [address] [place] [address] Care Team Providers Care Stereoplotter Operator Name Role Phone Pennie Luna MD Primary Care Provider Un available Community, Pcp Primary Care Provider Unavailabl e Reason for Visit * Reason Onset Date Comments lab test 06/26/2018 Encounter Details Date Type Department Care Team Description 06/26/2018 Telephone Adult Medicine [address] [address] Benja Lazo PA-C [address] [place] [address] [id number] lab test Social History Tobacco Use Types Packs/Day Years Used Date Smoking Tobacco: Former Cigarettes 0.5 13 Q uit: 04/23/2018 Smokeless Tobacco: Never Comments:quit 04/2018 Alcohol Use Standard Drinks/Week Comments No 0 (1 standard drink = 0.6 oz pur e alcohol) Sex Assigned at Date Recorded Not on file documented as of this encounter Miscellaneous Notes * Telephone Encounter - Janie Hdz M.A. - 06/27/2018 1:57 PM EST [phone] (home) [phone] (work) Patient notify Benja Lazo added additional urine test to be completed at the lab. * Telephone Encounter - Bneja Lazo PA-C - 06/26/2018 12:37 PM EST Please call pt and advsie I have ordered an additional urine test at the lab, she will need to go there to complete. documented in this encounter Plan of Treatment Not on file documented as of this encounter Visit Diagnoses Not on filedocumented in this encounter Care Teams Stereoplotter Operator Relationship Specialty Start Date End Date Pennie Luna MD PCP - General Internal Medicine 06/25/18 [facility], Pcp PCP - General Internal Medicine 04/17/19 documented as of this encounter
--- OUTSIDE RECORDS SUMMARY | 2024-10-03 17:48 | XMS_ITS | Clinical Summary ---
Author Organization [facility] Address [address] [place] [address] Care Team Providers Care Shallot Cleaner Name Role Phone Unavailable Primary Care Provider [...]
== END 2024-10-03 14:35 | disposition home or self-care (01) ==
LOC: HO.HMCFM 14:00
PROVIDERS: PCP Nurse Practitioner Family; Visit Provider Nurse Practitioner Family
DX: D64.9 Anemia, unspecified (principal); F41.9 Anxiety disorder, unspecified; F32.A Depression, unspecified; D72.819 Decreased white blood cell count, unspecified; E55.9 Vitamin D deficiency, unspecified

== ENCOUNTER 2025-02-06 09:03 | Outpatient (AMB) | payer OTHER, SELFPAY ==
--- OUTSIDE RECORDS SUMMARY | 2025-02-06 09:24 | XMS_ITS | Clinical Summary ---
Author Organization [facility] Address [address] [place] [address] Care Team Providers Care Abalone Sheller Name Role Phone Unavailable Primary Care Provider [...] 5 Years) and At-Risk Patients (6 to 49 Years) (1 of 2 - PCV) 2010 Cervical Cancer Screening: P ap Smear 02/10/2012 Cholesterol Screening (Lipid Panel) 06/21/2022 Depression Screening 06/21/2022 HIV Screening 06/21/2022 Hepatitis C Screening 06/21/2022 Social Influencers of Health Screening 06/21/2022 COVID-19 Vaccine (2023-2 5 season) 2024 Influenza Vaccine (#1) 2025 HIB Vaccines Aged Out No longer eligi [...] age to complete this topic Meningococcal B Vaccine Aged Out No l onger eligible based on patient's age to complete this topic RSV Immunization Patients Un lauren 20 months Aged Out No longer eligible b ased on patient's age to complete this topic Varicella Vaccines Aged Out No longer eligible based on patient's age to complete this topic
--- NOTE | 2025-02-06 11:08 | MHC.OFFVISWM ---
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: Details: Start time: 11am, End time: 11.41am I spent 36 minutes speaking with the patient on the phone plus an additional 5 minutes reviewing and updating records for a total of 41 minutes HPI Comments Details: [place] [facility] [place] [facility] Wakes up: 7am, Sleeps: 10.30pm Breakfast: 8am (eggs with toast, bagel) Lunch: 2pm (sandwich) Dinner: 6pm (tuna sandwich, rice and chicken) Snacks: occasionally at 11am (turkish roll), 8pm (chips) Exercise: none Beverages: Coffee: occasionally, Tea: none, Soda: regular Coke daily, juice: orange juice occasionally, ETOH: 2-3/year PFSH Medical History (Updated 02/06/25 @ 11:11 by Izaiah Christiansen MD) DJD (degenerative joint disease) Depression History of hypertension Surgical History (Updated 01/15/25 @ 14:17 by Vy Brown CMA) Hx of oral surgery History of cholecystectomy Family History (Updated 09/03/24 @ 12:39 by Karolina Michelle MA) Father Heart failure Acute kidney failure Mother Acute kidney failure Brother In good health Sister In good health Sister In good health Sister In good health Son In good health Daughter In good health Daughter In good health Daughter No problems noted. Maternal Grandmother Acute kidney failure Diabetes Cervical cancer Maternal Grandfather Diabetes Paternal Grandfather Gangrene Social History (Updated 01/15/25 @ 14:18 by Vy Brown CMA) Housing: Other Alcohol intake: current Alcohol intake frequency: holidays/special occasions only Patient Tobacco Use Status: Current everyday Tobacco user Tobacco use type: Cigarette Cigarettes Per Day: 7 Years Smoked: 17 on and off e-Cigarette/Vaping Use: Never Used Second Hand Smoke Exposure: No service: No Current occupational status: disabled Cognitive needs: No Hearing needs: No Vision needs: No Telehealth Telehealth Telehealth Platform: Telephone Location of provider rendering services: practice address Location of patient: address on file Patient Identification confirmed using: Name, : Yes Telehealth method: voice only Patient verbally consented to treatment: Yes Patient verbally consented to billing insurance company: Yes Patient informed of any privacy concerns related to visit: Yes Minutes spent on Phone/Video with Pt.: 41 Assessment & Plan Assessment & Plan (1) BMI 50.0-59.9, adult: Code(s): Z68.43 - Body mass index [BMI] 50.0-59.9, adult Category: Medical Plan: 1. Plan for lap sleeve gastrectomy. If diaphragmatic or ventral hernias are present at time of surgery, these will be repaired laparoscopically as well. I emphasized the importance of close follow-up, adherence to instructions and good communication. The surgery does not replace the need to change your lifestlyle which is the cause of the obesity problem. The surgery provides the motivation to try again to change your lifestyle, it reduces the appetite and make the transition to a better lifestyle easier and doubles the amount of weight you would lose compared to doing the lifestyle change without the surgery. You will need to be on a liquid diet with protein shakes for 2 weeks before surgery to maximize weight loss and boost your nutritional status to recover better from surgery and also for the first two weeks after surgery to let the stomach heal before we introduce other foods. After the first 2 weeks we will introduce protein bars and soft foods like scrambled eggs, cottage cheese and yogurt and after the 6th week will introduce meat, fish and cooked vegetables in small amounts. Over time you should be able to eat everything in small amounts. Side effects like nausea, vomiting, heartburn or abdominal pain are not common in the practice unless you are not following in the practice. This operation requires lifetime commitment to following in our practice and communication with me. You will much less weight and experience side effects if you don?t communicate or not following in the practice. Complications are rare and in our practice is about 1/10 of the national average. However, you can develop bleeding that may require transfusion (hasn?t happened for year in the practice), you may from complications (we did not have any deaths in the practice) and infections. Infections are usually a result of breakdown in communication or not understanding or following directions correctly. They are difficult to treat, they can happen during the first 6 weeks, they may require to be in the hospital for weeks or even months, not being able to eat by mouth and you may have drains and surgeries to try and correct the issue. Other risks and complications include possible conversion to an open procedure, leaks, small bowel obstruction, blood clots, cardiac, or pulmonary complications, as usp complications such as ulcers, insufficient weight loss and vitamin deficiencies. 2.Nutritional counseling. Start with one premade (20gr-bottle) PREMIER protein (buy at [employer], or [employer] or [employer]) shake (whole bottle) at 8am-10am, 1 protein bar (16gr Fit Crunch protein bars, buy at [employer], [employer] or [employer]) at 11am-1pm, another premade 20gr-bottle of PREMIER protein (buy at [employer], or [employer] or [employer]) shake (whole bottle) at 2pm-4pm, dinner at 5pm (10 forks of protein and 10 forks of salad/vegetables) and one more [employer]unch protein bar after dinner at 7pm-9pm. So you do 2 protein shakes, 2 protein bars and one meal per day. Meal to include lean meat (beef, fish, pork, turkey, chicken), or yakut yogurt, or egg whites, or beans with a salad with olive oil and fruits (berries, pears, apples, kiwi). Avoid salt, breads, potatoes, rice, pasta, desserts. 3. Each shake would be drunk slowly, like coffee in a period of 2 hours. 4. Cut each bar in 4 pieces and eat each piece in 30min to make each bar last 2 hours. 5. I emphasized the importance of measuring accurately the food portion and measure it when serving the food in plate 6. The meal portions include 10 full-size forks of meat and 10 full-size forks of salad. You always eat the meat portion but you can replace up to 5 forks for salad/vegetables with rice, potatoes or pasta, or a fruit if you like. The less you do it the better weight loss will be. 7. One full-size fork is what it can be scooped on the fork without falling aside and not what can be bit with the fork. Use regular forks like those you find in a typical restaurant. 8. Please buy the body composition scale we discussed and send me weight measurements as soon as possible and then once a week. Always include your diet and exercise plan. 9. Start walking outside daily, tracking calories with a goal of 300 calories per day, daily. Goal is to burn 2000 calories per week on exercise, which means either 300 calories daily, or 400 calories 5 days per week, or 500 calories 4 days per week, or 650 calories 3 days per week. 10. The best choice would be to purchase a stationary bike at home that can track calories. If you get one, start stationary bike at a resistance level of 4.0 Increase level by 1.0 every 3 min to a max level of 10.0. Stay at this level for 3 min and then return to level 4.0 and repeat same steps until 300 calories are burned. Goal is to burn 2000 calories per week on exercise 11. It is important of avoiding and for at least 18 months postoperatively and has been discussed at the infosession. 12. Goal is to lose at least 1.5-2lbs per week 13. Goal to lose 10% of your weight before surgery, which is about 30lbs. Ultimate weight goal: 290lbs before surgery 14. Please follow the diet plan exactly without any change. If you don't like something about the plan or you feel hungry you need to communicate with me so I can help you revise the plan. You should not change the plan yourself 15. To be scheduled for EGD to assess the stomach's anatomy. The possibility of biopsies was discussed. Patient needs to avoid use of NSAIDs and aspirin for 1 week prior to EGD. You must be on liquids only the day before your endoscopy. Risks of perforation and bleeding was discussed with the patient. This will be an outpatient procedure with IV sedation. 16. As of tomorrow, please send me a picture of your meal plate after you measure it, but before you consume it.
== END 2025-02-06 11:42 | disposition home or self-care (01) ==
LOC: HO.HBS 09:03
PROVIDERS: PCP Nurse Practitioner Family; Visit Provider Surgery
DX: E66.01 Morbid (severe) obesity due to excess calories (principal); Z68.43 Body mass index [BMI] 50.0-59.9, adult
CPT/HCPCS: 98009

== ENCOUNTER 2025-02-17 10:09 | Outpatient (REF) | payer OTHER, SELFPAY ==
--- NOTE | ~2025-02-17 | XR_ITS ---
EXAMINATION: XR CHEST 2 VIEWS HISTORY: E66.01 - Morbid (severe) obesity due to excess calories COMPARISON: Comparison is made with the prior examination dated 09/21/2019. FINDINGS: PA and lateral views of the chest are submitted. The lungs are expanded and clear. There is no pleural effusion, pneumothorax, or pulmonary vascular congestion. The heart is normal in size. The bones are intact. XR/XR chest 2V IMPRESSION: No acute cardiopulmonary abnormality. Electronically signed by: Miguel Traylor MD 02/17/2025 11:38 AM EDT
--- NOTE | 2025-02-17 10:14 | ECG_ITS ---
Test Reason : E66.01 Blood Pressure : */* mmHG Vent. Rate : 68 BPM Atrial Rate : 68 BPM P-R Int : 194 ms QRS Dur : 100 ms QT Int : 392 ms P-R-T Axes : 24 7 5 degrees QTcB Int : 416 ms Normal sinus rhythm Normal ECG When compared with ECG of 16-Aug-2023 21:17, No significant change was found Referred By: Izaiah Christiansen Electronically Signed By: RAMYA BRAUN MD
[2025-02-17 10:41] LABS: MANUAL DIFF FLAG NO
--- OUTSIDE RECORDS SUMMARY | 2025-02-17 11:12 | XMS_ITS | Clinical Summary ---
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
[2025-02-17 11:49] LABS: Hematocrit 38.7 % (37.0-47.0); Hemoglobin 12.4 g/dl (12.0-16.0); Imm Gran Abs Auto 0.01 X10*3/uL (0.00-0.03); Imm Gran Pct Auto 0.2 % (0.0-0.4); Lymphocytes Absolute Auto 1.8 X10*3/uL (1.2-4.9); Mean Corpuscular HGB Conc 32.0 g/dl (31.0-35.0); Mean Corpuscular Hemoglobin 27.9 pg (27.0-33.0); Mean Corpuscular Volume 87.2 fL (80.0-98.0); NRBC Abs Auto 0.000 X10*3/uL (0.0-0.012); NRBC Pct Auto 0.0 /100WBC (0.0-0.2); Platelet Count 299 X10*3/uL (160-400); Red Blood Count 4.44 X10*6/uL (4.20-5.50); White Blood Count 4.4 X10*3/uL (4.8-10.8)
[2025-02-17 12:08] LABS: Hemoglobin A1C 107.4719 umol/L; Total Hemoglobin (HGBA1C) 3239.6369 umol/L
[2025-02-17 12:29] LABS: Alanine Aminotransferase 17 U/L (0-31); Albumin Level 4.3 g/dL (3.5-5.0); Alkaline Phosphatase 58 U/L (39-117); Anion Gap 13 (12-20); Aspartate Amino Transferase 18 U/L (5-31); Blood Urea Nitrogen 12 mg/dL (9-16); Calcium 8.9 mg/dL (8.4-10.2); Carbon Dioxide 22 mmol/L (22-29); Chloride 110 mmol/L (96-108); Cholesterol 137 mg/dL (<200); Estimated Glomerular Filt Rate > 60; HDL Cholesterol 40 mg/dL (>40); Iron 46 mcg/dL (30-160); Percent Iron Saturation 17 % (15-50); Potassium 4.6 mmol/L (3.3-5.1); Sodium 140 mmol/L (135-145); Total Iron Binding Capacity 274 mcg/dL (228-428); Total Protein 7.0 g/dL (6.5-8.0); Triglycerides 72 mg/dL (<150); Unsaturated Iron Binding 228 ug/dL
[2025-02-17 12:55] LABS: Ferritin 76 ng/mL (10-122)
[2025-02-17 12:57] LABS: Folate 11.6 ng/mL (> or = 4.0); Vitamin B12 233 pg/mL (200-900)
== END 2025-02-17 10:10 | disposition home or self-care (01) ==
LOC: HO.XRAY 10:09
PROVIDERS: PCP Nurse Practitioner Family; Visit Provider Surgery
DX: I10 Essential (primary) hypertension (principal); E66.01 Morbid (severe) obesity due to excess calories; Z68.43 Body mass index [BMI] 50.0-59.9, adult
CPT/HCPCS: 36415; 71046; 80053; 80061; 82306; 82607; 82728; 82746; 83036; 83525; 83540; 84425; 84443; 84590; 84630; 85025; 86140; 93005

== ENCOUNTER → 2025-02-17 10:14 | Outpatient (BNV) | payer OTHER, SELFPAY | PROVIDERS: PCP Nurse Practitioner Family; Visit Provider Internal Medicine Cardiovascular Disease | DX: E66.01 Morbid (severe) obesity due to excess calories (principal) | CPT/HCPCS: 93010 ==

== ENCOUNTER → 2025-02-17 10:40 | Outpatient (BNV) | payer OTHER, SELFPAY | PROVIDERS: PCP Nurse Practitioner Family; Visit Provider Radiology Diagnostic Radiology | DX: E66.01 Morbid (severe) obesity due to excess calories (principal) | CPT/HCPCS: 71046 ==